=== PATIENT | male | born 1960 | race Caucasian/White ===

== ENCOUNTER → 2016-04-12 | Outpatient (CLI) | payer OTHER ==
[~2016-04-12] MED LIST: ADVI200C5 PO; ARIP240S PO; FLOM5CAP PO; GABA-283 PO; METH-107 PO; NAPR500T2 PO; PANT40TA2 PO; PERC5TAB6 PO; PRAZ1CAP PO; SERT-141 PO; TIZA4CAP3 PO; TRAZ100T4 PO; ZOFR20TA PO
[2016-04-12 15:34] LABS: ALBUMIN 4.5 GM/DL (3.2-5.2); ALKALINE PHOSPHATASE 84 U/L (45-117); ALT/SGPT 77 U/L (12-78); ANION GAP 9 MEQ/L (8-16); AST/SGOT 29 U/L (15-37); BILIRUBIN,TOTAL 1.2 MG/DL (0.2-1.0); BLOOD UREA NITROGEN 18 MG/DL (7-18); CALCIUM LEVEL 9.1 MG/DL (8.5-10.1); CARBON DIOXIDE LEVEL 27 MEQ/L (21-32); CHLORIDE LEVEL 104 MEQ/L (98-107); CHOLESTEROL LEVEL 288 MG/DL (<200); GLOMERULAR FILTRATION RATE > 60.0 (>56); GLUCOSE, FASTING 91 MG/DL (70-105); POTASSIUM SERUM 4.1 MEQ/L (3.5-5.1); SODIUM LEVEL 140 MEQ/L (136-145); TOTAL PROTEIN 7.5 GM/DL (6.4-8.2); TRIGLYCERIDES LEVEL 179 MG/DL (<150)
== END ==
LOC: M LAB 14:20
PROVIDERS: ATTEND Family Medicine Addiction Medicine
DX: E78.5 Hyperlipidemia, unspecified (principal)

== ENCOUNTER → 2016-04-27 | Outpatient (CLI) | payer OTHER ==
[2016-04-27 14:04] LABS: MEAN CORPUSCULAR HGB CONC 34.7 g/dl (32.0-36.5); MEAN CORPUSCULAR VOLUME 89.1 fl (80.0-96.0); RED CELL DISTRIBUTION WIDTH 12.8 % (11.5-14.5); WHITE BLOOD COUNT 8.2 K/mm3 (4.0-10.0)
[2016-04-27 14:18] LABS: ALBUMIN 4.3 GM/DL (3.2-5.2); ALBUMIN/GLOBULIN RATIO 1.43 (1.00-1.93); ALKALINE PHOSPHATASE 76 U/L (45-117); ALT/SGPT 71 U/L (12-78); ANION GAP 9 MEQ/L (8-16); AST/SGOT 26 U/L (15-37); BLOOD UREA NITROGEN 20 MG/DL (7-18); CALCIUM LEVEL 9.2 MG/DL (8.5-10.1); CARBON DIOXIDE LEVEL 28 MEQ/L (21-32); CHLORIDE LEVEL 103 MEQ/L (98-107); CHOLESTEROL LEVEL 244 MG/DL (<200); CREATININE FOR GFR 1.29 MG/DL (0.70-1.30); GLOMERULAR FILTRATION RATE > 60.0 (>56); GLUCOSE, FASTING 89 MG/DL (70-105); POTASSIUM SERUM 4.2 MEQ/L (3.5-5.1); SODIUM LEVEL 140 MEQ/L (136-145); TOTAL PROTEIN 7.3 GM/DL (6.4-8.2); TRIGLYCERIDES LEVEL 226 MG/DL (<150)
== END ==
LOC: M LAB 13:01
PROVIDERS: ATTEND Nurse Practitioner Family
DX: Z51.81 Encounter for therapeutic drug level monitoring (principal)

== ENCOUNTER 2016-06-13 10:29 | Emergency (ER) | payer OTHER ==
[~2016-06-13] VITALS: Ht 162.6 cm; Wt 93.0 kg
[~2016-06-13 10:29] MED LIST changes: -SERT-141 PO; +SERT50TA PO
[2016-06-13] MEDS ORDERED: GABA-283 PO (11:26)
[2016-06-13] MEDS ORDERED: FLOM5CAP PO (11:26)
[2016-06-13] MEDS ORDERED: OXYB5TA PO (11:26)
[2016-06-13] MEDS ORDERED: ARIP1TAB3 PO (11:26)
[2016-06-13] MEDS ORDERED: TYLE650T35 PO (11:26)
[2016-06-13] MEDS ORDERED: NS 500 ML IV ONE (12:45)
[2016-06-13] MEDS ORDERED: ASPIRIN 81 MG CHEW TABLET PO ONE (12:45)
[2016-06-13 13:40] LABS: BASO % 0.2 % (0.0-1.0); EOS # 0.1 K/mm3 (0.0-0.50); EOS % 2.2 % (0.0-3.0); LARGE UNSTAINED CELL # 0.1 K/mm3 (0.0-0.4); LARGE UNSTAINED CELL % 1.8 % (0.0-4.0); LYMPH # 0.8 K/mm3 (1.5-4.5); LYMPH % 15.7 % (24.0-44.0); MEAN CORPUSCULAR HGB CONC 34.8 g/dl (32.0-36.5); MEAN CORPUSCULAR VOLUME 89.2 fl (80.0-96.0); MONO # 0.4 K/mm3 (0.0-0.8); MONO % 6.9 % (0.0-5.0); NEUTROPHILS # 3.9 K/mm3 (1.8-7.7); NEUTROPHILS % 73.2 % (36.0-66.0); PLATELET COUNT, AUTOMATED 200 k/mm3 (150-450); RED CELL DISTRIBUTION WIDTH 13.1 % (11.5-14.5); WHITE BLOOD COUNT 5.3 K/mm3 (4.0-10.0)
[2016-06-13 13:57] LABS: ANION GAP 9 MEQ/L (8-16); BLOOD UREA NITROGEN 19 MG/DL (7-18); CARBON DIOXIDE LEVEL 27 MEQ/L (21-32); CHLORIDE LEVEL 104 MEQ/L (98-107); CREATININE FOR GFR 1.25 MG/DL (0.70-1.30); GLOMERULAR FILTRATION RATE > 60.0 (>56); GLUCOSE, FASTING 89 MG/DL (70-105); POTASSIUM SERUM 4.6 MEQ/L (3.5-5.1); SODIUM LEVEL 140 MEQ/L (136-145)
--- NOTE | 2016-06-13 15:29 | REP ---
Portable chest x-ray: Single view. History: Dyspnea and cough. Comparison study August 01, 2015. Findings: The lungs are symmetrically aerated and free of infiltrate. Pleural angles are sharp. Cardiomediastinal silhouette is unchanged from the comparison study. Heart size is mildly prominent as before. Pulmonary vasculature is not increased. No significant bony abnormalities seen. There is a metallic anchor in the glenoid on the left. Impression: Mildly prominent heart as before. No active disease. Signed by Luis Alfaro MD 06/13/2016 07:18 P
[2016-06-13] MEDS ORDERED: NS 1,000 ML IV ONE (15:30)
[2016-06-13 16:03] VITALS: BP 108/73
[2016-06-13] MEDS ORDERED: TUSSLIQ3 PO (17:15)
--- NOTE | 2016-06-14 08:53 | ECGEPIP ---
Stationary ECG Study [facility] - ED Test Date: 2016-06-13 Pat Name: AMADOR WILKINS Department: Room: - Gender: M Towel Sorter: sajan : 1960 Requested By: MARICHUY Samuel Order Number: [id number] Reading MD: Tangela Lee Measurements Intervals [place] Rate: 68 P: 50 TX: 206 QRS: 52 QRSD: 101 T: 30 QT: 337 QTc: 359 Interpretive Statements SINUS RHYTHM EARLY REPOLARIZATION, CLINICAL CORRELATION TO EXCLUDE ISCHEMIA DECREASED RATE 08/01/15 Electronically Signed On 06-14-2016 8:53:48 EDT by Tangela Lee
== END 2016-06-13 17:39 | disposition home or self-care (01) ==
LOC: M ED 12:17
DX: J02.8 Acute pharyngitis due to other specified organisms (principal); R05 Cough

== ENCOUNTER 2016-06-30 12:37 | Outpatient (RCR) | payer OTHER ==
[~2016-06-30 12:37] MED LIST changes: +ARIP1TAB3 PO; +OXYB5TA PO; +TUSSLIQ3 PO; +TYLE650T35 PO
== END 2016-07-01 ==
LOC: M PT 12:37
PROVIDERS: ATTEND Orthopaedic Surgery
DX: Z51.89 Encounter for other specified aftercare (principal); M54.5 Low back pain

== ENCOUNTER 2016-07-06 14:26 | Outpatient (RCR) | payer OTHER | END 2016-07-31 | LOC: M PT 14:26 | PROVIDERS: ATTEND Orthopaedic Surgery | DX: Z51.89 Encounter for other specified aftercare (principal); M51.36 Other intervertebral disc degeneration, lumbar region ==

== ENCOUNTER → 2016-09-01 | Outpatient (CLI) | payer OTHER | LOC: M SMT 10:15 | PROVIDERS: ATTEND Nurse Practitioner Women's Health | DX: Z12.5 Encounter for screening for malignant neoplasm of prostate (principal) ==

== ENCOUNTER → 2016-12-15 | Outpatient (CLI) | payer OTHER ==
[~2016-12-15] MED LIST changes: -METH-107 PO; +METH1TAB40 PO; -NAPR500T2 PO; +NAPR500T3 PO; -OXYB5TA PO; +OXYB5TAB10 PO; +PERC5TAB12 PO; -PERC5TAB6 PO; +TRAZ-136 PO; -TRAZ100T4 PO
--- NOTE | 2016-12-15 10:03 | REP ---
Clinical: Pain. Technique: AP and lateral views of the left foot. Findings: Mild age-related changes are appreciated including joint space narrowing at the interphalangeal joints as well as subtle periarticular sclerosis at the first and second metatarsophalangeal joint. No acute fracture dislocation. Impression: Mild age-related degenerative changes. Signed by Steve Bettencourt MD 12/15/2016 09:55 A
== END ==
LOC: M RAD 09:13
PROVIDERS: ATTEND Family Medicine Addiction Medicine
DX: M79.672 Pain in left foot (principal); M19.072 Primary osteoarthritis, left ankle and foot

== ENCOUNTER 2017-03-01 14:18 | Outpatient (RCR) | payer OTHER ==
[~2017-03-01 14:18] MED LIST changes: +ATOR40TA75 PO; +NEXI1CAP4 PO
== END 2017-03-02 ==
LOC: M PT 14:18
PROVIDERS: ATTEND Family Medicine Addiction Medicine
DX: Z51.89 Encounter for other specified aftercare (principal); S29.012A Strain of muscle and tendon of back wall of thorax, initial encounter; X58.XXXA Exposure to other specified factors, initial encounter; Y92.89 Other specified places as the place of occurrence of the external cause; Y93.89 Activity, other specified; Y99.8 Other external cause status

== ENCOUNTER 2017-03-03 05:49 | Day surgery (SDC) | payer OTHER ==
[~2017-03-03] VITALS: Ht 162.6 cm; Wt 89.4 kg
[2017-03-03] VITALS (9 sets, daily range): BP systolic 129–147; BP diastolic 70–92
[2017-03-03] MEDS ORDERED: CEFAZOLIN SOD 1 GM in APPROPRIATE DILUENT 1 EA IV ONE (06:00)
[2017-03-03] MEDS ORDERED: LR 1,000 ML IV ONE (06:00)
[2017-03-03] MEDS ORDERED: NS 1,000 ML IV ONE (06:00)
[2017-03-03] MEDS ORDERED: MIDAZOLAM INJ 2 MG/2 ML VIAL (J2250) As Ordered ONE (07:14)
[2017-03-03] MEDS ORDERED: dexameTHASONE 4 MG/ML 1ML VIAL (J1100) As Ordered ONE (07:14)
[2017-03-03] MEDS ORDERED: fentaNYL 100 MCG/2 ML INJECTION (J3010) As Ordered ONE ×2 (07:14→08:38)
[2017-03-03] MEDS ORDERED: ROCURONIUM BROMIDE 50 MG/5 ML VIAL As Ordered ONE (07:14)
[2017-03-03] MEDS ORDERED: PROPOFOL 200 MG/20 ML VIAL As Ordered ONE ×2 (07:14→07:57)
[2017-03-03] MEDS ORDERED: BUPIVACAINE/EPIN 0.25% 30 ML VIAL As Ordered ONE (07:18)
[2017-03-03] MEDS ORDERED: GLYCOPYRROLATE INJ 0.2 MG/ML 2 ML VIAL As Ordered ONE (08:12)
[2017-03-03] MEDS ORDERED: NEOSTIGMINE 10 MG/10 ML VIAL (J2710) As Ordered ONE (08:12)
[2017-03-03] MEDS ORDERED: ONDANSETRON 4MG/2ML VIAL (J2405) As Ordered ONE (08:12)
[2017-03-03] MEDS ORDERED: KETOROLAC 60 MG/2 ML VIAL (J1885) As Ordered ONE (08:16)
[2017-03-03] MEDS: fentaNYL 100 MCG/2 ML INJECTION (J3010) IV PRN ×4 (08:41→08:56)
[2017-03-03] MEDS ORDERED: PERCOCET 5MG/325MG TAB PO PRN (09:00)
[2017-03-03] MEDS ORDERED: ONDANSETRON 4MG/2ML VIAL (J2405) IV PRN ×2 (09:00)
[2017-03-03] MEDS ORDERED: LR 1,000 ML IV SCH ×2 (09:00)
[2017-03-03] MEDS ORDERED: NORCO, ANEXSIA 5/325MG TABLET (HYDROcodone/ACETAMINOPHEN) PO PRN ×2 (09:00→15:15)
[2017-03-03] MEDS ORDERED: MORPHINE 2 MG/ML 1ML SYRINGE IV PRN (09:00)
[2017-03-03] MEDS ORDERED: HYDROmorphone HCL 1 MG/ML SYRINGE (J1170) IV PRN (09:00)
[2017-03-03] MEDS ORDERED: NORCO, ANEXSIA 5/325MG TABLET (HYDROcodone/ACETAMINOPHEN) PO ONE (15:15)
[2017-03-03] MEDS: KETOROLAC 30 MG/ML VIAL (J1885) IV SCH ×2 (16:40→22:09)
[2017-03-04] VITALS: BP 138/83
[2017-03-04 04:00] VITALS: BP 142/92
[2017-03-04] MEDS: KETOROLAC 30 MG/ML VIAL (J1885) IV SCH (05:00)
--- NOTE | 2017-03-04 06:17 | RO ---
DATE OF PROCEDURE: 03/03/2017 PREOPERATIVE DIAGNOSIS: Umbilical hernia. POSTOPERATIVE DIAGNOSIS: Umbilical hernia. PROCEDURE: Umbilical hernia repair with ventral patch. SURGEON: Dr. Mario Allen AUTOMATIC EDGER: ANESTHESIA: General endotracheal anesthesia. ESTIMATED BLOOD LOSS (EBL): Minimal. FLUIDS: Crystalloid. BRIEF PROCEDURE SUMMARY: The patient was brought to the operating room and was given general anesthesia. After adequate anesthesia and preoperative antibiotics were given, the patient was prepped and draped in sterile fashion. Next, a curvilinear incision on the inferior aspect of the umbilicus was made with skin knife. Electrocautery was used cut through dermis, underlying subcutaneous tissue down to the fascia itself. The hernia sac was dissected all the way to the level of the fascia circumferentially and then the hernia sac was transected using electrocautery. There was some preperitoneal fat coming into the hernia itself and this was taken down with electrocautery. Then, a ventral patch was placed in the peritoneum and brought up to the abdominal wall and the site closed with three [id number] #0 Ethibond sutures. The dermis was brought together with #3-0 Vicryl. #4-0 Vicryl was used to approximate the skin. Steri-Strips and dry sterile dressing was applied. She was awakened, extubated and brought to the recovery room awake, alert and hemodynamic stable. Sponge and needle counts correct times two.
[2017-03-04 08:00] VITALS: BP 135/85
[2017-03-04] MEDS ORDERED: NORCOTAB PO (08:57)
== END 2017-03-04 11:00 | disposition home or self-care (01) ==
LOC: M SDC 05:49 → M PED 09:56 → M SDC 03-04 11:00
PROVIDERS: ATTEND Surgery
DX: K42.9 Umbilical hernia without obstruction or gangrene (principal); F41.9 Anxiety disorder, unspecified; F32.9 Major depressive disorder, single episode, unspecified; E78.00 Pure hypercholesterolemia, unspecified; K21.9 Gastro-esophageal reflux disease without esophagitis; M12.9 Arthropathy, unspecified; R32 Unspecified urinary incontinence; Z88.8 Allergy status to other drugs, medicaments and biological substances; Z79.899 Other long term (current) drug therapy; Z92.3 Personal history of irradiation
CPT/HCPCS: 49585; C1781

== ENCOUNTER 2017-04-04 12:19 | Outpatient (RCR) | payer OTHER | END 2017-05-03 | LOC: M PT 12:19 | DX: S29.012A Strain of muscle and tendon of back wall of thorax, initial encounter (principal) | CPT/HCPCS: 97110 ==

== ENCOUNTER → 2017-04-14 | Outpatient (CLI) | payer OTHER | LOC: M RAD 09:21 | DX: S29.012A Strain of muscle and tendon of back wall of thorax, initial encounter (principal); X58.XXXA Exposure to other specified factors, initial encounter; Y92.89 Other specified places as the place of occurrence of the external cause | CPT/HCPCS: 72072 ==

== ENCOUNTER 2017-05-09 13:48 | Outpatient (RCR) | payer OTHER | END 2017-05-31 | LOC: M PT 13:48 | DX: Z51.89 Encounter for other specified aftercare (principal); M25.511 Pain in right shoulder; M25.512 Pain in left shoulder; M79.621 Pain in right upper arm; M79.622 Pain in left upper arm | CPT/HCPCS: 97110 ==

== ENCOUNTER → 2017-06-28 | Outpatient (CLI) | payer OTHER ==
[2017-06-28 13:06] LABS: HEMATOCRIT 45.3 % (42.0-52.0); HEMOGLOBIN 15.3 g/dl (14.0-18.0); MEAN CORPUSCULAR HGB CONC 33.8 g/dl (32.0-36.5); MEAN CORPUSCULAR VOLUME 88.8 fl (80.0-96.0); PLATELET COUNT, AUTOMATED 214 10^3/uL (150-450); WHITE BLOOD COUNT 6.5 10^3/uL (4.0-10.0)
[2017-06-28 13:39] LABS: ALBUMIN 4.3 GM/DL (3.2-5.2); ALBUMIN/GLOBULIN RATIO 1.34 (1.00-1.93); ALKALINE PHOSPHATASE 76 U/L (45-117); ALT/SGPT 71 U/L (12-78); ANION GAP 8 MEQ/L (8-16); AST/SGOT 42 U/L (7-37); BLOOD UREA NITROGEN 18 MG/DL (7-18); CALCIUM LEVEL 8.7 MG/DL (8.5-10.1); CARBON DIOXIDE LEVEL 25 MEQ/L (21-32); CHLORIDE LEVEL 106 MEQ/L (98-107); CHOLESTEROL LEVEL 159 MG/DL (<200); CHOLESTEROL RISK RATIO 3.975 (<5); CREATININE FOR GFR 1.05 MG/DL (0.70-1.30); GLOMERULAR FILTRATION RATE > 60.0 (>56); GLUCOSE, FASTING 95 MG/DL (70-100); HDL CHOLESTEROL 40 MG/DL (>40); NON-HDL-C 119 MG/DL; POTASSIUM SERUM 4.4 MEQ/L (3.5-5.1); SODIUM LEVEL 139 MEQ/L (136-145); TOTAL PROTEIN 7.5 GM/DL (6.4-8.2); TRIGLYCERIDES LEVEL 175 MG/DL (<150)
== END ==
LOC: M LAB 12:25
DX: F32.89 Other specified depressive episodes (principal)
CPT/HCPCS: 84443

== ENCOUNTER → 2017-06-28 | Outpatient (CLI) | payer OTHER | LOC: M LAB 12:27 | DX: Z12.5 Encounter for screening for malignant neoplasm of prostate (principal) | CPT/HCPCS: 84153 ==

== ENCOUNTER → 2018-01-26 | Outpatient (CLI) | payer OTHER ==
[2018-01-26 12:11] LABS: BASO # 0.1 10^3/uL (0.0-0.2); BASO % 0.7 % (0.0-1.0); EOS # 0.1 10^3/uL (0.0-0.50); EOS % 1.4 % (0.0-3.0); HEMATOCRIT 46.4 % (42.0-52.0); HEMOGLOBIN 15.5 g/dl (13.5-17.5); IMMATURE GRANULOCYTE # 0.1 10^3/uL (0-0); IMMATURE GRANULOCYTE % 0.9 % (0-3.0); LYMPH # 1.4 10^3/uL (1.5-4.5); LYMPH % 19.9 % (24.0-44.0); MEAN CORPUSCULAR HEMOGLOBIN 30.3 pg (27.0-33.0); MEAN CORPUSCULAR HGB CONC 33.4 g/dl (32.0-36.5); MEAN CORPUSCULAR VOLUME 90.8 fl (80.0-96.0); MONO # 0.7 10^3/uL (0.0-0.8); MONO % 10.5 % (0.0-5.0); NEUTROPHILS # 4.7 10^3/uL (1.8-7.7); NEUTROPHILS % 66.6 % (36.0-66.0); PLATELET COUNT, AUTOMATED 223 10^3/uL (150-450); RED BLOOD COUNT 5.11 10^6/uL (4.30-6.10); RED CELL DISTRIBUTION WIDTH 12.7 % (11.5-14.5)
[2018-01-26 16:01] LABS: ALBUMIN 4.5 GM/DL (3.2-5.2); ALBUMIN/GLOBULIN RATIO 1.61 (1.00-1.93); ALKALINE PHOSPHATASE 70 U/L (45-117); ALT/SGPT 51 U/L (12-78); ANION GAP 9 MEQ/L (8-16); AST/SGOT 26 U/L (7-37); BILIRUBIN,TOTAL 0.7 MG/DL (0.2-1.0); BLOOD UREA NITROGEN 21 MG/DL (7-18); CALCIUM LEVEL 9.7 MG/DL (8.5-10.1); CARBON DIOXIDE LEVEL 26 MEQ/L (21-32); CHLORIDE LEVEL 106 MEQ/L (98-107); CHOLESTEROL LEVEL 149 MG/DL (<200); CHOLESTEROL RISK RATIO 4.138 (<5); CREATININE FOR GFR 1.04 MG/DL (0.70-1.30); GLOMERULAR FILTRATION RATE > 60.0 (>56); GLUCOSE, FASTING 90 MG/DL (70-100); HDL CHOLESTEROL 36 MG/DL (>40); LDL CHOLESTEROL 69 MG/DL (<100); NON-HDL-C 113 MG/DL; POTASSIUM SERUM 4.4 MEQ/L (3.5-5.1); SODIUM LEVEL 141 MEQ/L (136-145); TOTAL PROTEIN 7.3 GM/DL (6.4-8.2); TRIGLYCERIDES LEVEL 222 MG/DL (<150)
== END ==
LOC: M RAD 10:59
DX: M25.522 Pain in left elbow (principal)
CPT/HCPCS: 73080

== ENCOUNTER → 2018-02-16 | Outpatient (CLI) | payer OTHER | LOC: M RAD 10:47 | DX: M46.1 Sacroiliitis, not elsewhere classified (principal); M51.16 Intervertebral disc disorders with radiculopathy, lumbar region | CPT/HCPCS: 72148 ==

== ENCOUNTER → 2018-08-03 | Outpatient (CLI) | payer OTHER ==
[~2018-08-03] MED LIST changes: +FLOM0.4C39 PO; -FLOM5CAP PO; -GABA-283 PO; +GABA-845 PO; +GABA600T4 PO; +HYDR-3715 PO; +NAPR-885 PO; -NAPR500T3 PO; +OMEP20CA3 PO; -PANT40TA2 PO; +PANT40TA3 PO; +SERT-141 PO; -SERT50TA PO; +TIZA4CAP PO; -TIZA4CAP3 PO; -TRAZ-136 PO; +TRAZ-163 PO; -ZOFR20TA PO; +ZOFR4TAB16 PO
[2018-08-03 10:33] LABS: HEMOGLOBIN A1c 5.6 %
[2018-08-03 10:39] LABS: CHOLESTEROL LEVEL 153 MG/DL (<200); CHOLESTEROL RISK RATIO 4.371 (<5); HDL CHOLESTEROL 35 MG/DL (>40); LDL CHOLESTEROL 57 MG/DL (<100); NON-HDL-C 118 MG/DL; TRIGLYCERIDES LEVEL 306 MG/DL (<150)
[2018-08-03 10:49] LABS: HEPATITIS B SURFACE ANTIBODY POSITIVE (POSITIVE)
[2018-08-03 10:59] LABS: HEPATITIS B SURFACE ANTIGEN NEGATIVE (NEGATIVE)
[2018-08-03 11:28] LABS: HIV 1&2 SCREEN CENTAUR NEGATIVE (NEGATIVE)
[2018-08-03 11:53] LABS: CHLAMYDIA DNA AMPLIFICATION NEGATIVE (NEGATIVE); GC DNA AMPLIFICATION NEGATIVE (NEGATIVE)
[2018-08-05 00:06] LABS: HEPATITIS A IgG TOTAL Negative (Negative); HEPATITIS B CORE ANTIBODY IGG Positive (Negative); HSV IgM TYPES 1&2 <0.91 Ratio (0.00-0.90)
== END ==
LOC: M LAB 09:17
PROVIDERS: ATTEND Student in an Organized Health Care Education/Training Program
DX: Z11.3 Encounter for screening for infections with a predominantly sexual mode of transmission (principal)
CPT/HCPCS: 36415; 80061; 83036; 86694; 86704; 86706; 86708; 86780; 87340; 87389; 87491; 87591; G0472

== ENCOUNTER 2018-08-10 06:38 | Day surgery (SDC) | payer OTHER ==
[~2018-08-10] VITALS: Ht 162.6 cm; Wt 95.3 kg
[2018-08-10] MEDS ORDERED: NS 1,000 ML IV SCH (07:00)
[2018-08-10] MEDS ORDERED: PROPOFOL 200 MG/20 ML VIAL As Ordered ONE ×2 (07:22→08:19)
[2018-08-10] MEDS ORDERED: LIDOCAINE 2% INJ 100 MG/5 ML SDV (FOR ANES.) As Ordered ONE (07:22)
--- NOTE | 2018-08-10 08:36 | ROOR ---
Patient Name: Isaac Bravo Procedure Date: 08/10/2018 8:05 AM Date of : 1960 Age: 58 Room: [facility] Gender: Male Note Status: Finalized Procedure: Colonoscopy Indications: High risk colon cancer surveillance: Personal history of colonic polyps, Family history of colon cancer in a first-degree relative. (Hx of multiple polyps in ascending colon -several colonoscopies at that time.) Providers: Ziggy PITTS MD Referring MD: Damien JAIN MD Requesting Provider: Medicines: Monitored Anesthesia Care Complications: No immediate complications. Procedure: Pre-Anesthesia Assessment: - The heart rate, respiratory rate, oxygen saturations, blood pressure, adequacy of pulmonary ventilation, and response to care were monitored throughout the procedure. The Colonoscope was introduced through the anus and advanced to the cecum, identified by appendiceal orifice and ileocecal valve. The colonoscopy was performed without difficulty. The patient tolerated the procedure well. The quality of the bowel preparation was excellent. Findings: The perianal and digital rectal examinations were normal. Three sessile polyps were found in the splenic flexure and ascending colon. The polyps were diminutive in size. These polyps were removed with a cold snare. Resection and retrieval were complete. Small Internal Hemorrhoids. Retroflexion in the right colon was performed. The exam was otherwise without abnormality on direct and retroflexion views. (Exam: Complete, Prep: Good or Excellent.) Impression: - (Exam: Complete, Prep: Good or Excellent.) - Three diminutive polyps at the splenic flexure and in the ascending colon, removed with a cold snare. Resected and retrieved. - Small Internal Hemorrhoids. - The examination was otherwise normal on direct and retroflexion views. Recommendation: - Repeat colonoscopy in 3 years for surveillance of multiple adenomas. (Todays findings are relatively unremarkable, but due to multiple polyps in 2011/2012, would recommend early colonoscopy one more time in about 3 years) Ziggy Pitts MD Ziggy PITTS MD 08/10/2018 8:36:32 AM Electronically signed by Ziggy PITTS MD Number of Addenda: 0 Note Initiated On: 08/10/2018 8:05 AM Estimated Blood Loss: Estimated blood loss: none.
[2018-08-10 08:50] VITALS: BP 102/76
== END 2018-08-10 09:12 | disposition home or self-care (01) ==
LOC: M OPP 06:38
PROVIDERS: ATTEND Internal Medicine Gastroenterology
DX: D12.2 Benign neoplasm of ascending colon (principal); D12.3 Benign neoplasm of transverse colon; K64.8 Other hemorrhoids; Z86.010 Personal history of colon polyps; Z80.0 Family history of malignant neoplasm of digestive organs

== ENCOUNTER → 2018-10-09 | Outpatient (CLI) | payer OTHER ==
[~2018-10-09] MED LIST changes: -OMEP20CA3 PO; +OMEP20CA4 PO
[2018-10-09 17:37] LABS: BLOOD UREA NITROGEN 19 MG/DL (7-18); CALCIUM LEVEL 8.9 MG/DL (8.5-10.1); CARBON DIOXIDE LEVEL 28 MEQ/L (21-32); CHLORIDE LEVEL 104 MEQ/L (98-107); CREATININE FOR GFR 1.01 MG/DL (0.70-1.30); GLOMERULAR FILTRATION RATE > 60.0 (>56); GLUCOSE, FASTING 88 MG/DL (70-100); SODIUM LEVEL 137 MEQ/L (136-145)
== END ==
LOC: M LAB 15:36
PROVIDERS: ATTEND Student in an Organized Health Care Education/Training Program
DX: R55 Syncope and collapse (principal)

== ENCOUNTER → 2018-10-09 | Outpatient (CLI) | payer OTHER ==
[2018-10-09 17:47] LABS: ALBUMIN 4.3 GM/DL (3.2-5.2); ALT/SGPT 70 U/L (12-78); BILIRUBIN,TOTAL 0.8 MG/DL (0.2-1.0); BLOOD UREA NITROGEN 19 MG/DL (7-18); CALCIUM LEVEL 8.8 MG/DL (8.5-10.1); CARBON DIOXIDE LEVEL 27 MEQ/L (21-32); CHLORIDE LEVEL 104 MEQ/L (98-107); CREATININE FOR GFR 0.99 MG/DL (0.70-1.30); GLOMERULAR FILTRATION RATE > 60.0 (>56); GLUCOSE, FASTING 89 MG/DL (70-100); POTASSIUM SERUM 4.1 MEQ/L (3.5-5.1); SODIUM LEVEL 137 MEQ/L (136-145); TOTAL PROTEIN 7.5 GM/DL (6.4-8.2)
== END ==
LOC: M LAB 15:46
PROVIDERS: ATTEND Nurse Practitioner Family
DX: F32.89 Other specified depressive episodes (principal)

== ENCOUNTER → 2018-10-09 | Outpatient (CLI) | payer OTHER | LOC: M LAB 15:43 | PROVIDERS: ATTEND Nurse Practitioner Women's Health | DX: Z12.5 Encounter for screening for malignant neoplasm of prostate (principal) ==

== ENCOUNTER → 2019-01-14 | Outpatient (CLI) | payer OTHER ==
[~2019-01-14] MED LIST changes: -ARIP1TAB3 PO; +ARIP1TAB44 PO
--- NOTE | 2019-01-15 08:55 | REP ---
Clinical: Lung screening. History smoking. Comparison: 08/01/2015 Technique: Axial low-dose noncontrast images from the thoracic inlet to the upper abdomen using lung screening technique. Findings: The lung [place] are well-aerated. Chronic emphysematous changes with scattered subpleural scarring remains relatively stable along with scattered bronchiectasis. No consolidation, significant nodule or mass lesion is appreciated. 6 mm noncalcified nodule along the periphery of the right lower lobe (image 62) remains stable. No pleural effusion/reaction or pneumothorax. Tracheobronchial tree is patent. Mediastinum demonstrates mild atherosclerotic changes of the coronary arteries without cardiomegaly. Impression: Lung-RADS category II. No significant nodule or suspicious abnormality. Chronic stable changes including stable 6 mm noncalcified right lower lobe nodule unchanged compared to 2016. Electronically Signed by Steve Bettencourt MD 01/15/2019 08:46 A
== END ==
LOC: M RAD 09:13
PROVIDERS: ATTEND Student in an Organized Health Care Education/Training Program
DX: Z87.891 Personal history of nicotine dependence (principal); Z12.2 Encounter for screening for malignant neoplasm of respiratory organs

== ENCOUNTER → 2019-02-14 | Outpatient (CLI) | payer OTHER ==
--- NOTE | 2019-02-19 11:36 | SLEEPHOME ---
DATE OF PROCEDURE: 02/14/2019 ORDERING PROVIDER: MCKAY Grider, copy to Dr. Harmon. INTERPRETATION: Diagnostic home sleep testing was performed due to the concern for the obstructive sleep apnea syndrome in this patient with history excessive somnolence and nonrestorative sleep. For testing a nocturnal T3 respiratory monitoring device was used. Continuous record was made of pulse oxygen saturation airflow, chest, abdominal strain and body position. 11 hours and 59 minutes of data were reviewed. There were 9 hours and 53 minutes marked as time in bed. During the interval marked time in bed, there were 181 respiratory events identified of 10 seconds in duration or greater for a respiratory disturbance index of 18.3. The events were primarily obstructive; 18 mixed and central apneas were seen. Baseline pulse rate 60 beats per minute. Pulse rate ranged 44-137. Baseline saturation was 92%. Lowest oxygen saturation 83%. Testing was performed in both the supine and non supine positions. IMPRESSION: Abnormal home sleep testing with repetitive respiratory events and oxygen desaturations to 83% with a respiratory event index of 18.3 is consistent with the obstructive sleep apnea syndrome. RECOMMENDATIONS: The patient should be encouraged to undergo formal sleep evaluation.
== END ==
LOC: M SLEEP HO 10:32
PROVIDERS: ATTEND Nurse Practitioner Family
DX: R06.83 Snoring (principal)

== ENCOUNTER → 2019-05-08 | Outpatient (REF) | payer OTHER ==
[~2019-05-08] MED LIST changes: +OMEP1CAP73 PO; -OMEP20CA4 PO; -TRAZ-163 PO; +TRAZ-257 PO
== END ==
LOC: M SFHCPLAZ 08:27
PROVIDERS: ATTEND Family Medicine
DX: E78.2 Mixed hyperlipidemia (principal)

== ENCOUNTER 2019-05-16 09:47 | Emergency (ER) | payer OTHER ==
[~2019-05-16] VITALS: Ht 162.6 cm; Wt 94.6 kg
[~2019-05-16 09:47] MED LIST changes: -NAPR-837 PO
[2019-05-16] MEDS ORDERED: NAPR-837 PO (11:15)
[2019-05-16] MEDS ORDERED: KETOROLAC 60 MG/2 ML VIAL (J1885) IM ONE (11:15)
[2019-05-16 11:39] VITALS: BP 106/65
== END 2019-05-16 11:40 | disposition home or self-care (01) ==
LOC: M ED 09:47
DX: M51.37 Other intervertebral disc degeneration, lumbosacral region (principal); M62.830 Muscle spasm of back; E78.00 Pure hypercholesterolemia, unspecified; F33.9 Major depressive disorder, recurrent, unspecified; F41.9 Anxiety disorder, unspecified; G47.30 Sleep apnea, unspecified; K21.9 Gastro-esophageal reflux disease without esophagitis; Z99.89 Dependence on other enabling machines and devices; Z79.899 Other long term (current) drug therapy; Z88.8 Allergy status to other drugs, medicaments and biological substances
CPT/HCPCS: 96372; 99283; J1885

== ENCOUNTER → 2019-05-16 | Outpatient (CLI) | payer OTHER ==
[~2019-05-16] MED LIST changes: +NAPR-837 PO
[2019-05-16 10:51] LABS: CHOLESTEROL RISK RATIO 3.567 (<5)
== END ==
LOC: M LAB 09:12
PROVIDERS: ATTEND Student in an Organized Health Care Education/Training Program
DX: E78.5 Hyperlipidemia, unspecified (principal)

== ENCOUNTER → 2019-07-18 | Outpatient (REF) | payer OTHER ==
[~2019-07-18] MED LIST changes: +NAPR-837 PO
== END ==
LOC: M LAB REF 16:48
PROVIDERS: ATTEND Dermatology
DX: L82.0 Inflamed seborrheic keratosis (principal)

== ENCOUNTER → 2019-11-11 | Outpatient (CLI) | payer OTHER ==
[~2019-11-11] MED LIST changes: +ACET650T61 PO; +ARIP1TAB2 PO; +ATOR1TAB21 PO; +CLON-412 PO; +PANT40TA29 PO; -PANT40TA3 PO; +SERT-138 PO; -TYLE650T35 PO
== END ==
LOC: M LAB 11:38
PROVIDERS: ATTEND Nurse Practitioner Women's Health
DX: Z12.5 Encounter for screening for malignant neoplasm of prostate (principal)

== ENCOUNTER 2019-12-16 10:10 | Emergency (ER) | payer OTHER ==
[~2019-12-16] VITALS: Ht 162.6 cm; Wt 90.0 kg
[~2019-12-16 10:10] MED LIST changes: -ARIP1TAB2 PO; -ATOR1TAB21 PO; -CLON-412 PO; -SERT-138 PO
[2019-12-16] MEDS ORDERED: CLON-412 PO (10:48)
[2019-12-16 11:51] LABS: HEMATOCRIT 48.4 % (42.0-52.0); MEAN CORPUSCULAR HEMOGLOBIN 29.9 pg (27.0-33.0); MEAN CORPUSCULAR HGB CONC 33.1 g/dl (32.0-36.5); MEAN CORPUSCULAR VOLUME 90.3 fl (80.0-96.0); PLATELET COUNT, AUTOMATED 178 10^3/uL (150-450); RED BLOOD COUNT 5.36 10^6/uL (4.30-6.10); WHITE BLOOD COUNT 9.2 10^3/uL (4.0-10.0)
[2019-12-16 12:25] LABS: AMPHETAMINES LEVEL URINE NEGATIVE (NEGATIVE); BARBITURATES URINE NEGATIVE (NEGATIVE); BENZODIAZEPINES URINE NEGATIVE (NEGATIVE); CANNABINOIDS URINE NEGATIVE (NEGATIVE); COCAINE METABOLITE URINE NEGATIVE (NEGATIVE); METHADONE URINE NEGATIVE (NEGATIVE); OPIATES URINE NEGATIVE (NEGATIVE); PHENCYCLIDINE URINE NEGATIVE (NEGATIVE)
[2019-12-16 12:28] LABS: ACETAMINOPHEN LEVEL < 2.0 UG/ML (10.0-30.0); ALBUMIN 4.4 GM/DL (3.2-5.2); ALT/SGPT 127 U/L (12-78); BILIRUBIN,DIRECT 0.3 MG/DL (0.0-0.2); BILIRUBIN,TOTAL 1.1 MG/DL (0.2-1.0); BLOOD UREA NITROGEN 17 MG/DL (7-18); CALCIUM LEVEL 9.3 MG/DL (8.5-10.1); CARBON DIOXIDE LEVEL 25 MEQ/L (21-32); CHLORIDE LEVEL 106 MEQ/L (98-107); CREATININE FOR GFR 1.09 MG/DL (0.70-1.30); ETHYL ALCOHOL (ETHANOL) < 0.003 % (0.000-0.010); GLOMERULAR FILTRATION RATE > 60.0 (>56); GLUCOSE, FASTING 110 MG/DL (70-100); POTASSIUM SERUM 3.9 MEQ/L (3.5-5.1); SALICYLATE LEVEL < 1.7 MG/DL (5.0-30.0); SODIUM LEVEL 138 MEQ/L (136-145); TOTAL PROTEIN 7.9 GM/DL (6.4-8.2)
[2019-12-16] MEDS ORDERED: ATOR1TAB21 PO (13:06)
[2019-12-16] MEDS ORDERED: SERT-138 PO (13:06)
[2019-12-16] MEDS ORDERED: ARIP1TAB2 PO (13:06)
[2019-12-16] MEDS ORDERED: TIZA4CAP PO (13:32)
[2019-12-16] MEDS ORDERED: ATOR40TA75 PO (13:32)
[2019-12-16] MEDS ORDERED: ACETAMINOPHEN TAB 650MG DOSE (2X325MG) PO ONE (13:45)
[2019-12-16 14:39] VITALS: BP 120/101
== END 2019-12-16 14:42 | disposition home or self-care (01) ==
LOC: M ED 10:10
DX: F43.0 Acute stress reaction (principal); F32.9 Major depressive disorder, single episode, unspecified; F41.9 Anxiety disorder, unspecified; F43.10 Post-traumatic stress disorder, unspecified; Z91.5 Personal history of self-harm; J44.9 Chronic obstructive pulmonary disease, unspecified; Z88.8 Allergy status to other drugs, medicaments and biological substances; Z79.899 Other long term (current) drug therapy
CPT/HCPCS: 36415; 80048; 80076; 80307; 84443; 85027; 99284; G0480

== ENCOUNTER → 2020-01-10 | Outpatient (REF) | payer OTHER ==
[~2020-01-10] MED LIST changes: +ARIP1TAB2 PO; +ATOR1TAB21 PO; +CLON-412 PO; +SERT-138 PO
== END ==
LOC: M SFHCPLAZ 11:05
PROVIDERS: ATTEND Family Medicine
DX: R53.83 Other fatigue (principal); E78.2 Mixed hyperlipidemia

== ENCOUNTER → 2020-01-13 | Outpatient (CLI) | payer OTHER ==
[2020-01-13 12:56] LABS: BASO % 0.3 % (0.0-1.0); EOS # 0.1 10^3/uL (0.0-0.5); EOS % 1.9 % (0.0-3.0); HEMATOCRIT 46.9 % (42.0-52.0); HEMOGLOBIN 15.4 g/dl (13.5-17.5); MEAN CORPUSCULAR HEMOGLOBIN 29.6 pg (27.0-33.0); MEAN CORPUSCULAR HGB CONC 32.8 g/dl (32.0-36.5); MEAN CORPUSCULAR VOLUME 90.2 fl (80.0-96.0); MONO # 0.5 10^3/uL (0.0-0.8); MONO % 6.8 % (0.0-5.0); NEUTROPHILS # 5.5 10^3/uL (1.5-8.5); NEUTROPHILS % 76.2 % (36.0-66.0); PLATELET COUNT, AUTOMATED 187 10^3/uL (150-450); WHITE BLOOD COUNT 7.2 10^3/uL (4.0-10.0)
[2020-01-13 13:25] LABS: CHOLESTEROL RISK RATIO 4.083 (<5)
== END ==
LOC: M LAB 12:16
PROVIDERS: ATTEND Student in an Organized Health Care Education/Training Program
DX: R53.83 Other fatigue (principal); E78.2 Mixed hyperlipidemia

== ENCOUNTER → 2020-04-14 | Outpatient (CLI) | payer OTHER ==
[2020-04-14 13:04] LABS: BASO % 0.4 % (0.0-1.0); EOS # 0.1 10^3/uL (0.0-0.5); EOS % 1.3 % (0.0-3.0); HEMATOCRIT 45.6 % (42.0-52.0); LYMPH # 1.3 10^3/uL (1.5-5.0); LYMPH % 16.4 % (24.0-44.0); MEAN CORPUSCULAR HEMOGLOBIN 30.1 pg (27.0-33.0); MEAN CORPUSCULAR HGB CONC 32.9 g/dl (32.0-36.5); MEAN CORPUSCULAR VOLUME 91.4 fl (80.0-96.0); MONO # 0.6 10^3/uL (0.0-0.8); MONO % 7.6 % (0.0-5.0); NEUTROPHILS # 5.6 10^3/uL (1.5-8.5); NEUTROPHILS % 73.5 % (36.0-66.0); PLATELET COUNT, AUTOMATED 155 10^3/uL (150-450); RED BLOOD COUNT 4.99 10^6/uL (4.30-6.10); WHITE BLOOD COUNT 7.6 10^3/uL (4.0-10.0)
[2020-04-14 13:15] LABS: INR 1.12; PROTHROMBIN TIME 14.7 SECONDS (12.5-14.3)
[2020-04-14 13:16] LABS: PARTIAL THROMBOPLASTIN TIME 28.5 SECONDS (24.2-38.5)
[2020-04-14 16:01] LABS: HEPATITIS A ANTIBODY IGM NEGATIVE (NEGATIVE); HEPATITIS B SURFACE ANTIBODY POSITIVE (POSITIVE); HEPATITIS B SURFACE ANTIGEN NEGATIVE (NEGATIVE); HEPATITIS C VIRUS ABY INDEX < 0.0 INDEX (<0.8); HIV 1&2 SCREEN CENTAUR NEGATIVE (NEGATIVE)
[2020-04-15 14:08] LABS: ANTINUCLEAR ANTIBODIES DIRECT Negative (Negative)
== END ==
LOC: M LAB 12:32
PROVIDERS: ATTEND Student in an Organized Health Care Education/Training Program
DX: R23.3 Spontaneous ecchymoses (principal)

== ENCOUNTER 2020-04-22 10:22 | Emergency (ER) | payer OTHER ==
[~2020-04-22] VITALS: Ht 162.6 cm; Wt 98.8 kg
[~2020-04-22 10:22] MED LIST changes: +METH-1164 PO; -METH1TAB40 PO
--- OUTSIDE RECORDS SUMMARY | 2020-04-22 10:27 | CCD ---
Author Author [facility] Organization [facility] Address Unknown Phone Unavailable Care Team Providers Care Windmill Technician Name Role Phone Grace Manzanares Unavailable PROBLEMS Type Condition ICD9-CM Code [id number] Code Onset Dates Condition S tatus SNOMED Code Notes Problem Urinary incontinence, mixed N39.46 Active 4131 31235 Problem Urge incontinence N39.41 Active 21881562 Problem SARAH (obstructive sleep apnea) G47.33 Active 78 263548 Problem Depression with anxiety F41.8 Active 85947851 6 Problem Nodule of lower lobe of right lung R91.1 Activ e 829718096 Problem Restrictive lung disease J98.4 Active 6643385 5 Problem Chronic GERD K21.9 Active 993899156 Problem BMI 35.0-35.9,adult Z68.35 Active 129313293 Problem Lumbago with sciatica, right side M54.41 Active 552808921093700 Problem Other chronic pain G89.29 Active 91150956 Problem BMI 36.0-36.9,adult Z68.36 Active 197032504 Problem Rash or skin eruption accompanying infectious disease B99.9 Active 76125822 Problem Lumbago with sciatica, left side M54.42 Active 552118758 Problem Urinary tract infection, site not specified N39.0 Active 98622626 Problem Encounter for screening for lung cancer Z12.2 Active 272688496 Problem Mixed hyperlipidemia E78.2 Active 409832239 Problem Enlarged prostate with lower urinary tract symptoms N40.1 Active 59471253522612 Problem Fatigue, unspecified type R53.83 Active 135640 01 Problem Weight loss, non-intentional R63.4 Active 448 787276 Problem Intermittent palpitations R00.2 Active 492768 007 Problem Planning to commit suicide R45.851 Active 17326 0009 ALLERGIES Allergen (clinical drug ingredient) Drug/Non Drug Allergy do cumented on EMR Reaction Allergy Type Onset Date Status Flexeril itching, nausea Drug Allergy Active [place] Artie rash Non Drug Allergy Active ENCOUNTERS from 1960 to 2020-04-10 Encounter Location Date Provider Diagnosis [facility] [address] [place] [id number] 07 Apr, 2020 Grace Manzanares IMMUNIZATIONS Vaccine Route Administration Date Status Influenza (18 yrs & older) Flublok IM Intramuscular Jan 10, 2020 Administered Influenza (18 yrs & older) Flublok IM Intramuscular Jan 06, 2020 Administered Influenza (18 yrs & older) Flublok IM Intramuscular Dec 27 9 Administered Pneumococcal Adult 0.5mL (Pneumovax 23) IM Intramuscular Jan 10, 2020 Administered Influenza (6mo & up) Fluzone Unknown Apr 22, 2015 Ref used Influenza (6mo & up) Fluzone Unknown Mar 25, 2015 Ref used Influenza (6mo & up) Fluzone Unknown Mar 12, 2015 Ref used SOCIAL HISTORY Tobacco Use: Social History Observation Description Date Details (start date - stop date) Never Smoker Sex Assigned At : Social History Observation Description Sex Assigned At Unknown Education: Question Answer Notes Level of Education: Finished High School Audit Question Answer Notes Total Score: 0 Interpretation: Alcohol Education Sexual Hx: Question Answer Notes Had sex in the last 12 months (vaginal, oral, or anal)? No Have you ever had an STD? No Drug and Alcohol Question Answer Notes Total Score: 0 Interpretation: No problems reported BMI Care Goal Follow-Up Question Answer Notes Above Normal BMI Follow-Up Giving encouragement to exercise Tobacco Use: Question Answer Notes Are you a: never smoker REASON FOR REFERRAL No Information VITAL SIGNS No information MEDICATIONS Medication SIG (Take, Route, Frequency, Duration) Notes Start Da te End Date Status Sertraline HCl 100 MG 2 Orally Daily Active Prazosin HCl 1 MG 1 capsule at bedtime Orally Once a day Not-Taking Clonidine HCl 0.2 MG 1 tablet Orally Once a day Active Aripiprazole 10 MG 1 tablet Orally Once a day Active Acetaminophen ER 650 MG TAKE ONE TABLET BY MOUTH THR EE TIMES A DAY NEEDED for 30 Not-Taking tylenol 650 mg 1 tab Oral tid for 30 days Not-Taking Mupirocin 2 % 1 application Externally Three times a day for 1 0 day(s) Jan, Active TraZODone HCl 150 MG 1 tablet at bedtime Orally Once a day Not-Taking Tamsulosin HCl 0.4 mg 1 capsule Orally Once a day for 30 Active Mapap Arthritis Pain 650 MG 2 tablets as needed Orally every 8 hrs Not-Taking Tizanidine HCl 4 MG 1 tablet as needed Orally every 6 hrs Active Pantoprazole Sodium 40 MG 1 tablet Orally bid Not-Taking Prazosin HCl 1 MG 1 capsule at bedtime Orally Once a day Not-Taking Trazodone 50 100 mg 2 tab(s) p.o. daily Not-Taking Tamsulosin HCl 0.4 MG 1 capsule Orally Once a day for 30 Days Active Nexium 20 MG 1 capsule Orally Once a day Not-Taking Sertraline HCl 100 MG 1 1/2 tablet Orally Once a day Not-Taking Oxybutynin Chloride 5 MG 1 tablet bid for 30 Active Atorvastatin Calcium 80 MG 1 tablet Orally Once a day for 30 Active Depend Pant Large 1 ea N39.41 Weight as needed MDD 24 for 30 days August, Active Aspirin 81 MG 1 tablet Orally Once a day for 90 day(s) Active Gabapentin 600 MG 1 capsule Orally three times daily Active Acetaminophen 650 MG 1 tablet Orally three times daily as needed for 30 days May, Active Albuterol Sulfate HFA 108 (90 Base) MCG/ACT 1 puff as needed Inhalation every 4 hours as needed for 30 Days Jul, Acti ve Cipro 500 MG 1 tablet Orally Twice a day Mar, Not-Taking Omeprazole 20 MG 1 capsule Orally Once a day for 90 days Active Loratadine 10 MG 1 tablet Orally Once a day for 14 day(s) Jan, Active PROCEDURES No Information RESULTS No Results REASON FOR VISIT script from medline? MEDICAL (GENERAL) HISTORY Type Description Date Medical History Depression Medical History BPH Medical History Anxiety Medical History GERD Medical History Hypercholesterolemia Medical History PTSD Medical History Severe stenosis and hernated disc Medical History Umbilical hernia Medical History SARAH Medical History Insomnia and nightmares Surgical History Colon Surgery multiple 1316-2529 Surgical History Orthopedic surgeries-right leg, left loida ulder multiple Surgical History Left inguinal hernia repair 1984 Surgical History Upper endoscopy for heartburn 2015 Surgical History Colonoscopy 2015 Surgical History Umbilical hernia repair with ventral pat ch 2018 Surgical History colonoscopy aug-2018 Hospitalization History surgicaly related Goals Section No Information Health Concerns No Information MEDICAL EQUIPMENT No Information MENTAL STATUS No Information FUNCTIONAL STATUS No Information ASSESSMENTS No Information PLAN OF TREATMENT Medication Medication Name Sig Start Date Stop Date Aspirin 81 MG 1 tablet Orally Once a day for 90 day(s) Next Appt Details Provider Name:Betty Kumar, 2020-09-01 0 09:30:00 AM, [address], [place], [address], Insurance Providers Payer Name Payer Address Payer Phone Insured Name Patient Relati onship to Insured Coverage Start Date Coverage End Date [facility] [address] [facility] [phone] AMADOR WILKINS self
--- OUTSIDE RECORDS SUMMARY | 2020-04-22 10:27 | CCD ---
Author Author [facility] Organization [facility] Address Unknown Phone Unavailable Care Team Providers Care Manager Training Name Role Phone Betty Kumar Unavailable PROBLEMS Type Condition ICD9-CM Code YFG14-OX Code Onset Dates Condition S tatus SNOMED Code Notes Problem Urinary incontinence, mixed N39.46 Active 4139 35031 Problem Urge incontinence N39.41 Active 08988081 Problem SARAH (obstructive sleep apnea) G47.33 Active 78 596019 Problem Depression with anxiety F41.8 Active 44939933 6 Problem Nodule of lower lobe of right lung R91.1 Activ e 657143128 Problem Restrictive lung disease J98.4 Active 4122675 5 Problem Chronic GERD K21.9 Active 213791584 Problem BMI 35.0-35.9,adult Z68.35 Active 169074349 Problem Lumbago with sciatica, right side M54.41 Active 128463582442037 Problem Other chronic pain G89.29 Active 68308040 Problem BMI 36.0-36.9,adult Z68.36 Active 325607435 Problem Rash or skin eruption accompanying infectious disease B99.9 Active 76900445 Problem Lumbago with sciatica, left side M54.42 Active 219432326 Problem Urinary tract infection, site not specified N39.0 Active 36988308 Problem Encounter for screening for lung cancer Z12.2 Active 784948615 Problem Mixed hyperlipidemia E78.2 Active 940610694 Problem Enlarged prostate with lower urinary tract symptoms N40.1 Active 04119685705783 Problem Fatigue, unspecified type R53.83 Active 796084 01 Problem Weight loss, non-intentional R63.4 Active 448 437576 Problem Intermittent palpitations R00.2 Active 730408 007 Problem Planning to commit suicide R45.851 Active 33753 0009 ALLERGIES Allergen (clinical drug ingredient) Drug/Non Drug Allergy do cumented on EMR Reaction Allergy Type Onset Date Status Flexeril itching, nausea Drug Allergy Active [place] rash Non Drug Allergy Active ENCOUNTERS from 1960 to 2020-03-14 Encounter Location Date Provider Diagnosis [facility] [address] [place] [address] 11 Mar Betty Marcialjenny Urge incontinence N39.41 IMMUNIZATIONS Vaccine Route Administration Date Status Influenza [...] Notes Start Da te End Date Status Albuterol Sulfate HFA 108 (90 Base) MCG/ACT 1 puff as needed Inhalation every 4 hours as needed for 30 Days Jul, Acti ve Aripiprazole 10 MG 1 tablet Orally Once a day Active Tamsulosin HCl 0.4 MG 1 capsule Orally Once a day for 30 Days Active Gabapentin 600 MG 1 capsule Orally three times daily Active tylenol 650 mg 1 tab Oral tid for 30 days Not-Taking Acetaminophen ER 650 MG TAKE ONE TABLET BY MOUTH THR EE TIMES A DAY NEEDED for 30 Not-Taking Cipro 500 MG 1 tablet Orally Twice a day Mar, Not-Taking Atorvastatin Calcium 80 MG 1 tablet Orally Once a day for 30 Active TraZODone HCl 150 MG 1 tablet at bedtime Orally Once a day Not-Taking Mapap Arthritis Pain 650 MG 2 tablets as needed Orally every 8 hrs Not-Taking Depend Pant Large 1 ea N39.41 Weight as needed MDD 24 for 30 days August, Active Aspirin 81 MG 1 tablet Orally Once a day for 90 Active Sertraline HCl 100 MG 2 Orally Daily Active Acetaminophen 650 MG 1 tablet Orally three times daily as needed for 30 days May, Active Trazodone 50 100 mg 2 tab(s) p.o. daily Not-Taking Sertraline HCl 100 MG 1 1/2 tablet Orally Once a day Not-Taking Nexium 20 MG 1 capsule Orally Once a day Not-Taking Prazosin HCl 1 MG 1 capsule at bedtime Orally Once a day Not-Taking Tizanidine HCl 4 MG 1 tablet as needed Orally every 6 hrs Active Clonidine HCl 0.2 MG 1 tablet Orally Once a day Active Prazosin HCl 1 MG 1 capsule at bedtime Orally Once a day Not-Taking Pantoprazole Sodium 40 MG 1 tablet Orally bid Not-Taking Tamsulosin HCl 0.4 mg 1 capsule Orally Once a day for 30 Active Loratadine 10 MG 1 tablet Orally Once a day for 14 day(s) Jan, Active Mupirocin 2 % 1 application Externally Three times a day for 1 0 day(s) Jan, Active Oxybutynin Chloride 5 MG 1 tablet bid for 30 Active Omeprazole 20 MG 1 capsule Orally Once a day for 90 days Active PROCEDURES No Information RESULTS No Results REASON FOR VISIT script refills MEDICAL (GENERAL) HISTORY Type Description Date Medical History Depression Medical History BPH Medical History Anxiety Medical History GERD Medical History Hypercholesterolemia Medical History PTSD Medical History Severe stenosis and hernated disc Medical History Umbilical hernia Medical History SARAH Medical History Insomnia and nightmares Surgical History Colon Surgery multiple 7795-1236 Surgical History Orthopedic surgeries-right leg, left loida ulder multiple Surgical History Left inguinal hernia repair 1984 Surgical History Upper endoscopy for heartburn 2016 Surgical History Colonoscopy 2015 Surgical History Umbilical hernia repair with ventral pat ch 2017 Surgical History colonoscopy aug-2018 Hospitalization History surgicaly related Goals Section No Information Health Concerns No Information MEDICAL EQUIPMENT No Information MENTAL STATUS No Information FUNCTIONAL STATUS No Information ASSESSMENTS Encounter Date Diagnosis Assessment Notes Treatment Notes Treatm ent Clinical Notes Mar, Urge incontinence (ICD-10 - N39.41) PLAN OF TREATMENT Medication Medication Name Sig Start Date Stop Date Tamsulosin HCl 0.4 mg 1 capsule Orally Once a day for 30 Oxybutynin Chloride 5 MG 1 tablet bid for 30 Tamsulosin HCl 0.4 MG 1 capsule Orally Once a day for 30 Days Aspirin 81 MG 1 tablet Orally Once a day for 90 Next Appt Details Provider Name:Grace Manzanares, 2020-03-16 01 :30:00 PM, [address] [facility], [facility] [place], [address], Provider Name:Betty Kumar, 2020-09-01 0 09:30:00 AM, [address], [place], [address], Insurance Providers Payer Name Payer Address Payer Phone Insured Name Patient Relati onship to Insured Coverage Start Date Coverage End Date [facility] [employer] [facility] [address] [facility] [phone] AMADOR WILKINS self
--- OUTSIDE RECORDS SUMMARY | 2020-04-22 10:27 | CCD ---
Author Author [facility] Organization [facility] Address Unknown Phone Unavailable Care Team Providers Care Route Rider Supervisor Name Role Phone Grace Manzanares Unavailable PROBLEMS Type Condition ICD9-CM Code [id number] Code Onset Dates Condition S tatus SNOMED Code Notes Problem Urinary incontinence, mixed N39.46 Active 4130 97411 Problem Urge incontinence N39.41 Active 29393294 Problem SARAH (obstructive sleep apnea) G47.33 Active 78 186421 Problem Depression with anxiety F41.8 Active 66755737 6 Problem Nodule of lower lobe of right lung R91.1 Activ e 202122459 Problem Restrictive lung disease J98.4 Active 7220396 5 Problem Chronic GERD K21.9 Active 279408140 Problem BMI 35.0-35.9,adult Z68.35 Active 232093637 Problem Lumbago with sciatica, right side M54.41 Active 612606363392868 Problem Other chronic pain G89.29 Active 76367776 Problem BMI 36.0-36.9,adult Z68.36 Active 076232310 Problem Rash or skin eruption accompanying infectious disease B99.9 Active 54111189 Problem Lumbago with sciatica, left side M54.42 Active 700658392 Problem Urinary tract infection, site not specified N39.0 Active 97907312 Problem Encounter for screening for lung cancer Z12.2 Active 520584670 Problem Mixed hyperlipidemia E78.2 Active 356389099 Problem Enlarged prostate with lower urinary tract symptoms N40.1 Active 87923230550512 Problem Fatigue, unspecified type R53.83 Active 400345 01 Problem Weight loss, non-intentional R63.4 Active 448 002731 Problem Intermittent palpitations R00.2 Active 591042 007 Problem Planning to commit suicide R45.851 Active 72134 0009 ALLERGIES Allergen (clinical drug ingredient) Drug/Non Drug Allergy do cumented on EMR Reaction Allergy Type Onset Date Status Flexeril itching, nausea Drug Allergy Active [place] rash Non Drug Allergy Active ENCOUNTERS from 1962 to 2020-04-20 Encounter Location Date Provider Diagnosis [address] [place] [address] 15 Apr, 2020 Grace Manzanares Petechial rash R23.3 IMMUNIZATIONS Vaccine Route Administration Date Status Influenza [...] Notes Start Da te End Date Status Tamsulosin HCl 0.4 MG 1 capsule Orally Once a day for 30 Days Active Cipro 500 MG 1 tablet Orally Twice a day Mar, Not-Taking Albuterol Sulfate HFA 108 (90 Base) MCG/ACT 1 puff as needed Inhalation every 4 hours as needed for 30 Days Jul, Acti ve Clonidine HCl 0.2 MG 1 tablet Orally Once a day Active Tamsulosin HCl 0.4 mg 1 capsule Orally Once a day for 30 Active Atorvastatin Calcium 80 MG 1 tablet Orally Once a day for 30 Active Aspirin 81 MG 1 tablet Orally Once a day for 90 day(s) Active Oxybutynin Chloride 5 MG 1 tablet bid for 30 Active Mapap Arthritis Pain 650 MG 2 tablets as needed Orally every 8 hrs Not-Taking tylenol 650 mg 1 tab Oral tid for 30 days Not-Taking Trazodone 50 100 mg 2 tab(s) p.o. daily Not-Taking Pantoprazole Sodium 40 MG 1 tablet Orally bid Not-Taking Omeprazole 20 MG 1 capsule Orally Once a day for 90 days Active Acetaminophen ER 650 MG TAKE ONE TABLET BY MOUTH THR EE TIMES A DAY NEEDED for 30 Not-Taking Nexium 20 MG 1 capsule Orally Once a day Not-Taking Sertraline HCl 100 MG 2 Orally Daily Active Aripiprazole 10 MG 1 tablet Orally Once a day Active Acetaminophen 650 MG 1 tablet Orally three times daily as needed for 30 days May, Active Prazosin HCl 1 MG 1 capsule at bedtime Orally Once a day Not-Taking Depend Pant Large 1 ea N39.41 Weight as needed MDD 24 for 30 days August, Active Sertraline HCl 100 MG 1 1/2 tablet Orally Once a day Not-Taking Prazosin HCl 1 MG 1 capsule at bedtime Orally Once a day Not-Taking TraZODone HCl 150 MG 1 tablet at bedtime Orally Once a day Not-Taking Tizanidine HCl 4 MG 1 tablet as needed Orally every 6 hrs Active Gabapentin 600 MG 1 capsule Orally three times daily Active PROCEDURES No Information RESULTS No Results REASON FOR VISIT No Information MEDICAL (GENERAL) HISTORY Type Description Date Medical History Depression Medical History BPH Medical History Anxiety Medical History GERD Medical History Hypercholesterolemia Medical History PTSD Medical History Severe stenosis and hernated disc Medical History Umbilical hernia Medical History SARAH Medical History Insomnia and nightmares Surgical History Colon Surgery multiple 8839-0191 Surgical History Orthopedic surgeries-right leg, left loida ulder multiple Surgical History Left inguinal hernia repair 1984 Surgical History Upper endoscopy for heartburn 2015 Surgical History Colonoscopy 2016 Surgical History Umbilical hernia repair with ventral pat ch 2018 Surgical History colonoscopy aug-2018 Hospitalization History surgicaly related Goals Section No Information Health Concerns No Information MEDICAL EQUIPMENT No Information MENTAL STATUS No Information FUNCTIONAL STATUS No Information ASSESSMENTS Encounter Date Diagnosis Assessment Notes Treatment Notes Treatm ent Clinical Notes Apr, Petechial rash (ICD-10 - R23.3) Non-palpable/blanchable petechiae rash, diffuse, spreading, without fever, pain or pruritus. No new recent laudry/detergent.bodywash/medication per patient. PT/PTT roughly unremarkable. CBC revealed no thrombocytopenia. Concern for vasculitis due to presentation. Refer to derm for further evaluation and possible biopsy PLAN OF TREATMENT Treatment Notes Assessment Notes Clinical Notes Petechial rash Non-palpable/blancha ble petechiae rash, diffuse, spreading, without fever, pain or pruritus. No new recent laudry/detergent.bodywash/medication per patient. PT/PTT roughly unremarkable. CBC revealed no thrombocytopenia. Concern for vasculitis due to presentation. Refer to derm for further evaluation and possible biopsy Next Appt Details Provider Name:Grace Manzanares, 2020-04-28 01 :45:00 PM, [address] [facility], [facility] [place], [address], Provider Name:Betty Cejajenny, 2020-09-01 0 09:30:00 AM, [address], [place], [address], Insurance Providers Payer Name Payer Address Payer Phone Insured Name Patient Relati onship to Insured Coverage Start Date Coverage End Date [facility] [address] [facility] [phone] AMADOR WILKINS self
--- OUTSIDE RECORDS SUMMARY | 2020-04-22 10:27 | CCD ---
Author Author [facility] Organization [facility] Address Unknown Phone Unavailable Care Team Providers Care Hat Block Maker Name Role Phone Betty Kumar Unavailable PROBLEMS Type Condition ICD9-CM Code [id number] Code Onset Dates Condition S tatus SNOMED Code Notes Problem Urinary incontinence, mixed N39.46 Active 4136 27471 Problem Urge incontinence N39.41 Active 42716962 Problem SARAH (obstructive sleep apnea) G47.33 Active 78 836148 Problem Depression with anxiety F41.8 Active 24047306 6 Problem Nodule of lower lobe of right lung R91.1 Activ e 283146917 Problem Restrictive lung disease J98.4 Active 8305357 5 Problem Chronic GERD K21.9 Active 195799321 Problem BMI 35.0-35.9,adult Z68.35 Active 290160785 Problem Lumbago with sciatica, right side M54.41 Active 810577093575428 Problem Other chronic pain G89.29 Active 92029361 Problem BMI 36.0-36.9,adult Z68.36 Active 932412240 Problem Rash or skin eruption accompanying infectious disease B99.9 Active 81782256 Problem Lumbago with sciatica, left side M54.42 Active 180723412 Problem Urinary tract infection, site not specified N39.0 Active 61749713 Problem Encounter for screening for lung cancer Z12.2 Active 486791130 Problem Mixed hyperlipidemia E78.2 Active 026385237 Problem Enlarged prostate with lower urinary tract symptoms N40.1 Active 50111458370982 Problem Fatigue, unspecified type R53.83 Active 295155 01 Problem Weight loss, non-intentional R63.4 Active 448 358450 Problem Intermittent palpitations R00.2 Active 679937 007 Problem Planning to commit suicide R45.851 Active 41785 0009 ALLERGIES Allergen (clinical drug ingredient) Drug/Non Drug Allergy do cumented on EMR Reaction Allergy Type Onset Date Status Flexeril itching, nausea Drug Allergy Active [place] rash Non Drug Allergy Active E[facility]OUNTERS from 1962 to 2020-03-14 Encounter Location Date Provider Diagnosis [facility] [address] [place] [address] Mar Betty Recore Enlarged prostate with lower urinary tra ct symptoms N40.1 and Urgency of urination R39.15 IMMUNIZATIONS Vaccine Route Administration Date Status Influenza [...] REASON FOR REFERRAL No Information VITAL SIGNS Weight 211.6 lbs Mar, Height 5'4" in Mar, BMI 36.32 kg/m2 Mar, Heart Rate 72 /min Mar, Respiratory Rate 18 /min Mar, Temperature 98.3 degrees Fahrenheit Mar, Oximetry 94 Mar, Blood pressure systolic 116 mm Hg Mar, Blood pressure diastolic 66 mm Hg Mar, MEDICATIONS Medication SIG (Take, Route, Frequency, Duration) [...] Information RESULTS No Results REASON FOR VISIT 6 MONTH F/U MEDICAL (GENERAL) HISTORY Type Description Date Medical History Depression Medical History BPH Medical History Anxiety Medical History GERD Medical History Hypercholesterolemia Medical History PTSD Medical History Severe stenosis and hernated disc Medical History Umbilical hernia Medical History SARAH Medical History Insomnia and nightmares Surgical History Colon Surgery multiple 0476-5331 Surgical History Orthopedic surgeries-right leg, left loida ulder multiple Surgical History Left inguinal hernia repair 1983 Surgical History Upper endoscopy for heartburn 2015 Surgical History Colonoscopy 2016 Surgical History Umbilical hernia repair with ventral pat ch 2018 Surgical History colonoscopy aug-2018 Hospitalization History surgicaly related Goals Section No Information Health Concerns No Information MEDICAL EQUIPMENT No Information MENTAL STATUS No Information FUNCTIONAL STATUS No Information ASSESSMENTS Encounter Date Diagnosis Assessment Notes Treatment Notes Treatm ent Clinical Notes Mar, Enlarged prostate with lower urinary tract symptoms (ICD-10 - N40.1) Mar, Urgency of urination (ICD-10 - R39.15) PLAN OF TREATMENT Medication Medication Name Sig Start Date Stop Date Tamsulosin HCl 0.4 mg 1 capsule Orally Once a day for 30 Oxybutynin Chloride 5 MG 1 tablet bid for 30 Tamsulosin HCl 0.4 MG 1 capsule Orally Once a day for 30 Days Aspirin 81 MG 1 tablet Orally Once a day for 90 Next Appt Details 6 Months Reason:BPH Provider Name:Grace Manzanares, 2020-03-16 01 :30:00 PM, [address] [facility], [facility] [place], [address], Provider Name:Betty Kumar, 2020-09-01 0 09:30:00 AM, [address] [place], [address], [facility] Insurance Providers Payer Name Payer Address Payer Phone Insured Name Patient Relati onship to Insured Coverage Start Date Coverage End Date [facility] COMM[facility] PLAN [facility] [address] [facility] [phone] AMADOR WILKINS self
--- OUTSIDE RECORDS SUMMARY | 2020-04-22 10:28 | CCD ---
Author Author [facility] Organization [facility] Address Unknown Phone Unavailable Care Team Providers Care Certified Bench Jeweler Technician Name Role Phone Grace Manzanares Unavailable PROBLEMS Type Condition ICD9-CM Code [id number] Code Onset Dates Condition S tatus SNOMED Code Notes Problem Urinary incontinence, mixed N39.46 Active 4138 89357 Problem Urge incontinence N39.41 Active 09448674 Problem SARAH (obstructive sleep apnea) G47.33 Active 78 828743 Problem Depression with anxiety F41.8 Active 25793260 6 Problem Nodule of lower lobe of right lung R91.1 Activ e 163276283 Problem Restrictive lung disease J98.4 Active 3532284 5 Problem Chronic GERD K21.9 Active 616498398 Problem BMI 35.0-35.9,adult Z68.35 Active 276958729 Problem Lumbago with sciatica, right side M54.41 Active 307021548320106 Problem Other chronic pain G89.29 Active 64484011 Problem BMI 36.0-36.9,adult Z68.36 Active 789638183 Problem Rash or skin eruption accompanying infectious disease B99.9 Active 68812710 Problem Lumbago with sciatica, left side M54.42 Active 013752493 Problem Urinary tract infection, site not specified N39.0 Active 76206808 Problem Encounter for screening for lung cancer Z12.2 Active 385873292 Problem Mixed hyperlipidemia E78.2 Active 791081850 Problem Enlarged prostate with lower urinary tract symptoms N40.1 Active 70482331382348 Problem Fatigue, unspecified type R53.83 Active 520817 01 Problem Weight loss, non-intentional R63.4 Active 448 521138 Problem Intermittent palpitations R00.2 Active 694473 007 Problem Planning to commit suicide R45.851 Active 70276 0009 ALLERGIES Allergen (clinical drug ingredient) Drug/Non Drug Allergy do cumented on EMR Reaction Allergy Type Onset Date Status Flexeril itching, nausea Drug Allergy Active [place] rash Non Drug Allergy Active E[facility]OUNTERS from 1962 to 2020-02-23 Encounter Location Date Provider Diagnosis [facility] GME Resident [address] [facility] [place] [address] Jan, Garce Manzanares Planning to commit suicide R 45.851 ; Rash or skin eruption accompanying infectious disease B99.9 ; Insect bites and stings, initial encounter W57.XXXA and Depression with anxiety F41.8 IMMUNIZATIONS Vaccine Route Administration Date Status Influenza [...] FOR REFERRAL No Information VITAL SIGNS Weight 205.6 lbs Jan, Height 5'4" in Jan, BMI 35.29 kg/m2 Jan, Heart Rate 73 /min Jan, Respiratory Rate 18 /min Jan, Temperature 98.5 degrees Fahrenheit Jan, Oximetry 97 Jan, Blood pressure systolic 118 mm Hg Jan, Blood pressure diastolic 70 mm Hg Jan, MEDICATIONS Medication SIG (Take, Route, Frequency, Duration) Notes Start Da te End Date Status Loratadine 10 MG 1 tablet Orally Once a day for 14 day(s) Jan, Active Depend Pant Large 1 ea N39.41 Weight as needed MDD 24 for 30 days August, Active Omeprazole 20 MG 1 capsule Orally Once a day for 90 days Active Prazosin HCl 1 MG 1 capsule at bedtime Orally Once a day Not-Taking Sertraline HCl 100 MG 2 Orally Daily Active Acetaminophen 650 MG 1 tablet Orally three times daily as needed for 30 days May, Active Mupirocin 2 % 1 application Externally Three times a day for 1 0 day(s) Jan, Active Cipro 500 MG 1 tablet Orally Twice a day Mar, Not-Taking Aspirin 81 MG 1 tablet Orally Once a day for 30 day(s) Jan, Active Albuterol Sulfate HFA 108 (90 Base) MCG/ACT 1 puff as needed Inhalation every 4 hours as needed for 30 Days Jul, Acti ve Mapap Arthritis Pain 650 MG 2 tablets as needed Orally every 8 hrs Not-Taking Acetaminophen ER 650 MG TAKE ONE TABLET BY MOUTH THR EE TIMES A DAY NEEDED for 30 Not-Taking Tizanidine HCl 4 MG 1 tablet as needed Orally every 6 hrs Active Oxybutynin Chloride 5 MG 1 tablet bid for 30 Days Active Nexium 20 MG 1 capsule Orally Once a day Not-Taking Atorvastatin Calcium 80 MG 1 tablet Orally Once a day for 30 Active Tamsulosin HCl 0.4 MG TAKE ONE CAPSULE 30 MINUTES AFTER THE SAME MEAL EACH DAY Not-Taking Pantoprazole Sodium 40 MG 1 tablet Orally bid Not-Taking Gabapentin 600 MG 1 capsule Orally three times daily Active Clonidine HCl 0.2 MG 1 tablet Orally Once a day Active Tamsulosin HCl 0.4 mg 1 capsule Orally Once a day for 30 Days Active Aripiprazole 10 MG 1 tablet Orally Once a day Active Sertraline HCl 100 MG 1 1/2 tablet Orally Once a day Not-Taking Prazosin HCl 1 MG 1 capsule at bedtime Orally Once a day Not-Taking Trazodone 50 100 mg 2 tab(s) p.o. daily Not-Taking TraZODone HCl 150 MG 1 tablet at bedtime Orally Once a day Not-Taking tylenol 650 mg 1 tab Oral tid for 30 days Not-Taking PROCEDURES No Information RESULTS No Results REASON FOR VISIT [facility] ER follow up MEDICAL (GENERAL) HISTORY Type Description Date Medical History Depression Medical History BPH Medical History Anxiety Medical History GERD Medical History Hypercholesterolemia Medical History PTSD Medical History Severe stenosis and hernated disc Medical History Umbilical hernia Medical History SARAH Medical History Insomnia and nightmares Surgical History Colon Surgery multiple 4707-3630 Surgical History Orthopedic surgeries-right leg, left loida [...] Notes Treatment Notes Treatm ent Clinical Notes Jan, Planning to commit suicide (ICD-10 - R45.851) Hospital follow up visit for ER visit when pt was brought to hospital for plan to commit suicide due to stressor. Pt denies any SI or HI at this time. He denies feeling depressed or anxious at this time. He reported having good support system and knows that he should call crisis line or 911 if he has SI/HI plan/ideas. Safety measures counseled. Pt continues to follow psychiatrist and psychologist. Jan, Rash or skin eruption accomp anying infectious disease (ICD-10 - B99.9) Superficial mild skin infection on top of insect stung on left posterior neck region. Start mupirocin. Follow up in 1-2 weeks Jan, Insect bites and stings, initial encounter (ICD- 10 - W57.XXXA) Skin erythema and swelling/skin elevation from insect stung from yesterday, likely with mild secondary superficial skin infection. Start lorataine QD for 14 days. Follow up in 1-2 weeks Jan, Depression with anxiety (ICD-10 - F41.8) Hx of depression with anxiety. Pt denies any depression or anxiety now. PHQ-9=7, mild anxiety. Pt denies any SI or HI at this time. He denies feeling depressed or anxious at this time. He reported having good support system and knows that he should call crisis line or 911 if he has SI/HI plan/ideas. Safety measures counseled. Pt continues to follow psychiatrist and psychologist. Cont current med managed by psychiatrist. PLAN OF TREATMENT Medication Medication Name Sig Start Date Stop Date Aspirin 81 MG 1 tablet Orally Once a day for 30 day(s) Jan, Atorvastatin Calcium 80 MG 1 tablet Orally Once a day for 30 Treatment Notes Assessment Notes Clinical Notes Planning to commit suicide Hospital foll ow up visit for ER visit when pt was brought to hospital for plan to commit suicide due to stressor. Pt denies any SI or HI at this time. He denies feeling depressed or anxious at this time. He reported having good support system and knows that he should call crisis line or 911 if he has SI/HI plan/ideas. Safety measures counseled. Pt continues to follow psychiatrist and psychologist. Rash or skin eruption accompanying infectious disease Superficial mild skin infection on top of insect stung on left posterior neck region. Start mupirocin. Follow up in 1-2 weeks Insect bites and stings, initial encounter Skin erythema and swelling/skin elevation from insect stung from yesterday, likely with mild secondary superficial skin infection. Start lorataine QD for 14 days. Follow up in 1-2 weeks Depression with anxiety Hx of depression with anxiety. Pt denies any depression or anxiety now. PHQ-9=7, mild anxiety. Pt denies any SI or HI at this time. He denies feeling depressed or anxious at this time. He reported having good support system and knows that he should call crisis line or 911 if he has SI/HI plan/ideas. Safety measures counseled. Pt continues to follow psychiatrist and psychologist. Cont current med managed by psychiatrist. Next Appt Details 1-2 weeks Reason: Provider Name:Betty Kumar, 2019-12-0 9 10:00:00 AM, [address], [place], [address], Insurance Providers Payer Name Payer Address Payer Phone Insured Name Patient Relati onship to Insured Coverage Start Date Coverage End Date [facility] COMMUN[facility] PLAN [facility] [address] [facility] [phone] AMADOR WILKINS self
--- OUTSIDE RECORDS SUMMARY | 2020-04-22 10:28 | CCD ---
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 Active Not available aripiprazole 20 mg tablet Active Not av ailable aripiprazole 30 mg tablet Completed 2018 aspirin 81 mg chewable tablet CHEW ONE TABLET BY MOUTH EVERY DAY Active Not available atorvastatin 20 mg tablet TAKE ONE TABLET BY MOUTH EVERY DAY WITH 40MG DOSE TO EQUAL 60MG Active Not available atorvastatin 40 mg tablet TAKE ONE TABLET BY MOUTH EVERY DAY TOTAL DAILY DOSE 60MG Active Not available atorvastatin 80 mg tablet TAKE ONE TABLET BY MOUTH EVERY DAY Active Not available clonidine HCl 0.1 mg tablet Active Not available clonidine HCl 0.2 mg tablet TAKE ONE TABLET BY MOUTH AT BEDTIME Active Not available gabapentin 400 mg capsule Completed 2017 gabapentin 600 mg tablet 1 tablet three times a day Active Not availabl e loratadine 10 mg tablet Active Not avai lable methocarbamol 500 mg tablet Completed 08/2018 methylprednisolone 4 mg tablets in a dose pack Completed 11/05/2018 mupirocin 2 % topical ointment Active N ot available naproxen 500 mg tablet one twice daily Completed 06/12/2019 omeprazole 20 mg capsule,delayed release Active Not available oxybutynin chloride 5 mg tablet TAKE ONE TABLET BY MOUTH TWICE A DAY Active No t available Pain Relief (acetaminophen) 650 mg table t,extended release TAKE ONE TABLET BY MOUTH EVERY 6 HOURS NEEDED FOR PAIN Active Not available prazosin 1 mg capsule Completed 03/22/2018 sertraline 100 mg tablet TAKE TWO TABLETS BY MOUTH EVERY MORNING Active Not available sertraline 50 mg tablet TAKE ONE TABLET BY MOUTH EVERY MORNING Active Not available tamsulosin 0.4 mg capsule TAKE ONE CAPSULE BY MOUTH EVERY DAY Active Not available tizanidine 4 mg tablet TAKE ONE TABLET BY MOUTH EVERY 6 HOURS NEEDED Active Not available trazodone 150 mg tablet Active Not avai lable trazodone 50 mg tablet Active Not avail able Problems Name Status Onset Date Source Inflammation of Sacroiliac Joint Active 07/01/2015 Spondylosis without Myelopathy Active 07/01/2015 Prolapsed Lumbar Intervertebral Disc Active 07/01/2015 Intervertebral Disc Prolapse Active 07/01/2015 Degeneration of Lumbosacral Intervertebral Disc Active 07/01/2015 Degeneration of Lumbar Intervertebral Disc Active 06/30 Lumbosacral Radiculopathy Active 07/01/2015 Procedures Date Name Performed by 04/03/2016 Repair of Umbilical Hernia Information n ot available 04/03/2003 Hernia Repair Notes: x2 1994, 2003 Information not available 04/03/1988 Knee Surgery Information not avai lable 04/03/1983 Ankle Arthroscopy/surgery Information no t available Notes: Right ankle 1982 and 1987, right knee 1985 and 1987, left shoulder 2013, hernia repair 1981 and 2016, colon tumor 2015, and hemorrhoids 200903/09/2017 Results Lab Results None recorded. Past Encounters 02/17/2020 Degeneration of Lumbar Intervertebral Disc; Degeneration of Lumbosacral Intervertebral Disc; Displacement of Lumbar Intervertebral Disc without Myelopathy; Intervertebral Disc Disorder; Spondylosis without Myelopathy; Lumbosacral Spondylosis without Myelopathy; Lumbar Radiculopathy; Inflammation of Sacroiliac Joint; Myofascial Pain [facility]i [facility]: [address], [address], [place] [address], Ph. 01/06/2020 Degeneration of Lumbar Intervertebral Disc; Degeneration of Lumbosacral Intervertebral Disc; Displacement of Lumbar Intervertebral Disc without Myelopathy; Intervertebral Disc Disorder; Spondylosis without Myelopathy; Lumbosacral Spondylosis without Myelopathy; Lumbar Radiculopathy; Inflammation of Sacroiliac Joint; Myofascial Pain Randi Nhanongsong Jumalon, [facility]: [id number] [address], Ph. 11/14/2019 Degeneration of Lumbar Intervertebral Disc; Degeneration of Lumbosacral Intervertebral Disc; Displacement of Lumbar Intervertebral Disc without Myelopathy; Intervertebral Disc Disorder; Spondylosis without Myelopathy; Lumbosacral Spondylosis without Myelopathy; Lumbar Radiculopathy; Inflammation of Sacroiliac Joint; Myofascial Pain Randi Hamilton, [facility]: [address] [address], Ph. 10/29/2019 Myofascial Pain; Degeneration of Lumbar Intervertebral Disc; Degeneration of Lumbosacral Intervertebral Disc; Displacement of Lumbar Intervertebral Disc without Myelopathy; Intervertebral Disc Disorder; Spondylosis without Myelopathy; Lumbosacral Spondylosis without Myelopathy; Lumbar Radiculopathy; Inflammation of Sacroiliac Joint Gerald Gamez MD: [id number] [address], Ph. 07/24/2019 Degeneration of Lumbar Intervertebral Disc; Degeneration of Lumbosacral Intervertebral Disc; Displacement of Lumbar Intervertebral Disc without Myelopathy; Intervertebral Disc Disorder; Spondylosis without Myelopathy; Lumbosacral Spondylosis without Myelopathy; Lumbar Radiculopathy; Inflammation of Sacroiliac Joint; Myofascial Pain Randi Hamilton, [facility]: [id number] [address], Ph. 06/12/2019 Degeneration of Lumbar Intervertebral Disc; Degeneration of Lumbosacral Intervertebral Disc; Displacement of Lumbar Intervertebral Disc without Myelopathy; Intervertebral Disc Disorder; Spondylosis without Myelopathy; Lumbosacral Spondylosis without Myelopathy; Lumbar Radiculopathy; Inflammation of Sacroiliac Joint; Myofascial Pain Randi Hamilton, [facility]: [id number] [address], Ph. 05/28/2019 Myofascial Pain; Degeneration of Lumbar Intervertebral Disc; Degeneration of Lumbosacral Intervertebral Disc; Displacement of Lumbar Intervertebral Disc without Myelopathy; Intervertebral Disc Disorder; Spondylosis without Myelopathy; Lumbosacral Spondylosis without Myelopathy; Lumbar Radiculopathy; Inflammation of Sacroiliac Joint Gerald Gamez MD: [id number] [address], Ph. 05/22/2019 Degeneration of Lumbar Intervertebral Disc; Degeneration of Lumbosacral Intervertebral Disc; Displacement of Lumbar Intervertebral Disc without Myelopathy; Intervertebral Disc Disorder; Spondylosis without Myelopathy; Lumbosacral Spondylosis without Myelopathy; Lumbar Radiculopathy; Inflammation of Sacroiliac Joint; Myofascial Pain Randi [facility]: [address] [address], Ph. 04/25/2019 Inflammation of Sacroiliac Joint; Degeneration of Lumbar Intervertebral Disc; Degeneration of Lumbosacral Intervertebral Disc; Displacement of Lumbar Intervertebral Disc without Myelopathy; Intervertebral Disc Disorder; Spondylosis without Myelopathy; Lumbosacral Spondylosis without Myelopathy; Lumbar Radiculopathy Gerald Gamez MD: [id number] [address], Ph. 03/25/2019 Degeneration of Lumbar Intervertebral Disc; Degeneration of Lumbosacral Intervertebral Disc; Displacement of Lumbar Intervertebral Disc without Myelopathy; Intervertebral Disc Disorder; Spondylosis without Myelopathy; Lumbosacral Spondylosis without Myelopathy; Lumbar Radiculopathy; Inflammation of Sacroiliac Joint [facility]i [facility]: [address] [address], Ph. 03/07/2019 Lumbar Radiculopathy; Degeneration of Lumbar Intervertebral Disc; Degeneration of Lumbosacral Intervertebral Disc; Displacement of Lumbar Intervertebral Disc without Myelopathy; Intervertebral Disc Disorder; Spondylosis without Myelopathy; Lumbosacral Spondylosis without Myelopathy; Inflammation of Sacroiliac Joint Gerald Gamez MD: [id number] [address], Ph. 02/14/2019 Lumbar Radiculopathy; Degeneration of Lumbar Intervertebral Disc; Degeneration of Lumbosacral Intervertebral Disc; Displacement of Lumbar Intervertebral Disc without Myelopathy; Intervertebral Disc Disorder; Spondylosis without Myelopathy; Lumbosacral Spondylosis without Myelopathy; Inflammation of Sacroiliac Joint Gerald Gamez MD: [id number] [address], Ph. 01/31/2019 Degeneration of Lumbar Intervertebral Disc; Degeneration of Lumbosacral Intervertebral Disc; Displacement of Lumbar Intervertebral Disc without Myelopathy; Intervertebral Disc Disorder; Spondylosis without Myelopathy; Lumbosacral Spondylosis without Myelopathy; Lumbar Radiculopathy; Inflammation of Sacroiliac Joint Randinaya Hamilton, [facility]: [address] [address], Ph. 12/20/2018 Degeneration of Lumbar Intervertebral Disc; Degeneration of Lumbosacral Intervertebral Disc; Displacement of Lumbar Intervertebral Disc without Myelopathy; Intervertebral Disc Disorder; Spondylosis without Myelopathy; Lumbosacral Spondylosis without Myelopathy; Lumbar Radiculopathy; Inflammation of Sacroiliac Joint Randi Tyron Hamilton, [facility]: [address] [address], Ph. 11/29/2018 Lumbar Radiculopathy; Degeneration of Lumbar Intervertebral Disc; Degeneration of Lumbosacral Intervertebral Disc; Displacement of Lumbar Intervertebral Disc without Myelopathy; Intervertebral Disc Disorder; Spondylosis without Myelopathy; Lumbosacral Spondylosis without Myelopathy; Inflammation of Sacroiliac Joint Gerald Gamez MD: [id number] [address], Ph. 11/15/2018 Lumbar Radiculopathy; Degeneration of Lumbar Intervertebral Disc; Degeneration of Lumbosacral Intervertebral Disc; Displacement of Lumbar Intervertebral Disc without Myelopathy; Intervertebral Disc Disorder; Spondylosis without Myelopathy; Lumbosacral Spondylosis without Myelopathy; Inflammation of Sacroiliac Joint Gerald Gamez MD: [id number] [address], [place] [address], Ph. 11/05/2018 Degeneration of Lumbar Intervertebral Disc; Degeneration of Lumbosacral Intervertebral Disc; Displacement of Lumbar Intervertebral Disc without Myelopathy; Intervertebral Disc Disorder; Spondylosis without Myelopathy; Lumbosacral Spondylosis without Myelopathy; Lumbar Radiculopathy; Inflammation of Sacroiliac Joint Randi Tyron Hamilton, [facility]: [address] [address], [facility] [address], Ph. 10/03/2018 Degeneration of Lumbar Intervertebral Disc; Degeneration of Lumbosacral Intervertebral Disc; Displacement of Lumbar Intervertebral Disc without Myelopathy; Intervertebral Disc Disorder; Spondylosis without Myelopathy; Lumbosacral Spondylosis without Myelopathy; Lumbar Radiculopathy; Inflammation of Sacroiliac Joint Randi Tyron Hamilton, [facility]: [address] [address], Ph. 09/05/2018 Lumbosacral Spondylosis without Myelopathy; Spondylosis without Myelopathy; Degeneration of Lumbar Intervertebral Disc; Degeneration of Lumbosacral Intervertebral Disc; Displacement of Lumbar Intervertebral Disc without Myelopathy; Intervertebral Disc Disorder; Lumbar Radiculopathy; Inflammation of Sacroiliac Joint Gerald Gamez MD: [address] [address], Ph. 08/23/2018 Degeneration of Lumbar Intervertebral Disc; Degeneration of Lumbosacral Intervertebral Disc; Displacement of Lumbar Intervertebral Disc without Myelopathy; Intervertebral Disc Disorder; Spondylosis without Myelopathy; Lumbosacral Spondylosis without Myelopathy; Lumbar Radiculopathy; Inflammation of Sacroiliac Joint Randi Bernardosoncaro Hamilton, [facility]: [address] [address], [place] [address], Ph. 08/13/2018 Lumbosacral Spondylosis without Myelopathy; Spondylosis without Myelopathy; Degeneration of Lumbar Intervertebral Disc; Degeneration of Lumbosacral Intervertebral Disc; Displacement of Lumbar Intervertebral Disc without Myelopathy; Intervertebral Disc Disorder; Lumbar Radiculopathy; Inflammation of Sacroiliac Joint Gerald Gamez MD: [id number] [address], [place] [address], Ph. 07/25/2018 Degeneration of Lumbar Intervertebral Disc; Degeneration of Lumbosacral Intervertebral Disc; Displacement of Lumbar Intervertebral Disc without Myelopathy; Intervertebral Disc Disorder; Spondylosis without Myelopathy; Lumbosacral Spondylosis without Myelopathy; Lumbar Radiculopathy; Inflammation of Sacroiliac Joint Randi Hamilton, [facility]: [phone] [address], Ph. 07/04/2018 Degeneration of Lumbar Intervertebral Disc; Degeneration of Lumbosacral Intervertebral Disc; Displacement of Lumbar Intervertebral Disc without Myelopathy; Intervertebral Disc Disorder; Spondylosis without Myelopathy; Lumbosacral Spondylosis without Myelopathy; Lumbar Radiculopathy; Inflammation of Sacroiliac Joint Gerald Gamez MD: [id number] [address], [facility] [address], Ph. 06/22/2018 Degeneration of Lumbar Intervertebral Disc; Degeneration of Lumbosacral Intervertebral Disc; Displacement of Lumbar Intervertebral Disc without Myelopathy; Intervertebral Disc Disorder; Spondylosis without Myelopathy; Lumbosacral Spondylosis without Myelopathy; Lumbar Radiculopathy; Inflammation of Sacroiliac Joint Randi Tyron Hamilton, [facility]: [address] [address], [facility] [address], Ph. 05/30/2018 Degeneration of Lumbar Intervertebral Disc; Degeneration of Lumbosacral Intervertebral Disc; Displacement of Lumbar Intervertebral Disc without Myelopathy; Intervertebral Disc Disorder; Spondylosis without Myelopathy; Lumbosacral Spondylosis without Myelopathy; Lumbar Radiculopathy; Inflammation of Sacroiliac Joint Gerald Gamez MD: [id number] [address], [facility] [address], Ph. 05/24/2018 Degeneration of Lumbar Intervertebral Disc; Degeneration of Lumbosacral Intervertebral Disc; Displacement of Lumbar Intervertebral Disc without Myelopathy; Intervertebral Disc Disorder; Spondylosis without Myelopathy; Lumbosacral Spondylosis without Myelopathy; Lumbar Radiculopathy; Inflammation of Sacroiliac Joint Randi Justinellen Joy, [facility]: [address] [address], [place] [address], Ph. 04/16/2018 Degeneration of Lumbar Intervertebral Disc; Degeneration of Lumbosacral Intervertebral Disc; Displacement of Lumbar Intervertebral Disc without Myelopathy; Intervertebral Disc Disorder; Spondylosis without Myelopathy; Lumbosacral Spondylosis without Myelopathy; Lumbar Radiculopathy; Inflammation of Sacroiliac Joint Randi Hamilton, [facility]: [address] [address], [facility] [address], Ph. 03/22/2018 Degeneration of Lumbar Intervertebral Disc; Degeneration of Lumbosacral Intervertebral Disc; Displacement of Lumbar Intervertebral Disc without Myelopathy; Intervertebral Disc Disorder; Spondylosis without Myelopathy; Lumbosacral Spondylosis without Myelopathy; Lumbar Radiculopathy; Inflammation of Sacroiliac Joint Gerald Gamez MD: [id number] [address], [place] [address], Ph. 03/08/2018 Degeneration of Lumbar Intervertebral Disc; Degeneration of Lumbosacral Intervertebral Disc; Displacement of Lumbar Intervertebral Disc without Myelopathy; Intervertebral Disc Disorder; Spondylosis without Myelopathy; Lumbosacral Spondylosis without Myelopathy; Lumbar Radiculopathy; Inflammation of Sacroiliac Joint Randiemma Justinellen Joy, [facility]: [address] [address], [place] [address], Ph. Social History Tobacco Smoking Status Former Smoker (1 PPW) Vaccine List None recorded. Plan of Care Reminders Provider Appointments None recorded. Lab None recorded. Referral None recorded. Procedures None recorded. Surgeries None recorded. Imaging None recorded. Vitals 02/17/2020 10:15AM Telehealth Height 5 ft 4 in 11/14/2019 10:30AM FOLLOW-UP Height Weight BMI Blood Pressure 5 ft 4 in 200 lbs 34.3 kg/m2 128/85 mm[Hg] 06/12/2019 11:30AM FOLLOW-UP Height Weight BMI Blood Pressure 5 ft 4 in 200 lbs 34.3 kg/m2 96/60 mm[Hg] 05/22/2019 02:00PM FOLLOW-UP Height Blood Pressure 5 ft 4 in 113/77 mm[Hg] 03/25/2019 03:30PM FOLLOW-UP Height Weight BMI Blood Pressure 5 ft 4 in 200 lbs 34.3 kg/m2 112/73 mm[Hg] 01/31/2019 08:15AM FOLLOW-UP Height Weight BMI Blood Pressure 5 ft 4 in 200 lbs 34.3 kg/m2 114/74 mm[Hg] 12/20/2018 02:00PM FOLLOW-UP Height Weight BMI Blood Pressure 5 ft 4 in 200 lbs 34.3 kg/m2 95/67 mm[Hg] 11/05/2018 02:00PM FOLLOW-UP Height Weight BMI Blood Pressure 5 ft 4 in 200 lbs 34.3 kg/m2 110/75 mm[Hg] 10/03/2018 02:00PM FOLLOW-UP Height Blood Pressure 5 ft 4 in 99/66 mm[Hg] 08/23/2018 02:45PM FOLLOW-UP Height Weight BMI Blood Pressure 5 ft 4 in 200 lbs 34.3 kg/m2 96/61 mm[Hg] 07/25/2018 09:00AM FOLLOW-UP Height Weight BMI Blood Pressure 5 ft 4 in 200 lbs 34.3 kg/m2 112/71 mm[Hg] 06/22/2018 01:30PM FOLLOW-UP Height Weight BMI Blood Pressure 5 ft 4 in 212 lbs 36.4 kg/m2 97/67 mm[Hg] 05/24/2018 01:30PM FOLLOW-UP Height Weight BMI Blood Pressure 5 ft 4 in 212 lbs 36.4 kg/m2 109/77 mm[Hg] 04/16/2018 02:30PM FOLLOW-UP Height Weight BMI Blood Pressure 5 ft 4 in 200 lbs 34.3 kg/m2 112/75 mm[Hg] 03/22/2018 03:30PM Lumbar epidural steroid inject Height 5 ft 4 in 03/08/2018 03:15PM FOLLOW-UP Height Weight BMI Blood Pressure 5 ft 4 in 198 lbs 34 kg/m2 111/70 mm[Hg] 02/08/2018 Blood Pressure 96/63 mm[Hg] 01/11/2018 Blood Pressure 103/72 mm[Hg] 12/27/2017 Blood Pressure 112/83 mm[Hg] 11/29/2017 Blood Pressure 111/74 mm[Hg] 11/10/2017 Blood Pressure 110/70 mm[Hg] 10/27/2017 Blood Pressure 97/71 mm[Hg] 10/12/2017 Blood Pressure 98/61 mm[Hg] 09/21/2017 Blood Pressure 113/73 mm[Hg] 09/05/2017 Weight BMI Blood Pressure 202 lbs 34.80 kg/m2 138/82 mm[Hg] 07/17/2017 Weight BMI Blood Pressure 205 lbs 35.32 kg/m2 119/81 mm[Hg] 06/23/2017 Weight BMI Blood Pressure 205 lbs 35.32 kg/m2 104/69 mm[Hg] 06/02/2017 Blood Pressure 128/76 mm[Hg] 05/16/2017 Weight BMI Blood Pressure 205 lbs 35.32 kg/m2 106/74 mm[Hg] 05/01/2017 Blood Pressure 122/82 mm[Hg] 04/24/2017 Blood Pressure 96/68 mm[Hg] 03/10/2017 Blood Pressure 126/84 mm[Hg] 03/09/2017 Blood Pressure 113/90 mm[Hg] 02/03/2017 Weight BMI Blood Pressure 205 lbs 35.32 kg/m2 109/74 mm[Hg] 01/13/2017 Blood Pressure 114/76 mm[Hg] 12/30/2016 Weight BMI Blood Pressure 203 lbs 34.97 kg/m2 116/83 mm[Hg] 12/14/2016 Blood Pressure 97/75 mm[Hg] 11/28/2016 Blood Pressure 91/67 mm[Hg] 10/17/2016 Blood Pressure 92/65 mm[Hg] 09/01/2016 Blood Pressure 120/82 mm[Hg] 08/18/2016 Blood Pressure 116/77 mm[Hg] 08/04/2016 Blood Pressure 104/70 mm[Hg] 07/01/2016 Blood Pressure 107/79 mm[Hg] 06/03/2016 Blood Pressure 108/83 mm[Hg] 05/06/2016 Blood Pressure 87/55 mm[Hg] 04/08/2016 Blood Pressure 130/74 mm[Hg] 03/11/2016 Blood Pressure 134/90 mm[Hg] 02/05/2016 Blood Pressure 118/80 mm[Hg] 01/13/2016 Blood Pressure 112/78 mm[Hg] 12/25/2015 Blood Pressure 106/77 mm[Hg] 12/04/2015 Blood Pressure 100/71 mm[Hg] 11/20/2015 Blood Pressure 138/92 mm[Hg] 11/12/2015 Blood Pressure 118/85 mm[Hg] 10/19/2015 Blood Pressure 106/76 mm[Hg] 08/25/2015 Blood Pressure 124/80 mm[Hg] 08/07/2015 Blood Pressure 120/78 mm[Hg] 07/13/2015 Blood Pressure 117/77 mm[Hg] 07/01/2015 Height Weight BMI Blood Pressure 5 ft 4 in 205 lbs 35.32 kg/m2 109/73 mm[Hg]"
--- OUTSIDE RECORDS SUMMARY | 2020-04-22 10:28 | CCD ---
Author Organization Unknown Address [address] [place] [address] Phone [phone] Care Team Providers Care Fulfillment Specialist Name Role Phone MARIANA RICHTER ORDER PLANNER 3 [phone] Allergies Code Code System Name Reaction Severity Status Onset RxNorm Cyclobenzaprine Active 07/01/19 16 Notes: CITREX NASAL SPRAY (Active): Reac tion: [...] capsule Completed 2017 gabapentin 600 mg tablet Active Not benji ilable loratadine 10 mg tablet Active Not avai [...] Active Not available tizanidine 4 mg tablet Active Not avail able trazodone 150 mg tablet Active Not avai [...] ot available 04/03/2003 Hernia Repair Notes: x2 2003 Information not available 04/03/1988 Knee Surgery Information not avai lable 04/03/1983 Ankle Arthroscopy/surgery Information no t available Notes: Right ankle 1982 and 1987, right knee 1985 and 1987, left shoulder 2013, hernia repair 1981 and 2016, colon tumor 2015, and hemorrhoids 200903/09/2017 Results Lab Results None recorded. Past Encounters 02/25/2020 Myofascial Pain; Degeneration of Lumbar Intervertebral Disc; Degeneration of Lumbosacral Intervertebral Disc; Displacement of Lumbar Intervertebral Disc without Myelopathy; Intervertebral Disc Disorder; Spondylosis without Myelopathy; Lumbosacral Spondylosis without Myelopathy; Lumbar Radiculopathy; Inflammation of Sacroiliac Joint Gerald Gamez MD: [address], [place] [address], Ph. 02/17/2020 Degeneration of Lumbar Intervertebral Disc; Degeneration of Lumbosacral Intervertebral Disc; Displacement of Lumbar Intervertebral Disc without Myelopathy; Intervertebral Disc Disorder; Spondylosis without Myelopathy; Lumbosacral Spondylosis without Myelopathy; Lumbar Radiculopathy; Inflammation of Sacroiliac Joint; Myofascial Pain Randi Hamilton NP: [address], [address], [place] [address], Ph. 01/06/2020 Degeneration of Lumbar Intervertebral Disc; Degeneration of Lumbosacral Intervertebral Disc; Displacement of Lumbar Intervertebral Disc without Myelopathy; Intervertebral Disc Disorder; Spondylosis without Myelopathy; Lumbosacral Spondylosis without Myelopathy; Lumbar Radiculopathy; Inflammation of Sacroiliac Joint; Myofascial Pain Randi Hamilton ORDER PLANNER: [id number] [address], Ph. 11/14/2019 Degeneration of Lumbar Intervertebral Disc; Degeneration of Lumbosacral Intervertebral Disc; Displacement of Lumbar Intervertebral Disc without Myelopathy; Intervertebral Disc Disorder; Spondylosis without Myelopathy; Lumbosacral Spondylosis without Myelopathy; Lumbar Radiculopathy; Inflammation of Sacroiliac Joint; Myofascial Pain Randi Hamilton ORDER PLANNER: [id number] [address], Ph. 10/29/2019 Myofascial Pain; Degeneration of Lumbar Intervertebral Disc; Degeneration of Lumbosacral Intervertebral Disc; Displacement of Lumbar Intervertebral Disc without Myelopathy; Intervertebral Disc Disorder; Spondylosis without Myelopathy; Lumbosacral Spondylosis without Myelopathy; Lumbar Radiculopathy; Inflammation of Sacroiliac Joint Gerald Gamez MD: [id number] [address], Ph. 07/24/2019 Degeneration of Lumbar Intervertebral Disc; Degeneration of Lumbosacral Intervertebral Disc; Displacement of Lumbar Intervertebral Disc without Myelopathy; Intervertebral Disc Disorder; Spondylosis without Myelopathy; Lumbosacral Spondylosis without Myelopathy; Lumbar Radiculopathy; Inflammation of Sacroiliac Joint; Myofascial Pain Randi Hamilton ORDER PLANNER: [id number] [address], Ph. 06/12/2019 Degeneration of Lumbar Intervertebral Disc; Degeneration of Lumbosacral Intervertebral Disc; Displacement of Lumbar Intervertebral Disc without Myelopathy; Intervertebral Disc Disorder; Spondylosis without Myelopathy; Lumbosacral Spondylosis without Myelopathy; Lumbar Radiculopathy; Inflammation of Sacroiliac Joint; Myofascial Pain Randi Hamilton ORDER PLANNER: [id number] [address], Ph. 05/28/2019 Myofascial Pain; Degeneration of Lumbar Intervertebral Disc; Degeneration of Lumbosacral Intervertebral Disc; Displacement of Lumbar Intervertebral Disc without Myelopathy; Intervertebral Disc Disorder; Spondylosis without Myelopathy; Lumbosacral Spondylosis without Myelopathy; Lumbar Radiculopathy; Inflammation of Sacroiliac Joint Gerald Gamez MD: [id number] [address], Ph. 05/22/2019 Degeneration of Lumbar Intervertebral Disc; Degeneration of Lumbosacral Intervertebral Disc; Displacement of Lumbar Intervertebral Disc without Myelopathy; Intervertebral Disc Disorder; Spondylosis without Myelopathy; Lumbosacral Spondylosis without Myelopathy; Lumbar Radiculopathy; Inflammation of Sacroiliac Joint; Myofascial Pain Randi Hamilton ORDER PLANNER: [id number] [address], Ph. 04/25/2019 Inflammation of Sacroiliac Joint; Degeneration of Lumbar Intervertebral Disc; Degeneration of Lumbosacral Intervertebral Disc; Displacement of Lumbar Intervertebral Disc without Myelopathy; Intervertebral Disc Disorder; Spondylosis without Myelopathy; Lumbosacral Spondylosis without Myelopathy; Lumbar Radiculopathy Gerald Gamez MD: [id number] [address], Ph. 03/25/2019 Degeneration of Lumbar Intervertebral Disc; Degeneration of Lumbosacral Intervertebral Disc; Displacement of Lumbar Intervertebral Disc without Myelopathy; Intervertebral Disc Disorder; Spondylosis without Myelopathy; Lumbosacral Spondylosis without Myelopathy; Lumbar Radiculopathy; Inflammation of Sacroiliac Joint Randi Hamilton ORDER PLANNER: [id number] [address], Ph. 03/07/2019 Lumbar Radiculopathy; Degeneration of Lumbar Intervertebral Disc; Degeneration of Lumbosacral Intervertebral Disc; Displacement of Lumbar Intervertebral Disc without Myelopathy; Intervertebral Disc Disorder; Spondylosis without Myelopathy; Lumbosacral Spondylosis without Myelopathy; Inflammation of Sacroiliac Joint Gerald Gamez MD: [id number] [address], Ph. 02/14/2019 Lumbar Radiculopathy; Degeneration of Lumbar Intervertebral Disc; Degeneration of Lumbosacral Intervertebral Disc; Displacement of Lumbar Intervertebral Disc without Myelopathy; Intervertebral Disc Disorder; Spondylosis without Myelopathy; Lumbosacral Spondylosis without Myelopathy; Inflammation of Sacroiliac Joint Gerald Gamez MD: [id number] [address], Ph. 01/31/2019 Degeneration of Lumbar Intervertebral Disc; Degeneration of Lumbosacral Intervertebral Disc; Displacement of Lumbar Intervertebral Disc without Myelopathy; Intervertebral Disc Disorder; Spondylosis without Myelopathy; Lumbosacral Spondylosis without Myelopathy; Lumbar Radiculopathy; Inflammation of Sacroiliac Joint Randi Tyron Hamilton, ORDER PLANNER: [address] [address], [facility] [place] [address], Ph. 12/20/2018 Degeneration of Lumbar Intervertebral Disc; Degeneration of Lumbosacral Intervertebral Disc; Displacement of Lumbar Intervertebral Disc without Myelopathy; Intervertebral Disc Disorder; Spondylosis without Myelopathy; Lumbosacral Spondylosis without Myelopathy; Lumbar Radiculopathy; Inflammation of Sacroiliac Joint Randi Bernardosoncaro Hamilton, ORDER PLANNER: [address] [address], Ph. 11/29/2018 Lumbar Radiculopathy; Degeneration of Lumbar Intervertebral Disc; Degeneration of Lumbosacral Intervertebral Disc; Displacement of Lumbar Intervertebral Disc without Myelopathy; Intervertebral Disc Disorder; Spondylosis without Myelopathy; Lumbosacral Spondylosis without Myelopathy; Inflammation of Sacroiliac Joint Gerald Gamez MD: [id number] [address], Ph. 11/15/2018 Lumbar Radiculopathy; Degeneration of Lumbar Intervertebral Disc; Degeneration of Lumbosacral Intervertebral Disc; Displacement of Lumbar Intervertebral Disc without Myelopathy; Intervertebral Disc Disorder; Spondylosis without Myelopathy; Lumbosacral Spondylosis without Myelopathy; Inflammation of Sacroiliac Joint Gerald Gamez MD: [id number] [address], Ph. 11/05/2018 Degeneration of Lumbar Intervertebral Disc; Degeneration of Lumbosacral Intervertebral Disc; Displacement of Lumbar Intervertebral Disc without Myelopathy; Intervertebral Disc Disorder; Spondylosis without Myelopathy; Lumbosacral Spondylosis without Myelopathy; Lumbar Radiculopathy; Inflammation of Sacroiliac Joint Randi Hamilton ORDER PLANNER: [id number] [address], Ph. 10/03/2018 Degeneration of Lumbar Intervertebral Disc; Degeneration of Lumbosacral Intervertebral Disc; Displacement of Lumbar Intervertebral Disc without Myelopathy; Intervertebral Disc Disorder; Spondylosis without Myelopathy; Lumbosacral Spondylosis without Myelopathy; Lumbar Radiculopathy; Inflammation of Sacroiliac Joint Randi Hamilton ORDER PLANNER: [id number] [address], Ph. 09/05/2018 Lumbosacral Spondylosis without Myelopathy; Spondylosis without Myelopathy; Degeneration of Lumbar Intervertebral Disc; Degeneration of Lumbosacral Intervertebral Disc; Displacement of Lumbar Intervertebral Disc without Myelopathy; Intervertebral Disc Disorder; Lumbar Radiculopathy; Inflammation of Sacroiliac Joint Gerald Gamez MD: [id number] [address], Ph. 08/23/2018 Degeneration of Lumbar Intervertebral Disc; Degeneration of Lumbosacral Intervertebral Disc; Displacement of Lumbar Intervertebral Disc without Myelopathy; Intervertebral Disc Disorder; Spondylosis without Myelopathy; Lumbosacral Spondylosis without Myelopathy; Lumbar Radiculopathy; Inflammation of Sacroiliac Joint Randi Manongsong De[place], ORDER PLANNER: [id number] [address], [place] [address], Ph. 08/13/2018 Lumbosacral Spondylosis without Myelopathy; Spondylosis without Myelopathy; Degeneration of Lumbar Intervertebral Disc; Degeneration of Lumbosacral Intervertebral Disc; Displacement of Lumbar Intervertebral Disc without Myelopathy; Intervertebral Disc Disorder; Lumbar Radiculopathy; Inflammation of Sacroiliac Joint Gerald Gamez MD: [id number] [address], [place] [address], Ph. 07/25/2018 Degeneration of Lumbar Intervertebral Disc; Degeneration of Lumbosacral Intervertebral Disc; Displacement of Lumbar Intervertebral Disc without Myelopathy; Intervertebral Disc Disorder; Spondylosis without Myelopathy; Lumbosacral Spondylosis without Myelopathy; Lumbar Radiculopathy; Inflammation of Sacroiliac Joint Randi Mannestorsoncaro [place], ORDER PLANNER: [id number] [place] [address], Ph. 07/04/2018 Degeneration of Lumbar Intervertebral Disc; Degeneration of Lumbosacral Intervertebral Disc; Displacement of Lumbar Intervertebral Disc without Myelopathy; Intervertebral Disc Disorder; Spondylosis without Myelopathy; Lumbosacral Spondylosis without Myelopathy; Lumbar Radiculopathy; Inflammation of Sacroiliac Joint Gerald Gamez MD: [id number] [address], Ph. 06/22/2018 Degeneration of Lumbar Intervertebral Disc; Degeneration of Lumbosacral Intervertebral Disc; Displacement of Lumbar Intervertebral Disc without Myelopathy; Intervertebral Disc Disorder; Spondylosis without Myelopathy; Lumbosacral Spondylosis without Myelopathy; Lumbar Radiculopathy; Inflammation of Sacroiliac Joint Randi Manongsong [place], ORDER PLANNER: [address] [address], [facility] [address], Ph. 05/30/2018 Degeneration of Lumbar Intervertebral Disc; Degeneration of Lumbosacral Intervertebral Disc; Displacement of Lumbar Intervertebral Disc without Myelopathy; Intervertebral Disc Disorder; Spondylosis without Myelopathy; Lumbosacral Spondylosis without Myelopathy; Lumbar Radiculopathy; Inflammation of Sacroiliac Joint Gerald Gamez MD: [address] [address], [place] [address], Ph. 05/24/2018 Degeneration of Lumbar Intervertebral Disc; Degeneration of Lumbosacral Intervertebral Disc; Displacement of Lumbar Intervertebral Disc without Myelopathy; Intervertebral Disc Disorder; Spondylosis without Myelopathy; Lumbosacral Spondylosis without Myelopathy; Lumbar Radiculopathy; Inflammation of Sacroiliac Joint Randi Tyron Hamilton, ORDER PLANNER: [address] [address], [facility] [address], Ph. 04/16/2018 Degeneration of Lumbar Intervertebral Disc; Degeneration of Lumbosacral Intervertebral Disc; Displacement of Lumbar Intervertebral Disc without Myelopathy; Intervertebral Disc Disorder; Spondylosis without Myelopathy; Lumbosacral Spondylosis without Myelopathy; Lumbar Radiculopathy; Inflammation of Sacroiliac Joint Randi Tyron Hamilton, ORDER PLANNER: [address] [address], [place] [address], Ph. 03/22/2018 Degeneration of Lumbar Intervertebral Disc; Degeneration of Lumbosacral Intervertebral Disc; Displacement of Lumbar Intervertebral Disc without Myelopathy; Intervertebral Disc Disorder; Spondylosis without Myelopathy; Lumbosacral Spondylosis without Myelopathy; Lumbar Radiculopathy; Inflammation of Sacroiliac Joint Gerald Gamez MD: [address] [address], [facility] [address], Ph. 03/08/2018 Degeneration of Lumbar Intervertebral Disc; Degeneration of Lumbosacral Intervertebral Disc; Displacement of Lumbar Intervertebral Disc without Myelopathy; Intervertebral Disc Disorder; Spondylosis without Myelopathy; Lumbosacral Spondylosis without Myelopathy; Lumbar Radiculopathy; Inflammation of Sacroiliac Joint Randi Tyron Hamilton, ORDER PLANNER: [address] [address], [place] [address], Ph. Social History Tobacco Smoking Status Former [...]
--- OUTSIDE RECORDS SUMMARY | 2020-04-22 10:28 | CCD ---
Author Author [facility] Organization [facility] Address Unknown Phone Unavailable Care Team Providers Care Grinder Machine Setter Name Role Phone Grace Manzanares Unavailable PROBLEMS Type Condition ICD9-CM Code [id number] Code Onset Dates Condition S tatus SNOMED Code Notes Problem Urinary incontinence, mixed N39.46 Active 4139 00321 Problem Urge incontinence N39.41 Active 75001161 Problem SARAH (obstructive sleep apnea) G47.33 Active 78 138006 Problem Depression with anxiety F41.8 Active 99544060 6 Problem Nodule of lower lobe of right lung R91.1 Activ e 948034290 Problem Restrictive lung disease J98.4 Active 3667659 5 Problem Chronic GERD K21.9 Active 540505201 Problem BMI 35.0-35.9,adult Z68.35 Active 527349819 Problem Lumbago with sciatica, right side M54.41 Active 727802206096414 Problem Other chronic pain G89.29 Active 64454836 Problem BMI 36.0-36.9,adult Z68.36 Active 856592182 Problem Rash or skin eruption accompanying infectious disease B99.9 Active 78288156 Problem Lumbago with sciatica, left side M54.42 Active 554746165 Problem Urinary tract infection, site not specified N39.0 Active 35986457 Problem Encounter for screening for lung cancer Z12.2 Active 908320448 Problem Mixed hyperlipidemia E78.2 Active 693758563 Problem Enlarged prostate with lower urinary tract symptoms N40.1 Active 58645086647895 Problem Fatigue, unspecified type R53.83 Active 256948 01 Problem Weight loss, non-intentional R63.4 Active 448 058025 Problem Intermittent palpitations R00.2 Active 824294 007 Problem Planning to commit suicide R45.851 Active 86789 0009 ALLERGIES Allergen (clinical drug ingredient) Drug/Non Drug Allergy do cumented on EMR Reaction Allergy Type Onset Date Status Flexeril itching, nausea Drug Allergy Active [place] rash Non Drug Allergy Active ENCOUNTERS from 1962 to 2020-02-18 Encounter Location Date Provider Diagnosis [address] [address] 16 Feb, 2020 Grace Manzanares IMMUNIZATIONS Vaccine Route Administration [...] Information RESULTS No Results REASON FOR VISIT CT low dose MEDICAL (GENERAL) HISTORY Type Description Date Medical History Depression Medical History BPH Medical History Anxiety Medical History GERD Medical History Hypercholesterolemia Medical History PTSD Medical History Severe stenosis and hernated disc Medical History Umbilical hernia Medical History SARAH Medical History Insomnia and nightmares Surgical History Colon Surgery multiple 3226-2356 Surgical History Orthopedic surgeries-right leg, left loida [...] tablet Orally Once a day for 30 Next Appt Details Provider Name:Betty Kumar, 2019-12-0 9 10:00:00 AM, [address], [place], [address], Insurance Providers Payer Name Payer Address Payer Phone Insured Name Patient Relati onship to Insured Coverage Start Date Coverage End Date [employer] [facility] [address] [facility] [address] AMADOR WILKINS self
--- OUTSIDE RECORDS SUMMARY | 2020-04-22 10:28 | CCD ---
Author Author [facility] Organization [facility] Address Unknown Phone Unavailable Care Team Providers Care Shotgun Shell Reprinting Unit Operator Name Role Phone Grace Manzanares Unavailable PROBLEMS Type Condition ICD9-CM Code [id number] Code Onset Dates Condition S tatus SNOMED Code Notes Problem Urinary incontinence, mixed N39.46 Active 4131 22299 Problem Urge incontinence N39.41 Active 50520027 Problem SARAH (obstructive sleep apnea) G47.33 Active 78 186227 Problem Depression with anxiety F41.8 Active 72696747 6 Problem Nodule of lower lobe of right lung R91.1 Activ e 284454114 Problem Restrictive lung disease J98.4 Active 8163703 5 Problem Chronic GERD K21.9 Active 878552572 Problem BMI 35.0-35.9,adult Z68.35 Active 163645569 Problem Lumbago with sciatica, right side M54.41 Active 809255286911446 Problem Other chronic pain G89.29 Active 82682661 Problem BMI 36.0-36.9,adult Z68.36 Active 364798804 Problem Rash or skin eruption accompanying infectious disease B99.9 Active 41435566 Problem Lumbago with sciatica, left side M54.42 Active 138957096 Problem Urinary tract infection, site not specified N39.0 Active 43681941 Problem Encounter for screening for lung cancer Z12.2 Active 442438190 Problem Mixed hyperlipidemia E78.2 Active 311274886 Problem Enlarged prostate with lower urinary tract symptoms N40.1 Active 69880780344827 Problem Fatigue, unspecified type R53.83 Active 654338 01 Problem Weight loss, non-intentional R63.4 Active 448 677915 Problem Intermittent palpitations R00.2 Active 004304 007 Problem Planning to commit suicide R45.851 Active 67903 0009 ALLERGIES Allergen (clinical drug ingredient) Drug/Non Drug Allergy do cumented on EMR Reaction Allergy Type Onset Date Status Flexeril itching, nausea Drug Allergy Active [facility] [place] rash Non Drug Allergy Active ENCOUNTERS from 1962 to 2020-02-12 Encounter Location Date Provider Diagnosis [facility] [address] [place] [address] Feb, Grace Manzanares Mixed hyperlipidemia E78.2 IMMUNIZATIONS Vaccine Route Administration Date Status Influenza [...] MEDICATIONS Medication SIG (Take, Route, Frequency, Duration) Start Date En d Date Status Loratadine 10 MG 1 tablet Orally Once a day for 14 day(s) Jan, 020 Active Depend Pant Large 1 ea N39.41 Weight as needed MDD 24 for 30 days August, Active Omeprazole 20 MG 1 capsule Orally Once a day for 90 days Active Prazosin HCl 1 MG 1 capsule at bedtime Orally Once a day Not-Taking Sertraline HCl 100 MG 2 Orally Daily Acti ve Acetaminophen 650 MG 1 tablet Orally three times daily as ne eded for 30 days May, Active Mupirocin 2 % 1 application Externally Three times a d ay for 10 day(s) Jan, Active Cipro 500 MG 1 tablet Orally Twice a day Mar, Not-Taking Aspirin 81 MG 1 tablet Orally Once a day for 30 day(s) Jan, Active Albuterol Sulfate HFA 108 (90 Base) MCG/ACT 1 puff as needed Inhalation every 4 hours as needed for 30 Days Jul, Active Tamsulosin HCl 0.4 MG TAKE ONE CAPSULE 30 MINUTES AFTER THE SAME MEAL EACH DAY Not-Taking Mapap Arthritis Pain 650 MG 2 tablets as needed Orally every 8 hrs Not-Taking Tizanidine HCl 4 MG 1 tablet as needed Orally every 6 hrs Active Oxybutynin Chloride 5 MG 1 tablet bid for 30 Days Active Nexium 20 MG 1 capsule Orally Once a day Not-Taking Aripiprazole 10 MG 1 tablet Orally Once a day Active Atorvastatin Calcium 80 MG 1 tablet Orally Once a day for 30 day(s) Jan, Active Pantoprazole Sodium 40 MG 1 tablet Orally bid Not-Taking Gabapentin 600 MG 1 capsule Orally three times daily Active Clonidine HCl 0.2 MG 1 tablet Orally Once a day Active Tamsulosin HCl 0.4 mg 1 capsule Orally Once a day for 30 Days Active Acetaminophen ER 650 MG TAKE ONE TABLET BY MOUTH THR EE TIMES A DAY NEEDED for 30 Not-Taking Sertraline HCl 100 MG 1 1/2 tablet Orally Once a day Not-Taking Prazosin HCl 1 MG 1 capsule at bedtime Orally Once a day Not-Taking Trazodone 50 100 mg 2 tab(s) p.o. daily N ot-Taking TraZODone HCl 150 MG 1 tablet at bedtime Orally Once a day Not-Taking tylenol 650 mg 1 tab Oral tid for 30 days Not-Taking PROCEDURES No Information RESULTS No Results REASON FOR VISIT meds refill MEDICAL (GENERAL) HISTORY Type Description Date Medical History Depression Medical History BPH Medical History Anxiety Medical History GERD Medical History Hypercholesterolemia Medical History PTSD Medical History Severe stenosis and hernated disc Medical History Umbilical hernia Medical History SARAH Medical History Insomnia and nightmares Surgical History Colon Surgery multiple 1132-8743 Surgical History Orthopedic surgeries-right leg, left loida [...] STATUS No Information ASSESSMENTS Encounter Date Diagnosis Notes Feb, Mixed hyperlipidemia (ICD-10 - E78.2) PLAN OF TREATMENT Medication Medication Name Sig Start Date Stop Date Aspirin 81 MG 1 tablet Orally Once a day for 30 day(s) Jan, Atorvastatin Calcium 80 MG 1 tablet Orally Once a day for 30 day(s) Jan, Next Appt Details Provider Name:Betty Kumar, 2019-12-0 9 10:00:00 AM, [address], [place], [address], Insurance Providers Payer Name Payer Address Payer Phone Insured Name Patient Relati onship to Insured Coverage Start Date Coverage End Date [facility] [employer] [facility] [address] [facility] [address] AMADOR WILKINS self
--- OUTSIDE RECORDS SUMMARY | 2020-04-22 10:28 | CCD ---
Author Author [facility] Organization [facility] Address Unknown Phone Unavailable Care Team Providers Care Soft Work Wrapper Examiner Name Role Phone Grace Manzanares Unavailable PROBLEMS Type Condition ICD9-CM Code SFA30-HS Code Onset Dates Condition S tatus SNOMED Code Notes Problem Urinary incontinence, mixed N39.46 Active 4130 00022 Problem Urge incontinence N39.41 Active 18483613 Problem SARAH (obstructive sleep apnea) G47.33 Active 78 672164 Problem Depression with anxiety F41.8 Active 13061780 6 Problem Nodule of lower lobe of right lung R91.1 Activ e 677714306 Problem Restrictive lung disease J98.4 Active 0935101 5 Problem Chronic GERD K21.9 Active 165074011 Problem BMI 35.0-35.9,adult Z68.35 Active 772384746 Problem Lumbago with sciatica, right side M54.41 Active 281025274318711 Problem Other chronic pain G89.29 Active 41527243 Problem BMI 36.0-36.9,adult Z68.36 Active 605454896 Problem Rash or skin eruption accompanying infectious disease B99.9 Active 73614529 Problem Lumbago with sciatica, left side M54.42 Active 629496809 Problem Urinary tract infection, site not specified N39.0 Active 39502882 Problem Encounter for screening for lung cancer Z12.2 Active 100651468 Problem Mixed hyperlipidemia E78.2 Active 940396360 Problem Enlarged prostate with lower urinary tract symptoms N40.1 Active 44412250750882 Problem Fatigue, unspecified type R53.83 Active 903194 01 Problem Weight loss, non-intentional R63.4 Active 448 463660 Problem Intermittent palpitations R00.2 Active 987551 007 Problem Planning to commit suicide R45.851 Active 92367 0009 ALLERGIES Allergen (clinical drug ingredient) Drug/Non Drug Allergy do cumented on EMR Reaction Allergy Type Onset Date Status Flexeril itching, nausea Drug Allergy Active [place] Letcher rash Non Drug Allergy Active ENCOUNTERS from 1962 to 2020-02-22 Encounter Location Date Provider Diagnosis [facility] [address] [place] [address] Feb, Grace Manzanares IMMUNIZATIONS Vaccine Route Administration Date [...] Information RESULTS No Results REASON FOR VISIT CT/xray of lungs MEDICAL (GENERAL) HISTORY Type Description Date Medical History Depression Medical History BPH Medical History Anxiety Medical History GERD Medical History Hypercholesterolemia Medical History PTSD Medical History Severe stenosis and hernated disc Medical History Umbilical hernia Medical History SARAH Medical History Insomnia and nightmares Surgical History Colon Surgery multiple 5161-0074 Surgical History Orthopedic surgeries-right leg, left loida [...] Provider Name:Betty Kumar, 2019-12-0 9 10:00:00 AM, [address], [place], [address], Insurance Providers Payer Name Payer Address Payer Phone Insured Name Patient Relati onship to Insured Coverage Start Date Coverage End Date [facility] COMMUNITY PLAN [facility] [address] [facility] [phone] AMADOR WILKINS self
--- OUTSIDE RECORDS SUMMARY | 2020-04-22 10:28 | CCD ---
Author Organization Unknown Address [address] [place] [address] Phone [phone] Care Team Providers Care Manager Technical Training Name Role Phone MARIANA RICHTER UNION REPRESENTATIVE 3 [phone] Allergies Code Code System Name Reaction Severity [...] DAY WITH 40MG DOSE TO EQUAL 60MG Completed 03/13/2020 atorvastatin 40 mg tablet TAKE ONE TABLET BY MOUTH EVERY DAY TOTAL DAILY DOSE 60MG Completed 03/13/2020 atorvastatin 80 mg tablet TAKE ONE TABLET BY MOUTH EVERY DAY Active Not available clonidine HCl 0.1 mg tablet Completed 03/03 clonidine HCl 0.2 mg tablet Active Not available gabapentin 400 mg capsule [...] capsule Completed 03/22/2018 sertraline 100 mg tablet Active Not benji ilable sertraline 50 mg tablet TAKE ONE TABLET BY MOUTH EVERY MORNING Active Not available tamsulosin 0.4 mg capsule TAKE ONE CAPSULE BY MOUTH EVERY DAY Active Not available tizanidine 4 mg tablet TAKE ONE TABLET BY MOUTH EVERY 6 HOURS NEEDED Active Not available trazodone 150 mg tablet Active Not avai lable trazodone 50 mg tablet Completed 0 Problems Name Status Onset Date Source Inflammation [...] Results Lab Results None recorded. Past Encounters 03/13/2020 Degeneration of Lumbar Intervertebral Disc; Degeneration of Lumbosacral Intervertebral Disc; Displacement of Lumbar Intervertebral Disc without Myelopathy; Intervertebral Disc Disorder; Spondylosis without Myelopathy; Lumbosacral Spondylosis without Myelopathy; Lumbar Radiculopathy; Inflammation of Sacroiliac Joint; Myofascial Pain Randi Hamilton UNION REPRESENTATIVE: [address], [place] [address], Ph. 02/25/2020 Myofascial Pain; Degeneration of Lumbar Intervertebral Disc; Degeneration of Lumbosacral Intervertebral Disc; Displacement of Lumbar Intervertebral Disc without Myelopathy; Intervertebral Disc Disorder; Spondylosis without Myelopathy; Lumbosacral Spondylosis without Myelopathy; Lumbar Radiculopathy; Inflammation of Sacroiliac Joint Gerald Gamez MD: [address] [address], [place] [address], Ph. 02/17/2020 Degeneration of Lumbar Intervertebral Disc; Degeneration of Lumbosacral Intervertebral Disc; Displacement of Lumbar Intervertebral Disc without Myelopathy; Intervertebral Disc Disorder; Spondylosis without Myelopathy; Lumbosacral Spondylosis without Myelopathy; Lumbar Radiculopathy; Inflammation of Sacroiliac Joint; Myofascial Pain Randi Hamilton UNION REPRESENTATIVE: [address] [address], Ph. 01/06/2020 Degeneration of Lumbar Intervertebral Disc; Degeneration of Lumbosacral Intervertebral Disc; Displacement of Lumbar Intervertebral Disc without Myelopathy; Intervertebral Disc Disorder; Spondylosis without Myelopathy; Lumbosacral Spondylosis without Myelopathy; Lumbar Radiculopathy; Inflammation of Sacroiliac Joint; Myofascial Pain Randi Hamilton UNION REPRESENTATIVE: [address] [address], Ph. 11/14/2019 Degeneration of Lumbar Intervertebral Disc; Degeneration of Lumbosacral Intervertebral Disc; Displacement of Lumbar Intervertebral Disc without Myelopathy; Intervertebral Disc Disorder; Spondylosis without Myelopathy; Lumbosacral Spondylosis without Myelopathy; Lumbar Radiculopathy; Inflammation of Sacroiliac Joint; Myofascial Pain Randi Hamilton UNION REPRESENTATIVE: [address] [address], Ph. 10/29/2019 Myofascial Pain; Degeneration of Lumbar Intervertebral Disc; Degeneration of Lumbosacral Intervertebral Disc; Displacement of Lumbar Intervertebral Disc without Myelopathy; Intervertebral Disc Disorder; Spondylosis without Myelopathy; Lumbosacral Spondylosis without Myelopathy; Lumbar Radiculopathy; Inflammation of Sacroiliac Joint Gerald Gamez MD: [address] [address], [place] [address], Ph. 07/24/2019 Degeneration of Lumbar Intervertebral Disc; Degeneration of Lumbosacral Intervertebral Disc; Displacement of Lumbar Intervertebral Disc without Myelopathy; Intervertebral Disc Disorder; Spondylosis without Myelopathy; Lumbosacral Spondylosis without Myelopathy; Lumbar Radiculopathy; Inflammation of Sacroiliac Joint; Myofascial Pain Randi Hamilton UNION REPRESENTATIVE: [address] [address], Ph. 06/12/2019 Degeneration of Lumbar Intervertebral Disc; Degeneration of Lumbosacral Intervertebral Disc; Displacement of Lumbar Intervertebral Disc without Myelopathy; Intervertebral Disc Disorder; Spondylosis without Myelopathy; Lumbosacral Spondylosis without Myelopathy; Lumbar Radiculopathy; Inflammation of Sacroiliac Joint; Myofascial Pain Randi Hamilton UNION REPRESENTATIVE: [address] [address], Ph. 05/28/2019 Myofascial Pain; Degeneration of Lumbar Intervertebral Disc; Degeneration of Lumbosacral Intervertebral Disc; Displacement of Lumbar Intervertebral Disc without Myelopathy; Intervertebral Disc Disorder; Spondylosis without Myelopathy; Lumbosacral Spondylosis without Myelopathy; Lumbar Radiculopathy; Inflammation of Sacroiliac Joint Gerald Gamez MD: [address] [address], Ph. 05/22/2019 Degeneration of Lumbar Intervertebral Disc; Degeneration of Lumbosacral Intervertebral Disc; Displacement of Lumbar Intervertebral Disc without Myelopathy; Intervertebral Disc Disorder; Spondylosis without Myelopathy; Lumbosacral Spondylosis without Myelopathy; Lumbar Radiculopathy; Inflammation of Sacroiliac Joint; Myofascial Pain Randi Hamilton, UNION REPRESENTATIVE: [address] [address], Ph. 04/25/2019 Inflammation of Sacroiliac Joint; Degeneration of Lumbar Intervertebral Disc; Degeneration of Lumbosacral Intervertebral Disc; Displacement of Lumbar Intervertebral Disc without Myelopathy; Intervertebral Disc Disorder; Spondylosis without Myelopathy; Lumbosacral Spondylosis without Myelopathy; Lumbar Radiculopathy Gerald Gaemz MD: [address] [address], Ph. 03/25/2019 Degeneration of Lumbar Intervertebral Disc; Degeneration of Lumbosacral Intervertebral Disc; Displacement of Lumbar Intervertebral Disc without Myelopathy; Intervertebral Disc Disorder; Spondylosis without Myelopathy; Lumbosacral Spondylosis without Myelopathy; Lumbar Radiculopathy; Inflammation of Sacroiliac Joint Randi Hamilton UNION REPRESENTATIVE: [address] [address], Ph. 03/07/2019 Lumbar Radiculopathy; Degeneration of Lumbar Intervertebral Disc; Degeneration of Lumbosacral Intervertebral Disc; Displacement of Lumbar Intervertebral Disc without Myelopathy; Intervertebral Disc Disorder; Spondylosis without Myelopathy; Lumbosacral Spondylosis without Myelopathy; Inflammation of Sacroiliac Joint Gerald Gamez MD: [address] [address], Ph. 02/14/2019 Lumbar Radiculopathy; Degeneration of Lumbar Intervertebral Disc; Degeneration of Lumbosacral Intervertebral Disc; Displacement of Lumbar Intervertebral Disc without Myelopathy; Intervertebral Disc Disorder; Spondylosis without Myelopathy; Lumbosacral Spondylosis without Myelopathy; Inflammation of Sacroiliac Joint Gerald Gamez MD: [address] [address], Ph. 01/31/2019 Degeneration of Lumbar Intervertebral Disc; Degeneration of Lumbosacral Intervertebral Disc; Displacement of Lumbar Intervertebral Disc without Myelopathy; Intervertebral Disc Disorder; Spondylosis without Myelopathy; Lumbosacral Spondylosis without Myelopathy; Lumbar Radiculopathy; Inflammation of Sacroiliac Joint Randi Hamilton UNION REPRESENTATIVE: [address] [address], Ph. 12/20/2018 Degeneration of Lumbar Intervertebral Disc; Degeneration of Lumbosacral Intervertebral Disc; Displacement of Lumbar Intervertebral Disc without Myelopathy; Intervertebral Disc Disorder; Spondylosis without Myelopathy; Lumbosacral Spondylosis without Myelopathy; Lumbar Radiculopathy; Inflammation of Sacroiliac Joint Randi Manongsong [place], UNION REPRESENTATIVE: [address] [address], Ph. 11/29/2018 Lumbar Radiculopathy; Degeneration of Lumbar Intervertebral Disc; Degeneration of Lumbosacral Intervertebral Disc; Displacement of Lumbar Intervertebral Disc without Myelopathy; Intervertebral Disc Disorder; Spondylosis without Myelopathy; Lumbosacral Spondylosis without Myelopathy; Inflammation of Sacroiliac Joint Gerald Gamez MD: [address] [address], Ph. 11/15/2018 Lumbar Radiculopathy; Degeneration of Lumbar Intervertebral Disc; Degeneration of Lumbosacral Intervertebral Disc; Displacement of Lumbar Intervertebral Disc without Myelopathy; Intervertebral Disc Disorder; Spondylosis without Myelopathy; Lumbosacral Spondylosis without Myelopathy; Inflammation of Sacroiliac Joint Gerald Gamez MD: [address] [address], Ph. 11/05/2018 Degeneration of Lumbar Intervertebral Disc; Degeneration of Lumbosacral Intervertebral Disc; Displacement of Lumbar Intervertebral Disc without Myelopathy; Intervertebral Disc Disorder; Spondylosis without Myelopathy; Lumbosacral Spondylosis without Myelopathy; Lumbar Radiculopathy; Inflammation of Sacroiliac Joint Randi Manongsong [place], UNION REPRESENTATIVE: [address] [address], Ph. 10/03/2018 Degeneration of Lumbar Intervertebral Disc; Degeneration of Lumbosacral Intervertebral Disc; Displacement of Lumbar Intervertebral Disc without Myelopathy; Intervertebral Disc Disorder; Spondylosis without Myelopathy; Lumbosacral Spondylosis without Myelopathy; Lumbar Radiculopathy; Inflammation of Sacroiliac Joint Randi Manongsong [place], UNION REPRESENTATIVE: [address] [address], [place] [address], Ph. 09/05/2018 Lumbosacral Spondylosis without Myelopathy; Spondylosis without Myelopathy; Degeneration of Lumbar Intervertebral Disc; Degeneration of Lumbosacral Intervertebral Disc; Displacement of Lumbar Intervertebral Disc without Myelopathy; Intervertebral Disc Disorder; Lumbar Radiculopathy; Inflammation of Sacroiliac Joint Gerald Gamez MD: [address] [address], Ph. 08/23/2018 Degeneration of Lumbar Intervertebral Disc; Degeneration of Lumbosacral Intervertebral Disc; Displacement of Lumbar Intervertebral Disc without Myelopathy; Intervertebral Disc Disorder; Spondylosis without Myelopathy; Lumbosacral Spondylosis without Myelopathy; Lumbar Radiculopathy; Inflammation of Sacroiliac Joint Randi Hamilton, UNION REPRESENTATIVE: [address] [address], Ph. 08/13/2018 Lumbosacral Spondylosis without Myelopathy; Spondylosis without Myelopathy; Degeneration of Lumbar Intervertebral Disc; Degeneration of Lumbosacral Intervertebral Disc; Displacement of Lumbar Intervertebral Disc without Myelopathy; Intervertebral Disc Disorder; Lumbar Radiculopathy; Inflammation of Sacroiliac Joint Gerald Gamez MD: [address] [address], Ph. 07/25/2018 Degeneration of Lumbar Intervertebral Disc; Degeneration of Lumbosacral Intervertebral Disc; Displacement of Lumbar Intervertebral Disc without Myelopathy; Intervertebral Disc Disorder; Spondylosis without Myelopathy; Lumbosacral Spondylosis without Myelopathy; Lumbar Radiculopathy; Inflammation of Sacroiliac Joint Randi Tyron Hamilton, UNION REPRESENTATIVE: [address] [address], Ph. 07/04/2018 Degeneration of Lumbar Intervertebral Disc; Degeneration of Lumbosacral Intervertebral Disc; Displacement of Lumbar Intervertebral Disc without Myelopathy; Intervertebral Disc Disorder; Spondylosis without Myelopathy; Lumbosacral Spondylosis without Myelopathy; Lumbar Radiculopathy; Inflammation of Sacroiliac Joint Gerald Gamez MD: [address] [address], Ph. 06/22/2018 Degeneration of Lumbar Intervertebral Disc; Degeneration of Lumbosacral Intervertebral Disc; Displacement of Lumbar Intervertebral Disc without Myelopathy; Intervertebral Disc Disorder; Spondylosis without Myelopathy; Lumbosacral Spondylosis without Myelopathy; Lumbar Radiculopathy; Inflammation of Sacroiliac Joint Randi Mannestorsoncaro Hamilton, UNION REPRESENTATIVE: [address] [address], [place] [address], Ph. 05/30/2018 Degeneration of Lumbar Intervertebral Disc; Degeneration of Lumbosacral Intervertebral Disc; Displacement of Lumbar Intervertebral Disc without Myelopathy; Intervertebral Disc Disorder; Spondylosis without Myelopathy; Lumbosacral Spondylosis without Myelopathy; Lumbar Radiculopathy; Inflammation of Sacroiliac Joint Gerald Gamez MD: [address] [address], Ph. 05/24/2018 Degeneration of Lumbar Intervertebral Disc; Degeneration of Lumbosacral Intervertebral Disc; Displacement of Lumbar Intervertebral Disc without Myelopathy; Intervertebral Disc Disorder; Spondylosis without Myelopathy; Lumbosacral Spondylosis without Myelopathy; Lumbar Radiculopathy; Inflammation of Sacroiliac Joint Randi Bernardosoncaro Hamilton, UNION REPRESENTATIVE: [address] [address], [facility] [place] [address], Ph. 04/16/2018 Degeneration of Lumbar Intervertebral Disc; Degeneration of Lumbosacral Intervertebral Disc; Displacement of Lumbar Intervertebral Disc without Myelopathy; Intervertebral Disc Disorder; Spondylosis without Myelopathy; Lumbosacral Spondylosis without Myelopathy; Lumbar Radiculopathy; Inflammation of Sacroiliac Joint Randi Mannestorsoncaro Ferrarimalon, UNION REPRESENTATIVE: [address] [address], Ph. 03/22/2018 Degeneration of Lumbar Intervertebral Disc; Degeneration of Lumbosacral Intervertebral Disc; Displacement of Lumbar Intervertebral Disc without Myelopathy; Intervertebral Disc Disorder; Spondylosis without Myelopathy; Lumbosacral Spondylosis without Myelopathy; Lumbar Radiculopathy; Inflammation of Sacroiliac Joint Gerald Gamez MD: [address], [place] [address], Ph. 03/08/2018 Degeneration of Lumbar Intervertebral Disc; Degeneration of Lumbosacral Intervertebral Disc; Displacement of Lumbar Intervertebral Disc without Myelopathy; Intervertebral Disc Disorder; Spondylosis without Myelopathy; Lumbosacral Spondylosis without Myelopathy; Lumbar Radiculopathy; Inflammation of Sacroiliac Joint Randi Hamilton NP: [address], [place] [address], Ph. Social History Tobacco Smoking Status Former [...]
--- OUTSIDE RECORDS SUMMARY | 2020-04-22 10:28 | CCD ---
Author Author [facility] Organization [facility] Address Unknown Phone Unavailable Care Team Providers Care Automotive Title Clerk Name Role Phone Grace Manzanares Unavailable PROBLEMS Type Condition ICD9-CM Code [id number] Code Onset Dates Condition S tatus SNOMED Code Notes Problem Urinary incontinence, mixed N39.46 Active 4139 52221 Problem Urge incontinence N39.41 Active 17483244 Problem SARAH (obstructive sleep apnea) G47.33 Active 78 230834 Problem Depression with anxiety F41.8 Active 68738776 6 Problem Nodule of lower lobe of right lung R91.1 Activ e 977383342 Problem Restrictive lung disease J98.4 Active 7045698 5 Problem Chronic GERD K21.9 Active 402900449 Problem BMI 35.0-35.9,adult Z68.35 Active 024698047 Problem Lumbago with sciatica, right side M54.41 Active 061688516951118 Problem Other chronic pain G89.29 Active 61848968 Problem BMI 36.0-36.9,adult Z68.36 Active 137733767 Problem Rash or skin eruption accompanying infectious disease B99.9 Active 64680121 Problem Lumbago with sciatica, left side M54.42 Active 139443577 Problem Urinary tract infection, site not specified N39.0 Active 55389499 Problem Encounter for screening for lung cancer Z12.2 Active 656401423 Problem Mixed hyperlipidemia E78.2 Active 276180142 Problem Enlarged prostate with lower urinary tract symptoms N40.1 Active 23885070831534 Problem Fatigue, unspecified type R53.83 Active 282546 01 Problem Weight loss, non-intentional R63.4 Active 448 490418 Problem Intermittent palpitations R00.2 Active 982647 007 Problem Planning to commit suicide R45.851 Active 22785 0009 ALLERGIES Allergen (clinical drug ingredient) Drug/Non Drug Allergy do cumented on EMR Reaction Allergy Type Onset Date Status Flexeril itching, nausea Drug Allergy Active [place] Blanchard rash Non Drug Allergy Active ENCOUNTERS from 1960 to 2020-02-10 Encounter Location Date Provider Diagnosis [facility] [address] [place] [address] Feb, Grace Glenna Encounter for screening for lung cancer Z12.2 IMMUNIZATIONS Vaccine Route Administration Date Status Influenza [...] Duration) Start Date En d Date Status Mupirocin 2 % 1 application Externally Three times a d ay for 10 day(s) Jan, Active Acetaminophen 650 MG 1 tablet Orally three times daily as ne eded for 30 days May, Active Loratadine 10 MG 1 tablet Orally Once a day for 14 day(s) Jan, 020 Active Cipro 500 MG 1 tablet Orally Twice a day Mar, Not-Taking Pantoprazole Sodium 40 MG 1 tablet Orally bid Not-Taking Atorvastatin Calcium 80 MG 1 tablet Orally Once a day for 30 day(s) Jan, Active Sertraline HCl 100 MG 2 Orally Daily Acti ve Albuterol Sulfate HFA 108 (90 Base) MCG/ACT 1 puff as needed Inhalation every 4 hours as needed for 30 Days Jul, Active Nexium 20 MG 1 capsule Orally Once a day Not-Taking Aspirin 81 MG 1 tablet Orally Once a day for 30 day(s) Jan, Active Tamsulosin HCl 0.4 MG TAKE ONE CAPSULE 30 MINUTES AFTER THE SAME MEAL EACH DAY Not-Taking Mapap Arthritis Pain 650 MG 2 tablets as needed Orally every 8 hrs Not-Taking Tizanidine HCl 4 MG 1 tablet as needed Orally every 6 hrs Active Tamsulosin HCl 0.4 mg 1 capsule Orally Once a day for 30 Days Active Prazosin HCl 1 MG 1 capsule at bedtime Orally Once a day Not-Taking Aripiprazole 10 MG 1 tablet Orally Once a day Active Oxybutynin Chloride 5 MG 1 tablet bid for 30 Days Active Gabapentin 600 MG 1 capsule Orally three times daily Active Depend Pant Large 1 ea N39.41 Weight as needed MDD 24 for 30 days August, Active Clonidine HCl 0.2 MG 1 tablet Orally Once a day Active Omeprazole 20 MG 1 capsule Orally [...] Information RESULTS No Results REASON FOR VISIT Low Dose Screening MEDICAL (GENERAL) HISTORY Type Description Date Medical History Depression Medical History BPH Medical History Anxiety Medical History GERD Medical History Hypercholesterolemia Medical History PTSD Medical History Severe stenosis and hernated disc Medical History Umbilical hernia Medical History SARAH Medical History Insomnia and nightmares Surgical History Colon Surgery multiple [id number] Surgical History Orthopedic surgeries-right leg, left loida [...] Information ASSESSMENTS Encounter Date Diagnosis Notes Feb, Encounter for screening for lung cancer (ICD-10 - Z12.2) PLAN OF TREATMENT Medication Medication Name Sig Start Date Stop Date Aspirin 81 MG 1 tablet Orally Once a day for 30 day(s) Jan, Atorvastatin Calcium 80 MG 1 tablet Orally Once a day for 30 day(s) Jan, Treatment Notes Assessment Notes Clinical Notes Encounter for screening for lung cancer He quit smoking in 2007, smoke 1pk/dayX30 years. Denies coughing, wheezing, dyspnea, or progressive weight loss. Low dose lung CT ordere for annual low dose CT. 01/[address] Lung-RADS category II. Treatment Notes Test Name Order Date Low Dose Lung Screening CT Chest 2020-02-10 Next Appt Details Provider Name:Betty Kumar, 9 10:00:00 AM, [address], [place], [address], Insurance Providers Payer Name Payer Address Payer Phone Insured Name Patient Relati onship to Insured Coverage Start Date Coverage End Date [facility] COMM[facility] PLAN [facility] [place] [address] [facility] [phone] AMADOR WILKINS self
--- OUTSIDE RECORDS SUMMARY | 2020-04-22 10:29 | CCD ---
Author Author [facility] Organization [facility] Address Unknown Phone Unavailable Care Team Providers Care All Source Intelligence Name Role Phone Grace Manzanares Unavailable PROBLEMS Type Condition ICD9-CM Code [id number] Code Onset Dates Condition S tatus SNOMED Code Notes Problem Urge incontinence N39.41 Active 38318130 Problem Enlarged prostate with lower urinary tract symptoms N40.1 Active 32783752284361 Problem Depression with anxiety F41.8 Active 29262076 6 Problem Urinary incontinence, mixed N39.46 Active 4133 66943 Problem SARAH (obstructive sleep apnea) G47.33 Active 78 272001 Problem Restrictive lung disease J98.4 Active 7677750 5 Problem Nodule of lower lobe of right lung R91.1 Activ e 587186629 Problem BMI 35.0-35.9,adult Z68.35 Active 327604300 Problem Lumbago with sciatica, left side M54.42 Active 674099757 Problem Lumbago with sciatica, right side M54.41 Active 387375580402810 Problem Other chronic pain G89.29 Active 50504768 Problem Planning to commit suicide R45.851 Active 06334 0009 Problem Mixed hyperlipidemia E78.2 Active 132831227 Problem Rash or skin eruption accompanying infectious disease B99.9 Active 42465435 Problem Chronic GERD K21.9 Active 340719364 Problem Urinary tract infection, site not specified N39.0 Active 71933442 Problem BMI 36.0-36.9,adult Z68.36 Active 501082701 Problem Fatigue, unspecified type R53.83 Active 273521 01 Problem Weight loss, non-intentional R63.4 Active 448 144854 Problem Intermittent palpitations R00.2 Active 277127 007 ALLERGIES Allergen (clinical drug ingredient) Drug/Non Drug Allergy do cumented on EMR Reaction Allergy Type Onset Date Status Flexeril itching, nausea Drug Allergy Active [place] rash Non Drug Allergy Active [facility] from 1962 to 2020-01-25 Encounter Location Date Provider Diagnosis [facility] [address] [place] [address] Jan, Grace Glenna IMMUNIZATIONS Vaccine Route Administration Date Status Influenza [...] Duration) Start Date En d Date Status Acetaminophen 650 MG 1 tablet Orally three times daily as ne eded for 30 days May, Active Mapap Arthritis Pain 650 MG 2 tablets as needed Orally every 8 hrs Not-Taking Cipro 500 MG 1 tablet Orally Twice a day Mar, Not-Taking Tamsulosin HCl 0.4 MG TAKE ONE CAPSULE 30 MINUTES AFTER THE SAME MEAL EACH DAY Not-Taking Depend Pant Large 1 ea N39.41 Weight as needed MDD 24 for 30 days August, Active Tamsulosin HCl 0.4 mg 1 capsule Orally Once a day for 30 Days Active Sertraline HCl 100 MG 2 Orally Daily Acti ve Albuterol Sulfate HFA 108 (90 Base) MCG/ACT 1 puff as needed Inhalation every 4 hours as needed for 30 Days Jul, Active Clonidine HCl 0.2 MG 1 tablet Orally Once a day Active Mupirocin 2 % 1 application Externally Three times a d ay for 10 day(s) Jan, Active Sertraline HCl 100 MG 1 1/2 tablet Orally Once a day Not-Taking Pantoprazole Sodium 40 MG 1 tablet Orally bid Not-Taking Atorvastatin Calcium 40 MG 1 tablet Orally 60 mg total daily for 30 Active Loratadine 10 MG 1 tablet Orally Once a day for 14 day(s) Jan, Active Gabapentin 600 MG 1 capsule Orally three times daily Active Atorvastatin Calcium 20 MG TAKE ONE TABLET BY MOUTH EV JOSE ELIAS DAY with 40mg dose to equal 60mg for 30 days Active Acetaminophen ER 650 MG TAKE ONE TABLET BY MOUTH THR EE TIMES A DAY NEEDED for 30 Not-Taking Aripiprazole 10 MG 1 tablet Orally Once a day Active Oxybutynin Chloride 5 MG 1 tablet bid for 30 Days Active Prazosin HCl 1 MG 1 capsule at bedtime Orally Once a day Not-Taking Tizanidine HCl 4 MG 1 tablet as needed Orally every 6 hrs Active Nexium 20 MG 1 capsule Orally Once a day Not-Taking tylenol 650 mg 1 tab Oral tid for 30 days Not-Taking Prazosin HCl 1 MG 1 capsule at bedtime Orally Once a day Not-Taking TraZODone HCl 150 MG 1 tablet at bedtime Orally Once a day Not-Taking Trazodone 50 100 mg 2 tab(s) p.o. daily N ot-Taking Omeprazole 20 MG 1 capsule Orally Once a day for 90 days Active PROCEDURES No Information RESULTS No Results REASON FOR VISIT script MEDICAL (GENERAL) HISTORY Type Description Date Medical History Depression Medical History BPH Medical History Anxiety Medical History GERD Medical History Hypercholesterolemia Medical History PTSD Medical History Severe stenosis and hernated disc Medical History Umbilical hernia Medical History SARAH Medical History Insomnia and nightmares Surgical History Colon Surgery multiple 7771-5231 Surgical History Orthopedic surgeries-right leg, left loida [...] Medication Name Sig Start Date Stop Date Sertraline HCl 100 MG 2 Orally Daily Loratadine 10 MG 1 tablet Orally Once a day for 14 day(s) Jan Aripiprazole 10 MG 1 tablet Orally Once a day Clonidine HCl 0.2 MG 1 tablet Orally Once a day Mupirocin 2 % 1 application Externally Three times a d ay for 10 day(s) Jan, Next Appt Details Provider Name:Grace Manzanares, 2020-01-28 08 :45:00 AM, [address] [facility], [facility] [place], [address], Provider Name:Betty Kumar, 2020-03-11 10:00:00 AM, [address], [place], [address], Insurance Providers Payer Name Payer Address Payer Phone Insured Name Patient Relati onship to Insured Coverage Start Date Coverage End Date [facility] COMM[employer]AN [facility] [address] [facility] [phone] AMADOR WILKINS self
--- OUTSIDE RECORDS SUMMARY | 2020-04-22 10:29 | CCD ---
Author Author [facility] Organization [facility] Address Unknown Phone Unavailable Care Team Providers Care Aligner Typewriter Name Role Phone Grace Manzanares Unavailable PROBLEMS Type Condition ICD9-CM Code UPU80-LE Code Onset Dates Condition S tatus SNOMED Code Notes Problem Urge incontinence N39.41 Active 63068552 Problem Enlarged prostate with lower urinary tract symptoms N40.1 Active 35870845157730 Problem Depression with anxiety F41.8 Active 27792958 6 Problem Urinary incontinence, mixed N39.46 Active 4133 34232 Problem SARAH (obstructive sleep apnea) G47.33 Active 78 371640 Problem Restrictive lung disease J98.4 Active 3466478 5 Problem Nodule of lower lobe of right lung R91.1 Activ e 996014160 Problem BMI 35.0-35.9,adult Z68.35 Active 504115824 Problem Lumbago with sciatica, left side M54.42 Active 571092071 Problem Lumbago with sciatica, right side M54.41 Active 291081847008162 Problem Other chronic pain G89.29 Active 28516900 Problem Planning to commit suicide R45.851 Active 52067 0009 Problem Mixed hyperlipidemia E78.2 Active 578127901 Problem Rash or skin eruption accompanying infectious disease B99.9 Active 78267544 Problem Chronic GERD K21.9 Active 435459338 Problem Urinary tract infection, site not specified N39.0 Active 57225559 Problem BMI 36.0-36.9,adult Z68.36 Active 215373354 Problem Fatigue, unspecified type R53.83 Active 063434 01 Problem Weight loss, non-intentional R63.4 Active 448 443315 Problem Intermittent palpitations R00.2 Active 548959 007 ALLERGIES Allergen (clinical drug ingredient) Drug/Non Drug Allergy do cumented on EMR Reaction Allergy Type Onset Date Status Flexeril itching, nausea Drug Allergy Active [place] rash Non Drug Allergy Active [facility] from 1962 to 2020-01-31 Encounter Location Date Provider Diagnosis [facility] [address] [facility] [place] [address] Jan, Grace Manzanares Intermittent palpitations R0 0.2 ; Mixed hyperlipidemia E78.2 ; Fatigue, unspecified type R53.83 ; Weight loss, non-intentional R63.4 ; Need for vaccination for Strep pneumoniae Z23 and Need for influenza vaccination Z23 IMMUNIZATIONS Vaccine Route Administration Date Status Influenza [...] FOR REFERRAL No Information VITAL SIGNS Weight 207 lbs Jan, Height 5'4" in Jan, BMI 35.53 kg/m2 Jan, Heart Rate 100 /min Jan, Respiratory Rate 19 /min Jan, Temperature 97.1 degrees Fahrenheit Jan, Oximetry 98 Jan, Blood pressure systolic 98 mm Hg Jan, Blood pressure diastolic 70 [...] Oral tid for 30 days Not-Taking PROCEDURES Procedure Date Ordered Result Body Site Immunization: Flublok Quadrivalent (18 years & older) 0.5mL IM (Influenza) 2020-01-10 N/A Immunization: Pneumovax 23 0.5mL IM (Pneumococcal) 2020-01-10 N/A RESULTS Component Value Reference Range CBC with Differential Reviewed date:01/13/2020 15:12:40 Interpretation: Performing Lab:[facility] LABORATORY [id number] , ,[place] [address] WHITE BLOOD COUNT 7.2 4.0-10.0 RED BLOOD COUNT 5.20 4.30-6.10 HEMOGLOBIN 15.4 13.5-17.5 HEMATOCRIT 46.9 42.0-52.0 MEAN CORPUSCULAR VOLUME 90.2 80.0-96.0 MEAN CORPUSCULAR HEMOGLOBIN 29.6 27.0-33.0 MEAN CORPUSCULAR HGB CONC 32.8 32.0-36.5 RED CELL DISTRIBUTION WIDTH 13.6 11.5-14.5 PLATELET COUNT, AUTOMATED 187 150-450 NEUTROPHILS % 76.2 36.0-66.0 LYMPH % 14.0 24.0-44.0 MONO % 6.8 0.0-5.0 EOS % 1.9 0.0-3.0 BASO % 0.3 0.0-1.0 NEUTROPHILS # 5.5 1.5-8.5 LYMPH # 1.0 1.5-5.0 MONO # 0.5 0.0-0.8 EOS # 0.1 0.0-0.5 BASO # 0.0 0.0-0.2 LIPID PANEL (CARDIAC RISK) Reviewed date:01/13/2020 15:12:02 Interpretation:LY=480, HDL=36 Performing Lab:[facility] LABORATORY [id number] , ,[place] [address] TRIGLYCERIDES LEVEL 211 <150 CHOLESTEROL LEVEL 147 <200 HDL CHOLESTEROL 36 >40 LDL CHOLESTEROL 69 <100 NON-HDL-C 111 CHOLESTEROL RISK RATIO 4.083 <5 REASON FOR VISIT follow up MEDICAL (GENERAL) HISTORY Type Description Date Medical History Depression Medical History BPH Medical History Anxiety Medical History GERD Medical History Hypercholesterolemia Medical History PTSD Medical History Severe stenosis and hernated disc Medical History Umbilical hernia Medical History SARAH Medical History Insomnia and nightmares Surgical History Colon Surgery multiple 5825-2214 Surgical History Orthopedic surgeries-right leg, left loida [...] No Information ASSESSMENTS Encounter Date Diagnosis Notes Jan, Need for vaccination for Strep pneumonia e (ICD-10 - Z23) Jan, Weight loss, non-intentional (ICD-10 - R 63.4) Jan, Need for influenza vaccination (ICD-10 - Z23) Jan, Intermittent palpitations (ICD-10 - R00. 2) Jan, Fatigue, unspecified type (ICD-10 - R53. 83) Jan, Mixed hyperlipidemia (ICD-10 - E78.2) PLAN OF TREATMENT Medication Medication Name Sig Start Date Stop Date Aspirin 81 MG 1 tablet Orally Once a day for 30 day(s) Jan, Atorvastatin Calcium 80 MG 1 tablet Orally Once a day for 30 day(s) Jan, Treatment Notes Assessment Notes Clinical Notes Intermittent palpitations Patient had re cent follow up appt with cardiology 10/2019, reported by pt just routine follow check-up. No recent cardiology notes on board with last note from 2018, discussed with staff today and we will attempt to obtain cardiology record. Per patient he has exertional palpitation only without chest pain or recent syncope, and he was told that it was due to enlargement heart and he should be using a CPAP. Reported improvement of symptom on CPAP. No echo on [employer] Will follow up when receiving medical records from cardiology Mixed hyperlipidemia Cont atorvastatin 6 0mg(20+40), refill 20mg atorvastatin. Last TG level elevated still. Recheck lipid panel. Life style modification discussed. Fatigue, unspecified type Previously ord ered CBC for fatigue but was not able to be done. Pt reported fatigue still present. Re-ordered CBC Weight loss, non-intentional Patient rep orted unintentional weight loss. 6lb weight loss compared to August 2019 despite stopping diet restriction. Will follow up next visit in 1 month. Need for vaccination for Strep pneumoniae Patient Educ ated with: FLU Vaccine, Inactivated [id number] (FLU Vaccine, Inactivated [id number]) Patient Educated with: PPSV23 [id number] (PPSV23 [id number].pdf) administered vaccines as ordered. Patient tolerated well Candelario BATRES Need for influenza vaccination Patient Educated with: FLU Vaccine, Inactivated [id number] (FLU Vaccine, Inactivated [id number]) Need for influenza vaccination for this year Next Appt Details 1 month Reason:weight loss Provider Name:Betty Kumar, 2020-12-0 9 10:00:00 AM, [address], [place], [address], Follow Up:1 monthweight loss Insurance Providers Payer Name Payer Address Payer Phone Insured Name Patient Relati onship to Insured Coverage Start Date Coverage End Date [facility] COMM[employer] PLAN [facility] [address] [facility] [phone] AMADOR WILKINS self
--- OUTSIDE RECORDS SUMMARY | 2020-04-22 10:29 | CCD ---
Author Author [facility] Organization [facility] Address Unknown Phone Unavailable Care Team Providers Care Notched Blade Loader Name Role Phone Grace Manzanares Unavailable PROBLEMS Type Condition ICD9-CM Code IPH01-GE Code Onset Dates Condition S tatus SNOMED Code Notes Problem Urge incontinence N39.41 Active 29767030 Problem Enlarged prostate with lower urinary tract symptoms N40.1 Active 99950887479583 Problem Depression with anxiety F41.8 Active 98064838 6 Problem Urinary incontinence, mixed N39.46 Active 4133 04773 Problem SARAH (obstructive sleep apnea) G47.33 Active 78 897984 Problem Restrictive lung disease J98.4 Active 5341756 5 Problem Nodule of lower lobe of right lung R91.1 Activ e 787130361 Problem BMI 35.0-35.9,adult Z68.35 Active 034617030 Problem Lumbago with sciatica, left side M54.42 Active 108626661 Problem Lumbago with sciatica, right side M54.41 Active 904704301613561 Problem Other chronic pain G89.29 Active 98454721 Problem Planning to commit suicide R45.851 Active 88041 0009 Problem Mixed hyperlipidemia E78.2 Active 445523859 Problem Rash or skin eruption accompanying infectious disease B99.9 Active 33349571 Problem Chronic GERD K21.9 Active 000203025 Problem Urinary tract infection, site not specified N39.0 Active 04501234 Problem BMI 36.0-36.9,adult Z68.36 Active 407317505 Problem Fatigue, unspecified type R53.83 Active 359713 01 Problem Weight loss, non-intentional R63.4 Active 448 197579 Problem Intermittent palpitations R00.2 Active 939362 007 ALLERGIES Allergen (clinical drug ingredient) Drug/Non Drug Allergy do cumented on EMR Reaction Allergy Type Onset Date Status Flexeril itching, nausea Drug Allergy Active [place] rash Non Drug Allergy Active [facility] from 1962 to 2020-01-24 Encounter Location Date Provider Diagnosis [address] [address] Jan, 2020 Grace Chen IMMUNIZATIONS Vaccine Route Administration Date Status Influenza [...] Information RESULTS No Results REASON FOR VISIT Meds MEDICAL (GENERAL) HISTORY Type Description Date Medical History Depression Medical History BPH Medical History Anxiety Medical History GERD Medical History Hypercholesterolemia Medical History PTSD Medical History Severe stenosis and hernated disc Medical History Umbilical hernia Medical History SARAH Medical History Insomnia and nightmares Surgical History Colon Surgery multiple 3425-2014 Surgical History Orthopedic surgeries-right leg, left loida [...] Name:Grace Manzanares, 2020-01-28 08 :45:00 AM, [address] [facility], [facility] [place] [place], [address], Provider Name:Betty Kumar, 2020-03-11 10:00:00 AM, [address], [place], [address], Insurance Providers Payer Name Payer Address Payer Phone Insured Name Patient Relati onship to Insured Coverage Start Date Coverage End Date [facility] [address] [facility] [phone] AMADOR WILKINS self
--- OUTSIDE RECORDS SUMMARY | 2020-04-22 10:30 | CCD ---
Author Author [facility] Organization [facility] Address Unknown Phone Unavailable Care Team Providers Care Senior Treasury Consultant Name Role Phone DeangeloonAsuncion Randi SURVEYING TEACHER Unavailable Unavailable Jumalon, M Randi SURVEYING TEACHER Unavailable Unavailable Jumalon, M Randi SURVEYING TEACHER Unavailable Unavailable Jumalon, M Randi SURVEYING TEACHER Unavailable Unavailable Jumalon, M Randi SURVEYING TEACHER Unavailable Unavailable Jumalon, M Randi SURVEYING TEACHER Unavailable Unavailable Jumalon, M Randi SURVEYING TEACHER Unavailable Unavailable Jumalon, M Randi SURVEYING TEACHER Unavailable Unavailable Jumalon, M Randi SURVEYING TEACHER Unavailable Unavailable Jumalon, M Randi SURVEYING TEACHER Unavailable Unavailable Jumalon, M Randi SURVEYING TEACHER Unavailable Unavailable Jumalon, M Randi SURVEYING TEACHER Unavailable Unavailable Jumalon, M Randi SURVEYING TEACHER Unavailable Unavailable Jumalon, M Randi SURVEYING TEACHER Unavailable Unavailable Jumalon, M Randi SURVEYING TEACHER Unavailable Unavailable Jumalon, M Randi SURVEYING TEACHER Unavailable Unavailable Jumalon, M Randi SURVEYING TEACHER Unavailable Unavailable Jumalon, M Randi SURVEYING TEACHER Unavailable Unavailable Jumalon, M Randi SURVEYING TEACHER Unavailable Unavailable Jumalon, M Randi SURVEYING TEACHER Unavailable Unavailable Jumalon, M Randi SURVEYING TEACHER Unavailable Unavailable Jumalon, M Randi SURVEYING TEACHER Unavailable Unavailable Jumalon, M Randi SURVEYING TEACHER Unavailable Unavailable Jumalon, M Randi SURVEYING TEACHER Unavailable Unavailable Jumalon, M Randi SURVEYING TEACHER Unavailable Unavailable Jumalon, M Randi SURVEYING TEACHER Unavailable Unavailable Jumalon, M Randi SURVEYING TEACHER Unavailable Unavailable Jumalon, M Randi SURVEYING TEACHER Unavailable Unavailable Enmanuel Zafar MD Unavailable Unavailable Enmanuel Zafar MD Unavailable Unavailable Enmanuel Zafar MD Unavailable Unavailable Enmanuel Zafar MD Unavailable Unavailable Enmanuel Zafar MD Unavailable Unavailable Enmanuel Zafar MD Unavailable Unavailable Enmanuel Zafar MD Unavailable Unavailable Enmanuel Zafar MD Unavailable Unavailable Enmanuel Zafar MD Unavailable Unavailable Enmanuel Zafar MD Unavailable Unavailable Enmanuel Zafar MD Unavailable Unavailable Enmanuel Zafar MD Unavailable Unavailable Enmanuel Zafar MD Unavailable Unavailable Enmanuel Zafar MD Unavailable Unavailable Enmanuel Zafar MD Unavailable Unavailable Enmanuel Zafar MD Unavailable Unavailable Enmanuel Zafar MD Unavailable Unavailable Enmanuel Zafar MD Unavailable Unavailable Enmanuel Zafar MD Unavailable Unavailable Enmanuel Zafar MD Unavailable Unavailable Enmanuel Zafar MD Unavailable Unavailable Enmanuel Zafar MD Unavailable Unavailable Enmanuel Zafar MD Unavailable Unavailable Enmanuel Zafar MD Unavailable Unavailable Enmanuel Zafar MD Unavailable Unavailable Enmanuel Zafar MD Unavailable Unavailable Enmanuel Zafar MD Unavailable Unavailable Enmanuel Zafar MD Unavailable Unavailable Enmanuel Zafar MD Unavailable Unavailable Enmanuel Zafar MD Unavailable Unavailable Enmanuel Zafar MD Unavailable Unavailable Enmanuel Zafar MD Unavailable Unavailable Enmanuel Zafar MD Unavailable Unavailable Enmanuel Zafar MD Unavailable Unavailable Enmanuel Zafar MD Unavailable Unavailable Enmanuel Zafar MD Unavailable Unavailable Enmanuel Zafar MD Unavailable Unavailable Enmanuel Zafar MD Unavailable Unavailable Enmanuel Zafar MD Unavailable Unavailable Enmanuel Zafar MD Unavailable Unavailable Enmanuel Zafar MD Unavailable Unavailable Enmanuel Zafar MD Unavailable Unavailable Enmanuel Zafar MD Unavailable Unavailable Enmanuel Zafar MD Unavailable Unavailable Enmanuel Zafar MD Unavailable Unavailable Enmanuel Zafar MD Unavailable Unavailable Enmanuel Zafar MD Unavailable Unavailable Enmanuel Zafar MD Unavailable Unavailable Enmanuel Zafar MD Unavailable Unavailable Enmanuel Zafar MD Unavailable Unavailable Enmanuel Zafar MD Unavailable Unavailable Enmanuel Zafar MD Unavailable Unavailable Enmanuel Zafar MD Unavailable Unavailable Enmanuel Zafar MD Unavailable Unavailable Enmanuel Zafar MD Unavailable Unavailable Enmanuel Zafar MD Unavailable Unavailable Enmanuel Zafar MD Unavailable Unavailable Enmanuel Zaafr MD Unavailable Unavailable Enmanuel Zafar MD Unavailable Unavailable Enmanuel Zafar MD Unavailable Unavailable Enmanuel Zafar MD Unavailable Unavailable Enmanuel Zafar MD Unavailable Unavailable Enmanuel Zafar MD Unavailable Unavailable Enmanuel Zafar MD Unavailable Unavailable Enmanuel Zafar MD Unavailable Unavailable Enmanuel Zafar MD Unavailable Unavailable Enmanuel Zafar MD Unavailable Unavailable Enmanuel Zafar MD Unavailable Unavailable Enmanuel Zafar MD Unavailable Unavailable Enmanuel Zafar MD Unavailable Unavailable Enmanuel Zafar MD Unavailable Unavailable Enmanuel Zafar MD Unavailable Unavailable Enmanuel Zafar MD Unavailable Unavailable Enmanuel Zafar MD Unavailable Unavailable Enmanuel Zafar MD Unavailable Unavailable Enmanuel Zafar MD Unavailable Unavailable Enmanuel Zafar MD Unavailable Unavailable Enmanuel Zafar MD Unavailable Unavailable Enmanuel Zafar MD Unavailable Unavailable Enmanuel Zafar MD Unavailable Unavailable Enmanuel Zafar MD Unavailable Unavailable Enmanuel Zafar MD Unavailable Unavailable Enmanuel Zafar MD Unavailable Unavailable Enmanuel Zafar MD Unavailable Unavailable Enmanuel Zafar MD Unavailable Unavailable Enmanuel Zafar MD Unavailable Unavailable Enmanuel Zafar MD Unavailable Unavailable Enmanuel Zafar MD Unavailable Unavailable Enmanuel Zafar MD Unavailable Unavailable DOUGLAS, ATYLOR JO SURVEYING TEACHER-C Unavailable Unavailable DOUGLAS, TAYLOR JO SURVEYING TEACHER-C Unavailable Unavailable DOUGLAS, TAYLOR JO SURVEYING TEACHER-C Unavailable Unavailable DOUGLAS, TAYLOR JO SURVEYING TEACHER-C Unavailable Unavailable DOUGLAS, TAYLOR JO SURVEYING TEACHER-C Unavailable Unavailable DOUGLAS, TAYLOR JO SURVEYING TEACHER-C Unavailable Unavailable DOUGLAS, TAYLOR JO SURVEYING TEACHER-C Unavailable Unavailable DOUGLAS, TAYLOR JO SURVEYING TEACHER-C Unavailable Unavailable DOUGLAS, TAYLOR JO SURVEYING TEACHER-C Unavailable Unavailable DOUGLAS, TAYLOR JO SURVEYING TEACHER-C Unavailable Unavailable DOUGLAS, TAYLOR JO SURVEYING TEACHER-C Unavailable Unavailable DOUGLAS, TAYLOR JO SURVEYING TEACHER-C Unavailable Unavailable DOUGLAS, TAYLOR JO SURVEYING TEACHER-C Unavailable Unavailable DOUGLAS, TAYLOR JO SURVEYING TEACHER-C Unavailable Unavailable DOUGLAS, TAYLOR JO SURVEYING TEACHER-C Unavailable Unavailable Selena Price Unavailable West Gamez MD Unavailable Unavailable BolWest mari MD Unavailable Unavailable BolWest mari MD Unavailable Unavailable BolWest mari MD Unavailable Unavailable BolWest mari MD Unavailable Unavailable BolWest mari MD Unavailable Unavailable BolWest mari MD Unavailable Unavailable BoleWst mari MD Unavailable Unavailable BolWest mari MD Unavailable Unavailable BolWest mari MD Unavailable Unavailable BolWest mari MD Unavailable Unavailable BolWest mari MD Unavailable Unavailable BolWest mari MD Unavailable Unavailable BolWest mari MD Unavailable Unavailable BolWest mari MD Unavailable Unavailable BolWest mari MD Unavailable Unavailable BolWest mari MD Unavailable Unavailable BolWest mari MD Unavailable Unavailable BolWest mari MD Unavailable Unavailable BolWest mari MD Unavailable Unavailable BolWest mari MD Unavailable Unavailable BolWest mari MD Unavailable Unavailable BolWest mari MD Unavailable Unavailable BolWest mari MD Unavailable Unavailable BolWest mari MD Unavailable Unavailable West Gamez MD Unavailable Unavailable BolWest mari MD Unavailable Unavailable BolWest mari MD Unavailable Unavailable BolWest mari MD Unavailable Unavailable West Gamez MD Unavailable Unavailable BolWest mari MD Unavailable Unavailable West Gamez MD Unavailable Unavailable BolWest mari MD Unavailable Unavailable West Gamez MD Unavailable Unavailable BolWest mari MD Unavailable Unavailable BolWest mari MD Unavailable Unavailable BolWest mari MD Unavailable Unavailable BolWest mari MD Unavailable Unavailable BolWest mari MD Unavailable Unavailable BolWest mari MD Unavailable Unavailable West Gamez MD Unavailable Unavailable BolWest mari MD Unavailable Unavailable BolWest mari MD Unavailable Unavailable BolWest mari MD Unavailable Unavailable BolWest mari MD Unavailable Unavailable BolWest mari MD Unavailable Unavailable BolWest mari MD Unavailable Unavailable BolWest mari MD Unavailable Unavailable Re-disclosure Warning The records that you are about to access may contain information from federally-assisted alcohol or drug abuse programs. If such information is present, then the following federally mandated warning applies: This information has been disclosed to you from records protected by federal confidentiality rules (42 CFR part 2). The federal rules prohibit you from making any further disclosure of this information unless further disclosure is expressly permitted by the written consent of the person to whom it pertains or as otherwise permitted by 42 CFR part 2. A general authorization for the release of medical or other information is NOT sufficient for this purpose. The Federal rules restrict any use of the information to criminally investigate or prosecute any alcohol or drug abuse patient.The records that you are about to access may contain highly sensitive health information, the redisclosure of which is protected by Article 27-F of the [facility] Public Health law. If you continue you may have access to information: Regarding HIV / AIDS; Provided by facilities licensed or operated by the [facility] Office of Mental Health; or Provided by the [facility] Office for People With Developmental Disabilities. If such information is present, then the following [facility] mandated warning applies: This information has been disclosed to you from confidential records which are protected by state law. State law prohibits you from making any further disclosure of this information without the specific written consent of the person to whom it pertains, or as otherwise permitted by law. Any unauthorized further disclosure in violation of state law may result in a fine or fci sentence or both. A general authorization for the release of medical or other information is NOT sufficient authorization for further disc losure. Allergies and Adverse Reactions Type Description Substance Reaction Status Data Source(s ) Tucker Kanab Tucker Kanab Tucker Kanab rash Active eCW1 ([facility]) Flexeril Flexeril Flexeril itching, nausea Active eCW1 ([facility]) Tucker Kanab Tucker Kanab Tucker [place]ab rash Active eCW1 ([facility]) Flexeril Flexeril Flexeril itching, nausea Active eCW1 ([facility]) Tucker Kanab Tucker Kanab Tucker Kanab rash Active eCW1 ([facility]) Flexeril Flexeril Flexeril itching, nausea Active eCW1 ([facility]) Tucker Kanab Tucker Kanab Tucker [place]ab rash Active eCW1 ([facility]) Flexeril Flexeril Flexeril itching, nausea Active eCW1 ([facility]) Tucker Kanab Tucker Kanab Tucker Kanab rash Active eCW1 ([facility]) Flexeril Flexeril Flexeril itching, nausea Active eCW1 ([facility]) Tucker Kanab Tucker Kanab Tucker Kanab rash Active eCW1 ([facility]) Flexeril Flexeril Flexeril itching, nausea Active eCW1 ([facility]) Tucker Kanab Tucker Kanab Tucker Kanab rash Active eCW1 ([facility]) Flexeril Flexeril Flexeril itching, nausea Active eCW1 ([facility]) Family History Family Member Name Family Member Gender Family Member Status Date o f Status Description Data Source(s) Unknown Male Problem MEDENT ([facility]) Unknown Unknown Problem MEDENT ([facility]) Unknown Female Problem MEDENT ([facility] ) Encounters Encounter Providers Location Date Indications Data Source(s ) Unknown [address] [facility] [address] 04/17/2020 12:00:00 AM EST eCW1 ([facility]) Unknown [address] [facility] [place] [address] 04/09/2020 12:00:00 AM EST eCW1 ([facility]) Unknown [address] [facility] Y [address] 03/13/2020 12:00:00 AM EST eCW1 ([facility]) Randi Hamilton, MILLER HEAD: [address], [address], [place] [address], Ph. Attender: Randi Hamilton [facility] - [facility] - Main Office 03/13/2020 12:00:00 AM EST ATHE NA ([facility]) Outpatient [address] [facility] [address] 03/11/2020 12:00:00 AM EST eCW1 ([facility]) Gerald Gamez MD: [address], [address] [place], [place] [address], Ph. Attender: Gerald Gamez MD [place] - [facility] 02/25/2020 12:00:00 AM EST ABEL ([facility]) Gerald Gamez MD: [address], [place] [address], Ph. Attender: Gerald Gamez MD [place] - [facility] 02/25/2020 12:00:00 AM EST ABEL ([facility]) Unknown [address] [facility] [address] 02/20/2020 12:00:00 AM EST eCW1 ([facility]) Randi Hamilton, MILLER HEAD: [address], [place] [address], Ph. Attender: Randi Hamilton [facility] - [facility] 02/17/2020 12:00:00 AM EST ATHE NA ([facility]) Randi Hamilton, MILLER HEAD: [address], [place] [address], Ph. Attender: Randi Hamilton [facility] - [facility] 02/17/2020 12:00:00 AM EST ATHE NA ([facility]) Unknown [address] [facility] [address] 02/17/2020 12:00:00 AM EST eCW1 ([facility]) Randi Hamilton, MILLER HEAD: [address], [place] [address], Ph. Attender: Randi Hamilton [facility] - [facility] 02/17/2020 12:00:00 AM EST ATHE NA ([facility]) Unknown [address] [facility] Y [address] 2020 12:00:00 AM EST eCW1 ([facility]) Unknown [address] [facility] [address] 02/07/2020 12:00:00 AM EST eCW1 ([facility]) Outpatient [address] [facility] [place] [address] 01/24/2020 12:00:00 AM EDT eCW1 ([facility]) Unknown [address] [facility] Y [address] 01/24/2020 12:00:00 AM EDT eCW1 ([facility]) Unknown [address] [facility] [place] [address] 01/20/2020 12:00:00 AM EDT eCW1 ([facility]) Unknown [address] [facility] [place] [address] 01/13/2020 12:00:00 AM EDT eCW1 ([facility]) Unknown [address] [facility] [address] 01/12/2020 12:00:00 AM EDT eCW1 ([facility]) Outpatient [address] [facility] Y [address] 01/10/2020 12:00:00 AM EDT eCW1 ([facility]) Unknown [address] [facility] Y [address] 01/08/2020 12:00:00 AM EDT eCW1 ([facility]) Randi Hamilton, MILLER HEAD: [address], [address], [place] [address], Ph. [facility]: [facility] - Main Office 01/06/2020 12:00:00 AM EDT ATHE NA ([facility]) Randi Hamilton, MILLER HEAD: [address], [place] [address], Ph. Attender: Randi Joy [facility] 01/06/2020 12:00:00 AM EDT ATHNaya NATHAN ([facility]) Randi Hamilton, MILLER HEAD: [address], [place] [address], Ph. Attender: Randi Hamilton [facility] 01/06/2020 12:00:00 AM EDT ATHNaya NATHAN ([facility]) Randi Hamilton, MILLER HEAD: [address], [place] [address], Ph. Attender: Randi Hamilton [facility] 01/06/2020 12:00:00 AM EDT ATHE NA ([facility]) Unknown [address] [facility] [address] 01/03/2020 12:00:00 AM EDT eCW1 ([facility]) Unknown [address] [facility] [address] 01/01/2020 12:00:00 AM EDT eCW1 ([facility]) Crisis Intervention - Brief Attender: Selena Hanson 12/23/2019 09:30:00 AM EDT - 12/23/2019 09:30:00 AM EDT [facility] ([facility]) Attender: Selena Price 12/23/2019 12:00:00 AM E DT [facility] ([facility]) Randi Hamilton, MILLER HEAD: [address], [place] [address], Ph. Attender: Randi Hamilton [facility] 11/14/2019 12:00:00 AM EDT ATHE NA ([facility]) Randi Hamilton, MILLER HEAD: [address], [place] [address], Ph. Attender: Randi Hamilton [facility] - [facility] 11/14/2019 12:00:00 AM EDT ATHE NA ([facility]) Randi Hamilton, MILLER HEAD: [address], [address], [place] [address], Ph. Attender: Randi Hamilton [facility] - [facility] 11/14/2019 12:00:00 AM EDT ATHE NA ([facility]) Randi Hamilton, MILLER HEAD: [address], [place] [address], Ph. Attender: Randi Hamilton [facility] - [facility] 11/14/2019 12:00:00 AM EDT ATHE NA ([facility]) Randi Hamilton, MILLER HEAD: [address], [place] [address], Ph. Attender: Randi Hamilton [facility] - [facility] 11/14/2019 12:00:00 AM EDT ATHE NA ([facility]) Gerald Gamez MD: [address], [address], [place] [address], Ph. Attender: Gerald Gamez MD [place] - [facility] 10/29/2019 12:00:00 AM EDT ABEL ([facility]) Gerald Gamez MD: [address], [address], [place] [address], Ph. Attender: Gerald Gamez MD [place] [facility] 10/29/2019 12:00:00 AM EDT ABEL ([facility]) Gerald Gamez MD: [address], [address] [place], [place] [address], Ph. Attender: Gerald Gamez MD [place] - [facility] 10/29/2019 12:00:00 AM EDT ABEL ([facility]) Gerald Gamez MD: [address], [address], [place] [address], Ph. Attender: Gerald Gamez MD [place] - [facility] 10/29/2019 12:00:00 AM EDT ABEL ([facility]) Gerald Gamez MD: [address], [place] [address], Ph. Attender: Gerald Gamez MD [place] - [facility] 10/29/2019 12:00:00 AM EDT ABEL ([facility]) Gerald Gamez MD: [address], [place] [address], Ph. Attender: Gerald Gamez MD [place] - [facility] 10/29/2019 12:00:00 AM EDT ABEL ([facility]) Outpatient Attender: Sacha Zafar MD 09/10/2019 07:46:[address] [facility] Outpatient [address] [facility] [address] 09/06/2019 12:00:00 AM EDT eCW1 ([facility]) Unknown [address] [facility], [facility] [address] 09/06/2019 12:00:00 AM EDT eCW1 ([facility]) [address] [address] 08/25/2019 12:00:00 AM EDT eCW1 ([facility]) [facility] [address] [place] [address] 08/22/2019 12:00:00 AM EDT eCW1 ([facility]) [facility] Resident [address] [place] [address] 08/15/2019 12:00:00 AM EDT eCW1 ([facility]) Outpatient Attender: JO COLE SURVEYING TEACHER-C Terrie/Thanh/Clemente/Sean doyle 08/05/2019 02:15:00 PM EDT MEDENT ([facility]) Randi Hamilton, MILLER HEAD: [address] [address], Ph. Attender: Randi Hamilton [facility] Office 07/24/2019 12:00:00 AM EDT ABEL ([facility]) Randi Hamilton, MILLER HEAD: [address] [address], Ph. Attender: Randi Hamilton [facility] Office 07/24/2019 12:00:00 AM EDT ABEL ([facility]) Randi Hamilton, MILLER HEAD: [address] [address], Ph. Attender: aRndi Hamilton SURVEYING TEACHER [place] - [facility] Office 07/24/2019 12:00:00 AM EDT ABEL ([facility]) Randi Hamilton, MILLER HEAD: [address] [address], Ph. Attender: Randi Hamilton SURVEYING TEACHER [place] [facility] 07/24/2019 12:00:00 AM EDT ABEL ([facility]) Randiemma Hamilton, MILLER HEAD: [address], [place] [address], Ph. Attender: Randi Hamilton [facility] 07/24/2019 12:00:00 AM EDT ABEL ([facility]) Randi Hamilton, MILLER HEAD: [address], [place] [address], Ph. Attender: Randi Hamilton [facility] 07/24/2019 12:00:00 AM EDT ABEL ([facility]) Randi Hamilton, MILLER HEAD: [address], [place] [address], Ph. Attender: Randi Hamilton [facility] 07/24/2019 12:00:00 AM EDT ABEL ([facility]) [facility] Dermatology [address] [place] [address] 07/18/2019 12:00:00 AM EDT eCW1 ([facility]) [address] [address] 07/11/2019 12:00:00 AM EDT eCW1 ([facility]) [facility] GME Resident [address] [place] [address] 07/10/2019 12:00:00 AM EDT eCW1 ([facility]) [facility] [place] [address] [facility] [address] 06/24/2019 12:00:00 AM EDT eCW1 ([facility]) Randi Hamilton, MILLER HEAD: [address], [place] [address], Ph. Attender: Randi Hamilton [facility] - [facility] 06/12/2019 12:00:00 AM EDT ATHE NA ([facility]) Randi Hamilton, MILLER HEAD: [address], [place] [address], Ph. Attender: Randi Hamilton [facility] - [facility] 06/12/2019 12:00:00 AM EDT ATHE NA ([facility]) Randi Hamilton, MILLER HEAD: [address], [place] [address], Ph. Attender: Randi [facility] - [facility] 06/12/2019 12:00:00 AM EDT ATHE NA ([facility]) Randi Hamilton, MILLER HEAD: [address], [place] [address], Ph. Attender: Randi Hamilton [facility] - [facility] 06/12/2019 12:00:00 AM EDT ATHE NA ([facility]) Randi Hamilton, MILLER HEAD: [address], [place] [address], Ph. Attender: Randi Hamilton [facility] - [facility] 06/12/2019 12:00:00 AM EDT ATHE NA ([facility]) Randi Hamilton, MILLER HEAD: [address], [place] [address], Ph. Attender: Randi Hamilton [facility] - [facility] 06/12/2019 12:00:00 AM EDT ATHE NA ([facility]) Randi Hamilton, MILLER HEAD: [address], [place] [address], Ph. Attender: Randi Hamilton [facility] - [facility] 06/12/2019 12:00:00 AM EDT ATHE NA ([facility]) Randi Hamilton, MILLER HEAD: [address], [place] [address], Ph. Attender: Randi Hamilton [facility] - [facility] 06/12/2019 12:00:00 AM EDT ATHE NA ([facility]) [facility] Resident [address] [place] [phone] 06/11/2019 12:00:00 AM EDT [facility]CW1 [facility] Resident [address] [place] [phone] 05/29/2019 12:00:00 AM EST eCW1 ([facility]) Gerald Gamez MD: [address], [place] [address], Ph. Attender: Gerald QUIÑONEZ - [facility] 05/28/2019 12:00:00 AM EST ABEL ([facility]) Gerald Gamez MD: [address]343 [address], [place] [address], Ph. Attender: Gerald Gamez MD [place] - [facility] 05/28/2019 12:00:00 AM EST ABEL ([facility]) Gerald Gamez MD: [address]9 [address], [place] [address], Ph. Attender: Gerald QUIÑONEZ - [facility] 05/28/2019 12:00:00 AM EST ABEL ([facility]) Gerald Gamez MD: [address]329 [address], [place] [address], Ph. Attender: Gerald QUIÑONEZ - [facility] 05/28/2019 12:00:00 AM EST ABEL ([facility]) Gerald Gamez MD: [address]853 [address], [address], [place] [address], Ph. Attender: Gerald QUIÑONEZ - [facility] 05/28/2019 12:00:00 AM EST ABEL ([facility]) Gerald Gamez MD: [address]6660 [address], [place] [address], Ph. Attender: Gerald QUIÑONEZ - [facility] 05/28/2019 12:00:00 AM EST ABEL ([facility]) Gerald Gamez MD: [address]127 [address], [place] [address], Ph. Attender: Gerald QUIÑONEZ - [facility] 05/28/2019 12:00:00 AM EST ABEL ([facility]) Gerald Gamez MD: [address]403 [address], [address], [place] [address], Ph. Attender: Gerald QUIÑONEZ - [facility] 05/28/2019 12:00:00 AM EST ABEL ([facility]) Gerald Gamez MD: [address]4632 [address], [place] [address], Ph. Attender: Gerald QUIÑONEZ - [facility] 05/28/2019 12:00:00 AM EST ABEL ([facility]) Randi Hamilton, MILLER HEAD: [address], [place] [address], Ph. Attender: Randi Hamilton [facility] 05/22/2019 12:00:00 AM EST ATHE NA ([facility]) Randi Hamilton, MILLER HEAD: [address], [address], [place] [address], Ph. Attender: Randi Hamilton [facility] - [facility] 05/22/2019 12:00:00 AM EST ATHE NA ([facility]) Randi Hamilton, MILLER HEAD: [address], [place] [address], Ph. Attender: Randi Haimlton [facility] - [facility] 05/22/2019 12:00:00 AM EST ATHE NA ([facility]) Randi Hamilton, MILLER HEAD: [address], [place] [address], Ph. Attender: Randi Hamilton [facility] - [facility] 05/22/2019 12:00:00 AM EST ATHE NA ([facility]) Randi Hamilton, MILLER HEAD: [address], [place] [address], Ph. Attender: Randi Hamilton [facility] - [facility] 05/22/2019 12:00:00 AM EST ATHE NA ([facility]) Randi Hamilton, MILLER HEAD: [address], [place] [address], Ph. Attender: Randi Hamilton [facility] - [facility] 05/22/2019 12:00:00 AM EST ATHE NA ([facility]) Randi Hamilton, MILLER HEAD: [address], [place] [address], Ph. Attender: Randi Hamilton [facility] - [facility] 05/22/2019 12:00:00 AM EST ATHE NA ([facility]) Randi Hamilton, MILLER HEAD: [address], [place] [address], Ph. Attender: Randi Hamilton [facility] - [facility] 05/22/2019 12:00:00 AM EST ATHE NA ([facility]) Randi Hamilton, MILLER HEAD: [address], [place] [address], Ph. Attender: Randi Hamilton [facility] - [facility] 05/22/2019 12:00:00 AM EST ATHE NA ([facility]) Randi Hamilton, MILLER HEAD: [address], [place] [address], Ph. Attender: Randi Hamilton [facility] - [facility] 05/22/2019 12:00:00 AM EST ATHE NA ([facility]) [facility] [place] [address] [facility] [address] 05/17/2019 12:00:00 AM EST eCW1 ([facility]) [facility] [place] [address] [facility] [address] 05/10/2019 12:00:00 AM EST eCW1 ([facility]) [facility] [place] [address] [place] [phone] 05/08/2019 12:00:00 AM EST eCW1 ([facility]) Outpatient Attender: JO Falcon/Thanh/Clemente/Sean doyle 05/06/2019 01:45:00 PM EST MEDENT ([facility]) Gerald Gamez MD: [address]49 [address], [place] [address], Ph. Attender: Gerald Gamez MD [place] - [facility] 04/25/2019 12:00:00 AM EST ABEL ([facility]) Gerald Gamez MD: [address]07 [address], [place] [address], Ph. Attender: Gerald Gamez MD [place] - [facility] 04/25/2019 12:00:00 AM EST ABEL ([facility]) Gerald Gamez MD: 23292 [address], [place] [address], Ph. Attender: Gerald Gamez MD [place] - [facility] 04/25/2019 12:00:00 AM EST ABEL ([facility]) Gerald Gamez MD: [address]31 [address], [place] [address], Ph. Attender: Gerald Gamez MD [place] - [facility] 04/25/2019 12:00:00 AM EST ABEL ([facility]) Gerald Gamez MD: 99116 [address], [place] [address], Ph. Attender: Gerald Gamez MD [place] - [facility] 04/25/2019 12:00:00 AM EST ABEL ([facility]) Gerald Gamez MD: 28258 [address], [address], [place] [address], Ph. Attender: Gerald Gamez MD [place] - [facility] 04/25/2019 12:00:00 AM EST ABEL ([facility]) Gerald Gamez MD: [address]20 [address], [address], [place] [address], Ph. Attender: Gerald Gamez MD [place] - [facility] 04/25/2019 12:00:00 AM EST ABEL ([facility]) Gerald Gamez MD: 69944 [address], [address], [place] [address], Ph. Attender: Gerald Gamez MD [place] - [facility] 04/25/2019 12:00:00 AM EST ABEL ([facility]) Gerald Gamez MD: 44513 [address], [address], [place] [address], Ph. Attender: Gerald Gamez MD [place] - [facility] 04/25/2019 12:00:00 AM EST ABEL ([facility]) Gerald Gamez MD: 84882 [address], [place] [address], Ph. Attender: Gerald aGmez MD [place] - [facility] 04/25/2019 12:00:00 AM EST ABEL ([facility]) Gerald Gamez MD: 38045 [address], [place] [address], Ph. Attender: Gerald Gamez MD [place] - [facility] 04/25/2019 12:00:00 AM EST ABEL ([facility]) Gerald Gamez MD: 28628 [address], [address], [place] [address], Ph. Attender: Gerald Gamez MD [place] - [facility] 04/25/2019 12:00:00 AM EST ABEL ([facility]) [facility] [place] [address] [facility] [address] 04/11/2019 12:00:00 AM EST eCW1 ([facility]) Randi Ackerman Deangelolisa, MILLER HEAD: [address], [place] [address], Ph. Attender: Randi Hamilton [facility] 03/25/2019 12:00:00 AM EST ATHE NA ([facility]) Randi Ackerman Joy, MILLER HEAD: [address]35 [address], [place] [address], Ph. Attender: Randi Hamilton [facility] 03/25/2019 12:00:00 AM EST ATHE NA ([facility]) Randi Nhanellen Deangelolisa, MILLER HEAD: [address]695 [address], [place] [address], Ph. Attender: Randi Hamilton [facility] 03/25/2019 12:00:00 AM EST ATHE NA ([facility]) Randi Mannestorchriscaro Joy, MILLER HEAD: [address], [place] [address], Ph. Attender: Randi Hamilton [facility] 03/25/2019 12:00:00 AM EST ATHE NA ([facility]) Randi Hamilton, MILLER HEAD: [address]85 [address], [place] [address], Ph. Attender: Randi Hamilton [facility] - [facility] 03/25/2019 12:00:00 AM EST ATHE NA ([facility]) Randi Hamilton, MILLER HEAD: [address]157 [address], [place] [address], Ph. Attender: Randi Hamilton [facility] - [facility] 03/25/2019 12:00:00 AM EST ATHE NA ([facility]) Randi Hamilton, MILLER HEAD: [address]14 [address], [place] [address], Ph. Attender: Randi Hamilton [facility] - [facility] 03/25/2019 12:00:00 AM EST ATHE NA ([facility]) Randi Hamilton, MILLER HEAD: [address]3 [address], [place] [address], Ph. Attender: Randi Hamilton [facility] - [facility] 03/25/2019 12:00:00 AM EST ATHE NA ([facility]) Randi Hamilton, MILLER HEAD: [address]243 [address], [place] [address], Ph. Attender: Randi Hamilton [facility] 03/25/2019 12:00:00 AM EST ATHE NA ([facility]) Randi Hamilton, MILLER HEAD: [address]64 [address], [place] [address], Ph. Attender: Randi Hamilton [facility] 03/25/2019 12:00:00 AM EST ATHE NA ([facility]) Randi Hamilton, MILLER HEAD: [address]17 [address], [place] [address], Ph. Attender: Randi Hamilton [facility] 03/25/2019 12:00:00 AM EST ATHE NA ([facility]) Randi Hamilton, MILLER HEAD: [address]40 [address], [place] [address], Ph. Attender: Randi Hamilton [facility] 03/25/2019 12:00:00 AM EST ATHE NA ([facility]) Randi Hamilton, MILLER HEAD: [address]70 [address], [place] [address], Ph. Attender: Randi Hamilton [facility] 03/25/2019 12:00:00 AM EST ATHE NA ([facility]) Outpatient Attender: Sacha Zafar MD 03/21/2019 09:01:[address] [facility] Outpatient Attender: JO [facility] Falcon/Thanh/Clemente/Sean doyle 03/11/2019 01:45:00 PM EST MEDENT ([facility] Gerald Gamez MD: [address]87 [address], [place] [address], Ph. Attender: Gerald Gamez MD [place] - [facility] 03/07/2019 12:00:00 AM EST ABEL ([facility]) Gerald Gamez MD: 11001 [address], [place] [address], Ph. Attender: Gerald Gamez MD [place] - [facility] 03/07/2019 12:00:00 AM EST ABEL ([facility]) Gerald Gamez MD: 89661 [address], [address], [place] [address], Ph. Attender: Gerald Gamez MD [place] - [facility] 03/07/2019 12:00:00 AM EST ABEL ([facility]) Gerald Gamez MD: 70147 [address], [address], [place] [address], Ph. Attender: Gerald Gamez MD [place] - [facility] 03/07/2019 12:00:00 AM EST ABEL ([facility]) Gerald Gamez MD: [address]15 [address], [place] [address], Ph. Attender: Gerald Gamez MD [place] - [facility] 03/07/2019 12:00:00 AM EST ABEL ([facility]) [facility]rology [address] [facility] [address] 03/07/2019 12:00:00 AM EST eCW1 ([facility]) Gerald Gamez MD: 54642 [address], [place] [address], Ph. Attender: Gerald QUIÑONEZ - [facility] 03/07/2019 12:00:00 AM EST ABEL ([facility]) Gerald Gamez MD: 51514 [address], [address], [place] [address], Ph. Attender: Gerald Gamez MD [place] - [facility] 03/07/2019 12:00:00 AM EST ABEL ([facility]) Gerald Gamez MD: 02616 [address], [place] [address], Ph. Attender: Gerald QUIÑONEZ - [facility] 03/07/2019 12:00:00 AM EST ABEL ([facility]) Gerald Gamez MD: 61014 [address], [place] [address], Ph. Attender: Gerald QUIÑONEZ - [facility] 03/07/2019 12:00:00 AM EST ABEL ([facility]) Gerald Gamez MD: 09880 [address], [address], [place] [address], Ph. Attender: Gerald QUIÑONZE - [facility] 03/07/2019 12:00:00 AM EST ABEL ([facility]) Gerald Gamez MD: 01563 [address], [place] [address], Ph. Attender: Gerald QUIÑONEZ - [facility] 03/07/2019 12:00:00 AM EST ABEL ([facility]) Gerald Gamez MD: 57944 [address], [place] [address], Ph. Attender: Gerald QUIÑONEZ - [facility] 03/07/2019 12:00:00 AM EST ABEL ([facility]) Gerald Gamez MD: 72194 [address], [place] [address], Ph. Attender: Gerald QUIÑONEZ - [facility] 03/07/2019 12:00:00 AM EST ABEL ([facility]) Gerald Gamez MD: 00235 [address], [place] [address], Ph. Attender: Gerald QUIÑONEZ - [facility] 03/07/2019 12:00:00 AM RADHA ROAMN ([facility]) Immunizations Vaccine Date Status Description Data Source(s) pneumococcal polysaccharide PPV23 01/10/2020 11:25:00 AM EDT comple keshia eCW1 ([facility]) pneumococcal polysaccharide PPV23 01/10/2020 11:25:00 AM EDT comple keshia eCW1 ([facility]) pneumococcal polysaccharide PPV23 01/10/2020 11:25:00 AM EDT comple keshia eCW1 ([facility]) pneumococcal polysaccharide PPV23 01/10/2020 11:25:00 AM EDT comple keshia eCW1 ([facility]) pneumococcal polysaccharide PPV23 01/10/2020 11:25:00 AM EDT comple keshia eCW1 ([facility]) pneumococcal polysaccharide PPV23 01/10/2020 11:25:00 AM EDT comple keshia eCW1 ([facility]) pneumococcal polysaccharide PPV23 01/10/2020 11:25:00 AM EDT comple keshia eCW1 ([facility]) pneumococcal polysaccharide PPV23 01/10/2020 11:25:00 AM EDT comple keshia eCW1 ([facility]) pneumococcal polysaccharide PPV23 01/10/2020 11:25:00 AM EDT comple keshia eCW1 ([facility]) pneumococcal polysaccharide PPV23 01/10/2020 11:25:00 AM EDT comple keshia eCW1 ([facility]) pneumococcal polysaccharide PPV23 01/10/2020 11:25:00 AM EDT comple keshia eCW1 ([facility]) pneumococcal polysaccharide PPV23 01/10/2020 11:25:00 AM EDT comple keshia eCW1 ([facility]) pneumococcal polysaccharide PPV23 01/10/2020 11:25:00 AM EDT comple keshia eCW1 ([facility]) pneumococcal polysaccharide PPV23 01/10/2020 11:25:00 AM EDT comple keshia eCW1 ([facility]) influenza, recombinant, quadrIvalent,injectable, prese rvative free 01/10/2020 11:24:00 AM EDT completed eCW1 ([facility]) influenza, recombinant, quadrIvalent,injectable, prese rvative free 01/10/2020 11:24:00 AM EDT completed eCW1 ([facility]) influenza, recombinant, quadrIvalent,injectable, prese rvative free 01/10/2020 11:24:00 AM EDT completed eCW1 ([facility]) influenza, recombinant, quadrIvalent,injectable, prese rvative free 01/10/2020 11:24:00 AM EDT completed eCW1 ([facility]) influenza, recombinant, quadrIvalent,injectable, prese rvative free 01/10/2020 11:24:00 AM EDT completed eCW1 ([facility]) influenza, recombinant, quadrIvalent,injectable, prese rvative free 01/10/2020 11:24:00 AM EDT completed eCW1 ([facility]) influenza, recombinant, quadrIvalent,injectable, prese rvative free 01/10/2020 11:24:00 AM EDT completed eCW1 ([facility]) influenza, recombinant, quadrIvalent,injectable, prese rvative free 01/10/2020 11:24:00 AM EDT completed eCW1 ([facility]) influenza, recombinant, quadrIvalent,injectable, prese rvative free 01/10/2020 11:24:00 AM EDT completed eCW1 ([facility]) influenza, recombinant, quadrIvalent,injectable, prese rvative free 01/10/2020 11:24:00 AM EDT completed eCW1 ([facility]) influenza, recombinant, quadrIvalent,injectable, prese rvative free 01/10/2020 11:24:00 AM EDT completed eCW1 ([facility]) influenza, recombinant, quadrIvalent,injectable, prese rvative free 01/10/2020 11:24:00 AM EDT completed eCW1 ([facility]) influenza, recombinant, quadrIvalent,injectable, prese rvative free 01/10/2020 11:24:00 AM EDT completed eCW1 ([facility]) influenza, recombinant, quadrIvalent,injectable, prese rvative free 01/10/2020 11:24:00 AM EDT completed eCW1 ([facility]) influenza, recombinant, quadrIvalent,injectable, prese rvative free 01/06/2020 10:26:00 AM EDT completed eCW1 ([facility]) influenza, recombinant, quadrIvalent,injectable, prese rvative free 01/06/2020 10:26:00 AM EDT completed eCW1 ([facility]) influenza, recombinant, quadrIvalent,injectable, prese rvative free 01/06/2020 10:26:00 AM EDT completed eCW1 ([facility]) influenza, recombinant, quadrIvalent,injectable, prese rvative free 01/06/2020 10:26:00 AM EDT completed eCW1 ([facility]) influenza, recombinant, quadrIvalent,injectable, prese rvative free 01/06/2020 10:26:00 AM EDT completed eCW1 ([facility]) influenza, recombinant, quadrIvalent,injectable, prese rvative free 01/06/2020 10:26:00 AM EDT completed eCW1 ([facility]) influenza, recombinant, quadrIvalent,injectable, prese rvative free 01/06/2020 10:26:00 AM EDT completed eCW1 ([facility]) influenza, recombinant, quadrIvalent,injectable, prese rvative free 01/06/2020 10:26:00 AM EDT completed eCW1 ([facility]) influenza, recombinant, quadrIvalent,injectable, prese rvative free 01/06/2020 10:26:00 AM EDT completed eCW1 ([facility]) influenza, recombinant, quadrIvalent,injectable, prese rvative free 01/06/2020 10:26:00 AM EDT completed eCW1 ([facility]) influenza, recombinant, quadrIvalent,injectable, prese rvative free 01/06/2020 10:26:00 AM EDT completed eCW1 ([facility]) influenza, recombinant, quadrIvalent,injectable, prese rvative free 01/06/2020 10:26:00 AM EDT completed eCW1 ([facility]) influenza, recombinant, quadrIvalent,injectable, prese rvative free 01/06/2020 10:26:00 AM EDT completed eCW1 ([facility]) influenza, recombinant, quadrIvalent,injectable, prese rvative free 01/06/2020 10:26:00 AM EDT completed eCW1 ([facility]) Medications Medication Brand Name Start Date Product Form Dose Route Admi nistrative Instructions Pharmacy Instructions Status Indications Reaction Description Data Source(s) atorvastatin 80 MG Oral Tablet Atorvastatin Calcium 80 MG Atorvastatin Calcium 80 MG 01/28/2020 12:00:00 AM EDT 1.0 {tablet} activ e Atorvastatin Calcium 80 MG eCW1 ([facility]) atorvastatin 80 MG Oral Tablet Atorvastatin Calcium 80 MG Atorvastatin Calcium 80 MG 01/28/2020 12:00:00 AM EDT 1.0 {tablet} activ e Atorvastatin Calcium 80 MG eCW1 ([facility]) Aspirin 81 MG Chewable Tablet Aspirin 81 MG 01/28/2020 12:00:00 AM EDT 1.0 {tablet} active Aspirin 81 MG eCW1 ([facility]) Aspirin 81 MG Chewable Tablet Aspirin 81 MG 01/28/2020 12:00:00 AM EDT 1.0 {tablet} active Aspirin 81 MG eCW1 ([facility]) atorvastatin 80 MG Oral Tablet Atorvastatin Calcium 80 MG Atorvastatin Calcium 80 MG 01/28/2020 12:00:00 AM EDT 1.0 {tablet} activ e Atorvastatin Calcium 80 MG eCW1 ([facility]) Aspirin 81 MG Chewable Tablet Aspirin 81 MG 01/28/2020 12:00:00 AM EDT 1.0 {tablet} active Aspirin 81 MG eCW1 ([facility]) Aspirin 81 MG Chewable Tablet Aspirin 81 MG 01/28/2020 12:00:00 AM EDT 1.0 {tablet} active Aspirin 81 MG eCW1 ([facility]) Aspirin 81 MG Chewable Tablet Aspirin 81 MG 01/28/2020 12:00:00 AM EDT 1.0 {tablet} active Aspirin 81 MG eCW1 ([facility]) Aspirin 81 MG Chewable Tablet Aspirin 81 MG 01/28/2020 12:00:00 AM EDT 1.0 {tablet} active Aspirin 81 MG eCW1 ([facility]) Loratadine 10 MG Oral Tablet Loratadine 10 MG 01/24/2020 12:00:00 A M EDT 1.0 {tablet} active Loratadine 10 MG eCW1 ( [facility]) Mupirocin 0.02 MG/MG Topical Ointment Mupirocin 2 % Mupiroci n 2 % 01/24/2020 12:00:00 AM EDT 1.0 {application} active Mupirocin 2 % eCW1 ([facility]) Loratadine 10 MG Oral Tablet Loratadine 10 MG 01/24/2020 12:00:00 A M EDT 1.0 {tablet} active Loratadine 10 MG eCW1 ( [facility]) Mupirocin 0.02 MG/MG Topical Ointment Mupirocin 2 % Mupiroci n 2 % 01/24/2020 12:00:00 AM EDT 1.0 {application} active Mupirocin 2 % eCW1 ([facility]) Mupirocin 0.02 MG/MG Topical Ointment Mupirocin 2 % Mupiroci n 2 % 01/24/2020 12:00:00 AM EDT 1.0 {application} active Mupirocin 2 % eCW1 ([facility]) Mupirocin 0.02 MG/MG Topical Ointment Mupirocin 2 % Mupiroci n 2 % 01/24/2020 12:00:00 AM EDT 1.0 {application} active Mupirocin 2 % eCW1 ([facility]) Loratadine 10 MG Oral Tablet Loratadine 10 MG 01/24/2020 12:00:00 A M EDT 1.0 {tablet} active Loratadine 10 MG eCW1 ( [facility]) Loratadine 10 MG Oral Tablet Loratadine 10 MG 01/24/2020 12:00:00 A M EDT 1.0 {tablet} active Loratadine 10 MG eCW1 ( [facility]) Mupirocin 0.02 MG/MG Topical Ointment Mupirocin 2 % Mupiroci n 2 % 01/24/2020 12:00:00 AM EDT 1.0 {application} active Mupirocin 2 % eCW1 ([facility]) Mupirocin 0.02 MG/MG Topical Ointment Mupirocin 2 % Mupiroci n 2 % 01/24/2020 12:00:00 AM EDT 1.0 {application} active Mupirocin 2 % eCW1 ([facility]) Loratadine 10 MG Oral Tablet Loratadine 10 MG 01/24/2020 12:00:00 A M EDT 1.0 {tablet} active Loratadine 10 MG eCW1 ( [facility]) Mupirocin 0.02 MG/MG Topical Ointment Mupirocin 2 % Mupiroci n 2 % 01/24/2020 12:00:00 AM EDT 1.0 {application} active Mupirocin 2 % eCW1 ([facility]) Mupirocin 0.02 MG/MG Topical Ointment Mupirocin 2 % Mupiroci n 2 % 01/24/2020 12:00:00 AM EDT 1.0 {application} active Mupirocin 2 % eCW1 ([facility]) Loratadine 10 MG Oral Tablet Loratadine 10 MG 01/24/2020 12:00:00 A M EDT 1.0 {tablet} active Loratadine 10 MG eCW1 ( [facility]) Mupirocin 0.02 MG/MG Topical Ointment Mupirocin 2 % Mupiroci n 2 % 01/24/2020 12:00:00 AM EDT 1.0 {application} active Mupirocin 2 % eCW1 ([facility]) Mupirocin 0.02 MG/MG Topical Ointment Mupirocin 2 % Mupiroci n 2 % 01/24/2020 12:00:00 AM EDT 1.0 {application} active Mupirocin 2 % eCW1 ([facility]) Loratadine 10 MG Oral Tablet Loratadine 10 MG 01/24/2020 12:00:00 A M EDT 1.0 {tablet} active Loratadine 10 MG eCW1 ( [facility]) Loratadine 10 MG Oral Tablet Loratadine 10 MG 01/24/2020 12:00:00 A M EDT 1.0 {tablet} active Loratadine 10 MG eCW1 ( [facility]) Loratadine 10 MG Oral Tablet Loratadine 10 MG 01/24/2020 12:00:00 A M EDT 1.0 {tablet} active Loratadine 10 MG eCW1 ( [facility]) Loratadine 10 MG Oral Tablet Loratadine 10 MG 01/24/2020 12:00:00 A M EDT 1.0 {tablet} active Loratadine 10 MG eCW1 ( [facility]) Loratadine 10 MG Oral Tablet Loratadine 10 MG 01/24/2020 12:00:00 A M EDT 1.0 {tablet} active Loratadine 10 MG eCW1 ( [facility]) Mupirocin 0.02 MG/MG Topical Ointment Mupirocin 2 % Mupiroci n 2 % 01/24/2020 12:00:00 AM EDT 1.0 {application} active Mupirocin 2 % eCW1 ([facility]) Acetaminophen 325 MG Oral Tablet Acetaminophen 12/17/2019 12:00:00 AM EDT ORAL active MEDENT ([facility]) atorvastatin 20 MG Oral Tablet Atorvastatin Calcium 12/17/2019 1 2:00:00 AM EDT ORAL active MEDENT ( [facility]) atorvastatin 40 MG Oral Tablet Atorvastatin Calcium 12/17/2019 1 2:00:00 AM EDT ORAL active MEDENT ( [facility]) Sertraline 100 MG Oral Tablet Sertraline HCL 12/17/2019 12:00:00 AM E DT ORAL active MEDENT ([facility]) aripiprazole 10 MG Oral Tablet Aripiprazole 12/17/2019 12:00:00 AM EDT ORAL active MEDENT ([facility]) Omeprazole 20 MG Delayed Release Oral Capsule Omeprazole 12/17/2019 12:00:00 AM EDT ORAL active MEDENT ([facility]) Clonidine Hydrochloride 0.1 MG Oral Tablet Clonidine HCL 12/17/2019 12:00:00 AM EDT ORAL active MEDENT ([facility]) Tamsulosin hydrochloride 0.4 MG Oral Capsule Tamsulosin HCL 12/17/2019 12:00:00 AM EDT ORAL active MEDENT ([facility]) gabapentin 600 MG Oral Tablet Gabapentin 12/17/2019 12:00:00 AM EDT active MEDENT ([facility]) tizanidine 4 MG Oral Capsule Tizanidine HCL 12/17/2019 12:00:00 AM EDT ORAL active MEDENT ([facility]) Denture Adhesive 12/17/2019 12:00:00 AM EDT a ctive MEDENT ([facility]) bismuth subsalicylate 262 MG Chewable Tablet Bismuth 12:00:00 AM EDT active MEDENT ( [facility]) Oxybutynin chloride 5 MG Oral Tablet Oxybutynin Chloride 12:00:00 AM EDT ORAL active MEDENT ([facility]) Clonidine Hydrochloride 0.1 MG Oral Tablet Clonidine HCL 10/09/2019 12:00:00 AM EDT ORAL active MEDENT ([facility]) Albuterol Sulfate HFA 108 (90 Base) MCG/ACT Albuterol Sulfate HFA 108 (90 Base) MCG/ACT 07/10/2019 12:00:00 AM EDT 1.0 {puff_as_needed} active Albuterol Sulfate HFA 108 (90 Base) MCG/ACT eCW1 ([facility]) Albuterol Sulfate HFA 108 (90 Base) MCG/ACT Albuterol Sulfate HFA 108 (90 Base) MCG/ACT 07/10/2019 12:00:00 AM EDT active 1 puff as needed eCW1 ([facility]) Albuterol Sulfate HFA 108 (90 Base) MCG/ACT Albuterol Sulfate HFA 108 (90 Base) MCG/ACT 07/10/2019 12:00:00 AM EDT 1.0 {puff_as_needed} active Albuterol Sulfate HFA 108 (90 Base) MCG/ACT eCW1 ([facility]) Albuterol Sulfate HFA 108 (90 Base) MCG/ACT Albuterol Sulfate HFA 108 (90 Base) MCG/ACT 07/10/2019 12:00:00 AM EDT 1.0 {puff_as_needed} active Albuterol Sulfate HFA 108 (90 Base) MCG/ACT eCW1 ([facility]) Albuterol Sulfate HFA 108 (90 Base) MCG/ACT Albuterol Sulfate HFA 108 (90 Base) MCG/ACT 07/10/2019 12:00:00 AM EDT 1.0 {puff_as_needed} active Albuterol Sulfate HFA 108 (90 Base) MCG/ACT eCW1 ([facility]) Albuterol Sulfate HFA 108 (90 Base) MCG/ACT Albuterol Sulfate HFA 108 (90 Base) MCG/ACT 07/10/2019 12:00:00 AM EDT 1.0 {puff_as_needed} active Albuterol Sulfate HFA 108 (90 Base) MCG/ACT eCW1 ([facility]) Albuterol Sulfate HFA 108 (90 Base) MCG/ACT Albuterol Sulfate HFA 108 (90 Base) MCG/ACT 07/10/2019 12:00:00 AM EDT 1.0 {puff_as_needed} active Albuterol Sulfate HFA 108 (90 Base) MCG/ACT eCW1 ([facility]) Albuterol Sulfate HFA 108 (90 Base) MCG/ACT Albuterol Sulfate HFA 108 (90 Base) MCG/ACT 07/10/2019 12:00:00 AM EDT 1.0 {puff_as_needed} active Albuterol Sulfate HFA 108 (90 Base) MCG/ACT eCW1 ([facility]) Albuterol Sulfate HFA 108 (90 Base) MCG/ACT Albuterol Sulfate HFA 108 (90 Base) MCG/ACT 07/10/2019 12:00:00 AM EDT active 1 puff as needed eCW1 ([facility]) Albuterol Sulfate HFA 108 (90 Base) MCG/ACT Albuterol Sulfate HFA 108 (90 Base) MCG/ACT 07/10/2019 12:00:00 AM EDT 1.0 {puff_as_needed} active Albuterol Sulfate HFA 108 (90 Base) MCG/ACT eCW1 ([facility]) Albuterol Sulfate HFA 108 (90 Base) MCG/ACT Albuterol Sulfate HFA 108 (90 Base) MCG/ACT 07/10/2019 12:00:00 AM EDT 1.0 {puff_as_needed} active Albuterol Sulfate HFA 108 (90 Base) MCG/ACT eCW1 ([facility]) Albuterol Sulfate HFA 108 (90 Base) MCG/ACT Albuterol Sulfate HFA 108 (90 Base) MCG/ACT 07/10/2019 12:00:00 AM EDT 1.0 {puff_as_needed} active Albuterol Sulfate HFA 108 (90 Base) MCG/ACT eCW1 ([facility]) Albuterol Sulfate HFA 108 (90 Base) MCG/ACT Albuterol Sulfate HFA 108 (90 Base) MCG/ACT 07/10/2019 12:00:00 AM EDT 1.0 {puff_as_needed} active Albuterol Sulfate HFA 108 (90 Base) MCG/ACT eCW1 ([facility]) Albuterol Sulfate HFA 108 (90 Base) MCG/ACT Albuterol Sulfate HFA 108 (90 Base) MCG/ACT 07/10/2019 12:00:00 AM EDT 1.0 {puff_as_needed} active Albuterol Sulfate HFA 108 (90 Base) MCG/ACT eCW1 ([facility]) Albuterol Sulfate HFA 108 (90 Base) MCG/ACT Albuterol Sulfate HFA 108 (90 Base) MCG/ACT 07/10/2019 12:00:00 AM EDT active 1 puff as needed eCW1 ([facility]) Albuterol Sulfate HFA 108 (90 Base) MCG/ACT Albuterol Sulfate HFA 108 (90 Base) MCG/ACT 07/10/2019 12:00:00 AM EDT 1.0 {puff_as_needed} active Albuterol Sulfate HFA 108 (90 Base) MCG/ACT eCW1 ([facility]) Albuterol Sulfate HFA 108 (90 Base) MCG/ACT Albuterol Sulfate HFA 108 (90 Base) MCG/ACT 07/10/2019 12:00:00 AM EDT 1.0 {puff_as_needed} active Albuterol Sulfate HFA 108 (90 Base) MCG/ACT eCW1 ([facility]) Albuterol Sulfate HFA 108 (90 Base) MCG/ACT Albuterol Sulfate HFA 108 (90 Base) MCG/ACT 07/10/2019 12:00:00 AM EDT 1.0 {puff_as_needed} active Albuterol Sulfate HFA 108 (90 Base) MCG/ACT eCW1 ([facility]) Albuterol Sulfate HFA 108 (90 Base) MCG/ACT Albuterol Sulfate HFA 108 (90 Base) MCG/ACT 07/10/2019 12:00:00 AM EDT 1.0 {puff_as_needed} active Albuterol Sulfate HFA 108 (90 Base) MCG/ACT eCW1 ([facility]) Albuterol Sulfate HFA 108 (90 Base) MCG/ACT Albuterol Sulfate HFA 108 (90 Base) MCG/ACT 07/10/2019 12:00:00 AM EDT 1.0 {puff_as_needed} active Albuterol Sulfate HFA 108 (90 Base) MCG/ACT eCW1 ([facility]) Albuterol Sulfate HFA 108 (90 Base) MCG/ACT Albuterol Sulfate HFA 108 (90 Base) MCG/ACT 07/10/2019 12:00:00 AM EDT 1.0 {puff_as_needed} active Albuterol Sulfate HFA 108 (90 Base) MCG/ACT eCW1 ([facility]) Albuterol Sulfate HFA 108 (90 Base) MCG/ACT Albuterol Sulfate HFA 108 (90 Base) MCG/ACT 07/10/2019 12:00:00 AM EDT 1.0 {puff_as_needed} active Albuterol Sulfate HFA 108 (90 Base) MCG/ACT eCW1 ([facility]) Acetaminophen 650 MG UNK 05/16/2019 12:00:00 AM EST active 1 tablet eCW1 ([facility]) Acetaminophen 650 MG UNK 05/16/2019 12:00:00 AM EST 1.0 {tablet } active Acetaminophen 650 MG eCW1 ([facility]) Acetaminophen 650 MG UNK 05/16/2019 12:00:00 AM EST active 1 tablet eCW1 ([facility]) Acetaminophen 650 MG UNK 05/16/2019 12:00:00 AM EST active 1 tablet eCW1 ([facility]) Acetaminophen 650 MG UNK 05/16/2019 12:00:00 AM EST active 1 tablet eCW1 ([facility]) Acetaminophen 650 MG UNK 05/16/2019 12:00:00 AM EST 1.0 {tablet } active Acetaminophen 650 MG eCW1 ([facility]) Acetaminophen 650 MG UNK 05/16/2019 12:00:00 AM EST 1.0 {tablet } active Acetaminophen 650 MG eCW1 ([facility]) Acetaminophen 650 MG UNK 05/16/2019 12:00:00 AM EST active 1 tablet eCW1 ([facility]) Acetaminophen 650 MG UNK 05/16/2019 12:00:00 AM EST 1.0 {tablet } active Acetaminophen 650 MG eCW1 ([facility]) Acetaminophen 650 MG UNK 05/16/2019 12:00:00 AM EST 1.0 {tablet } active Acetaminophen 650 MG eCW1 ([facility]) Acetaminophen 650 MG UNK 05/16/2019 12:00:00 AM EST 1.0 {tablet } active Acetaminophen 650 MG eCW1 ([facility]) Acetaminophen 650 MG UNK 05/16/2019 12:00:00 AM EST 1.0 {tablet } active Acetaminophen 650 MG eCW1 ([facility]) Acetaminophen 650 MG UNK 05/16/2019 12:00:00 AM EST 1.0 {tablet } active Acetaminophen 650 MG eCW1 ([facility]) Acetaminophen 650 MG UNK 05/16/2019 12:00:00 AM EST 1.0 {tablet } active Acetaminophen 650 MG eCW1 ([facility]) Acetaminophen 650 MG UNK 05/16/2019 12:00:00 AM EST 1.0 {tablet } active Acetaminophen 650 MG eCW1 ([facility]) Acetaminophen 650 MG UNK 05/16/2019 12:00:00 AM EST 1.0 {tablet } active Acetaminophen 650 MG eCW1 ([facility]) Acetaminophen 650 MG UNK 05/16/2019 12:00:00 AM EST 1.0 {tablet } active Acetaminophen 650 MG eCW1 ([facility]) Acetaminophen 650 MG UNK 05/16/2019 12:00:00 AM EST 1.0 {tablet } active Acetaminophen 650 MG eCW1 ([facility]) Acetaminophen 650 MG UNK 05/16/2019 12:00:00 AM EST 1.0 {tablet } active Acetaminophen 650 MG eCW1 ([facility]) Acetaminophen 650 MG UNK 05/16/2019 12:00:00 AM EST 1.0 {tablet } active Acetaminophen 650 MG eCW1 ([facility]) Acetaminophen 650 MG UNK 05/16/2019 12:00:00 AM EST 1.0 {tablet } active Acetaminophen 650 MG eCW1 ([facility]) Acetaminophen 650 MG UNK 05/16/2019 12:00:00 AM EST active 1 tablet eCW1 ([facility]) Acetaminophen 650 MG UNK 05/16/2019 12:00:00 AM EST 1.0 {tablet } active Acetaminophen 650 MG eCW1 ([facility]) Acetaminophen 650 MG UNK 05/16/2019 12:00:00 AM EST 1.0 {tablet } active Acetaminophen 650 MG eCW1 ([facility]) Acetaminophen 650 MG UNK 05/16/2019 12:00:00 AM EST 1.0 {tablet } active Acetaminophen 650 MG eCW1 ([facility]) Naproxen 500 MG Oral Tablet naproxen 500 mg tablet one twice daily naproxen 500 mg tablet one twice daily completed naproxen 500 MG Oral Tablet ABEL ([facility]) Naproxen 500 MG Oral Tablet naproxen 500 mg tablet one twice daily naproxen 500 mg tablet one twice daily completed naproxen 500 MG Oral Tablet ABEL ([facility]) Naproxen 500 MG Oral Tablet naproxen 500 mg tablet one twice daily naproxen 500 mg tablet one twice daily completed naproxen 500 MG Oral Tablet ABEL ([facility]) Clonidine Hydrochloride 0.1 MG Oral Tablet clonidine H Cl 0.1 mg tablet clonidine HCl 0.1 mg tablet completed clonidine hydrochloride 0.1 MG Oral Tablet ABEL ([facility]) Naproxen 500 MG Oral Tablet naproxen 500 mg tablet one twice daily naproxen 500 mg tablet one twice daily completed naproxen 500 MG Oral Tablet ABEL ([facility]) atorvastatin 20 MG Oral Tablet atorvasta tin 20 mg tablet TAKE ONE TABLET BY MOUTH EVERY DAY WITH 40MG DOSE TO EQUAL 60MG atorvastatin 20 mg tablet TAKE ONE TABLET BY MOUTH EVERY DAY WITH 40MG DOSE TO EQUAL 60MG completed atorvastatin 20 MG Oral Tablet ABEL ([facility]) Trazodone Hydrochloride 50 MG Oral Tablet trazodone 50 mg tablet trazodone 50 mg tablet completed trazodone hydro chloride 50 MG Oral Tablet ABEL ([facility]) atorvastatin 40 MG Oral Tablet atorvasta tin 40 mg tablet TAKE ONE TABLET BY MOUTH EVERY DAY TOTAL DAILY DOSE 60MG atorvastatin 40 mg tablet TAKE ONE TABLET BY MOUTH EVERY DAY TOTAL DAILY DOSE 60MG completed atorvastatin 40 MG Oral Tablet ABEL ([facility]) Naproxen 500 MG Oral Tablet naproxen 500 mg tablet one twice daily naproxen 500 mg tablet one twice daily completed Naproxen 500 MG Oral Tablet ABEL ([facility]) Naproxen 500 MG Oral Tablet naproxen 500 mg tablet one twice daily naproxen 500 mg tablet one twice daily completed naproxen 500 MG Oral Tablet ABEL ([facility]) Naproxen 500 MG Oral Tablet naproxen 500 mg tablet one twice daily naproxen 500 mg tablet one twice daily completed naproxen 500 MG Oral Tablet ABEL ([facility]) Naproxen 500 MG Oral Tablet naproxen 500 mg tablet one twice daily naproxen 500 mg tablet one twice daily completed Naproxen 500 MG Oral Tablet ABEL ([facility]) Insurance Providers Payer name Policy type / Coverage type Policy ID Covered libertarian ID Covered libertarian's relationship to moore Policy Moore Plan Information [facility] COMMUNITY PLAN [facility] [id number] SP [id number] [facility] COMMUNITY [facility] [id number] SP [id number] [facility] COMMUNITY PLAN [facility] [id number] SP [id number] Managed Care [facility] Community Plan P [id number] S [id number] Medicaid S [id number] S [id number] [facility] O [id number] S [id number] [facility] COMMUNITY PLAN MCDO [id number] SP [id number] [facility] Commercial [id number] Self [id number] ANSI-Commercial [id number] ANSI-Medicaid [id number] ANSI-Commercial [id number] ANSI-Medicaid [id number] ANSI-Commercial [id number] ANSI-Medicaid [id number] ANSI-Commercial [id number] ANSI-Commercial [id number] ANSI-Commercial [id number] ANSI-Medicaid [id number] [facility] - [facility] [id number] S [id number] ANSI-Medicaid [id number] ANSI-Commercial [id number] ANSI-Commercial [id number] ANSI-Commercial [id number] ANSI-Commercial [id number] ANSI-Medicaid [id number] ANSI-Medicaid [id number] ANSI-Commercial [id number] ANSI-Medicaid [id number] ANSI-Commercial [id number] ANSI-Commercial [id number] ANSI-Medicaid [id number] ANSI-Commercial [id number] ANSI-Commercial [id number] [facility] COMMUNITY PLAN [facility] [id number] SP [id number] [facility] Health Maintenance Organization (HMO) [id number] Self [id number] [facility] I [id number] Self [id number] UHC UNITED MEDICARE COMPLETE G [id number] Self [id number] Managed Care - Community Plan [facility] P [id number] S [id number] [facility] COMMUNITY PLAN [facility] [id number] SP [id number] [facility] [id number] ANSI-Commercial [id number] ANSI-Medicaid [id number] ANSI-Commercial [id number] [place] O [id number] O [id number] Medicaid P [id number] S [id number] SY [id number] SP [id number] Managed Care [place] P [id number] S [id number] ANSI-Commercial [id number] ANSI-Commercial [id number] SY CARE [id number] S [id number] [facility] OFFICE OF MENTAL HEALTH [id number] S [id number] SY [id number] SP [id number] SY [id number] SP [id number] Medicaid S [id number] S [id number] [place] O [id number] S [id number] SY [id number] SP [id number] [place] Essential Plan F [id number] SELF [id number] [place]/CHP/FHP Commercial Self SY [id number] SP [id number] [place] O [id number] S [id number] Problems, Conditions, and Diagnoses Code Display Name Description Problem Type Effective Dates Data Source(s) Z12.2 [id number] Encounter for screening for lung cancer Natali mcclendon 02/07/2020 12:00:00 AM EST eCW1 ([facility]) R45.851 705741540 Planning to commit suicide Problem 0 12:00:00 AM EDT eCW1 ([facility]) B99.9 24884906 Rash or skin eruption accompanying infect ious disease Problem 01/24/2020 12:00:00 AM EDT eCW1 ([facility]) R00.2 [id number] Intermittent palpitations Problem 01/12/2020 12:00:00 AM EDT eCW1 ([facility]) R63.4 083931523 Weight loss, non-intentional Problem 020 12:00:00 AM EDT eCW1 ([facility]) F32.9 Major depressive disorder, single episod e, unspecified Unspecified depressive Disorder Condition 12/23/2019 12:00:00 AM EDT [facility] ([facility]) 351947681 Dietary management surveillance Dietary manageme nt surveillance Problem 10/10/2019 12:00:00 AM EDT [facility] ([facility]) 316804587 Obesity Obesity Problem 10/10/2019 12:00:00 AM ED T MEDENT ([facility]) R53.83 12445150 Fatigue, unspecified type Problem 08/15/2019 12:00:00 AM EDT eCW1 ([facility]) Z68.36 698058242 BMI 36.0-36.9,adult Problem 08/15/2019 12:00 :00 AM EDT eCW1 ([facility]) Z68.36 208409906 BMI 36.0-36.9,adult Problem 08/15/2019 12:00 :00 AM EDT eCW1 ([facility]) R53.83 76029310 Fatigue, unspecified type Problem 08/15/2019 12:00:00 AM EDT eCW1 ([facility]) M54.42 082677673 Lumbago with sciatica, left side Problem 05/29/2019 12:00:00 AM EST eCW1 ([facility]) G89.29 [id number] Other chronic pain Problem 05/29/2019 12:00: 00 AM EST eCW1 ([facility]) M54.41 [id number] Lumbago with sciatica, right side Prob bucky 05/29/2019 12:00:00 AM EST eCW1 ([facility]) G89.29 [id number] Other chronic pain Problem 05/29/2019 12:00: 00 AM EST eCW1 ([facility]) M54.41 [id number] Lumbago with sciatica, right side Prob bucky 05/29/2019 12:00:00 AM EST eCW1 ([facility]) M54.42 [id number] Lumbago with sciatica, left side Problem 05/29/2019 12:00:00 AM EST eCW1 ([facility]) K21.9 [id number] Chronic GERD Problem 05/20/2019 12:00:00 AM EST eCW1 ([facility]) K21.9 [id number] Chronic GERD Problem 05/20/2019 12:00:00 AM EST eCW1 ([facility]) E78.2 [id number] Mixed hyperlipidemia Problem 05/08/2019 12:0 0:00 AM EST eCW1 ([facility]) E78.2 [id number] Mixed hyperlipidemia Problem 05/08/2019 12:0 0:00 AM EST eCW1 ([facility]) Surgeries/Procedures Procedure Description Date Indications Data Source(s) PNEUMOCOCCAL POLYSAC VACCINE 23-V 2 />YR SUBQ/IM 01/09 12:00:00 AM EDT eCW1 ([facility]) Immunization: Flublok Quadrivalent (18 years & older) 0.5mL IM (Influenza) 01/10/2020 12:00:00 AM EDT eCW1 ([facility]) Crisis intervention service, per 15 minutes 12/23/2019 12:00:00 AM EDT - 12/23/2019 12:00:00 AM EDT [facility] ([facility]) Crisis intervention service, per 15 minutes 12/23/2019 12:00:00 AM EDT [facility] ([facility]) Measure Blood Oxygen Level Continuous Overnight Monitor 04/08/2019 12:00:00 AM EST [facility] ([facility]) Results ID Date Data Source CBC with Differential 01/13/2020 04:12:40 AM EDT eCW1 ([facility]) Name Value Range Interpretation Code Description Data Roma rce(s) Supporting Document(s) 7.2 WHITE BLOOD COUNT eCW1 ([facility]) 5.20 RED BLOOD COUNT eCW1 ([facility]) 15.4 HEMOGLOBIN eCW1 ([facility]) 90.2 MEAN CORPUSCULAR VOLUME eCW1 ( [facility]) 46.9 HEMATOCRIT eCW1 ([facility]) 29.6 MEAN CORPUSCULAR HEMOGLOBIN eC W1 ([facility]) 13.6 RED CELL DISTRIBUTION WIDTH eC W1 ([facility]) 76.2 NEUTROPHILS % eCW1 ([facility]) 32.8 MEAN CORPUSCULAR HGB CONC eCW1 ([facility]) 187 PLATELET COUNT, AUTOMATED [facility]CW[facility] [facility] 14.0 LYMPH % eCW1 ([facility]) 6.8 MONO % eCW1 ([facility]) 1.9 EOS % eCW1 ([facility]) 1.0 LYMPH # eCW1 ([facility]) 0.3 BASO % eCW1 ([facility]) 5.5 NEUTROPHILS # eCW1 ([facility]) 0.5 MONO # eCW1 ([facility]) 0.0 BASO # eCW1 ([facility]) 0.1 EOS # eCW1 ([facility]) ID Date Data Source LIPID PANEL (CARDIAC RISK) 01/13/2020 04:12:02 AM EDT eCW1 ( [facility]) Name Value Range Interpretation Code Description Data Roma rce(s) Supporting Document(s) Cholesterol in HDL [Moles/volume] in Serum or Plasma 36 HDL CHOLESTEROL eCW1 ([facility]) Cholesterol [Moles/volume] in Serum or Plasma 147 CHOLESTEROL LEVEL eCW1 ([facility]) Cholesterol in LDL [Mass/volume] in Serum or Plasma by calculation 69 LDL CHOLESTEROL eCW1 ([facility]) Triglyceride [Mass/volume] in Serum or Plasma by calculation 211 TRIGLYCERIDES LEVEL eCW1 ([facility]) 4.083 CHOLESTEROL RISK RATIO eCW1 ([facility]) 111 NON-HDL-C eCW1 ([facility]) ID Date Data Source [id number] 05/16/2019 08:19:00 AM EST [facility] ([facility]) Name Value Range Interpretation Code Description Data Roma rce(s) Supporting Document(s) HDL 37 [facility] ([facility] Triglycerides 216 [facility] ([facility]) Cholesterol 132 [facility] ([facility]) Cholesterol in LDL [Mass/volume] in Serum or Plasma by calculation 52 [facility] ([facility]) Chol/HDL Ratio 3.567 [facility] ([facility]) Procedure Social History Code Duration Value Status Description Data Source(s ) Smoking 04/13/2020 12:00:00 AM EST Never Smoker completed Never S moker eCW1 ([facility]) Smoking 03/16/2020 12:00:00 AM EST Never Smoker completed Never S moker eCW1 ([facility]) Smoking 03/11/2020 12:00:00 AM EST Never Smoker completed Never S moker eCW1 ([facility]) Smoking 03/11/2020 12:00:00 AM EST Never Smoker completed Never S moker eCW1 ([facility]) Smoking 01/28/2020 12:00:00 AM EDT Never Smoker completed Never S moker eCW1 ([facility]) Smoking 01/28/2020 12:00:00 AM EDT Never Smoker completed Never S moker eCW1 ([facility]) Smoking 01/28/2020 12:00:00 AM EDT Never Smoker completed Never S moker eCW1 ([facility]) Smoking 01/28/2020 12:00:00 AM EDT Never Smoker completed Never S moker eCW1 ([facility]) Smoking 01/28/2020 12:00:00 AM EDT Never Smoker completed Never S moker eCW1 ([facility]) Smoking 01/28/2020 12:00:00 AM EDT Never Smoker completed Never S moker eCW1 ([facility]) Smoking 01/24/2020 12:00:00 AM EDT Never Smoker completed Never S moker eCW1 ([facility]) Smoking 01/24/2020 12:00:00 AM EDT Never Smoker completed Never S moker eCW1 ([facility]) Smoking 01/10/2020 12:00:00 AM EDT Never Smoker completed Never S moker eCW1 ([facility]) Smoking 01/10/2020 12:00:00 AM EDT Never Smoker completed Never S moker eCW1 ([facility]) Smoking 12/23/2019 12:00:00 AM EDT Unknown if ever smoked comp leted Unknown if ever smoked [facility]) Smoking 10/10/2019 12:00:00 AM EDT Patient is a former smoker completed Patient is a former smoker MEDENT ([facility]) Smoking 09/06/2019 12:00:00 AM EDT Never Smoker completed Never S moker eCW1 ([facility]) Smoking 09/06/2019 12:00:00 AM EDT Never Smoker completed Never S moker eCW1 ([facility]) Smoking 09/06/2019 12:00:00 AM EDT Never Smoker completed Never S moker eCW1 ([facility]) Smoking 09/06/2019 12:00:00 AM EDT Never Smoker completed Never S moker eCW1 ([facility]) Smoking 09/06/2019 12:00:00 AM EDT Never Smoker completed Never S moker eCW1 ([facility]) Smoking 08/05/2019 12:00:00 AM EDT - 04/03/2005 12:00:00 AM EST Patient is a former smoker completed Patient is a former smoker MEDENT ([facility], ) Vital Signs ID Date Data Source UNK Name Value Range Interpretation Code Description Data Source(s) Diastolic blood pressure 66 mm[Hg] 66 mm[Hg] eCW1 ([facility]) Systolic blood pressure 116 mm[Hg] 116 mm[Hg] e CW1 ([facility]) Body temperature 98.3 [degF] 98.3 [degF] eCW1 ( [facility]) Respiratory rate 18 /min 18 /min eCW1 ([facility]) Heart rate 72 /min 72 /min eCW1 ([facility]) Body mass index (BMI) [Ratio] 36.32 kg/m2 36.32 kg/m2 eCW1 ([facility]) Body height [in_i] eCW1 ([facility]) Body weight 211.6 [lb_av] 211.6 [lb_av] eCW1 ([facility]) Body height 64 [in_i] 64 [in_i] ABEL ([facility]) Body height 64 [in_i] 64 [in_i] ABEL ([facility]) Body height 64 [in_i] 64 [in_i] ABEL ([facility]) Diastolic blood pressure 70 mm[Hg] 70 mm[Hg] eCW1 ([facility]) Systolic blood pressure 118 mm[Hg] 118 mm[Hg] e CW1 ([facility]) Body temperature 98.5 [degF] 98.5 [degF] eCW1 ( [facility]) Respiratory rate 18 /min 18 /min eCW1 ([facility]) Heart rate 73 /min 73 /min eCW1 ([facility]) Body mass index (BMI) [Ratio] 35.29 kg/m2 35.29 kg/m2 eCW1 ([facility]) Body height [in_i] eCW1 ([facility]) Body weight 205.6 [lb_av] 205.6 [lb_av] eCW1 ([facility]) Diastolic blood pressure 70 mm[Hg] 70 mm[Hg] eCW1 ([facility]) Systolic blood pressure 98 mm[Hg] 98 mm[Hg] e CW1 ([facility]) Body temperature 97.1 [degF] 97.1 [degF] eCW1 ( [facility]) Respiratory rate 19 /min 19 /min eCW1 ([facility]) Heart rate 100 /min 100 /min eCW1 ([facility]) Body mass index (BMI) [Ratio] 35.53 kg/m2 35.53 kg/m2 eCW1 ([facility]) Body height [in_i] eCW1 ([facility]) Body weight 207 [lb_av] 207 [lb_av] [facility] Body weight 194.00 [lb_av] 194.00 [lb_av] MEDEN T ([facility]) Body temperature 97.4 [degF] 97.4 [degF] MEDENT ([facility]) Respiratory rate 18 /min 18 /min MEDENT ( [facility]) Heart rate 101 /min 101 /min MEDENT ([facility]) Diastolic blood pressure 93 mm[Hg] 93 mm[Hg] MEDENT ([facility]) Systolic blood pressure 162 mm[Hg] 162 mm[Hg] M EDENT ([facility]) Body weight 200 [lb_av] 200 [lb_av] ABEL ([facility]) Systolic blood pressure 128 mm[Hg] 128 mm[Hg] A THENA ([facility]) Body mass index (BMI) [Ratio] 34.3 kg/m2 34.3 k g/m2 ABEL ([facility]) Body height 64 [in_i] 64 [in_i] ABEL ([facility]) Diastolic blood pressure 85 mm[Hg] 85 mm[Hg] ABEL ([facility]) Body weight 200 [lb_av] 200 [lb_av] ABEL ([facility]) Systolic blood pressure 128 mm[Hg] 128 mm[Hg] A THENA ([facility]) Body mass index (BMI) [Ratio] 34.3 kg/m2 34.3 k g/m2 ABEL ([facility]) Body height 64 [in_i] 64 [in_i] ABEL ([facility]) Diastolic blood pressure 85 mm[Hg] 85 mm[Hg] ABEL ([facility]) Body weight 200 [lb_av] 200 [lb_av] ABEL ([facility]) Systolic blood pressure 128 mm[Hg] 128 mm[Hg] A THENA ([facility]) Body mass index (BMI) [Ratio] 34.3 kg/m2 34.3 k g/m2 ABEL ([facility]) Body height 64 [in_i] 64 [in_i] ABEL ([facility]) Diastolic blood pressure 85 mm[Hg] 85 mm[Hg] ABEL ([facility]) Body weight 200 [lb_av] 200 [lb_av] ABEL ([facility]) Systolic blood pressure 128 mm[Hg] 128 mm[Hg] A THENA ([facility]) Body mass index (BMI) [Ratio] 34.3 kg/m2 34.3 k g/m2 ABEL ([facility]) Body height 64 [in_i] 64 [in_i] ABEL ([facility]) Diastolic blood pressure 85 mm[Hg] 85 mm[Hg] ABEL ([facility]) Body weight 200 [lb_av] 200 [lb_av] ABEL ([facility]) Systolic blood pressure 128 mm[Hg] 128 mm[Hg] A THENA ([facility]) Body mass index (BMI) [Ratio] 34.3 kg/m2 34.3 k g/m2 ABEL ([facility]) Body height 64 [in_i] 64 [in_i] ABEL ([facility]) Diastolic blood pressure 85 mm[Hg] 85 mm[Hg] ABEL ([facility]) Diastolic blood pressure--sitting 60 mm[Hg] 60 mm[Hg] MEDENT ([facility]) large cuff, Ra Systolic blood pressure--sitting 104 mm[Hg] 104 mm[Hg] MEDENT ([facility]) large cuff, Ra Heart rate 68 /min 68 /min [facility] ([facility]) Body mass index (BMI) [Ratio] 35.2 kg/m2 35.2 k g/m2 MEDENT ([facility]) Body height 64 [in_i] 64 [in_i] MEDENT ([facility]) 5'4" Body weight 205.00 [lb_av] 205.00 [lb_av] MEDEN T ([facility]) Diastolic blood pressure 70 mm[Hg] 70 mm[Hg] eCW1 ([facility]) Systolic blood pressure 104 mm[Hg] 104 mm[Hg] e CW1 ([facility]) Body temperature 98.1 [degF] 98.1 [degF] eCW1 ( [facility]) Respiratory rate 20 /min 20 /min eCW1 ([facility]) Heart rate 86 /min 86 /min eCW1 ([facility]) Body mass index (BMI) [Ratio] 35.70 kg/m2 35.70 kg/m2 eCW1 ([facility]) Body height [in_i] eCW1 ([facility]) Body weight 208 [lb_av] 208 [lb_av] eCW1 ([facility]) Body temperature 97 [degF] 97 [degF] eCW1 ([facility]) Respiratory rate 20 /min 20 /min eCW1 ([facility]) Heart rate 74 /min 74 /min eCW1 ([facility]) Body mass index (BMI) [Ratio] 36.56 kg/m2 36.56 kg/m2 eCW1 ([facility]) Body height [in_us] eCW1 ([facility]) Body weight Measured 213 [lb_av] 213 [lb_av] eC W1 ([facility]) Diastolic blood pressure 60 mm[Hg] 60 mm[Hg] eCW1 ([facility]) Systolic blood pressure 100 mm[Hg] 100 mm[Hg] e CW1 ([facility]) Body weight 96.787 kg [facility]87 [facility] Body mass index (BMI) [Ratio] 36.6 kg/m2 36.6 k g/m2 MEDENT ([facility], ) Body weight 213.38 [lb_av] 213.38 [lb_av] MEDEN T ([facility], ) Body height 64 [in_i] 64 [in_i] [facility] ([facility], ) 5'4" Body temperature 97.3 [degF] 97.3 [degF] [facility] ([facility], ) Oxygen saturation in Arterial blood by Pulse oximetry 95 % 95 % [facility] ([facility], ) Heart rate 66 /min 66 /min MEDENT ([facility], ) Diastolic blood pressure 68 mm[Hg] 68 mm[Hg] MEDENT ([facility], ) Systolic blood pressure 106 mm[Hg] 106 mm[Hg] M EDENT ([facility], ) Diastolic blood pressure 84 mm[Hg] 84 mm[Hg] eCW1 ([facility]) Systolic blood pressure 136 mm[Hg] 136 mm[Hg] e CW1 ([facility]) Body mass index (BMI) [Ratio] 36.04 kg/m2 36.04 kg/m2 eCW1 ([facility]) Body height [in_us] eCW1 ([facility]) Body weight Measured 210 [lb_av] 210 [lb_av] eC W1 ([facility]) Diastolic blood pressure 68 mm[Hg] 68 mm[Hg] eCW1 ([facility]) Systolic blood pressure 112 mm[Hg] 112 mm[Hg] e CW1 ([facility]) Body temperature 96.8 [degF] 96.8 [degF] eCW1 ( [facility]) Respiratory rate 18 /min 18 /min eCW1 ([facility]) Heart rate 115 /min 115 /min eCW1 ([facility]) Body mass index (BMI) [Ratio] 35.91 kg/m2 35.91 kg/m2 eCW1 ([facility]) Body height [in_us] eCW1 ([facility]) Body weight Measured 209.2 [lb_av] 209.2 [lb_av ] eCW1 ([facility]) Body weight 200 [lb_av] 200 [lb_av] ABEL ([facility]) Systolic blood pressure 96 mm[Hg] 96 mm[Hg] A THENA ([facility]) Body mass index (BMI) [Ratio] 34.3 kg/m2 34.3 k g/m2 ABEL ([facility]) Body height 64 [in_i] 64 [in_i] ABEL ([facility]) Diastolic blood pressure 60 mm[Hg] 60 mm[Hg] ABEL ([facility]) Body weight 200 [lb_av] 200 [lb_av] ABEL ([facility]) Systolic blood pressure 96 mm[Hg] 96 mm[Hg] A THENA ([facility]) Body mass index (BMI) [Ratio] 34.3 kg/m2 34.3 k g/m2 ABEL ([facility]) Body height 64 [in_i] 64 [in_i] ABEL ([facility]) Diastolic blood pressure 60 mm[Hg] 60 mm[Hg] ABEL ([facility]) Body weight 200 [lb_av] 200 [lb_av] ABEL ([facility]) Systolic blood pressure 96 mm[Hg] 96 mm[Hg] A THENA ([facility]) Body mass index (BMI) [Ratio] 34.3 kg/m2 34.3 k g/m2 ABEL ([facility]) Body height 64 [in_i] 64 [in_i] ABEL ([facility]) Diastolic blood pressure 60 mm[Hg] 60 mm[Hg] ABEL ([facility]) Body weight 200 [lb_av] 200 [lb_av] ABEL ([facility]) Systolic blood pressure 96 mm[Hg] 96 mm[Hg] A THENA ([facility]) Body mass index (BMI) [Ratio] 34.3 kg/m2 34.3 k g/m2 ABEL ([facility]) Body height 64 [in_i] 64 [in_i] ABEL ([facility]) Diastolic blood pressure 60 mm[Hg] 60 mm[Hg] ABEL ([facility]) Body weight 200 [lb_av] 200 [lb_av] ABEL ([facility]) Systolic blood pressure 96 mm[Hg] 96 mm[Hg] A THENA ([facility]) Body mass index (BMI) [Ratio] 34.3 kg/m2 34.3 k g/m2 ABEL ([facility]) Body height 64 [in_i] 64 [in_i] ABEL ([facility]) Diastolic blood pressure 60 mm[Hg] 60 mm[Hg] ABEL ([facility]) Body weight 200 [lb_av] 200 [lb_av] ABEL ([facility]) Systolic blood pressure 96 mm[Hg] 96 mm[Hg] A THENA ([facility]) Body mass index (BMI) [Ratio] 34.3 kg/m2 34.3 k g/m2 ABEL ([facility]) Body height 64 [in_i] 64 [in_i] ABEL ([facility]) Diastolic blood pressure 60 mm[Hg] 60 mm[Hg] ABEL ([facility]) Body weight 200 [lb_av] 200 [lb_av] ABEL ([facility]) Systolic blood pressure 96 mm[Hg] 96 mm[Hg] A THENA ([facility]) Body mass index (BMI) [Ratio] 34.3 kg/m2 34.3 k g/m2 ABEL ([facility]) Body height 64 [in_i] 64 [in_i] ABEL ([facility]) Diastolic blood pressure 60 mm[Hg] 60 mm[Hg] ABEL ([facility]) Body weight 200 [lb_av] 200 [lb_av] ABEL ([facility]) Systolic blood pressure 96 mm[Hg] 96 mm[Hg] A THENA ([facility]) Body mass index (BMI) [Ratio] 34.3 kg/m2 34.3 k g/m2 ABEL ([facility]) Body height 64 [in_i] 64 [in_i] ABEL ([facility]) Diastolic blood pressure 60 mm[Hg] 60 mm[Hg] ABEL ([facility]) Diastolic blood pressure 60 mm[Hg] 60 mm[Hg] eCW1 ([facility]) Systolic blood pressure 102 mm[Hg] 102 mm[Hg] e CW1 ([facility]) Body temperature 98 [degF] 98 [degF] eCW1 ([facility]) Respiratory rate 16 /min 16 /min eCW1 ([facility]) Heart rate 94 /min 94 /min eCW1 ([facility]) Body mass index (BMI) [Ratio] 36.39 kg/m2 36.39 kg/m2 eCW1 ([facility]) Body height [in_us] eCW1 ([facility]) Body weight Measured 212 [lb_av] 212 [lb_av] eC W1 ([facility]) Diastolic blood pressure 70 mm[Hg] 70 mm[Hg] eCW1 ([facility]) Systolic blood pressure 112 mm[Hg] 112 mm[Hg] e CW1 ([facility]) Body temperature 97.2 [degF] 97.2 [degF] eCW1 ( [facility]) Respiratory rate 18 /min 18 /min eCW1 ([facility]) Heart rate 100 /min 100 /min eCW1 ([facility]) Body mass index (BMI) [Ratio] 36.25 kg/m2 36.25 kg/m2 eCW1 ([facility]) Body height [in_us] eCW1 ([facility]) Body weight Measured 211.2 [lb_av] 211.2 [lb_av ] eCW1 ([facility]) Systolic blood pressure 113 mm[Hg] 113 mm[Hg] A THENA ([facility]) Body height 64 [in_i] 64 [in_i] ABEL ([facility]) Diastolic blood pressure 77 mm[Hg] 77 mm[Hg] ABEL ([facility]) Systolic blood pressure 113 mm[Hg] 113 mm[Hg] A THENA ([facility]) Body height 64 [in_i] 64 [in_i] ABEL ([facility]) Diastolic blood pressure 77 mm[Hg] 77 mm[Hg] ABEL ([facility]) Systolic blood pressure 113 mm[Hg] 113 mm[Hg] A THENA ([facility]) Body height 64 [in_i] 64 [in_i] ABEL ([facility]) Diastolic blood pressure 77 mm[Hg] 77 mm[Hg] ABEL ([facility]) Systolic blood pressure 113 mm[Hg] 113 mm[Hg] A THENA ([facility]) Body height 64 [in_i] 64 [in_i] ABEL ([facility]) Diastolic blood pressure 77 mm[Hg] 77 mm[Hg] ABEL ([facility]) Systolic blood pressure 113 mm[Hg] 113 mm[Hg] A THENA ([facility]) Body height 64 [in_i] 64 [in_i] ABEL ([facility]) Diastolic blood pressure 77 mm[Hg] 77 mm[Hg] ABEL ([facility]) Systolic blood pressure 113 mm[Hg] 113 mm[Hg] A THENA ([facility]) Body height 64 [in_i] 64 [in_i] ABEL ([facility]) Diastolic blood pressure 77 mm[Hg] 77 mm[Hg] ABEL ([facility]) Systolic blood pressure 113 mm[Hg] 113 mm[Hg] A THENA ([facility]) Body height 64 [in_i] 64 [in_i] ABEL ([facility]) Diastolic blood pressure 77 mm[Hg] 77 mm[Hg] ABEL ([facility]) Systolic blood pressure 113 mm[Hg] 113 mm[Hg] A THENA ([facility]) Body height 64 [in_i] 64 [in_i] ABEL ([facility]) Diastolic blood pressure 77 mm[Hg] 77 mm[Hg] ABEL ([facility]) Systolic blood pressure 113 mm[Hg] 113 mm[Hg] A THENA ([facility]) Body height 64 [in_i] 64 [in_i] ABEL ([facility]) Diastolic blood pressure 77 mm[Hg] 77 mm[Hg] ABEL ([facility]) Systolic blood pressure 113 mm[Hg] 113 mm[Hg] A THENA ([facility]) Body height 64 [in_i] 64 [in_i] ABEL ([facility]) Diastolic blood pressure 77 mm[Hg] 77 mm[Hg] ABEL ([facility]) Diastolic blood pressure 62 mm[Hg] 62 mm[Hg] eCW1 ([facility]) Systolic blood pressure 114 mm[Hg] 114 mm[Hg] e CW1 ([facility]) Body temperature 97.8 [degF] 97.8 [degF] eCW1 ( [facility]) Respiratory rate 18 /min 18 /min eCW1 ([facility]) Heart rate 103 /min 103 /min eCW1 ([facility]) Body mass index (BMI) [Ratio] 35.94 kg/m2 35.94 kg/m2 eCW1 ([facility]) Body height [in_us] eCW1 ([facility]) Body weight Measured 209.4 [lb_av] 209.4 [lb_av ] eCW1 ([facility]) Body weight 96.617 kg 96.617 kg MEDENT ([facility], ) Body mass index (BMI) [Ratio] 36.6 kg/m2 36.6 k g/m2 [facility] ([facility], ) Body weight 213.00 [lb_av] 213.00 [lb_av] MEDEN T ([facility], ) Body height 64 [in_i] 64 [in_i] MEDENT ([facility], ) 5'4" Oxygen saturation in Arterial blood by Pulse oximetry 93 % 93 % [facility] ([facility]) Heart rate 73 /min 73 /min [facility] ([facility], ) Diastolic blood pressure 82 mm[Hg] 82 mm[Hg[facility] Systolic blood pressure 114 mm[Hg] 114 mm[Hg] M EDALIA ([facility], ) Body weight 200 [lb_av] 200 [lb_av] ABEL ([facility]) Systolic blood pressure 112 mm[Hg] 112 mm[Hg] A THENA ([facility]) Body mass index (BMI) [Ratio] 34.3 kg/m2 34.3 k g/m2 ABEL ([facility]) Body height 64 [in_i] 64 [in_i] ABEL ([facility]) Diastolic blood pressure 73 mm[Hg] 73 mm[Hg] ABEL ([facility]) Body weight 200 [lb_av] 200 [lb_av] ABEL ([facility]) Systolic blood pressure 112 mm[Hg] 112 mm[Hg] A THENA ([facility]) Body mass index (BMI) [Ratio] 34.3 kg/m2 34.3 k g/m2 ABEL ([facility]) Body height 64 [in_i] 64 [in_i] ABEL ([facility]) Diastolic blood pressure 73 mm[Hg] 73 mm[Hg] ABEL ([facility]) Body weight 200 [lb_av] 200 [lb_av] ABEL ([facility]) Systolic blood pressure 112 mm[Hg] 112 mm[Hg] A THENA ([facility]) Body mass index (BMI) [Ratio] 34.3 kg/m2 34.3 k g/m2 ABEL ([facility]) Body height 64 [in_i] 64 [in_i] ABEL ([facility]) Diastolic blood pressure 73 mm[Hg] 73 mm[Hg] ABEL ([facility]) Body weight 200 [lb_av] 200 [lb_av] ABEL ([facility]) Systolic blood pressure 112 mm[Hg] 112 mm[Hg] A THENA ([facility]) Body mass index (BMI) [Ratio] 34.3 kg/m2 34.3 k g/m2 ABEL ([facility]) Body height 64 [in_i] 64 [in_i] ABEL ([facility]) Diastolic blood pressure 73 mm[Hg] 73 mm[Hg] ABEL ([facility]) Body weight 200 [lb_av] 200 [lb_av] ABEL ([facility]) Systolic blood pressure 112 mm[Hg] 112 mm[Hg] A THENA ([facility]) Body mass index (BMI) [Ratio] 34.3 kg/m2 34.3 k g/m2 ABEL ([facility]) Body height 64 [in_i] 64 [in_i] ABEL ([facility]) Diastolic blood pressure 73 mm[Hg] 73 mm[Hg] ABEL ([facility]) Body weight 200 [lb_av] 200 [lb_av] ABEL ([facility]) Systolic blood pressure 112 mm[Hg] 112 mm[Hg] A THENA ([facility]) Body mass index (BMI) [Ratio] 34.3 kg/m2 34.3 k g/m2 ABEL ([facility]) Body height 64 [in_i] 64 [in_i] ABEL ([facility]) Diastolic blood pressure 73 mm[Hg] 73 mm[Hg] ABEL ([facility]) Body weight 200 [lb_av] 200 [lb_av] ABEL ([facility]) Systolic blood pressure 112 mm[Hg] 112 mm[Hg] A THENA ([facility]) Body mass index (BMI) [Ratio] 34.3 kg/m2 34.3 k g/m2 ABEL ([facility]) Body height 64 [in_i] 64 [in_i] ABEL ([facility]) Diastolic blood pressure 73 mm[Hg] 73 mm[Hg] ABEL ([facility]) Body weight 200 [lb_av] 200 [lb_av] ABEL ([facility]) Systolic blood pressure 112 mm[Hg] 112 mm[Hg] A THENA ([facility]) Body mass index (BMI) [Ratio] 34.3 kg/m2 34.3 k g/m2 ABEL ([facility]) Body height 64 [in_i] 64 [in_i] ABEL ([facility]) Diastolic blood pressure 73 mm[Hg] 73 mm[Hg] ABEL ([facility]) Body weight 200 [lb_av] 200 [lb_av] ABEL ([facility]) Systolic blood pressure 112 mm[Hg] 112 mm[Hg] A THENA ([facility]) Body mass index (BMI) [Ratio] 34.3 kg/m2 34.3 k g/m2 ABEL ([facility]) Body height 64 [in_i] 64 [in_i] ABEL ([facility]) Diastolic blood pressure 73 mm[Hg] 73 mm[Hg] ABEL ([facility]) Body weight 200 [lb_av] 200 [lb_av] ABEL ([facility]) Systolic blood pressure 112 mm[Hg] 112 mm[Hg] A THENA ([facility]) Body mass index (BMI) [Ratio] 34.3 kg/m2 34.3 k g/m2 ABEL ([facility]) Body height 64 [in_i] 64 [in_i] ABEL ([facility]) Diastolic blood pressure 73 mm[Hg] 73 mm[Hg] ABEL ([facility]) Body weight 200 [lb_av] 200 [lb_av] ABEL ([facility]) Systolic blood pressure 112 mm[Hg] 112 mm[Hg] A THENA ([facility]) Body mass index (BMI) [Ratio] 34.3 kg/m2 34.3 k g/m2 ABEL ([facility]) Body height 64 [in_i] 64 [in_i] ABEL ([facility]) Diastolic blood pressure 73 mm[Hg] 73 mm[Hg] ABEL ([facility]) Body weight 200 [lb_av] 200 [lb_av] ABEL ([facility]) Systolic blood pressure 112 mm[Hg] 112 mm[Hg] A THENA ([facility]) Body mass index (BMI) [Ratio] 34.3 kg/m2 34.3 k g/m2 ABEL ([facility]) Body height 64 [in_i] 64 [in_i] ABEL ([facility]) Diastolic blood pressure 73 mm[Hg] 73 mm[Hg] ABEL ([facility]) Body weight 200 [lb_av] 200 [lb_av] ABEL ([facility]) Systolic blood pressure 112 mm[Hg] 112 mm[Hg] A THENA ([facility]) Body mass index (BMI) [Ratio] 34.3 kg/m2 34.3 k g/m2 ABEL ([facility]) Body height 64 [in_i] 64 [in_i] ABEL ([facility]) Diastolic blood pressure 73 mm[Hg] 73 mm[Hg] ABEL ([facility]) Body weight 92.988 kg 92.988 kg MEDENT ([facility], ) Body mass index (BMI) [Ratio] 35.2 kg/m2 35.2 k g/m2 MEDENT ([facility], ) Body weight 205.00 [lb_av] 205.00 [lb_av] MEDEN T ([facility], ) Body height 64 [in_i] 64 [in_i] MEDENT ([facility], ) 5'4" Oxygen saturation in Arterial blood by Pulse oximetry 94 % 94 % MEDENT ([facility]) Heart rate 82 /min 82 /min MEDENT ([facility]) Diastolic blood pressure 80 mm[Hg] 80 mm[Hg] MEDENT ([facility]) Systolic blood pressure 110 mm[Hg] 110 mm[Hg] M EDENT ([facility]) Diastolic blood pressure 76 mm[Hg] 76 mm[Hg] eCW1 ([facility]) Systolic blood pressure 136 mm[Hg] 136 mm[Hg] e CW1 ([facility]) Body temperature 97.4 [degF] 97.4 [degF] eCW1 ( [facility]) Respiratory rate 18 /min 18 /min eCW1 ([facility]) Heart rate 70 /min 70 /min eCW1 ([facility]) Body mass index (BMI) [Ratio] 34.50 kg/m2 34.50 kg/m2 eCW1 ([facility]) Body height [in_us] eCW1 ([facility]) Body weight Measured 201 [lb_av] 201 [lb_av] eC W1 ([facility]) Patient Treatment Plan of Care Planned Activity Planned Date Details Description Data Source (s) Aspirin 81 MG Chewable Tablet 01/28/2020 12:00:00 AM EDT eCW1 ([facility]) Aspirin 81 MG Chewable Tablet 01/28/2020 12:00:00 AM EDT eCW1 ([facility]) Aspirin 81 MG Chewable Tablet 01/28/2020 12:00:00 AM EDT eCW1 ([facility]) atorvastatin 80 MG Oral Tablet 01/28/2020 12:00:00 AM EDT eCW1 ([facility]) Aspirin 81 MG Chewable Tablet 01/28/2020 12:00:00 AM EDT eCW1 ([facility]) Aspirin 81 MG Chewable Tablet 01/28/2020 12:00:00 AM EDT eCW1 ([facility]) atorvastatin 80 MG Oral Tablet 01/28/2020 12:00:00 AM EDT eCW1 ([facility]) Aspirin 81 MG Chewable Tablet 01/28/2020 12:00:00 AM EDT eCW1 ([facility]) atorvastatin 80 MG Oral Tablet 01/28/2020 12:00:00 AM EDT eCW1 ([facility]) Loratadine 10 MG Oral Tablet 01/24/2020 12:00:00 AM EDT eCW1 ([facility]) Mupirocin 0.02 MG/MG Topical Ointment 01/24/2020 12:00:00 AM EDT eCW1 ([facility]) Loratadine 10 MG Oral Tablet 01/24/2020 12:00:00 AM EDT eCW1 ([facility]) Mupirocin 0.02 MG/MG Topical Ointment 01/24/2020 12:00:00 AM EDT eCW1 ([facility]) Albuterol Sulfate HFA 108 (90 Base) MCG/ACT 07/10/2019 12:00:00 AM EDT eCW1 ([facility]) Acetaminophen 650 MG 05/16/2019 12:00:00 AM EST eCW1 ([facility]) Trazodone Hydrochloride 50 MG Oral Tablet ABEL ([facility]) Naproxen 500 MG Oral Tablet ABEL ([facility]) Clonidine Hydrochloride 0.1 MG Oral Tablet ABEL ([facility]) atorvastatin 40 MG Oral Tablet ABEL ([facility]) atorvastatin 20 MG Oral Tablet ABEL ([facility]) Naproxen 500 MG Oral Tablet ABEL ([facility]) Naproxen 500 MG Oral Tablet ABEL ([facility]) Naproxen 500 MG Oral Tablet ABEL ([facility]) Naproxen 500 MG Oral Tablet ABEL ([facility]) Naproxen 500 MG Oral Tablet ABEL ([facility]) Naproxen 500 MG Oral Tablet ABEL ([facility]) Naproxen 500 MG Oral Tablet ABEL ([facility])
--- OUTSIDE RECORDS SUMMARY | 2020-04-22 11:12 | CCD ---
Author Author [facility] Organization [facility] Address Unknown Phone Unavailable Care Team Providers Care Radio Repairman Name Role Phone DeangeloonAsuncion Randi NETWORK INTERN Unavailable Unavailable Jumalon, M Randi NETWORK INTERN Unavailable Unavailable Jumalon, M Randi NETWORK INTERN Unavailable Unavailable Jumalon, M Randi NETWORK INTERN Unavailable Unavailable Jumalon, M Randi NETWORK INTERN Unavailable Unavailable Jumalon, M Randi NETWORK INTERN Unavailable Unavailable Jumalon, M Randi NETWORK INTERN Unavailable Unavailable Jumalon, M Randi NETWORK INTERN Unavailable Unavailable Jumalon, M Randi NETWORK INTERN Unavailable Unavailable Jumalon, M Randi NETWORK INTERN Unavailable Unavailable Jumalon, M Randi NETWORK INTERN Unavailable Unavailable Jumalon, M Randi NETWORK INTERN Unavailable Unavailable Jumalon, M Randi NETWORK INTERN Unavailable Unavailable Jumalon, M Randi NETWORK INTERN Unavailable Unavailable Jumalon, M Randi NETWORK INTERN Unavailable Unavailable Jumalon, M Randi NETWORK INTERN Unavailable Unavailable Jumalon, M Randi NETWORK INTERN Unavailable Unavailable Jumalon, M Randi NETWORK INTERN Unavailable Unavailable Jumalon, M Randi NETWORK INTERN Unavailable Unavailable Jumalon, M Randi NETWORK INTERN Unavailable Unavailable Jumalon, M Randi NETWORK INTERN Unavailable Unavailable Jumalon, M Randi NETWORK INTERN Unavailable Unavailable Jumalon, M Randi NETWORK INTERN Unavailable Unavailable Jumalon, M Randi NETWORK INTERN Unavailable Unavailable Jumalon, M Randi NETWORK INTERN Unavailable Unavailable Jumalon, M Randi NETWORK INTERN Unavailable Unavailable Jumalon, M Randi NETWORK INTERN Unavailable Unavailable Jumalon, M Randi NETWORK INTERN Unavailable Unavailable Enmanuel Zafar MD Unavailable Unavailable [...] Unavailable Enmanuel Zafar MD Unavailable Unavailable DOUGLAS, TAYLOR JO NETWORK INTERN-C Unavailable Unavailable DOUGLAS, TAYLOR JO NETWORK INTERN-C Unavailable Unavailable DOUGLAS, TAYLOR JO NETWORK INTERN-C Unavailable Unavailable DOUGLAS, TAYLOR JO NETWORK INTERN-C Unavailable Unavailable DOUGLAS, TAYLOR JO NETWORK INTERN-C Unavailable Unavailable DOUGLAS, TAYLOR JO NETWORK INTERN-C Unavailable Unavailable DOUGLAS, TAYLOR JO NETWORK INTERN-C Unavailable Unavailable DOUGLAS, TAYLOR JO NETWORK INTERN-C Unavailable Unavailable DOUGLAS, TAYLOR JO NETWORK INTERN-C Unavailable Unavailable DOUGLAS, TAYLOR JO NETWORK INTERN-C Unavailable Unavailable DOUGLAS, TAYLOR JO NETWORK INTERN-C Unavailable Unavailable DOUGLAS, TAYLOR JO NETWORK INTERN-C Unavailable Unavailable DOUGLAS, TAYLOR JO NETWORK INTERN-C Unavailable Unavailable DOUGLAS, TAYLOR JO NETWORK INTERN-C Unavailable Unavailable DOUGLAS, TAYLOR JO NETWORK INTERN-C Unavailable Unavailable Selena Price Unavailable West Gamez [...] Unavailable Unavailable West Gamez MD Unavailable Unavailable BolWets mari MD Unavailable Unavailable West Gamez MD [...] is protected by Article 27-F of the [facility] Public Health law. If you continue you may have access to information: Regarding HIV / AIDS; Provided by facilities licensed or operated by the [facility] Office of Mental Health; or Provided by the [facility] Office for People With Developmental Disabilities. If such information is present, then the following [facility] mandated warning applies: This information has been [...] law may result in a fine or fpc sentence or both. A general authorization for the release of medical or other information is NOT sufficient authorization for further disc losure. Allergies and Adverse Reactions Type Description Substance Reaction Status Data Source(s ) [place] rash Active eCW1 ([facility]) Flexeril Flexeril Flexeril itching, nausea Active eCW1 ([facility]) [place] rash Active eCW1 ([facility]) Flexeril Flexeril Flexeril itching, nausea Active eCW1 ([facility]) [place] rash Active eCW1 ([facility]) Flexeril Flexeril Flexeril itching, nausea Active eCW1 ([facility]) [place] rash Active eCW1 ([facility]) Flexeril Flexeril Flexeril itching, nausea Active eCW1 ([facility]) [place] rash Active eCW1 ([facility]) Flexeril Flexeril Flexeril itching, nausea Active eCW1 ([facility]) [place] rash Active eCW1 ([facility]) Flexeril Flexeril Flexeril itching, nausea Active eCW1 ([facility]) [place] rash Active eCW1 ([facility]) Flexeril Flexeril Flexeril itching, nausea Active eCW1 ([facility]) Family History Family Member Name Family Member Gender Family Member Status Date o f Status Description Data Source(s) Unknown Male Problem MEDENT ([facility]) Unknown Unknown Problem MEDENT ([facility]) Unknown Female Problem MEDENT ([facility] ) Encounters Encounter Providers Location Date Indications Data Source(s ) Unknown [address] [facility] [place] [address] 04/17/2020 12:00:00 AM EST eCW1 ([facility]) Unknown [address] [facility] [place] [address] 04/09/2020 12:00:00 AM EST eCW1 ([facility]) Unknown [address] [facility] [place] [address] 03/13/2020 12:00:00 AM EST eCW1 ([facility]) Randi Hamilton, RN NEW GRADUATE: [address], [address], [place] [address], Ph. Attender: Randi Hamilton [facility] - [facility] - Main Office 03/13/2020 12:00:00 AM EST ATHE NA ([facility]) Outpatient [address] [facility] [place] [address] 03/11/2020 12:00:00 AM EST eCW1 ([facility]) Gerald Gamez MD: [address], [address] [place], [place] [address], Ph. Attender: Gerald Gmaez MD [place] - [facility] 02/25/2020 12:00:00 AM EST ABEL ([facility]) Gerald Gamez MD: [address], [place] [address], Ph. Attender: [place] Gamez MD [place] - [facility] 02/25/2020 12:00:00 AM EST ABEL ([facility]) Unknown [address] [facility] [place] [address] 02/20/2020 12:00:00 AM EST eCW1 ([facility]) Randi Hamilton, RN NEW GRADUATE: [address], [place] [address], Ph. Attender: Randi Hamilton [facility] - [facility] 02/17/2020 12:00:00 AM EST ATHE NA ([facility]) Randi Hamilton, RN NEW GRADUATE: [address], [place] [address], Ph. Attender: Randi Hamilton [facility] - [facility] 02/17/2020 12:00:00 AM EST ATHE NA ([facility]) Unknown [address] [facility] [place] [address] 02/17/2020 12:00:00 AM EST eCW1 ([facility]) Randi Hamilton, RN NEW GRADUATE: [address], [place] [address], Ph. Attender: Randi Hamilton [facility] - [facility] 02/17/2020 12:00:00 AM EST ATHE NA ([facility]) Unknown [address] [facility] [place] [address] 2020 12:00:00 AM EST eCW1 ([facility]) Unknown [address] [facility] [place] [address] 02/07/2020 12:00:00 AM EST eCW1 ([facility]) Outpatient [address] [facility] [place] [address] 01/24/2020 12:00:00 AM EDT eCW1 ([facility]) Unknown [address] [facility] [place] [address] 01/24/2020 12:00:00 AM EDT eCW1 ([facility]) Unknown [address] [facility] [place] [address] 01/20/2020 12:00:00 AM EDT eCW1 ([facility]) Unknown [address] [facility] [place] [address] 01/13/2020 12:00:00 AM EDT eCW1 ([facility]) Unknown [address] [facility] [place] [address] 01/12/2020 12:00:00 AM EDT eCW1 ([facility]) Outpatient [address] [facility] Y [address] 01/10/2020 12:00:00 AM EDT eCW1 ([facility]) Unknown [address] [facility] Y [address] 01/08/2020 12:00:00 AM EDT eCW1 ([facility]) Randi Hamilton, RN NEW GRADUATE: [address], [address], [place] [address], Ph. [facility]: [facility] - Main Office 01/06/2020 12:00:00 AM EDT ATHE NA ([facility]) Randi Hamilton, RN NEW GRADUATE: [address], [place] [address], Ph. Attender: Randi Joy [facility] 01/06/2020 12:00:00 AM EDT ATHNaya ANTHAN ([facility]) Randi Hamilton, RN NEW GRADUATE: [address], [place] [address], Ph. Attender: Randi Hamilton [facility] 01/06/2020 12:00:00 AM EDT ATHNaya NATHAN ([facility]) Randi Hamilton, RN NEW GRADUATE: [address], [place] [address], Ph. Attender: Randi Hamilton [facility] 01/06/2020 12:00:00 AM EDT ATHE NA ([facility]) Unknown [address] [facility] [place] [address] 01/03/2020 12:00:00 AM EDT eCW1 ([facility]) Unknown [address] [facility] [place] [address] 01/01/2020 12:00:00 AM EDT eCW1 ([facility]) Crisis Intervention - Brief Attender: Selena Hanson 12/23/2019 09:30:00 AM EDT - 12/23/2019 09:30:00 AM EDT Accumedic ([facility]) Attender: Selena Price 12/23/2019 12:00:00 AM E DT [facility] ([facility]) Randi Hamilton, RN NEW GRADUATE: [address], [place] [address], Ph. Attender: Randi Hamilton [facility] 11/14/2019 12:00:00 AM EDT ATHE NA ([facility]) Randi Hamilton, RN NEW GRADUATE: [address], [place] [address], Ph. Attender: Randi Hamilton [facility] - [facility] 11/14/2019 12:00:00 AM EDT ATHE NA ([facility]) Randi Hamilton, RN NEW GRADUATE: [address], [address], [place] [address], Ph. Attender: Randi Hamilton [facility] - [facility] 11/14/2019 12:00:00 AM EDT ATHE NA ([facility]) Rnadi Hamilton, RN NEW GRADUATE: [address], [place] [address], Ph. Attender: Randi Hamilton [facility] - [facility] 11/14/2019 12:00:00 AM EDT ATHE NA ([facility]) Randi Hamilton, RN NEW GRADUATE: [address], [place] [address], Ph. Attender: Randi Hamilton [facility] - [facility] 11/14/2019 12:00:00 AM EDT ATHE NA ([facility]) Gerald Gamez MD: [address], [address], [place] [address], Ph. Attender: [place] Gamez MD [place] - [facility] 10/29/2019 12:00:00 AM EDT ABEL ([facility]) Gerald Gamez MD: [address], [address], [place] [address], Ph. Attender: [place] Gamez MD [place] [facility] 10/29/2019 12:00:00 AM EDT ABEL ([facility]) Gerald Gamez MD: [address], [place], [place] [address], Ph. Attender: [place] Gamez MD [place] - [facility] 10/29/2019 12:00:00 AM EDT ABEL ([facility]) Gerald Gamez MD: [address], [address], [place] [address], Ph. Attender: [place] Gamez [place] - [facility] 10/29/2019 12:00:00 AM EDT ABEL ([facility]) Gerald Gamez MD: [address], [place] [address], Ph. Attender: [place] Gamez [place] [facility] 10/29/2019 12:00:00 AM EDT ABEL ([facility]) Gerald Gamez MD: [address], [place] [address], Ph. Attender: Gerald Gamez MD [place] - [facility] 10/29/2019 12:00:00 AM EDT ABEL ([facility]) Outpatient Attender: Sacha Zafar MD 09/10/2019 07:46:[address] [facility] Outpatient [address] [facility] [id number] 09/06/2019 12:00:00 AM EDT eCW1 ([facility]) Unknown [address] [facility] [place] [facility] [address] 09/06/2019 12:00:00 AM EDT eCW1 ([facility]) [address] [address] 08/25/2019 12:00:00 AM EDT eCW1 ([facility]) [facility] [address] [place] [address] 08/22/2019 12:00:00 AM EDT eCW1 ([facility]) [facility] Resident [address] [place] [address] 08/15/2019 12:00:00 AM EDT eCW1 ([facility]) Outpatient Attender: JO COLE NETWORK INTERN-C Terrie/Thanh/Clemente/Sean doyle 08/05/2019 02:15:00 PM EDT MEDENT ([facility]) Randi Hamilton, RN NEW GRADUATE: [address] [place] [address] [address], Ph. Attender: Randi Hamilton [facility] 07/24/2019 12:00:00 AM EDT ABEL ([facility]) Randi Hamilton, RN NEW GRADUATE: [address] [place] [address] [address], Ph. Attender: Randi Hamilton [facility] 07/24/2019 12:00:00 AM EDT ABEL ([facility]) Randi Hamilton, RN NEW GRADUATE: [address] [address], Ph. Attender: Randi Hamilton NETWORK INTERN [place] - [facility] 07/24/2019 12:00:00 AM EDT ABEL ([facility]) Randi Hamilton, RN NEW GRADUATE: [address] [place] [address] [address], Ph. Attender: Randi Hamilton NETWORK INTERN [place] - [facility] 07/24/2019 12:00:00 AM EDT ABEL ([facility]) Randiemma Hamilton, RN NEW GRADUATE: [address], [place] [address], Ph. Attender: Randi Hamilton [facility] 07/24/2019 12:00:00 AM EDT ABEL ([facility]) Randi Hamilton, RN NEW GRADUATE: [address], [place] [address], Ph. Attender: Randi Hamilton [facility] 07/24/2019 12:00:00 AM EDT ABEL ([facility]) Randi Hamilton, RN NEW GRADUATE: [address], [place] [address], Ph. Attender: Randi Hamilton [facility] 07/24/2019 12:00:00 AM EDT ABEL ([facility]) [facility] Dermatology [address] [place] [address] 07/18/2019 12:00:00 AM EDT eCW1 ([facility] [address] [address] 07/11/2019 12:00:00 AM EDT eCW1 ([facility]) [facility] GME Resident [address] [place] [address] 07/10/2019 12:00:00 AM EDT eCW1 ([facility]) [facility] [place] [address] [facility] [address] 06/24/2019 12:00:00 AM EDT eCW1 ([facility]) Randi Hamilton, RN NEW GRADUATE: [address], [place] [address], Ph. Attender: Randi Hamilton [facility] - [facility] 06/12/2019 12:00:00 AM EDT ATHE NA ([facility]) Randi Hamilton, RN NEW GRADUATE: [address], [place] [address], Ph. Attender: Randi Hamilton [facility] - [facility] 06/12/2019 12:00:00 AM EDT ATHE NA ([facility]) Randi Hamilton, RN NEW GRADUATE: [address], [place] [address], Ph. Attender: Randi Hamilton [facility] - [facility] 06/12/2019 12:00:00 AM EDT ATHE NA ([facility]) Randi Hamilton, RN NEW GRADUATE: [address], [place] [address], Ph. Attender: Randi Hamilton [facility] - [facility] 06/12/2019 12:00:00 AM EDT ATHE NA ([facility]) Randi Hamilton, RN NEW GRADUATE: [address], [place] [address], Ph. Attender: Randi Hamilton [facility] - [facility] 06/12/2019 12:00:00 AM EDT ATHE NA ([facility]) Randi Hamilton, RN NEW GRADUATE: [address], [place] [address], Ph. Attender: Randi Hamilton [facility] - [facility] 06/12/2019 12:00:00 AM EDT ATHE NA ([facility]) Randi Hamilton, RN NEW GRADUATE: [address], [place] [address], Ph. Attender: Randi Hamilton [facility] - [facility] 06/12/2019 12:00:00 AM EDT ATHE NA ([facility]) Randi Hamilton, RN NEW GRADUATE: [address], [place] [address], Ph. Attender: Randi Hamilton [facility] - [facility] 06/12/2019 12:00:00 AM EDT ATHE NA ([facility]) [facility] GME Resident [address] [place] [address] 06/11/2019 12:00:00 AM EDT eCW1 ([facility]) [facility] GME Resident [address] [place] [address] 05/29/2019 12:00:00 AM EST eCW1 ([facility]) Gerald Gamez MD: [address], [facility] [place] [address], Ph. Attender: Gerald QUIÑONEZ - [facility] 05/28/2019 12:00:00 AM EST ABEL ([facility]) Gerald Gamez MD: [address], [place] [address], Ph. Attender: [place] Gamez MD [place] - [facility] 05/28/2019 12:00:00 AM EST ABEL ([facility]) Gerald Gamez MD: [address], [place] [address], Ph. Attender: Gerald QUIÑONEZ - [facility] 05/28/2019 12:00:00 AM EST ABEL ([facility]) Gerald Gamez MD: [address]61 [address], [place] [address], Ph. Attender: Gerald QUIÑONEZ - [facility] 05/28/2019 12:00:00 AM EST ABEL ([facility]) Gerald Gamez MD: [address]294 [address], [address], [place] [address], Ph. Attender: Gerald QUIÑONEZ - [facility] 05/28/2019 12:00:00 AM EST ABEL ([facility]) Gerald Gamez MD: [address]39 [address], [place] [address], Ph. Attender: Gerald QUIÑONEZ - [facility] 05/28/2019 12:00:00 AM EST ABEL ([facility]) Gerald Gamez MD: [address]29 [address], [place] [address], Ph. Attender: Gerald QUIÑONEZ - [facility] 05/28/2019 12:00:00 AM EST ABEL ([facility]) Gerald Gamez MD: 84653 [address], [address], [place] [address], Ph. Attender: Gerald QUIÑONEZ - [facility] 05/28/2019 12:00:00 AM EST ABEL ([facility]) Gerald Gamez MD: [address]00 [address], [place] [address], Ph. Attender: Gerald QUIÑONEZ - [facility] 05/28/2019 12:00:00 AM EST ABEL ([facility]) Randi Hamilton, RN NEW GRADUATE: [address], [place] [address], Ph. Attender: Randi Hamilton [facility] 05/22/2019 12:00:00 AM EST ATHE NA ([facility]) Randi Hamilton, RN NEW GRADUATE: [address], [address], [place] [address], Ph. Attender: Randi Hamilton [facility] - [facility] 05/22/2019 12:00:00 AM EST ATHE NA ([facility]) Randi Hamilton, RN NEW GRADUATE: [address], [place] [address], Ph. Attender: Randi Hamilton [facility] - [facility] 05/22/2019 12:00:00 AM EST ATHE NA ([facility]) Randi Hamilton, RN NEW GRADUATE: [address], [place] [address], Ph. Attender: Randi Hamilton [facility] - [facility] 05/22/2019 12:00:00 AM EST ATHE NA ([facility]) Randi Hamilton, RN NEW GRADUATE: [address], [place] [address], Ph. Attender: Randi Hamilton [facility] - [facility] 05/22/2019 12:00:00 AM EST ATHE NA ([facility]) Randi Hamilton, RN NEW GRADUATE: [address], [place] [address], Ph. Attender: Randi Hamilton [facility] - [facility] 05/22/2019 12:00:00 AM EST ATHE NA ([facility]) Randi Hamilton, RN NEW GRADUATE: [address], [place] [address], Ph. Attender: Randi Hamilton [facility] - [facility] 05/22/2019 12:00:00 AM EST ATHE NA ([facility]) Randi Hamilton, RN NEW GRADUATE: [address], [place] [address], Ph. Attender: Randi Hamilton [facility] - [facility] 05/22/2019 12:00:00 AM EST ATHE NA ([facility]) Randi Hamilton, RN NEW GRADUATE: [address], [place] [address], Ph. Attender: Randi Hamilton [facility] - [facility] 05/22/2019 12:00:00 AM EST ATHE NA ([facility]) Randi Hamilton, RN NEW GRADUATE: [address], [place] [address], Ph. Attender: Randi Hamilton [facility] - [facility] 05/22/2019 12:00:00 AM EST ATHE NA ([facility]) [facility] [address] [facility] [id number] 05/17/2019 12:00:00 AM EST eCW1 ([facility]) [facility] [address] [facility] [address] 05/10/2019 12:00:00 AM EST eCW1 ([facility]) [facility] [place] [address] [place] [id number] 05/08/2019 12:00:00 AM EST eCW1 ([facility]) Outpatient Attender: JO Falcon/Thanh/Clemente/Sean doyle 05/06/2019 01:45:00 PM EST MEDENT ([facility]) Gerald Gamez MD: [address], [place] [address], Ph. Attender: [place] Gamez [place] - [facility] 04/25/2019 12:00:00 AM EST ABEL ([facility]) Gerald Gamez MD: [address], [place] [address], Ph. Attender: [place] Gamez [place] - [facility] 04/25/2019 12:00:00 AM EST ABEL ([facility]) Gerald Gamez MD: [address], [place] [address], Ph. Attender: Gerald Gamez MD [place] - [facility] 04/25/2019 12:00:00 AM EST ABEL ([facility]) Gerald Gamez MD: [address], [place] [address], Ph. Attender: Gerald Gamez MD [place] - [facility] 04/25/2019 12:00:00 AM EST ABEL ([facility]) Gerald Gamez MD: [address], [place] [address], Ph. Attender: Gerald Gamez MD [place] - [facility] 04/25/2019 12:00:00 AM EST ABEL ([facility]) Gerald Gamez MD: [address], [address], [place] [address], Ph. Attender: Gerald Gamez MD [place] - [facility] 04/25/2019 12:00:00 AM EST ABEL ([facility]) Gerald Gamez MD: [address], [address], [place] [address], Ph. Attender: Gerald Gamez MD [place] - [facility] 04/25/2019 12:00:00 AM EST ABEL ([facility]) Gerald Gamez MD: [address], [address], [place] [address], Ph. Attender: [place] Gamez MD [place] - [facility] 04/25/2019 12:00:00 AM EST ABEL ([facility]) Gerald Gamez MD: [address], [address], [place] [address], Ph. Attender: Gerald Gamez MD [place] - [facility] 04/25/2019 12:00:00 AM EST ABEL ([facility]) Gerald Gamez MD: [address], [place] [address], Ph. Attender: Gerald Gamez MD [place] - [facility] 04/25/2019 12:00:00 AM EST ABEL ([facility]) Gerald Gamez MD: [address], [place] [address], Ph. Attender: Gerald Gamez MD [place] - [facility] 04/25/2019 12:00:00 AM EST ABEL ([facility]) Gerald Gamez MD: [address], [address], [place] [address], Ph. Attender: Gerald Gamez MD [place] - [facility] 04/25/2019 12:00:00 AM EST ABEL ([facility]) [facility] [address] [facility] [place] [address] 04/11/2019 12:00:00 AM EST eCW1 ([facility]) Randi Ackerman Deangelolisa, RN NEW GRADUATE: [address], [place] [address], Ph. Attender: Randi Hamilton [facility] 03/25/2019 12:00:00 AM EST ATHE NA ([facility]) Randi Ackerman Joy, RN NEW GRADUATE: [address], [place] [address], Ph. Attender: Randi Hamilton [facility] 03/25/2019 12:00:00 AM EST ATHE NA ([facility]) Randi Nhanellen Deangelolisa, RN NEW GRADUATE: [address], [place] [address], Ph. Attender: Randi Hamilton [facility] 03/25/2019 12:00:00 AM EST ATHE NA ([facility]) Randi Mannestorchriscaro Joy, RN NEW GRADUATE: [address], [place] [address], Ph. Attender: Randi Hamilton [facility] 03/25/2019 12:00:00 AM EST ATHE NA ([facility]) Randi Hamilton, RN NEW GRADUATE: [address], [place] [address], Ph. Attender: Randi Hamilton [facility] - [facility] 03/25/2019 12:00:00 AM EST ATHE NA ([facility]) Randi Hamilton, RN NEW GRADUATE: [address], [place] [address], Ph. Attender: Randi Hamilton [facility] - [facility] 03/25/2019 12:00:00 AM EST ATHE NA ([facility]) Randi Hamilton, RN NEW GRADUATE: [address], [place] [address], Ph. Attender: Randi Hamilton [facility] - [facility] 03/25/2019 12:00:00 AM EST ATHE NA ([facility]) Randi Hamilton, RN NEW GRADUATE: [address], [place] [address], Ph. Attender: Randi Hamilton [facility] - [facility] 03/25/2019 12:00:00 AM EST ATHE NA ([facility]) Randi Hamilton, RN NEW GRADUATE: [address], [place] [address], Ph. Attender: Randi Hamilton [facility] - [facility] 03/25/2019 12:00:00 AM EST ATHE NA ([facility]) Randi Hamilton, RN NEW GRADUATE: [address], [place] [address], Ph. Attender: Randi Hamilton [facility] - [facility] 03/25/2019 12:00:00 AM EST ATHE NA ([facility]) Randi Hamilton, RN NEW GRADUATE: [address], [place] [address], Ph. Attender: Randi Hamilton [facility] 03/25/2019 12:00:00 AM EST ATHE NA ([facility]) Randi Hamilton, RN NEW GRADUATE: [address], [place] [address], Ph. Attender: Randi Hamilton [facility] 03/25/2019 12:00:00 AM EST ATHE NA ([facility]) Randi Hamilton, RN NEW GRADUATE: [address], [place] [address], Ph. Attender: Randi Hamilton [facility] 03/25/2019 12:00:00 AM EST ATHE NA ([facility]) Outpatient Attender: Sacha Zafar MD 03/21/2019 09:01:[address] [facility] Outpatient Attender: JO [facility]rystal Falcon/Thanh/Clemente/Sean doyle 03/11/2019 01:45:00 PM EST MEDENT ([facility]) Gerald Gamez MD: [address], [place] [address], Ph. Attender: Gerald Gamez MD [place] - [facility] 03/07/2019 12:00:00 AM EST ABEL ([facility]) Gerald Gamez MD: [address], [place] [address], Ph. Attender: [place] Gamez MD [place] - [facility] 03/07/2019 12:00:00 AM EST ABEL ([facility]) Gerald aGmez MD: [address], [address], [place] [address], Ph. Attender: Gerald Gamez MD [place] - [facility] 03/07/2019 12:00:00 AM EST ABEL ([facility]) Gerald Gamez MD: [address], [address], [place] [address], Ph. Attender: Gerald Gamez MD [place] - [facility] 03/07/2019 12:00:00 AM EST ABEL ([facility]) Gerald Gamez MD: [address], [place] [address], Ph. Attender: Gerald Gamez MD [place] - [facility] 03/07/2019 12:00:00 AM EST ABEL ([facility]) [facility] [address] [facility] [address] 03/07/2019 12:00:00 AM EST eCW1 ([facility]) Gerald Gamez MD: [address], [place] [address], Ph. Attender: Gerald QUIÑONEZ - [facility] 03/07/2019 12:00:00 AM EST ABEL ([facility]) Gerald Gamez MD: [address], [address], [place] [address], Ph. Attender: Gerald Gamez MD [place] - [facility] 03/07/2019 12:00:00 AM EST ABEL ([facility]) Gerald Gamez MD: [address], [place] [address], Ph. Attender: Gerald QUIÑONEZ - [facility] 03/07/2019 12:00:00 AM EST ABEL ([facility]) Gerald Gamez MD: [address], [place] [address], Ph. Attender: Gerald QUIÑONEZ - [facility] 03/07/2019 12:00:00 AM EST ABEL ([facility]) Gerald Gamez MD: [address], [address], [place] [address], Ph. Attender: Gerald QUIÑONEZ - [facility] 03/07/2019 12:00:00 AM EST ABEL ([facility]) Gerald Gamez MD: [address], [place] [address], Ph. Attender: Gerald QUIÑONEZ - [facility] 03/07/2019 12:00:00 AM EST ABEL ([facility]) Gerald Gamez MD: [address], [place] [address], Ph. Attender: Gerald QUIÑONEZ - [facility] 03/07/2019 12:00:00 AM EST ABEL ([facility]) Gerald Gamez MD: [address], [place] [address], Ph. Attender: Gerald QUIÑONEZ - [facility] 03/07/2019 12:00:00 AM EST ABEL ([facility]) Gerald Gamez MD: [address], [place] [address], Ph. Attender: Gerald QUIÑONEZ - [facility] 03/07/2019 12:00:00 AM RADHA ROMAN ([facility]) Immunizations Vaccine Date Status Description Data Source(s) pneumococcal polysaccharide PPV23 01/10/2020 11:25:00 AM EDT comple keshia eCW1 ([facility]) pneumococcal polysaccharide PPV23 01/10/2020 11:25:00 AM EDT comple keshia eCW1 ([facility]) pneumococcal polysaccharide PPV23 01/10/2020 11:25:00 AM EDT comple keshia eCW1 ([facility]) pneumococcal polysaccharide PPV23 01/10/2020 11:25:00 AM EDT comple keshia eCW1 ([facility]) pneumococcal polysaccharide PPV23 01/10/2020 11:25:00 AM EDT comple keshia eCW1 ([facility]) pneumococcal polysaccharide PPV23 01/10/2020 11:25:00 AM EDT comple keshia eCW1 ([facility]) pneumococcal polysaccharide PPV23 01/10/2020 11:25:00 AM EDT comple keshia eCW1 ([facility]) pneumococcal polysaccharide PPV23 01/10/2020 11:25:00 AM EDT comple keshia eCW1 ([facility]) pneumococcal polysaccharide PPV23 01/10/2020 11:25:00 AM EDT comple keshia eCW1 ([facility]) pneumococcal polysaccharide PPV23 01/10/2020 11:25:00 AM EDT comple keshia eCW1 ([facility]) pneumococcal polysaccharide PPV23 01/10/2020 11:25:00 AM EDT comple keshia eCW1 ([facility]) pneumococcal polysaccharide PPV23 01/10/2020 11:25:00 AM EDT comple keshia eCW1 ([facility]) pneumococcal polysaccharide PPV23 01/10/2020 11:25:00 AM EDT comple keshia eCW1 ([facility]) pneumococcal polysaccharide PPV23 01/10/2020 11:25:00 AM EDT comple keshia eCW1 ([facility]) influenza, recombinant, quadrIvalent,injectable, prese rvative free 01/10/2020 11:24:00 AM EDT completed eCW1 ([facility]) influenza, recombinant, quadrIvalent,injectable, prese rvative free 01/10/2020 11:24:00 AM EDT completed eCW1 ([facility]) influenza, recombinant, quadrIvalent,injectable, prese rvative free 01/10/2020 11:24:00 AM EDT completed eCW1 ([facility]) influenza, recombinant, quadrIvalent,injectable, prese rvative free 01/10/2020 11:24:00 AM EDT completed eCW1 ([facility]) influenza, recombinant, quadrIvalent,injectable, prese rvative free 01/10/2020 11:24:00 AM EDT completed eCW1 ([facility]) influenza, recombinant, quadrIvalent,injectable, prese rvative free 01/10/2020 11:24:00 AM EDT completed eCW1 ([facility]) influenza, recombinant, quadrIvalent,injectable, prese rvative free 01/10/2020 11:24:00 AM EDT completed eCW1 ([facility]) influenza, recombinant, quadrIvalent,injectable, prese rvative free 01/10/2020 11:24:00 AM EDT completed eCW1 ([facility]) influenza, recombinant, quadrIvalent,injectable, prese rvative free 01/10/2020 11:24:00 AM EDT completed eCW1 ([facility]) influenza, recombinant, quadrIvalent,injectable, prese rvative free 01/10/2020 11:24:00 AM EDT completed eCW1 ([facility]) influenza, recombinant, quadrIvalent,injectable, prese rvative free 01/10/2020 11:24:00 AM EDT completed eCW1 ([facility]) influenza, recombinant, quadrIvalent,injectable, prese rvative free 01/10/2020 11:24:00 AM EDT completed eCW1 ([facility]) influenza, recombinant, quadrIvalent,injectable, prese rvative free 01/10/2020 11:24:00 AM EDT completed eCW1 ([facility]) influenza, recombinant, quadrIvalent,injectable, prese rvative free 01/10/2020 11:24:00 AM EDT completed eCW1 ([facility]) influenza, recombinant, quadrIvalent,injectable, prese rvative free 01/06/2020 10:26:00 AM EDT completed eCW1 ([facility]) influenza, recombinant, quadrIvalent,injectable, prese rvative free 01/06/2020 10:26:00 AM EDT completed eCW1 ([facility]) influenza, recombinant, quadrIvalent,injectable, prese rvative free 01/06/2020 10:26:00 AM EDT completed eCW1 ([facility]) influenza, recombinant, quadrIvalent,injectable, prese rvative free 01/06/2020 10:26:00 AM EDT completed eCW1 ([facility]) influenza, recombinant, quadrIvalent,injectable, prese rvative free 01/06/2020 10:26:00 AM EDT completed eCW1 ([facility]) influenza, recombinant, quadrIvalent,injectable, prese rvative free 01/06/2020 10:26:00 AM EDT completed eCW1 ([facility]) influenza, recombinant, quadrIvalent,injectable, prese rvative free 01/06/2020 10:26:00 AM EDT completed eCW1 ([facility]) influenza, recombinant, quadrIvalent,injectable, prese rvative free 01/06/2020 10:26:00 AM EDT completed eCW1 ([facility]) influenza, recombinant, quadrIvalent,injectable, prese rvative free 01/06/2020 10:26:00 AM EDT completed eCW1 ([facility]) influenza, recombinant, quadrIvalent,injectable, prese rvative free 01/06/2020 10:26:00 AM EDT completed eCW1 ([facility]) influenza, recombinant, quadrIvalent,injectable, prese rvative free 01/06/2020 10:26:00 AM EDT completed eCW1 ([facility]) influenza, recombinant, quadrIvalent,injectable, prese rvative free 01/06/2020 10:26:00 AM EDT completed eCW1 ([facility]) influenza, recombinant, quadrIvalent,injectable, prese rvative free 01/06/2020 10:26:00 AM EDT completed eCW1 ([facility]) influenza, recombinant, quadrIvalent,injectable, prese rvative free 01/06/2020 10:26:00 AM EDT completed eCW1 ([facility]) Medications Medication Brand Name Start Date Product Form Dose Route Admi nistrative Instructions Pharmacy Instructions Status Indications Reaction Description Data Source(s) atorvastatin 80 MG Oral Tablet Atorvastatin Calcium 80 MG Atorvastatin Calcium 80 MG 01/28/2020 12:00:00 AM EDT 1.0 {tablet} activ e Atorvastatin Calcium 80 MG eCW1 ([facility]) atorvastatin 80 MG Oral Tablet Atorvastatin Calcium 80 MG Atorvastatin Calcium 80 MG 01/28/2020 12:00:00 AM EDT 1.0 {tablet} activ e Atorvastatin Calcium 80 MG eCW1 ([facility]) Aspirin 81 MG Chewable Tablet Aspirin 81 MG 01/28/2020 12:00:00 AM EDT 1.0 {tablet} active Aspirin 81 MG eCW1 ([facility]) Aspirin 81 MG Chewable Tablet Aspirin 81 MG 01/28/2020 12:00:00 AM EDT 1.0 {tablet} active Aspirin 81 MG eCW1 ([facility]) atorvastatin 80 MG Oral Tablet Atorvastatin Calcium 80 MG Atorvastatin Calcium 80 MG 01/28/2020 12:00:00 AM EDT 1.0 {tablet} activ e Atorvastatin Calcium 80 MG eCW1 ([facility]) Aspirin 81 MG Chewable Tablet Aspirin 81 MG 01/28/2020 12:00:00 AM EDT 1.0 {tablet} active Aspirin 81 MG eCW1 ([facility]) Aspirin 81 MG Chewable Tablet Aspirin 81 MG 01/28/2020 12:00:00 AM EDT 1.0 {tablet} active Aspirin 81 MG eCW1 ([facility]) Aspirin 81 MG Chewable Tablet Aspirin 81 MG 01/28/2020 12:00:00 AM EDT 1.0 {tablet} active Aspirin 81 MG eCW1 ([facility]) Aspirin 81 MG Chewable Tablet Aspirin 81 MG 01/28/2020 12:00:00 AM EDT 1.0 {tablet} active Aspirin 81 MG eCW1 ([facility]) Loratadine 10 MG Oral Tablet Loratadine 10 MG 01/24/2020 12:00:00 A M EDT 1.0 {tablet} active Loratadine 10 MG eCW1 ( [facility]) Mupirocin 0.02 MG/MG Topical Ointment Mupirocin 2 % Mupiroci n 2 % 01/24/2020 12:00:00 AM EDT 1.0 {application} active Mupirocin 2 % eCW1 ([facility]) Loratadine 10 MG Oral Tablet Loratadine 10 MG 01/24/2020 12:00:00 A M EDT 1.0 {tablet} active Loratadine 10 MG eCW1 ( [facility]) Mupirocin 0.02 MG/MG Topical Ointment Mupirocin 2 % Mupiroci n 2 % 01/24/2020 12:00:00 AM EDT 1.0 {application} active Mupirocin 2 % eCW1 ([facility]) Mupirocin 0.02 MG/MG Topical Ointment Mupirocin 2 % Mupiroci n 2 % 01/24/2020 12:00:00 AM EDT 1.0 {application} active Mupirocin 2 % eCW1 ([facility]) Mupirocin 0.02 MG/MG Topical Ointment Mupirocin 2 % Mupiroci n 2 % 01/24/2020 12:00:00 AM EDT 1.0 {application} active Mupirocin 2 % eCW1 ([facility]) Loratadine 10 MG Oral Tablet Loratadine 10 MG 01/24/2020 12:00:00 A M EDT 1.0 {tablet} active Loratadine 10 MG eCW1 ( [facility]) Loratadine 10 MG Oral Tablet Loratadine 10 MG 01/24/2020 12:00:00 A M EDT 1.0 {tablet} active Loratadine 10 MG eCW1 ( [facility]) Mupirocin 0.02 MG/MG Topical Ointment Mupirocin 2 % Mupiroci n 2 % 01/24/2020 12:00:00 AM EDT 1.0 {application} active Mupirocin 2 % eCW1 ([facility]) Mupirocin 0.02 MG/MG Topical Ointment Mupirocin 2 % Mupiroci n 2 % 01/24/2020 12:00:00 AM EDT 1.0 {application} active Mupirocin 2 % eCW1 ([facility]) Loratadine 10 MG Oral Tablet Loratadine 10 MG 01/24/2020 12:00:00 A M EDT 1.0 {tablet} active Loratadine 10 MG eCW1 ( [facility]) Mupirocin 0.02 MG/MG Topical Ointment Mupirocin 2 % Mupiroci n 2 % 01/24/2020 12:00:00 AM EDT 1.0 {application} active Mupirocin 2 % eCW1 ([facility]) Mupirocin 0.02 MG/MG Topical Ointment Mupirocin 2 % Mupiroci n 2 % 01/24/2020 12:00:00 AM EDT 1.0 {application} active Mupirocin 2 % eCW1 ([facility]) Loratadine 10 MG Oral Tablet Loratadine 10 MG 01/24/2020 12:00:00 A M EDT 1.0 {tablet} active Loratadine 10 MG eCW1 ( [facility]) Mupirocin 0.02 MG/MG Topical Ointment Mupirocin 2 % Mupiroci n 2 % 01/24/2020 12:00:00 AM EDT 1.0 {application} active Mupirocin 2 % eCW1 ([facility]) Mupirocin 0.02 MG/MG Topical Ointment Mupirocin 2 % Mupiroci n 2 % 01/24/2020 12:00:00 AM EDT 1.0 {application} active Mupirocin 2 % eCW1 ([facility]) Loratadine 10 MG Oral Tablet Loratadine 10 MG 01/24/2020 12:00:00 A M EDT 1.0 {tablet} active Loratadine 10 MG eCW1 ( [facility]) Loratadine 10 MG Oral Tablet Loratadine 10 MG 01/24/2020 12:00:00 A M EDT 1.0 {tablet} active Loratadine 10 MG eCW1 ( [facility]) Loratadine 10 MG Oral Tablet Loratadine 10 MG 01/24/2020 12:00:00 A M EDT 1.0 {tablet} active Loratadine 10 MG eCW1 ( [facility]) Loratadine 10 MG Oral Tablet Loratadine 10 MG 01/24/2020 12:00:00 A M EDT 1.0 {tablet} active Loratadine 10 MG eCW1 ( [facility]) Loratadine 10 MG Oral Tablet Loratadine 10 MG 01/24/2020 12:00:00 A M EDT 1.0 {tablet} active Loratadine 10 MG eCW1 ( [facility]) Mupirocin 0.02 MG/MG Topical Ointment Mupirocin 2 % Mupiroci n 2 % 01/24/2020 12:00:00 AM EDT 1.0 {application} active Mupirocin 2 % eCW1 ([facility]) Acetaminophen 325 MG Oral Tablet Acetaminophen 12/17/2019 12:00:00 AM EDT ORAL active MEDENT ([facility]) atorvastatin 20 MG Oral Tablet Atorvastatin Calcium 12/17/2019 1 2:00:00 AM EDT ORAL active [facility] ( [facility]) atorvastatin 40 MG Oral Tablet Atorvastatin Calcium 12/17/2019 1 2:00:00 AM EDT ORAL active MEDENT ( [facility]) Sertraline 100 MG Oral Tablet Sertraline HCL 12/17/2019 12:00:00 AM E DT ORAL active MEDENT ([facility]) aripiprazole 10 MG Oral Tablet Aripiprazole 12/17/2019 12:00:00 AM EDT ORAL active MEDENT ([facility]) Omeprazole 20 MG Delayed Release Oral Capsule Omeprazole 12/17/2019 12:00:00 AM EDT ORAL active MED[facility] ([facility]) Clonidine Hydrochloride 0.1 MG Oral Tablet Clonidine HCL 12/17/2019 12:00:00 AM EDT ORAL active MED[facility] ([facility]) Tamsulosin hydrochloride 0.4 MG Oral Capsule Tamsulosin HCL 12/17/2019 12:00:00 AM EDT ORAL active MED[facility] ([facility]) gabapentin 600 MG Oral Tablet Gabapentin 12/17/2019 12:00:00 AM EDT active MEDENT ([facility]) tizanidine 4 MG Oral Capsule Tizanidine HCL 12/17/2019 12:00:00 AM EDT ORAL active MEDENT ([facility]) Denture Adhesive 12/17/2019 12:00:00 AM EDT a ctive MEDENT ([facility]) bismuth subsalicylate 262 MG Chewable Tablet Bismuth 12:00:00 AM EDT active MEDENT ( [facility]) Oxybutynin chloride 5 MG Oral Tablet Oxybutynin Chloride 12:00:00 AM EDT ORAL active MEDENT ([facility]) Clonidine Hydrochloride 0.1 MG Oral Tablet Clonidine HCL 10/09/2019 12:00:00 AM EDT ORAL active MEDENT ([facility] Albuterol Sulfate HFA 108 (90 Base) MCG/ACT Albuterol Sulfate HFA 108 (90 Base) MCG/ACT 07/10/2019 12:00:00 AM EDT 1.0 {puff_as_needed} active Albuterol Sulfate HFA 108 (90 Base) MCG/ACT eCW1 ([facility]) Albuterol Sulfate HFA 108 (90 Base) MCG/ACT Albuterol Sulfate HFA 108 (90 Base) MCG/ACT 07/10/2019 12:00:00 AM EDT active 1 puff as needed eCW1 ([facility]) Albuterol Sulfate HFA 108 (90 Base) MCG/ACT Albuterol Sulfate HFA 108 (90 Base) MCG/ACT 07/10/2019 12:00:00 AM EDT 1.0 {puff_as_needed} active Albuterol Sulfate HFA 108 (90 Base) MCG/ACT eCW1 ([facility]) Albuterol Sulfate HFA 108 (90 Base) MCG/ACT Albuterol Sulfate HFA 108 (90 Base) MCG/ACT 07/10/2019 12:00:00 AM EDT 1.0 {puff_as_needed} active Albuterol Sulfate HFA 108 (90 Base) MCG/ACT eCW1 ([facility]) Albuterol Sulfate HFA 108 (90 Base) MCG/ACT Albuterol Sulfate HFA 108 (90 Base) MCG/ACT 07/10/2019 12:00:00 AM EDT 1.0 {puff_as_needed} active Albuterol Sulfate HFA 108 (90 Base) MCG/ACT eCW1 ([facility]) Albuterol Sulfate HFA 108 (90 Base) MCG/ACT Albuterol Sulfate HFA 108 (90 Base) MCG/ACT 07/10/2019 12:00:00 AM EDT 1.0 {puff_as_needed} active Albuterol Sulfate HFA 108 (90 Base) MCG/ACT eCW1 ([facility]) Albuterol Sulfate HFA 108 (90 Base) MCG/ACT Albuterol Sulfate HFA 108 (90 Base) MCG/ACT 07/10/2019 12:00:00 AM EDT 1.0 {puff_as_needed} active Albuterol Sulfate HFA 108 (90 Base) MCG/ACT eCW1 ([facility]) Albuterol Sulfate HFA 108 (90 Base) MCG/ACT Albuterol Sulfate HFA 108 (90 Base) MCG/ACT 07/10/2019 12:00:00 AM EDT 1.0 {puff_as_needed} active Albuterol Sulfate HFA 108 (90 Base) MCG/ACT eCW1 ([facility]) Albuterol Sulfate HFA 108 (90 Base) MCG/ACT Albuterol Sulfate HFA 108 (90 Base) MCG/ACT 07/10/2019 12:00:00 AM EDT active 1 puff as needed eCW1 ([facility]) Albuterol Sulfate HFA 108 (90 Base) MCG/ACT Albuterol Sulfate HFA 108 (90 Base) MCG/ACT 07/10/2019 12:00:00 AM EDT 1.0 {puff_as_needed} active Albuterol Sulfate HFA 108 (90 Base) MCG/ACT eCW1 ([facility]) Albuterol Sulfate HFA 108 (90 Base) MCG/ACT Albuterol Sulfate HFA 108 (90 Base) MCG/ACT 07/10/2019 12:00:00 AM EDT 1.0 {puff_as_needed} active Albuterol Sulfate HFA 108 (90 Base) MCG/ACT eCW1 ([facility]) Albuterol Sulfate HFA 108 (90 Base) MCG/ACT Albuterol Sulfate HFA 108 (90 Base) MCG/ACT 07/10/2019 12:00:00 AM EDT 1.0 {puff_as_needed} active Albuterol Sulfate HFA 108 (90 Base) MCG/ACT eCW1 ([facility]) Albuterol Sulfate HFA 108 (90 Base) MCG/ACT Albuterol Sulfate HFA 108 (90 Base) MCG/ACT 07/10/2019 12:00:00 AM EDT 1.0 {puff_as_needed} active Albuterol Sulfate HFA 108 (90 Base) MCG/ACT eCW1 ([facility]) Albuterol Sulfate HFA 108 (90 Base) MCG/ACT Albuterol Sulfate HFA 108 (90 Base) MCG/ACT 07/10/2019 12:00:00 AM EDT 1.0 {puff_as_needed} active Albuterol Sulfate HFA 108 (90 Base) MCG/ACT eCW1 ([facility]) Albuterol Sulfate HFA 108 (90 Base) MCG/ACT Albuterol Sulfate HFA 108 (90 Base) MCG/ACT 07/10/2019 12:00:00 AM EDT active 1 puff as needed eCW1 ([facility]) Albuterol Sulfate HFA 108 (90 Base) MCG/ACT Albuterol Sulfate HFA 108 (90 Base) MCG/ACT 07/10/2019 12:00:00 AM EDT 1.0 {puff_as_needed} active Albuterol Sulfate HFA 108 (90 Base) MCG/ACT eCW1 ([facility]) Albuterol Sulfate HFA 108 (90 Base) MCG/ACT Albuterol Sulfate HFA 108 (90 Base) MCG/ACT 07/10/2019 12:00:00 AM EDT 1.0 {puff_as_needed} active Albuterol Sulfate HFA 108 (90 Base) MCG/ACT eCW1 ([facility]) Albuterol Sulfate HFA 108 (90 Base) MCG/ACT Albuterol Sulfate HFA 108 (90 Base) MCG/ACT 07/10/2019 12:00:00 AM EDT 1.0 {puff_as_needed} active Albuterol Sulfate HFA 108 (90 Base) MCG/ACT eCW1 ([facility]) Albuterol Sulfate HFA 108 (90 Base) MCG/ACT Albuterol Sulfate HFA 108 (90 Base) MCG/ACT 07/10/2019 12:00:00 AM EDT 1.0 {puff_as_needed} active Albuterol Sulfate HFA 108 (90 Base) MCG/ACT eCW1 ([facility]) Albuterol Sulfate HFA 108 (90 Base) MCG/ACT Albuterol Sulfate HFA 108 (90 Base) MCG/ACT 07/10/2019 12:00:00 AM EDT 1.0 {puff_as_needed} active Albuterol Sulfate HFA 108 (90 Base) MCG/ACT eCW1 ([facility]) Albuterol Sulfate HFA 108 (90 Base) MCG/ACT Albuterol Sulfate HFA 108 (90 Base) MCG/ACT 07/10/2019 12:00:00 AM EDT 1.0 {puff_as_needed} active Albuterol Sulfate HFA 108 (90 Base) MCG/ACT eCW1 ([facility]) Albuterol Sulfate HFA 108 (90 Base) MCG/ACT Albuterol Sulfate HFA 108 (90 Base) MCG/ACT 07/10/2019 12:00:00 AM EDT 1.0 {puff_as_needed} active Albuterol Sulfate HFA 108 (90 Base) MCG/ACT eCW1 ([facility]) Acetaminophen 650 MG UNK 05/16/2019 12:00:00 AM EST active 1 tablet eCW1 ([facility]) Acetaminophen 650 MG UNK 05/16/2019 12:00:00 AM EST 1.0 {tablet } active Acetaminophen 650 MG eCW1 ([facility]) Acetaminophen 650 MG UNK 05/16/2019 12:00:00 AM EST active 1 tablet eCW1 ([facility]) Acetaminophen 650 MG UNK 05/16/2019 12:00:00 AM EST active 1 tablet eCW1 ([facility]) Acetaminophen 650 MG UNK 05/16/2019 12:00:00 AM EST active 1 tablet eCW1 ([facility]) Acetaminophen 650 MG UNK 05/16/2019 12:00:00 AM EST 1.0 {tablet } active Acetaminophen 650 MG eCW1 ([facility]) Acetaminophen 650 MG UNK 05/16/2019 12:00:00 AM EST 1.0 {tablet } active Acetaminophen 650 MG eCW1 ([facility]) Acetaminophen 650 MG UNK 05/16/2019 12:00:00 AM EST active 1 tablet eCW1 ([facility]) Acetaminophen 650 MG UNK 05/16/2019 12:00:00 AM EST 1.0 {tablet } active Acetaminophen 650 MG eCW1 ([facility]) Acetaminophen 650 MG UNK 05/16/2019 12:00:00 AM EST 1.0 {tablet } active Acetaminophen 650 MG eCW1 ([facility]) Acetaminophen 650 MG UNK 05/16/2019 12:00:00 AM EST 1.0 {tablet } active Acetaminophen 650 MG eCW1 ([facility]) Acetaminophen 650 MG UNK 05/16/2019 12:00:00 AM EST 1.0 {tablet } active Acetaminophen 650 MG eCW1 ([facility]) Acetaminophen 650 MG UNK 05/16/2019 12:00:00 AM EST 1.0 {tablet } active Acetaminophen 650 MG eCW1 ([facility]) Acetaminophen 650 MG UNK 05/16/2019 12:00:00 AM EST 1.0 {tablet } active Acetaminophen 650 MG eCW1 ([facility]) Acetaminophen 650 MG UNK 05/16/2019 12:00:00 AM EST 1.0 {tablet } active Acetaminophen 650 MG eCW1 ([facility]) Acetaminophen 650 MG UNK 05/16/2019 12:00:00 AM EST 1.0 {tablet } active Acetaminophen 650 MG eCW1 ([facility]) Acetaminophen 650 MG UNK 05/16/2019 12:00:00 AM EST 1.0 {tablet } active Acetaminophen 650 MG eCW1 ([facility]) Acetaminophen 650 MG UNK 05/16/2019 12:00:00 AM EST 1.0 {tablet } active Acetaminophen 650 MG eCW1 ([facility]) Acetaminophen 650 MG UNK 05/16/2019 12:00:00 AM EST 1.0 {tablet } active Acetaminophen 650 MG eCW1 ([facility]) Acetaminophen 650 MG UNK 05/16/2019 12:00:00 AM EST 1.0 {tablet } active Acetaminophen 650 MG eCW1 ([facility]) Acetaminophen 650 MG UNK 05/16/2019 12:00:00 AM EST 1.0 {tablet } active Acetaminophen 650 MG eCW1 ([facility]) Acetaminophen 650 MG UNK 05/16/2019 12:00:00 AM EST active 1 tablet eCW1 ([facility]) Acetaminophen 650 MG UNK 05/16/2019 12:00:00 AM EST 1.0 {tablet } active Acetaminophen 650 MG eCW1 ([facility]) Acetaminophen 650 MG UNK 05/16/2019 12:00:00 AM EST 1.0 {tablet } active Acetaminophen 650 MG eCW1 ([facility]) Acetaminophen 650 MG UNK 05/16/2019 12:00:00 AM EST 1.0 {tablet } active Acetaminophen 650 MG eCW1 ([facility]) Naproxen 500 MG Oral Tablet naproxen 500 mg tablet one twice daily naproxen 500 mg tablet one twice daily completed naproxen 500 MG Oral Tablet ABEL ([facility]) Naproxen 500 MG Oral Tablet naproxen 500 mg tablet one twice daily naproxen 500 mg tablet one twice daily completed naproxen 500 MG Oral Tablet ABEL ([facility]) Naproxen 500 MG Oral Tablet naproxen 500 mg tablet one twice daily naproxen 500 mg tablet one twice daily completed naproxen 500 MG Oral Tablet ABEL ([facility]) Clonidine Hydrochloride 0.1 MG Oral Tablet clonidine H Cl 0.1 mg tablet clonidine HCl 0.1 mg tablet completed clonidine hydrochloride 0.1 MG Oral Tablet ABEL ([facility]) Naproxen 500 MG Oral Tablet naproxen 500 mg tablet one twice daily naproxen 500 mg tablet one twice daily completed naproxen 500 MG Oral Tablet ABEL ([facility]) atorvastatin 20 MG Oral Tablet atorvasta tin 20 mg tablet TAKE ONE TABLET BY MOUTH EVERY DAY WITH 40MG DOSE TO EQUAL 60MG atorvastatin 20 mg tablet TAKE ONE TABLET BY MOUTH EVERY DAY WITH 40MG DOSE TO EQUAL 60MG completed atorvastatin 20 MG Oral Tablet ABEL ([facility]) Trazodone Hydrochloride 50 MG Oral Tablet trazodone 50 mg tablet trazodone 50 mg tablet completed trazodone hydro chloride 50 MG Oral Tablet ABEL ([facility]) atorvastatin 40 MG Oral Tablet atorvasta tin 40 mg tablet TAKE ONE TABLET BY MOUTH EVERY DAY TOTAL DAILY DOSE 60MG atorvastatin 40 mg tablet TAKE ONE TABLET BY MOUTH EVERY DAY TOTAL DAILY DOSE 60MG completed atorvastatin 40 MG Oral Tablet ABEL ([facility]) Naproxen 500 MG Oral Tablet naproxen 500 mg tablet one twice daily naproxen 500 mg tablet one twice daily completed Naproxen 500 MG Oral Tablet ABEL ([facility]) Naproxen 500 MG Oral Tablet naproxen 500 mg tablet one twice daily naproxen 500 mg tablet one twice daily completed naproxen 500 MG Oral Tablet ABEL ([facility]) Naproxen 500 MG Oral Tablet naproxen 500 mg tablet one twice daily naproxen 500 mg tablet one twice daily completed naproxen 500 MG Oral Tablet ABEL ([facility]) Naproxen 500 MG Oral Tablet naproxen 500 mg tablet one twice daily naproxen 500 mg tablet one twice daily completed Naproxen 500 MG Oral Tablet ABEL ([facility]) Insurance Providers Payer name Policy type / Coverage type Policy ID Covered green party ID Covered green party's relationship to moore Policy Moore Plan Information [facility] COMMUNITY [facility]AN [facility] [id number] SP [id number] [facility] COMM[facility] [id number] SP [id number] [facility] [id number] SP [id number] Managed Care [facility] Community Plan P [id number] S [id number] Medicaid S [id number] S [id number] [facility] O [id number] S [id number] [facility] COMMUNITY PLAN MCDO [id number] SP [id number] [facility] Commercial [id number] Self [id number] ANSI-Commercial [id number] ANSI-Medicaid [id number] ANSI-Commercial [id number] ANSI-Medicaid [id number] ANSI-Commercial [id number] ANSI-Medicaid [id number] ANSI-Commercial [id number] ANSI-Commercial [id number] ANSI-Commercial [id number] ANSI-Medicaid [id number] [facility] Care - [facility] [id number] S [id number] ANSI-Medicaid [id number] ANSI-Commercial [id number] ANSI-Commercial [id number] ANSI-Commercial [id number] ANSI-Commercial [id number] ANSI-Medicaid [id number] ANSI-Medicaid [id number] ANSI-Commercial [id number] ANSI-Medicaid [id number] ANSI-Commercial [id number] ANSI-Commercial [id number] ANSI-Medicaid [id number] ANSI-Commercial [id number] ANSI-Commercial [id number] [facility] COMMUNITY [facility]AN [facility] [id number] SP [id number] [facility] (HMO) [id number] Self [id number] [facility] I [id number] Self [id number] UHC UNITED MEDICARE COMPLETE G [id number] Self [id number] Managed Care - Community Plan [facility] P [id number] S [id number] [facility] COMMUNITY PLAN [facility] [id number] SP [id number] [facility] [id number] ANSI-Commercial [id number] ANSI-Medicaid [id number] ANSI-Commercial [id number] [place] O [id number] O [id number] Medicaid P [id number] S [id number] SY [id number] SP [id number] Managed Care [place] P [id number] S [id number] ANSI-Commercial [id number] ANSI-Commercial [id number] SY CARE [id number] S [id number] [facility] OFFICE OF MENTAL HEALTH [id number] S [id number] SY [id number] SP [id number] SY [id number] SP [id number] Medicaid S [id number] S [id number] [place] O [id number] S [id number] SY [id number] SP [id number] [place] Essential Plan F [id number] SELF [id number] [place]/CHP/FHP Commercial Self SY [id number] SP [id number] [place] O [id number] S [id number] Problems, Conditions, and Diagnoses Code Display Name Description Problem Type Effective Dates Data Source(s) Z12.2 [id number] Encounter for screening for lung cancer Natali mcclendon 02/07/2020 12:00:00 AM EST eCW1 ([facility]) R45.851 [id number] Planning to commit suicide Problem 0 12:00:00 AM EDT eCW1 ([facility]) B99.9 63036859 Rash or skin eruption accompanying infect ious disease Problem 01/24/2020 12:00:00 AM EDT eCW1 ([facility]) R00.2 [id number] Intermittent palpitations Problem 01/12/2020 12:00:00 AM EDT eCW1 ([facility]) R63.4 866044869 Weight loss, non-intentional Problem 020 12:00:00 AM EDT eCW1 ([facility]) F32.9 Major depressive disorder, single episod e, unspecified Unspecified depressive Disorder Condition 12/23/2019 12:00:00 AM EDT [facility] ([facility]) [id number] Dietary management surveillance Dietary manageme nt surveillance Problem 10/10/2019 12:00:00 AM EDT [facility] ([facility]) [id number] Obesity Obesity Problem 10/10/2019 12:00:00 AM ED T MEDENT ([facility]) R53.83 83827447 Fatigue, unspecified type Problem 08/15/2019 12:00:00 AM EDT eCW1 ([facility]) Z68.36 654000280 BMI 36.0-36.9,adult Problem 08/15/2019 12:00 :00 AM EDT eCW1 ([facility]) Z68.36 296616814 BMI 36.0-36.9,adult Problem 08/15/2019 12:00 :00 AM EDT eCW1 ([facility]) R53.83 96093711 Fatigue, unspecified type Problem 08/15/2019 12:00:00 AM EDT eCW1 ([facility]) M54.42 366755146 Lumbago with sciatica, left side Problem 05/29/2019 12:00:00 AM EST eCW1 ([facility]) G89.29 34029453 Other chronic pain Problem 05/29/2019 12:00: 00 AM EST eCW1 ([facility]) M54.41 [id number] Lumbago with sciatica, right side Prob bucky 05/29/2019 12:00:00 AM EST eCW1 ([facility]) G89.29 08573154 Other chronic pain Problem 05/29/2019 12:00: 00 AM EST eCW1 ([facility]) M54.41 [id number] Lumbago with sciatica, right side Prob bucky 05/29/2019 12:00:00 AM EST eCW1 ([facility]) M54.42 101493513 Lumbago with sciatica, left side Problem 05/29/2019 12:00:00 AM EST eCW1 ([facility]) K21.9 681573618 Chronic GERD Problem 05/20/2019 12:00:00 AM EST eCW1 ([facility]) K21.9 394397375 Chronic GERD Problem 05/20/2019 12:00:00 AM EST eCW1 ([facility]) E78.2 678470099 Mixed hyperlipidemia Problem 05/08/2019 12:0 0:00 AM EST eCW1 ([facility]) E78.2 556931112 Mixed hyperlipidemia Problem 05/08/2019 12:0 0:00 AM EST eCW1 ([facility]) Surgeries/Procedures Procedure Description Date Indications Data Source(s) PNEUMOCOCCAL POLYSAC VACCINE 23-V 2 />YR SUBQ/IM 01/09 12:00:00 AM EDT eCW1 ([facility]) Immunization: Flublok Quadrivalent (18 years & older) 0.5mL IM (Influenza) 01/10/2020 12:00:00 AM EDT eCW1 ([facility]) Crisis intervention service, per 15 minutes 12/23/2019 12:00:00 AM EDT - 12/23/2019 12:00:00 AM EDT [facility] ([facility]) Crisis intervention service, per 15 minutes 12/23/2019 12:00:00 AM EDT [facility] ([facility]) Measure Blood Oxygen Level Continuous Overnight Monitor 04/08/2019 12:00:00 AM EST MEDENT ([facility]) Results ID Date Data Source CBC with Differential 01/13/2020 04:12:40 AM EDT eCW1 ([facility] Name Value Range Interpretation Code Description Data Roma rce(s) Supporting Document(s) 7.2 WHITE BLOOD COUNT eCW1 ([facility]) 5.20 RED BLOOD COUNT eCW1 ([facility]) 15.4 HEMOGLOBIN eCW1 ([facility]) 90.2 MEAN CORPUSCULAR VOLUME eCW1 ( [facility]) 46.9 HEMATOCRIT eCW1 ([facility]) 29.6 MEAN CORPUSCULAR HEMOGLOBIN eC W1 ([facility]) 13.6 RED CELL DISTRIBUTION WIDTH eC W1 ([facility]) 76.2 NEUTROPHILS % eCW1 ([facility]) 32.8 MEAN CORPUSCULAR HGB CONC eCW1 ([facility]) 187 PLATELET COUNT, AUTOMATED eCW1 ([facility]) 14.0 LYMPH % eCW1 ([facility]) 6.8 MONO % eCW1 ([facility]) 1.9 EOS % eCW1 ([facility]) 1.0 LYMPH # eCW1 ([facility]) 0.3 BASO % eCW1 ([facility]) 5.5 NEUTROPHILS # eCW1 ([facility]) 0.5 MONO # eCW1 ([facility]) 0.0 BASO # eCW1 ([facility]) 0.1 EOS # eCW1 ([facility]) ID Date Data Source LIPID PANEL (CARDIAC RISK) 01/13/2020 04:12:02 AM EDT eCW1 ( [facility]) Name Value Range Interpretation Code Description Data Roma rce(s) Supporting Document(s) Cholesterol in HDL [Moles/volume] in Serum or Plasma 36 HDL CHOLESTEROL eCW1 ([facility]) Cholesterol [Moles/volume] in Serum or Plasma 147 CHOLESTEROL LEVEL eCW1 ([facility]) Cholesterol in LDL [Mass/volume] in Serum or Plasma by calculation 69 LDL CHOLESTEROL eCW1 ([facility]) Triglyceride [Mass/volume] in Serum or Plasma by calculation 211 TRIGLYCERIDES LEVEL eCW1 ([facility]) 4.083 CHOLESTEROL RISK RATIO eCW1 ([facility]) 111 NON-HDL-C eCW1 ([facility]) ID Date Data Source [id number] 05/16/2019 08:19:00 AM EST [facility] ([facility]) Name Value Range Interpretation Code Description Data Roma rce(s) Supporting Document(s) HDL 37 [facility] ([facility] Triglycerides 216 [facility] ([facility]) Cholesterol 132 [facility] ([facility]) Cholesterol in LDL [Mass/volume] in Serum or Plasma by calculation 52 [facility] ([facility]) Chol/HDL Ratio 3.567 [facility] ([facility]) Procedure Social History Code Duration Value Status Description Data Source(s ) Smoking 04/13/2020 12:00:00 AM EST Never Smoker completed Never S moker eCW1 ([facility]) Smoking 03/16/2020 12:00:00 AM EST Never Smoker completed Never S moker eCW1 ([facility]) Smoking 03/11/2020 12:00:00 AM EST Never Smoker completed Never S moker eCW1 ([facility]) Smoking 03/11/2020 12:00:00 AM EST Never Smoker completed Never S moker eCW1 ([facility]) Smoking 01/28/2020 12:00:00 AM EDT Never Smoker completed Never S moker eCW1 ([facility]) Smoking 01/28/2020 12:00:00 AM EDT Never Smoker completed Never S moker eCW1 ([facility]) Smoking 01/28/2020 12:00:00 AM EDT Never Smoker completed Never S moker eCW1 ([facility]) Smoking 01/28/2020 12:00:00 AM EDT Never Smoker completed Never S moker eCW1 ([facility]) Smoking 01/28/2020 12:00:00 AM EDT Never Smoker completed Never S moker eCW1 ([facility]) Smoking 01/28/2020 12:00:00 AM EDT Never Smoker completed Never S moker eCW1 ([facility]) Smoking 01/24/2020 12:00:00 AM EDT Never Smoker completed Never S moker eCW1 ([facility]) Smoking 01/24/2020 12:00:00 AM EDT Never Smoker completed Never S moker eCW1 ([facility]) Smoking 01/10/2020 12:00:00 AM EDT Never Smoker completed Never S moker eCW1 ([facility]) Smoking 01/10/2020 12:00:00 AM EDT Never Smoker completed Never S moker eCW1 ([facility]) Smoking 12/23/2019 12:00:00 AM EDT Unknown if ever smoked comp leted Unknown if ever smoked [facility] ([facility]) Smoking 10/10/2019 12:00:00 AM EDT Patient is a former smoker completed Patient is a former smoker [facility] ([facility]) Smoking 09/06/2019 12:00:00 AM EDT Never Smoker completed Never S moker eCW1 ([facility]) Smoking 09/06/2019 12:00:00 AM EDT Never Smoker completed Never S moker eCW1 ([facility]) Smoking 09/06/2019 12:00:00 AM EDT Never Smoker completed Never S moker eCW1 ([facility]) Smoking 09/06/2019 12:00:00 AM EDT Never Smoker completed Never S moker eCW1 ([facility]) Smoking 09/06/2019 12:00:00 AM EDT Never Smoker completed Never S moker eCW1 ([facility]) Smoking 08/05/2019 12:00:00 AM EDT - 04/03/2005 12:00:00 AM EST Patient is a former smoker completed Patient is a former smoker [facility] ([facility] ) Vital Signs ID Date Data Source UNK Name Value Range Interpretation Code Description Data Source(s) Diastolic blood pressure 66 mm[Hg] 66 mm[Hg] eCW1 ([facility]) Systolic blood pressure 116 mm[Hg] 116 mm[Hg] e CW1 ([facility]) Body temperature 98.3 [degF] 98.3 [degF] eCW1 ( [facility]) Respiratory rate 18 /min 18 /min eCW1 ([facility]) Heart rate 72 /min 72 /min eCW1 ([facility]) Body mass index (BMI) [Ratio] 36.32 kg/m2 36.32 kg/m2 eCW1 ([facility]) Body height [in_i] eCW1 ([facility]) Body weight 211.6 [lb_av] 211.6 [lb_av] eCW1 ([facility]) Body height 64 [in_i] 64 [in_i] ABEL ([facility]) Body height 64 [in_i] 64 [in_i] ABEL ([facility]) Body height 64 [in_i] 64 [in_i] ABEL ([facility]) Diastolic blood pressure 70 mm[Hg] 70 mm[Hg] eCW1 ([facility]) Systolic blood pressure 118 mm[Hg] 118 mm[Hg] e CW1 ([facility]) Body temperature 98.5 [degF] 98.5 [degF] eCW1 ( [facility]) Respiratory rate 18 /min 18 /min eCW1 ([facility]) Heart rate 73 /min 73 /min eCW1 ([facility]) Body mass index (BMI) [Ratio] 35.29 kg/m2 35.29 kg/m2 eCW1 ([facility]) Body height [in_i] eCW1 ([facility]) Body weight 205.6 [lb_av] 205.6 [lb_av] eCW1 ([facility]) Diastolic blood pressure 70 mm[Hg] 70 mm[Hg] eCW1 ([facility]) Systolic blood pressure 98 mm[Hg] 98 mm[Hg] e CW1 ([facility]) Body temperature 97.1 [degF] 97.1 [degF] eCW1 ( [facility]) Respiratory rate 19 /min 19 /min eCW1 ([facility]) Heart rate 100 /min 100 /min eCW1 ([facility]) Body mass index (BMI) [Ratio] 35.53 kg/m2 35.53 kg/m2 eCW1 ([facility]) Body height [in_i] eCW1 ([facility]) Body weight 207 [lb_av] 207 [lb_av] [facility] Body weight 194.00 [lb_av] 194.00 [lb_av] MEDEN T ([facility]) Body temperature 97.4 [degF] 97.4 [degF] MEDENT ([facility]) Respiratory rate 18 /min 18 /min MEDENT ( [facility]) Heart rate 101 /min 101 /min MEDENT ([facility]) Diastolic blood pressure 93 mm[Hg] 93 mm[Hg] MEDENT ([facility]) Systolic blood pressure 162 mm[Hg] 162 mm[Hg] M EDENT ([facility]) Body weight 200 [lb_av] 200 [lb_av] ABEL ([facility]) Systolic blood pressure 128 mm[Hg] 128 mm[Hg] A THENA ([facility]) Body mass index (BMI) [Ratio] 34.3 kg/m2 34.3 k g/m2 ABEL ([facility]) Body height 64 [in_i] 64 [in_i] ABEL ([facility]) Diastolic blood pressure 85 mm[Hg] 85 mm[Hg] ABEL ([facility]) Body weight 200 [lb_av] 200 [lb_av] ABEL ([facility]) Systolic blood pressure 128 mm[Hg] 128 mm[Hg] A THENA ([facility]) Body mass index (BMI) [Ratio] 34.3 kg/m2 34.3 k g/m2 ABEL ([facility]) Body height 64 [in_i] 64 [in_i] ABEL ([facility]) Diastolic blood pressure 85 mm[Hg] 85 mm[Hg] ABEL ([facility]) Body weight 200 [lb_av] 200 [lb_av] ABEL ([facility]) Systolic blood pressure 128 mm[Hg] 128 mm[Hg] A THENA ([facility]) Body mass index (BMI) [Ratio] 34.3 kg/m2 34.3 k g/m2 ABEL ([facility]) Body height 64 [in_i] 64 [in_i] ABEL ([facility]) Diastolic blood pressure 85 mm[Hg] 85 mm[Hg] ABEL ([facility]) Body weight 200 [lb_av] 200 [lb_av] ABEL ([facility]) Systolic blood pressure 128 mm[Hg] 128 mm[Hg] A THENA ([facility]) Body mass index (BMI) [Ratio] 34.3 kg/m2 34.3 k g/m2 ABEL ([facility]) Body height 64 [in_i] 64 [in_i] ABEL ([facility]) Diastolic blood pressure 85 mm[Hg] 85 mm[Hg] ABEL ([facility]) Body weight 200 [lb_av] 200 [lb_av] ABEL ([facility]) Systolic blood pressure 128 mm[Hg] 128 mm[Hg] A THENA ([facility]) Body mass index (BMI) [Ratio] 34.3 kg/m2 34.3 k g/m2 ABEL ([facility]) Body height 64 [in_i] 64 [in_i] ABEL ([facility]) Diastolic blood pressure 85 mm[Hg] 85 mm[Hg] ABEL ([facility]) Diastolic blood pressure--sitting 60 mm[Hg] 60 mm[Hg] MEDENT ([facility]) large cuff, Ra Systolic blood pressure--sitting 104 mm[Hg] 104 mm[Hg] MEDENT ([facility]) large cuff, Ra Heart rate 68 /min 68 /min MEDENT ([facility]) Body mass index (BMI) [Ratio] 35.2 kg/m2 35.2 k g/m2 MEDENT ([facility]) Body height 64 [in_i] 64 [in_i] MEDENT ([facility] 5'4" Body weight 205.00 [lb_av] 205.00 [lb_av] MEDEN T ([facility]) Diastolic blood pressure 70 mm[Hg] 70 mm[Hg] eCW1 ([facility]) Systolic blood pressure 104 mm[Hg] 104 mm[Hg] e CW1 ([facility]) Body temperature 98.1 [degF] 98.1 [degF] eCW1 ( [facility]) Respiratory rate 20 /min 20 /min eCW1 ([facility]) Heart rate 86 /min 86 /min eCW1 ([facility]) Body mass index (BMI) [Ratio] 35.70 kg/m2 35.70 kg/m2 eCW1 ([facility]) Body height [in_i] eCW1 ([facility]) Body weight 208 [lb_av] 208 [lb_av] eCW[facility] Body temperature 97 [degF] 97 [degF] eCW1 ([facility]) Respiratory rate 20 /min 20 /min eCW1 ([facility]) Heart rate 74 /min 74 /min eCW1 ([facility]) Body mass index (BMI) [Ratio] 36.56 kg/m2 36.56 kg/m2 eCW1 ([facility]) Body height [in_us] eCW1 ([facility]) Body weight Measured 213 [lb_av] 213 [lb_av] eC W1 ([facility]) Diastolic blood pressure 60 mm[Hg] 60 mm[Hg] eCW1 ([facility]) Systolic blood pressure 100 mm[Hg] 100 mm[Hg] e CW1 ([facility]) Body weight 96.787 kg 96.787 kg [facility], ) Body mass index (BMI) [Ratio] 36.6 kg/m2 36.6 k g/m2 MEDENT ([facility], ) Body weight 213.38 [lb_av] 213.38 [lb_av] MEDEN T ([facility], ) Body height 64 [in_i] 64 [in_i] [facility] ([facility], ) 5'4" Body temperature 97.3 [degF] 97.3 [degF] [facility] ([facility], ) Oxygen saturation in Arterial blood by Pulse oximetry 95 % 95 % [facility] ([facility], ) Heart rate 66 /min 66 /min MEDENT ([facility], ) Diastolic blood pressure 68 mm[Hg] 68 mm[Hg] MEDENT ([facility], ) Systolic blood pressure 106 mm[Hg] 106 mm[Hg] M EDENT ([facility], ) Diastolic blood pressure 84 mm[Hg] 84 mm[Hg] eCW1 ([facility]) Systolic blood pressure 136 mm[Hg] 136 mm[Hg] e CW1 ([facility]) Body mass index (BMI) [Ratio] 36.04 kg/m2 36.04 kg/m2 eCW1 ([facility]) Body height [in_us] eCW1 ([facility]) Body weight Measured 210 [lb_av] 210 [lb_av] eC W1 ([facility]) Diastolic blood pressure 68 mm[Hg] 68 mm[Hg] eCW1 ([facility]) Systolic blood pressure 112 mm[Hg] 112 mm[Hg] e CW1 ([facility]) Body temperature 96.8 [degF] 96.8 [degF] eCW1 ( [facility]) Respiratory rate 18 /min 18 /min eCW1 ([facility]) Heart rate 115 /min 115 /min eCW1 ([facility]) Body mass index (BMI) [Ratio] 35.91 kg/m2 35.91 kg/m2 eCW1 ([facility]) Body height [in_us] eCW1 ([facility]) Body weight Measured 209.2 [lb_av] 209.2 [lb_av ] eCW1 ([facility]) Body weight 200 [lb_av] 200 [lb_av] ABEL ([facility]) Systolic blood pressure 96 mm[Hg] 96 mm[Hg] A THENA ([facility]) Body mass index (BMI) [Ratio] 34.3 kg/m2 34.3 k g/m2 ABEL ([facility]) Body height 64 [in_i] 64 [in_i] ABEL ([facility]) Diastolic blood pressure 60 mm[Hg] 60 mm[Hg] ABEL ([facility]) Body weight 200 [lb_av] 200 [lb_av] ABEL ([facility]) Systolic blood pressure 96 mm[Hg] 96 mm[Hg] A THENA ([facility]) Body mass index (BMI) [Ratio] 34.3 kg/m2 34.3 k g/m2 ABEL ([facility]) Body height 64 [in_i] 64 [in_i] ABEL ([facility]) Diastolic blood pressure 60 mm[Hg] 60 mm[Hg] ABEL ([facility]) Body weight 200 [lb_av] 200 [lb_av] ABEL ([facility]) Systolic blood pressure 96 mm[Hg] 96 mm[Hg] A THENA ([facility]) Body mass index (BMI) [Ratio] 34.3 kg/m2 34.3 k g/m2 ABEL ([facility]) Body height 64 [in_i] 64 [in_i] ABEL ([facility]) Diastolic blood pressure 60 mm[Hg] 60 mm[Hg] ABEL ([facility]) Body weight 200 [lb_av] 200 [lb_av] ABEL ([facility]) Systolic blood pressure 96 mm[Hg] 96 mm[Hg] A THENA ([facility]) Body mass index (BMI) [Ratio] 34.3 kg/m2 34.3 k g/m2 ABEL ([facility]) Body height 64 [in_i] 64 [in_i] ABEL ([facility]) Diastolic blood pressure 60 mm[Hg] 60 mm[Hg] ABEL ([facility]) Body weight 200 [lb_av] 200 [lb_av] ABEL ([facility]) Systolic blood pressure 96 mm[Hg] 96 mm[Hg] A THENA ([facility]) Body mass index (BMI) [Ratio] 34.3 kg/m2 34.3 k g/m2 ABEL ([facility]) Body height 64 [in_i] 64 [in_i] ABEL ([facility]) Diastolic blood pressure 60 mm[Hg] 60 mm[Hg] ABEL ([facility]) Body weight 200 [lb_av] 200 [lb_av] ABEL ([facility]) Systolic blood pressure 96 mm[Hg] 96 mm[Hg] A THENA ([facility]) Body mass index (BMI) [Ratio] 34.3 kg/m2 34.3 k g/m2 ABEL ([facility]) Body height 64 [in_i] 64 [in_i] ABEL ([facility]) Diastolic blood pressure 60 mm[Hg] 60 mm[Hg] ABEL ([facility]) Body weight 200 [lb_av] 200 [lb_av] ABEL ([facility]) Systolic blood pressure 96 mm[Hg] 96 mm[Hg] A THENA ([facility]) Body mass index (BMI) [Ratio] 34.3 kg/m2 34.3 k g/m2 ABEL ([facility]) Body height 64 [in_i] 64 [in_i] ABEL ([facility]) Diastolic blood pressure 60 mm[Hg] 60 mm[Hg] ABEL ([facility]) Body weight 200 [lb_av] 200 [lb_av] ABEL ([facility]) Systolic blood pressure 96 mm[Hg] 96 mm[Hg] A THENA ([facility]) Body mass index (BMI) [Ratio] 34.3 kg/m2 34.3 k g/m2 ABEL ([facility]) Body height 64 [in_i] 64 [in_i] ABEL ([facility]) Diastolic blood pressure 60 mm[Hg] 60 mm[Hg] ABEL ([facility]) Diastolic blood pressure 60 mm[Hg] 60 mm[Hg] eCW1 ([facility]) Systolic blood pressure 102 mm[Hg] 102 mm[Hg] e CW1 ([facility]) Body temperature 98 [degF] 98 [degF] eCW1 ([facility]) Respiratory rate 16 /min 16 /min eCW1 ([facility]) Heart rate 94 /min 94 /min eCW1 ([facility]) Body mass index (BMI) [Ratio] 36.39 kg/m2 36.39 kg/m2 eCW1 ([facility]) Body height [in_us] eCW1 ([facility]) Body weight Measured 212 [lb_av] 212 [lb_av] eC W1 ([facility]) Diastolic blood pressure 70 mm[Hg] 70 mm[Hg] eCW1 ([facility]) Systolic blood pressure 112 mm[Hg] 112 mm[Hg] e CW1 ([facility]) Body temperature 97.2 [degF] 97.2 [degF] eCW1 ( [facility]) Respiratory rate 18 /min 18 /min eCW1 ([facility]) Heart rate 100 /min 100 /min eCW1 ([facility]) Body mass index (BMI) [Ratio] 36.25 kg/m2 36.25 kg/m2 eCW1 ([facility]) Body height [in_us] eCW1 ([facility]) Body weight Measured 211.2 [lb_av] 211.2 [lb_av ] eCW1 ([facility]) Systolic blood pressure 113 mm[Hg] 113 mm[Hg] A THENA ([facility]) Body height 64 [in_i] 64 [in_i] ABEL ([facility]) Diastolic blood pressure 77 mm[Hg] 77 mm[Hg] ABEL ([facility]) Systolic blood pressure 113 mm[Hg] 113 mm[Hg] A THENA ([facility]) Body height 64 [in_i] 64 [in_i] ABEL ([facility]) Diastolic blood pressure 77 mm[Hg] 77 mm[Hg] ABEL ([facility]) Systolic blood pressure 113 mm[Hg] 113 mm[Hg] A THENA ([facility]) Body height 64 [in_i] 64 [in_i] ABEL ([facility]) Diastolic blood pressure 77 mm[Hg] 77 mm[Hg] ABEL ([facility]) Systolic blood pressure 113 mm[Hg] 113 mm[Hg] A THENA ([facility]) Body height 64 [in_i] 64 [in_i] ABEL ([facility]) Diastolic blood pressure 77 mm[Hg] 77 mm[Hg] ABEL ([facility]) Systolic blood pressure 113 mm[Hg] 113 mm[Hg] A THENA ([facility]) Body height 64 [in_i] 64 [in_i] ABEL ([facility]) Diastolic blood pressure 77 mm[Hg] 77 mm[Hg] ABEL ([facility]) Systolic blood pressure 113 mm[Hg] 113 mm[Hg] A THENA ([facility]) Body height 64 [in_i] 64 [in_i] ABEL ([facility]) Diastolic blood pressure 77 mm[Hg] 77 mm[Hg] ABEL ([facility]) Systolic blood pressure 113 mm[Hg] 113 mm[Hg] A THENA ([facility]) Body height 64 [in_i] 64 [in_i] ABEL ([facility]) Diastolic blood pressure 77 mm[Hg] 77 mm[Hg] ABEL ([facility]) Systolic blood pressure 113 mm[Hg] 113 mm[Hg] A THENA ([facility]) Body height 64 [in_i] 64 [in_i] ABEL ([facility]) Diastolic blood pressure 77 mm[Hg] 77 mm[Hg] ABEL ([facility]) Systolic blood pressure 113 mm[Hg] 113 mm[Hg] A THENA ([facility]) Body height 64 [in_i] 64 [in_i] ABEL ([facility]) Diastolic blood pressure 77 mm[Hg] 77 mm[Hg] ABEL ([facility]) Systolic blood pressure 113 mm[Hg] 113 mm[Hg] A THENA ([facility]) Body height 64 [in_i] 64 [in_i] ABEL ([facility]) Diastolic blood pressure 77 mm[Hg] 77 mm[Hg] ABEL ([facility]) Diastolic blood pressure 62 mm[Hg] 62 mm[Hg] eCW1 ([facility]) Systolic blood pressure 114 mm[Hg] 114 mm[Hg] e CW1 ([facility]) Body temperature 97.8 [degF] 97.8 [degF] eCW1 ( [facility]) Respiratory rate 18 /min 18 /min eCW1 ([facility]) Heart rate 103 /min 103 /min eCW1 ([facility]) Body mass index (BMI) [Ratio] 35.94 kg/m2 35.94 kg/m2 eCW1 ([facility]) Body height [in_us] eCW1 ([facility]) Body weight Measured 209.4 [lb_av] 209.4 [lb_av ] eCW1 ([facility]) Body weight 96.617 kg 96.617 kg MEDENT ([facility], ) Body mass index (BMI) [Ratio] 36.6 kg/m2 36.6 k g/m2 [facility] ([facility], ) Body weight 213.00 [lb_av] 213.00 [lb_av] MEDEN T ([facility], ) Body height 64 [in_i] 64 [in_i] MEDENT ([facility], ) 5'4" Oxygen saturation in Arterial blood by Pulse oximetry 93 % 93 % [facility] ([facility]) Heart rate 73 /min 73 /min [facility] ([facility], ) Diastolic blood pressure 82 mm[Hg] 82 mm[Hg] [facility] Systolic blood pressure 114 mm[Hg] 114 mm[Hg] M EDALIA ([facility], ) Body weight 200 [lb_av] 200 [lb_av] ABEL ([facility]) Systolic blood pressure 112 mm[Hg] 112 mm[Hg] A THENA ([facility]) Body mass index (BMI) [Ratio] 34.3 kg/m2 34.3 k g/m2 ABEL ([facility]) Body height 64 [in_i] 64 [in_i] ABEL ([facility]) Diastolic blood pressure 73 mm[Hg] 73 mm[Hg] ABEL ([facility]) Body weight 200 [lb_av] 200 [lb_av] ABEL ([facility]) Systolic blood pressure 112 mm[Hg] 112 mm[Hg] A THENA ([facility]) Body mass index (BMI) [Ratio] 34.3 kg/m2 34.3 k g/m2 ABEL ([facility]) Body height 64 [in_i] 64 [in_i] ABEL ([facility]) Diastolic blood pressure 73 mm[Hg] 73 mm[Hg] ABEL ([facility]) Body weight 200 [lb_av] 200 [lb_av] ABEL ([facility]) Systolic blood pressure 112 mm[Hg] 112 mm[Hg] A THENA ([facility]) Body mass index (BMI) [Ratio] 34.3 kg/m2 34.3 k g/m2 ABEL ([facility]) Body height 64 [in_i] 64 [in_i] ABEL ([facility]) Diastolic blood pressure 73 mm[Hg] 73 mm[Hg] ABEL ([facility]) Body weight 200 [lb_av] 200 [lb_av] ABEL ([facility]) Systolic blood pressure 112 mm[Hg] 112 mm[Hg] A THENA ([facility]) Body mass index (BMI) [Ratio] 34.3 kg/m2 34.3 k g/m2 ABEL ([facility]) Body height 64 [in_i] 64 [in_i] ABEL ([facility]) Diastolic blood pressure 73 mm[Hg] 73 mm[Hg] ABEL ([facility]) Body weight 200 [lb_av] 200 [lb_av] ABEL ([facility]) Systolic blood pressure 112 mm[Hg] 112 mm[Hg] A THENA ([facility]) Body mass index (BMI) [Ratio] 34.3 kg/m2 34.3 k g/m2 ABEL ([facility]) Body height 64 [in_i] 64 [in_i] ABEL ([facility]) Diastolic blood pressure 73 mm[Hg] 73 mm[Hg] ABEL ([facility]) Body weight 200 [lb_av] 200 [lb_av] ABEL ([facility]) Systolic blood pressure 112 mm[Hg] 112 mm[Hg] A THENA ([facility]) Body mass index (BMI) [Ratio] 34.3 kg/m2 34.3 k g/m2 ABEL ([facility]) Body height 64 [in_i] 64 [in_i] ABEL ([facility]) Diastolic blood pressure 73 mm[Hg] 73 mm[Hg] ABEL ([facility]) Body weight 200 [lb_av] 200 [lb_av] ABEL ([facility]) Systolic blood pressure 112 mm[Hg] 112 mm[Hg] A THENA ([facility]) Body mass index (BMI) [Ratio] 34.3 kg/m2 34.3 k g/m2 ABEL ([facility]) Body height 64 [in_i] 64 [in_i] ABEL ([facility]) Diastolic blood pressure 73 mm[Hg] 73 mm[Hg] ABEL ([facility]) Body weight 200 [lb_av] 200 [lb_av] ABEL ([facility]) Systolic blood pressure 112 mm[Hg] 112 mm[Hg] A THENA ([facility]) Body mass index (BMI) [Ratio] 34.3 kg/m2 34.3 k g/m2 ABEL ([facility]) Body height 64 [in_i] 64 [in_i] ABEL ([facility]) Diastolic blood pressure 73 mm[Hg] 73 mm[Hg] ABEL ([facility]) Body weight 200 [lb_av] 200 [lb_av] ABEL ([facility]) Systolic blood pressure 112 mm[Hg] 112 mm[Hg] A THENA ([facility]) Body mass index (BMI) [Ratio] 34.3 kg/m2 34.3 k g/m2 ABEL ([facility]) Body height 64 [in_i] 64 [in_i] ABEL ([facility]) Diastolic blood pressure 73 mm[Hg] 73 mm[Hg] ABEL ([facility]) Body weight 200 [lb_av] 200 [lb_av] ABEL ([facility]) Systolic blood pressure 112 mm[Hg] 112 mm[Hg] A THENA ([facility]) Body mass index (BMI) [Ratio] 34.3 kg/m2 34.3 k g/m2 ABEL ([facility]) Body height 64 [in_i] 64 [in_i] ABEL ([facility]) Diastolic blood pressure 73 mm[Hg] 73 mm[Hg] ABEL ([facility]) Body weight 200 [lb_av] 200 [lb_av] ABEL ([facility]) Systolic blood pressure 112 mm[Hg] 112 mm[Hg] A THENA ([facility]) Body mass index (BMI) [Ratio] 34.3 kg/m2 34.3 k g/m2 ABEL ([facility]) Body height 64 [in_i] 64 [in_i] ABEL ([facility]) Diastolic blood pressure 73 mm[Hg] 73 mm[Hg] ABEL ([facility]) Body weight 200 [lb_av] 200 [lb_av] ABEL ([facility]) Systolic blood pressure 112 mm[Hg] 112 mm[Hg] A THENA ([facility]) Body mass index (BMI) [Ratio] 34.3 kg/m2 34.3 k g/m2 ABEL ([facility]) Body height 64 [in_i] 64 [in_i] ABEL ([facility]) Diastolic blood pressure 73 mm[Hg] 73 mm[Hg] ABEL ([facility]) Body weight 200 [lb_av] 200 [lb_av] ABEL ([facility]) Systolic blood pressure 112 mm[Hg] 112 mm[Hg] A THENA ([facility]) Body mass index (BMI) [Ratio] 34.3 kg/m2 34.3 k g/m2 ABEL ([facility]) Body height 64 [in_i] 64 [in_i] ABEL ([facility]) Diastolic blood pressure 73 mm[Hg] 73 mm[Hg] ABEL ([facility]) Body weight 92.988 kg 92.988 kg MEDENT ([facility], ) Body mass index (BMI) [Ratio] 35.2 kg/m2 35.2 k g/m2 MEDENT ([facility], ) Body weight 205.00 [lb_av] 205.00 [lb_av] MEDEN T ([facility], ) Body height 64 [in_i] 64 [in_i] MEDENT ([facility], ) 5'4" Oxygen saturation in Arterial blood by Pulse oximetry 94 % 94 % MEDENT ([facility]) Heart rate 82 /min 82 /min MEDENT ([facility]) Diastolic blood pressure 80 mm[Hg] 80 mm[Hg] MEDENT ([facility]) Systolic blood pressure 110 mm[Hg] 110 mm[Hg] M EDENT ([facility]) Diastolic blood pressure 76 mm[Hg] 76 mm[Hg] eCW1 ([facility]) Systolic blood pressure 136 mm[Hg] 136 mm[Hg] e CW1 ([facility]) Body temperature 97.4 [degF] 97.4 [degF] eCW1 ( [facility]) Respiratory rate 18 /min 18 /min eCW1 ([facility]) Heart rate 70 /min 70 /min eCW1 ([facility]) Body mass index (BMI) [Ratio] 34.50 kg/m2 34.50 kg/m2 eCW1 ([facility]) Body height [in_us] eCW1 ([facility]) Body weight Measured 201 [lb_av] 201 [lb_av] eC W1 ([facility]) Patient Treatment Plan of Care Planned Activity Planned Date Details Description Data Source (s) Aspirin 81 MG Chewable Tablet 01/28/2020 12:00:00 AM EDT eCW1 ([facility]) Aspirin 81 MG Chewable Tablet 01/28/2020 12:00:00 AM EDT eCW1 ([facility]) Aspirin 81 MG Chewable Tablet 01/28/2020 12:00:00 AM EDT eCW1 ([facility]) atorvastatin 80 MG Oral Tablet 01/28/2020 12:00:00 AM EDT eCW1 ([facility]) Aspirin 81 MG Chewable Tablet 01/28/2020 12:00:00 AM EDT eCW1 ([facility]) Aspirin 81 MG Chewable Tablet 01/28/2020 12:00:00 AM EDT eCW1 ([facility]) atorvastatin 80 MG Oral Tablet 01/28/2020 12:00:00 AM EDT eCW1 ([facility]) Aspirin 81 MG Chewable Tablet 01/28/2020 12:00:00 AM EDT eCW1 ([facility]) atorvastatin 80 MG Oral Tablet 01/28/2020 12:00:00 AM EDT eCW1 ([facility]) Loratadine 10 MG Oral Tablet 01/24/2020 12:00:00 AM EDT eCW1 ([facility]) Mupirocin 0.02 MG/MG Topical Ointment 01/24/2020 12:00:00 AM EDT eCW1 ([facility]) Loratadine 10 MG Oral Tablet 01/24/2020 12:00:00 AM EDT eCW1 ([facility]) Mupirocin 0.02 MG/MG Topical Ointment 01/24/2020 12:00:00 AM EDT eCW1 ([facility]) Albuterol Sulfate HFA 108 (90 Base) MCG/ACT 07/10/2019 12:00:00 AM EDT eCW1 ([facility]) Acetaminophen 650 MG 05/16/2019 12:00:00 AM EST eCW1 ([facility]) Trazodone Hydrochloride 50 MG Oral Tablet ABEL ([facility]) Naproxen 500 MG Oral Tablet ABEL ([facility]) Clonidine Hydrochloride 0.1 MG Oral Tablet ABEL ([facility]) atorvastatin 40 MG Oral Tablet ABEL ([facility]) atorvastatin 20 MG Oral Tablet ABEL ([facility]) Naproxen 500 MG Oral Tablet ABEL ([facility]) Naproxen 500 MG Oral Tablet ABEL ([facility]) Naproxen 500 MG Oral Tablet ABEL ([facility]) Naproxen 500 MG Oral Tablet ABEL ([facility]) Naproxen 500 MG Oral Tablet ABEL ([facility]) Naproxen 500 MG Oral Tablet ABEL ([facility]) Naproxen 500 MG Oral Tablet ABEL ([facility])
[2020-04-22 11:18] LABS: BASO % 0.4 % (0.0-1.0); EOS # 0.1 10^3/uL (0.0-0.5); EOS % 1.7 % (0.0-3.0); HEMATOCRIT 43.6 % (42.0-52.0); HEMOGLOBIN 14.4 g/dl (13.5-17.5); LYMPH # 1.1 10^3/uL (1.5-5.0); LYMPH % 16.4 % (24.0-44.0); MEAN CORPUSCULAR HEMOGLOBIN 29.5 pg (27.0-33.0); MEAN CORPUSCULAR VOLUME 89.3 fl (80.0-96.0); MONO # 0.5 10^3/uL (0.0-0.8); MONO % 7.8 % (0.0-5.0); NEUTROPHILS % 72.7 % (36.0-66.0); PLATELET COUNT, AUTOMATED 166 10^3/uL (150-450); RED BLOOD COUNT 4.88 10^6/uL (4.30-6.10); WHITE BLOOD COUNT 6.9 10^3/uL (4.0-10.0)
[2020-04-22 11:40] LABS: ALBUMIN 4.3 GM/DL (3.2-5.2); ALT/SGPT 107 U/L (12-78); BILIRUBIN,DIRECT 0.3 MG/DL (0.0-0.2); BILIRUBIN,TOTAL 1.1 MG/DL (0.2-1.0); BLOOD UREA NITROGEN 16 MG/DL (7-18); C REACTIVE PROTEIN QUANTITATIV 0.51 MG/DL (0.00-0.30); CALCIUM LEVEL 9.3 MG/DL (8.5-10.1); CARBON DIOXIDE LEVEL 27 MEQ/L (21-32); CHLORIDE LEVEL 105 MEQ/L (98-107); CREATININE FOR GFR 1.11 MG/DL (0.70-1.30); GLOMERULAR FILTRATION RATE > 60.0 (>56); GLUCOSE, FASTING 130 MG/DL (70-100); POTASSIUM SERUM 3.8 MEQ/L (3.5-5.1); SODIUM LEVEL 139 MEQ/L (136-145); TOTAL PROTEIN 7.6 GM/DL (6.4-8.2)
[2020-04-22 12:12] LABS: ERYTHROCYTE SEDIMENTATION RATE 6 mm/hr (0-20)
[2020-04-22] MEDS ORDERED: PRED20TA PO (13:34)
--- NOTE | 2020-04-22 13:37 | REP ---
INDICATION: petechia r/o sarcoidosis. COMPARISON: Comparison chest x-ray June 13, 2016. TECHNIQUE: Two views.. FINDINGS: There is minimal linear fibrosis in the left base. Lungs are well inflated and otherwise clear. Pleural angles are sharp. Heart size is normal. An pulmonary vasculature is not increased. There are mild degenerative changes in the thoracic spine. There is an orthopedic fixation device in the left glenoid. IMPRESSION: No active disease.. <Electronically signed by Leno Alfaro > 04/22/20 [id number]
[2020-04-22 13:39] VITALS: BP 108/69
== END 2020-04-22 13:43 | disposition home or self-care (01) ==
LOC: M ED 10:22
DX: L95.8 Other vasculitis limited to the skin (principal); Z79.1 Long term (current) use of non-steroidal anti-inflammatories (NSAID); Z79.899 Other long term (current) drug therapy; Z79.52 Long term (current) use of systemic steroids; Z88.1 Allergy status to other antibiotic agents; Z88.8 Allergy status to other drugs, medicaments and biological substances

== ENCOUNTER → 2020-04-23 | Outpatient (REF) | payer OTHER ==
[~2020-04-23] MED LIST changes: +PRED20TA PO
== END ==
LOC: M LAB REF 18:33
PROVIDERS: ATTEND Dermatology
DX: L30.9 Dermatitis, unspecified (principal)

== ENCOUNTER → 2020-04-23 | Outpatient (CLI) | payer OTHER ==
[2020-04-23 16:48] LABS: ALBUMIN 4.8 GM/DL (3.2-5.2); BILIRUBIN,TOTAL 1.2 MG/DL (0.2-1.0); C REACTIVE PROTEIN QUANTITATIV 0.33 MG/DL (0.00-0.30); CALCIUM LEVEL 10.4 MG/DL (8.5-10.1); CREATININE FOR GFR 1.47 MG/DL (0.70-1.30); GLOMERULAR FILTRATION RATE 52.4 (>56); POTASSIUM SERUM 3.9 MEQ/L (3.5-5.1); TOTAL PROTEIN 8.6 GM/DL (6.4-8.2)
[2020-04-23 17:02] LABS: APPEARANCE, URINE HAZY (CLEAR); BACTERIA, URINE AUTO NEGATIVE (NEGATIVE); BILIRUBIN, URINE AUTO NEGATIVE (NEGATIVE); BLOOD, URINE BLOOD NEGATIVE (NEGATIVE); COLOR, URINE AMBER (YELLOW); GLUCOSE, URINE (UA) AUTO NEGATIVE (NEGATIVE); KETONE, URINE AUTO NEGATIVE (NEGATIVE); LEUKOCYTE ESTERASE, URINE AUTO NEGATIVE (NEGATIVE); MUCUS, URINE SMALL (NEGATIVE); NITRITE, URINE AUTO NEGATIVE (NEGATIVE); PROTEIN, URINE AUTO NEGATIVE (NEGATIVE); RBC, URINE AUTO 0 /HPF (0-3); SPECIFIC GRAVITY URINE AUTO 1.021 (1.002-1.035); SQUAMOUS EPITHELIAL CELL UR AU 0 /HPF (0-6); UROBILINOGEN, URINE AUTO 0.2 mg/dL (0.0-2.0); WBC, URINE AUTO 1 /HPF (0-3)
== END ==
LOC: M LAB 15:35
PROVIDERS: ATTEND Dermatology
DX: R23.3 Spontaneous ecchymoses (principal)

== ENCOUNTER → 2020-05-01 | Outpatient (CLI) | payer OTHER ==
[2020-05-01 12:06] LABS: ALBUMIN 4.1 GM/DL (3.2-5.2); ALT/SGPT 134 U/L (12-78); BILIRUBIN,TOTAL 1.1 MG/DL (0.2-1.0); BLOOD UREA NITROGEN 22 MG/DL (7-18); CALCIUM LEVEL 9.4 MG/DL (8.5-10.1); CARBON DIOXIDE LEVEL 29 MEQ/L (21-32); CHLORIDE LEVEL 101 MEQ/L (98-107); GLOMERULAR FILTRATION RATE > 60.0 (>56); GLUCOSE, FASTING 165 MG/DL (70-100); POTASSIUM SERUM 3.8 MEQ/L (3.5-5.1); SODIUM LEVEL 138 MEQ/L (136-145); TOTAL PROTEIN 7.4 GM/DL (6.4-8.2)
== END ==
LOC: M LAB 10:46
PROVIDERS: ATTEND Dermatology
DX: I77.6 Arteritis, unspecified (principal)

== ENCOUNTER → 2020-05-27 | Outpatient (CLI) | payer OTHER ==
[2020-05-27 10:30] LABS: ALBUMIN 4.2 GM/DL (3.2-5.2); ALT/SGPT 80 U/L (12-78); BILIRUBIN,TOTAL 1.2 MG/DL (0.2-1.0); BLOOD UREA NITROGEN 12 MG/DL (7-18); C REACTIVE PROTEIN QUANTITATIV 0.71 MG/DL (0.00-0.30); CARBON DIOXIDE LEVEL 28 MEQ/L (21-32); CHLORIDE LEVEL 104 MEQ/L (98-107); CREATININE FOR GFR 1.06 MG/DL (0.70-1.30); GLOMERULAR FILTRATION RATE > 60.0 (>56); GLUCOSE, FASTING 113 MG/DL (70-100); POTASSIUM SERUM 3.8 MEQ/L (3.5-5.1); SODIUM LEVEL 139 MEQ/L (136-145)
== END ==
LOC: M LAB 09:20
PROVIDERS: ATTEND Student in an Organized Health Care Education/Training Program
DX: I77.6 Arteritis, unspecified (principal)

== ENCOUNTER → 2020-06-19 | Outpatient (CLI) | payer OTHER ==
[2020-06-19 12:59] LABS: CHOLESTEROL LEVEL 126 MG/DL (<200); CHOLESTEROL RISK RATIO 3.315 (<5); HDL CHOLESTEROL 38 MG/DL (>40); LDL CHOLESTEROL 52 MG/DL (<100); NON-HDL-C 88 MG/DL; TOTAL PROTEIN 7.7 GM/DL (6.4-8.2); TRIGLYCERIDES LEVEL 181 MG/DL (<150)
[2020-06-22 11:25] LABS: ALBUMIN 4.56 GM/DL (3.29-5.55); ALBUMIN % 59.2 % (55.8-66.1); ALPHA-1-GLOBULIN % 4.4 % (2.9-4.9); ALPHA-1-GLOBULINS 0.34 GM/DL (0.17-0.41); ALPHA-2-GLOBULINS 0.95 GM/DL (0.42-0.99); ALPHA-2-GLOBULINS % 12.4 % (7.1-11.8); BETA-1-GLOBULINS 0.45 GM/DL (0.28-0.60); BETA-1-GLOBULINS % 5.9 % (4.7-7.2); BETA-2-GLOBULINS 0.38 GM/DL (0.19-0.55); BETA-2-GLOBULINS % 4.9 % (3.2-6.5); GAMMA GLOBULIN % 13.2 % (11.1-18.8); GAMMA GLOBULINS 1.02 GM/DL (0.65-1.58)
== END ==
LOC: M LAB 11:29
PROVIDERS: ATTEND Student in an Organized Health Care Education/Training Program
DX: I77.6 Arteritis, unspecified (principal); E78.2 Mixed hyperlipidemia

== ENCOUNTER → 2020-06-20 | Outpatient (REF) | payer OTHER | LOC: M LAB REF 13:27 | PROVIDERS: ATTEND Student in an Organized Health Care Education/Training Program | DX: I77.6 Arteritis, unspecified (principal); R74.01 Elevation of levels of liver transaminase levels; H53.8 Other visual disturbances; R21 Rash and other nonspecific skin eruption ==

== ENCOUNTER → 2020-08-13 | Outpatient (CLI) | payer OTHER ==
[~2020-08-13] MED LIST changes: +GABA-283 PO; -GABA-845 PO
--- NOTE | 2020-08-13 13:40 | REP ---
INDICATION: PAIN IN LEFT HIP Nontraumatic hip pain. COMPARISON: None. TECHNIQUE: Frontal view of the pelvis with neutral and frog lateral views of the left hip. FINDINGS: No acute fracture or dislocation. Hip joints demonstrate increased sclerosis along the acetabular roof with mild joint space narrowing which appears relatively symmetric. No further osteoarthritic or inflammatory arthritic changes are appreciated. No periarticular calcifications are identified. No subcutaneous emphysema or foreign body. IMPRESSION: Mild arthritic changes. <Electronically signed by Steve Bettencourt > 08/13/20 1503
--- NOTE | 2020-08-13 13:42 | REP ---
INDICATION: PAIN IN LEFT HIP COMPARISON: None. TECHNIQUE: AP and lateral views of the left knee. FINDINGS: Minimal degenerative changes include cortical irregularity at the femoral condyles with very minimal medial joint space narrowing. No acute fracture or dislocation. No definite effusion. IMPRESSION: Minimal age-related degenerative changes suggested. <Electronically signed by Steve Bettencourt > 08/13/20 [id number]
== END ==
LOC: M RAD 10:47
PROVIDERS: ATTEND Student in an Organized Health Care Education/Training Program
DX: M25.552 Pain in left hip (principal)

== ENCOUNTER 2020-12-01 13:21 | Emergency (ER) | payer OTHER ==
[~2020-12-01] VITALS: Ht 162.6 cm; Wt 96.2 kg
[~2020-12-01 13:21] MED LIST changes: -ARIP1TAB2 PO; +ARIP1TAB43 PO
[2020-12-01 13:57] VITALS: BP 117/73
[2020-12-01] MEDS ORDERED: KETOROLAC TROMETHAMINE 10 MG TAB PO ONE (19:25)
--- NOTE | 2020-12-01 20:06 | REP ---
INDICATION: bicep pain/bruising "felt a pop". COMPARISON: None. TECHNIQUE: Soft tissue sonography left upper outer arm. Right side for comparison. FINDINGS: Soft tissue sonography is targeted to the area of bruising in the upper outer aspect of the left arm. No abnormal fluid collection is seen. No muscle disruption or significant asymmetry is seen. Contralateral scanning for comparison purposes. IMPRESSION: No abnormal fluid collection or sonographic evidence of muscle tear seen. If clinical suspicion remains high of a muscle or tendon disruption, MRI scanning may be considered. <Electronically signed by Leno Alfaro > 12/01/202001
== END 2020-12-01 22:12 | disposition home or self-care (01) ==
LOC: M ED 13:21
DX: S46.212A Strain of muscle, fascia and tendon of other parts of biceps, left arm, initial encounter (principal); S40.022A Contusion of left upper arm, initial encounter; X58.XXXA Exposure to other specified factors, initial encounter; Y92.9 Unspecified place or not applicable; Y93.9 Activity, unspecified; Y99.9 Unspecified external cause status; E78.5 Hyperlipidemia, unspecified; K21.9 Gastro-esophageal reflux disease without esophagitis; M54.9 Dorsalgia, unspecified; Z79.899 Other long term (current) drug therapy; Z88.8 Allergy status to other drugs, medicaments and biological substances

== ENCOUNTER → 2020-12-02 | Outpatient (CLI) | payer OTHER ==
--- NOTE | 2020-12-03 07:11 | REP ---
INDICATION: CONTUSION OF LT ARM. COMPARISON: None. TECHNIQUE: AP and lateral left humerus FINDINGS: Orthopedic screw overlies the left shoulder. Mild degenerative changes include cortical irregularity at the acromioclavicular joint as well as very subtle blunting to the glenoid rim. No evidence for acute fracture or dislocation. No subcutaneous emphysema or foreign body. IMPRESSION: Mild degenerative changes. Prior orthopedic fixation. <Electronically signed by Steve Bettencourt > 12/03/20 [id number]
== END ==
LOC: M SOG 15:12
PROVIDERS: ATTEND Orthopaedic Surgery
DX: S40.022A Contusion of left upper arm, initial encounter (principal); W18.30XA Fall on same level, unspecified, initial encounter; Y92.009 Unspecified place in unspecified non-institutional (private) residence as the place of occurrence of the external cause

== ENCOUNTER → 2020-12-25 | Outpatient (REF) | payer OTHER | LOC: M SFHCPLAZ 10:28 | PROVIDERS: ATTEND Family Medicine | DX: M77.9 Enthesopathy, unspecified (principal) ==

== ENCOUNTER → 2020-12-30 | Outpatient (CLI) | payer OTHER ==
[2020-12-30 11:29] LABS: ALBUMIN 4.2 GM/DL (3.2-5.2); ALT/SGPT 82 U/L (12-78); BILIRUBIN,TOTAL 1.5 MG/DL (0.2-1.0); BLOOD UREA NITROGEN 11 MG/DL (7-18); CALCIUM LEVEL 9.3 MG/DL (8.5-10.1); CARBON DIOXIDE LEVEL 30 MEQ/L (21-32); CHLORIDE LEVEL 103 MEQ/L (98-107); CREATININE FOR GFR 1.01 MG/DL (0.70-1.30); GLOMERULAR FILTRATION RATE > 60.0 (>56); GLUCOSE, FASTING 116 MG/DL (70-100); SODIUM LEVEL 138 MEQ/L (136-145); TOTAL PROTEIN 7.8 GM/DL (6.4-8.2)
== END ==
LOC: M LAB 10:23
PROVIDERS: ATTEND Student in an Organized Health Care Education/Training Program
DX: M17.9 Osteoarthritis of knee, unspecified (principal)

== ENCOUNTER → 2021-01-20 | Outpatient (CLI) | payer OTHER ==
--- NOTE | 2021-01-20 10:11 | REP ---
INDICATION: SCREENING FOR LUNG CA COMPARISON: 01/14/2019, 08/01/2015 TECHNIQUE: Axial noncontrast images from the thoracic inlet to the upper abdomen using low-dose lung screening technique (LDCT). FINDINGS: Moderate emphysematous changes with mild bronchiectasis and subpleural fibrosis and scarring again noted and essentially unchanged. 6 mm noncalcified nodule in the periphery of the right lower lobe (image 62) remains stable. 2 mm noncalcified nodule in the medial left lower lobe (image 68) in retrospect remains stable. No acute consolidation, new suspicious nodule, or mass lesion. No effusion. No pneumothorax. Mediastinum is stable. No significant adenopathy. IMPRESSION: Lung-RADS category 2 stable benign nodules unchanged. Management recommendations include annual low-dose CT surveillance for high risk patients. <Electronically signed by Steve Bettencourt > 01/20/21 [id number]
== END ==
LOC: M RAD 09:15
PROVIDERS: ATTEND Student in an Organized Health Care Education/Training Program
DX: Z12.2 Encounter for screening for malignant neoplasm of respiratory organs (principal); R91.8 Other nonspecific abnormal finding of lung field

== ENCOUNTER → 2021-03-15 | Outpatient (CLI) | payer OTHER ==
[2021-03-15 11:17] LABS: HEMOGLOBIN 13.3 g/dl (13.5-17.5); MEAN CORPUSCULAR HEMOGLOBIN 29.8 pg (27.0-33.0); MEAN CORPUSCULAR HGB CONC 33.3 g/dl (32.0-36.5); MEAN CORPUSCULAR VOLUME 89.7 fl (80.0-96.0); PLATELET COUNT, AUTOMATED 152 10^3/uL (150-450); RED BLOOD COUNT 4.46 10^6/uL (4.30-6.10); WHITE BLOOD COUNT 6.2 10^3/uL (4.0-10.0)
[2021-03-15 11:59] LABS: ALT/SGPT 111 U/L (12-78); BILIRUBIN,TOTAL 1.3 MG/DL (0.2-1.0); BLOOD UREA NITROGEN 14 MG/DL (7-18); CALCIUM LEVEL 9.7 MG/DL (8.5-10.1); CARBON DIOXIDE LEVEL 28 MEQ/L (21-32); CHLORIDE LEVEL 105 MEQ/L (98-107); CREATININE FOR GFR 1.16 MG/DL (0.70-1.30); GLOMERULAR FILTRATION RATE > 60.0 (>56); GLUCOSE, FASTING 191 MG/DL (70-100); MAGNESIUM LEVEL 2.3 MG/DL (1.8-2.4); NT-PRO BNP 122 PG/ML (<125); POTASSIUM SERUM 4.5 MEQ/L (3.5-5.1); SODIUM LEVEL 138 MEQ/L (136-145); TOTAL PROTEIN 7.5 GM/DL (6.4-8.2)
== END ==
LOC: M LAB 10:24
PROVIDERS: ATTEND Physician Assistant
DX: R00.2 Palpitations (principal)

== ENCOUNTER 2021-03-31 13:00 | Outpatient (RCR) | payer OTHER | END 2021-04-02 | LOC: M PT 13:00 | PROVIDERS: ATTEND Nurse Practitioner Family | DX: M47.817 Spondylosis without myelopathy or radiculopathy, lumbosacral region (principal) ==

== ENCOUNTER → 2021-03-31 | Outpatient (REF) | payer OTHER | LOC: M SFHCPLAZ 10:34 | PROVIDERS: ATTEND Family Medicine | DX: K75.81 Nonalcoholic steatohepatitis (NASH) (principal); Z53.8 Procedure and treatment not carried out for other reasons ==

== ENCOUNTER → 2021-04-01 | Outpatient (CLI) | payer OTHER ==
[2021-04-01 11:29] LABS: FERRITIN 149 NG/ML (26-388); IRON (FE) 69 UG/DL (65-175)
[2021-04-02 16:09] LABS: CERULOPLASMIN 25.5 mg/dL (16.0-31.0)
== END ==
LOC: M LAB 10:33
PROVIDERS: ATTEND Student in an Organized Health Care Education/Training Program
DX: K75.81 Nonalcoholic steatohepatitis (NASH) (principal)

== ENCOUNTER → 2021-04-07 | Outpatient (CLI) | payer OTHER ==
--- NOTE | 2021-04-07 09:36 | REP ---
INDICATION: NONALCOHOLIC STEATOHEPATITIS, SPLENOMEGALY COMPARISON: None TECHNIQUE: Real time B-mode hirsch scale ultrasound examination using curved array transducer. FINDINGS: Liver measures 18.5 cm in craniocaudal length and demonstrates coarsened increased hepatic echotexture consistent with fatty infiltration. No focal hepatic lesion identified. Spleen measures 18.4 x 8.7 x 8.3 cm (splenic index 1328) without focal splenic lesion identified. Pancreas is incompletely evaluated but visualized portions appear normal. Gallbladder is normal without gallstones, wall thickening, or pericholecystic fluid. Incidental 3 and 5 mm polyps noted. No biliary ductal dilatation is appreciated and the common bile duct measures 2.1 mm in diameter. The bilateral kidneys are normal in reniform shape without hydronephrosis or obvious abnormality. Right kidney measures 9.4 x 4.9 x 4.4 cm cm. Left kidney measures 11.0 x 4.8 x 5.3 cm cm. Abdominal aorta appears normal and measures 2.2 cm maximal diameter. No ascites. IMPRESSION: 1. Hepatosplenomegaly and hepatosteatosis. 2. Small benign appearing gallbladder polyps. <Electronically signed by Steve Bettencourt > 04/07/21 0933
== END ==
LOC: M WHC 07:07
PROVIDERS: ATTEND Student in an Organized Health Care Education/Training Program
DX: K75.81 Nonalcoholic steatohepatitis (NASH) (principal); R16.2 Hepatomegaly with splenomegaly, not elsewhere classified; K80.20 Calculus of gallbladder without cholecystitis without obstruction

== ENCOUNTER 2021-04-27 19:38 | Emergency (ER) | payer OTHER ==
[~2021-04-27] VITALS: Ht 162.6 cm; Wt 93.6 kg
[~2021-04-27 19:38] MED LIST changes: +EZET10TA21; +FISH1000 PO; +IBUP200C25 PO; +LIDO5DIS41 TD; +METH-1165 PO
[2021-04-27] MEDS ORDERED: CIPRODEX OTIC SUSP 7.5ML AS STA (22:47)
[2021-04-27 22:54] VITALS: BP 135/89
== END 2021-04-28 00:04 | disposition home or self-care (01) ==
LOC: M ED 19:38 → EDBD 19:38 → M ED 04-28 00:04
DX: H92.22 Otorrhagia, left ear (principal); G47.33 Obstructive sleep apnea (adult) (pediatric); E78.5 Hyperlipidemia, unspecified; Z79.899 Other long term (current) drug therapy

== ENCOUNTER → 2021-05-07 | Outpatient (REF) | payer OTHER | LOC: M SFHCPLAZ 11:02 | PROVIDERS: ATTEND Family Medicine | DX: K76.0 Fatty (change of) liver, not elsewhere classified (principal); Z53.9 Procedure and treatment not carried out, unspecified reason ==

== ENCOUNTER → 2021-05-11 | Outpatient (CLI) | payer OTHER | LOC: M LAB 09:21 | PROVIDERS: ATTEND Student in an Organized Health Care Education/Training Program | DX: K76.0 Fatty (change of) liver, not elsewhere classified (principal) ==

== ENCOUNTER → 2021-05-13 | Outpatient (REF) | payer OTHER | LOC: M SFHCPLAZ 09:49 | PROVIDERS: ATTEND Family Medicine | DX: L82.1 Other seborrheic keratosis (principal) ==

== ENCOUNTER → 2021-05-19 | Outpatient (CLI) | payer OTHER ==
[2021-05-19 09:56] LABS: BASO % 0.4 % (0.0-1.0); EOS # 0.1 10^3/uL (0.0-0.5); EOS % 1.4 % (0.0-3.0); HEMATOCRIT 45.2 % (42.0-52.0); HEMOGLOBIN 14.8 g/dl (13.5-17.5); LYMPH # 1.2 10^3/uL (1.5-5.0); LYMPH % 16.6 % (24.0-44.0); MEAN CORPUSCULAR HEMOGLOBIN 28.5 pg (27.0-33.0); MEAN CORPUSCULAR HGB CONC 32.7 g/dl (32.0-36.5); MEAN CORPUSCULAR VOLUME 87.1 fl (80.0-96.0); MONO # 0.5 10^3/uL (0.0-0.8); MONO % 7.4 % (2.0-8.0); NEUTROPHILS # 5.1 10^3/uL (1.5-8.5); NEUTROPHILS % 73.5 % (36.0-66.0); PLATELET COUNT, AUTOMATED 153 10^3/uL (150-450); RED BLOOD COUNT 5.19 10^6/uL (4.30-6.10)
[2021-05-19 10:07] LABS: INR 1.04
== END ==
LOC: M LAB 09:23
PROVIDERS: ATTEND Student in an Organized Health Care Education/Training Program
DX: K76.0 Fatty (change of) liver, not elsewhere classified (principal)

== ENCOUNTER → 2021-05-28 | Outpatient (CLI) | payer OTHER ==
[~2021-05-28] MED LIST changes: +LIDOCAINE 1% MDV 20ML VIAL As Ordered ONE
[2021-05-28 10:40] VITALS: BP 111/65
== END ==
LOC: M IRPRO 07:23
PROVIDERS: ATTEND Student in an Organized Health Care Education/Training Program
DX: R16.2 Hepatomegaly with splenomegaly, not elsewhere classified (principal); K76.0 Fatty (change of) liver, not elsewhere classified

== ENCOUNTER → 2021-06-08 | Outpatient (CLI) | payer OTHER ==
[~2021-06-08] MED LIST changes: -LIDOCAINE 1% MDV 20ML VIAL As Ordered ONE
[2021-06-08 09:43] LABS: HEMATOCRIT 41.4 % (42.0-52.0); HEMOGLOBIN 13.9 g/dl (13.5-17.5); MEAN CORPUSCULAR HEMOGLOBIN 29.2 pg (27.0-33.0); MEAN CORPUSCULAR HGB CONC 33.6 g/dl (32.0-36.5); PLATELET COUNT, AUTOMATED 148 10^3/uL (150-450); RED BLOOD COUNT 4.76 10^6/uL (4.30-6.10); WHITE BLOOD COUNT 5.8 10^3/uL (4.0-10.0)
== END ==
LOC: M LAB 08:17
PROVIDERS: ATTEND Student in an Organized Health Care Education/Training Program
DX: K92.1 Melena (principal)

== ENCOUNTER 2021-06-28 12:45 | Emergency (ER) | payer OTHER ==
[~2021-06-28] VITALS: Ht 162.6 cm; Wt 97.0 kg
[~2021-06-28 12:45] MED LIST changes: -HYDR-3363; -LEXA5TAB13
[2021-06-28] MEDS ORDERED: HYDR-3363 (13:11)
[2021-06-28] MEDS ORDERED: LEXA5TAB13 (13:11)
[2021-06-28] MEDS ORDERED: ACETAMINOPHEN 325 MG TAB PO ONE (16:20)
[2021-06-28] MEDS ORDERED: KETOROLAC 60MG 2ML VIAL IM ONE (16:20)
[2021-06-28] MEDS ORDERED: PRED20TA PO (17:20)
[2021-06-28 17:29] VITALS: BP 129/66
== END 2021-06-28 17:32 | disposition home or self-care (01) ==
LOC: M ED 12:45
DX: G89.29 Other chronic pain (principal); M54.50 Low back pain, unspecified; I25.10 Atherosclerotic heart disease of native coronary artery without angina pectoris; K21.9 Gastro-esophageal reflux disease without esophagitis; G47.33 Obstructive sleep apnea (adult) (pediatric); E78.5 Hyperlipidemia, unspecified; Z87.442 Personal history of urinary calculi; Z79.899 Other long term (current) drug therapy
CPT/HCPCS: 72072; 72110; 96372; 99283; J1885

== ENCOUNTER → 2021-06-28 | Outpatient (CLI) | payer OTHER ==
[~2021-06-28] MED LIST changes: +HYDR-3363; +LEXA5TAB13
== END ==
LOC: M RAD 11:50
PROVIDERS: ATTEND Student in an Organized Health Care Education/Training Program
DX: M54.42 Lumbago with sciatica, left side (principal)

== ENCOUNTER → 2021-07-13 | Outpatient (CLI) | payer OTHER ==
[~2021-07-13] MED LIST changes: +HYDR-3363; +LEXA5TAB13; +METHACHOLINE KIT (J7674) INH ONE
== END ==
LOC: M CARPUL 14:32
PROVIDERS: ATTEND Internal Medicine Pulmonary Disease
DX: R06.02 Shortness of breath (principal)

== ENCOUNTER → 2021-08-05 | Outpatient (CLI) | payer OTHER, SELFPAY ==
[~2021-08-05] MED LIST changes: +ASPI81TA26 PO; +LEXA1TAB
== END ==
LOC: M CARPUL 15:14
PROVIDERS: ATTEND Internal Medicine Pulmonary Disease
DX: R06.02 Shortness of breath (principal)
CPT/HCPCS: 94070; 95070; J7674

== ENCOUNTER → 2021-08-16 | Outpatient (CLI) | payer OTHER ==
[~2021-08-16] MED LIST changes: -METHACHOLINE KIT (J7674) INH ONE
== END ==
LOC: M RAD 09:16
PROVIDERS: ATTEND Student in an Organized Health Care Education/Training Program
DX: M51.36 Other intervertebral disc degeneration, lumbar region (principal)

== ENCOUNTER → 2021-08-26 | Outpatient (CLI) | payer OTHER | LOC: M LAB 15:08 | PROVIDERS: ATTEND Nurse Practitioner Women's Health | DX: Z12.5 Encounter for screening for malignant neoplasm of prostate (principal) ==

== ENCOUNTER → 2021-09-08 | Outpatient (CLI) | payer OTHER | LOC: M LABSMTC 09:06 | PROVIDERS: ATTEND Anesthesiology | DX: Z20.822 Contact with and (suspected) exposure to COVID-19 (principal) ==

== ENCOUNTER 2021-09-13 10:04 | Day surgery (SDC) | payer OTHER ==
[~2021-09-13] VITALS: Ht 162.6 cm; Wt 92.9 kg
[~2021-09-13 10:04] MED LIST changes: +ALBU8.5H INH; -EZET10TA21; +EZET10TA21 PO; -HYDR-3363; +HYDR-3363 PO; +LEXA1TAB PO; +LIDOCAINE 2% 100MG/5ML SDV (FOR ANES.) As Ordered ONE; +METF750T36 PO; +MULT-90 PO; +NS 1,000 ML IV ONE; +OXYB10TA23 PO; +PRAV40TA2 PO; +TIZA10TA PO; +VITA100020 PO; +propofoL 200 MG/20 ML VIAL As Ordered ONE
[2021-09-13] MEDS ORDERED: fentaNYL 100 MCG/2 ML INJECTION As Ordered ONE (10:20)
[2021-09-13] MEDS ORDERED: propofoL 200 MG/20 ML VIAL As Ordered ONE (12:43)
[2021-09-13 13:20] VITALS: BP 120/66
== END 2021-09-13 13:52 | disposition home or self-care (01) ==
LOC: M OPP 10:04
PROVIDERS: ATTEND Internal Medicine Gastroenterology
DX: Z86.010 Personal history of colon polyps (principal); Z80.0 Family history of malignant neoplasm of digestive organs; K63.5 Polyp of colon; D12.5 Benign neoplasm of sigmoid colon; K57.30 Diverticulosis of large intestine without perforation or abscess without bleeding; K64.8 Other hemorrhoids; K44.9 Diaphragmatic hernia without obstruction or gangrene; R12 Heartburn; K76.0 Fatty (change of) liver, not elsewhere classified; Z79.52 Long term (current) use of systemic steroids; Z79.82 Long term (current) use of aspirin; Z79.84 Long term (current) use of oral hypoglycemic drugs; Z79.891 Long term (current) use of opiate analgesic; Z79.899 Other long term (current) drug therapy; Z92.3 Personal history of irradiation
CPT/HCPCS: 43235; 45385; 88305; J3010

== ENCOUNTER → 2021-09-30 | Outpatient (CLI) | payer OTHER ==
[~2021-09-30] MED LIST changes: -LIDOCAINE 2% 100MG/5ML SDV (FOR ANES.) As Ordered ONE; -NS 1,000 ML IV ONE; -propofoL 200 MG/20 ML VIAL As Ordered ONE
== END ==
LOC: M RAD 07:55
PROVIDERS: ATTEND Student in an Organized Health Care Education/Training Program
DX: R19.8 Other specified symptoms and signs involving the digestive system and abdomen (principal)

== ENCOUNTER → 2021-10-07 | Outpatient (CLI) | payer OTHER ==
[2021-10-07 11:51] LABS: HEMATOCRIT 41.8 % (42.0-52.0); HEMOGLOBIN 13.9 g/dl (13.5-17.5); MEAN CORPUSCULAR HEMOGLOBIN 29.8 pg (27.0-33.0); MEAN CORPUSCULAR HGB CONC 33.3 g/dl (32.0-36.5); MEAN CORPUSCULAR VOLUME 89.5 fl (80.0-96.0); PLATELET COUNT, AUTOMATED 147 10^3/uL (150-450); RED BLOOD COUNT 4.67 10^6/uL (4.30-6.10); WHITE BLOOD COUNT 8.1 10^3/uL (4.0-10.0)
[2021-10-07 12:24] LABS: ALBUMIN 3.9 GM/DL (3.2-5.2); ALT/SGPT 65 U/L (12-78); BILIRUBIN,DIRECT 0.4 MG/DL (0.0-0.2); BILIRUBIN,TOTAL 1.4 MG/DL (0.2-1.0); IRON (FE) 62 UG/DL (65-175); PERCENT SATURATION 16.7 % (19.7-50.0); TOTAL IRON BINDING CAPACITY 371 UG/DL (250-450)
[2021-10-07 12:54] LABS: HEPATITIS B SURFACE ANTIGEN NEGATIVE (NEGATIVE)
[2021-10-07 13:22] LABS: HEPATITIS B CORE ANTIBODY IGM NEGATIVE (NEGATIVE); HEPATITIS C VIRUS ABY INDEX 0.1 INDEX (<0.8)
[2021-10-11 16:09] LABS: ANCA-ATYPICAL <1:20 titer (Neg:<1:20); ANTI-MITOCHONDRIAL ANTIBODY <20.0 Units (0.0-20.0); ANTINUCLEAR ANTIBODIES DIRECT Negative (Negative); CERULOPLASMIN 18.9 mg/dL (16.0-31.0); CYTOPLASMIC NEUTROP AB ANCA-C <1:20 titer (Neg:<1:20); LIVER-KIDNEY MICROSOMAL ABY <20.1 Units (0.0-20.0); PERINUCLEAR AB ANCA-P <1:20 titer (Neg:<1:20)
== END ==
LOC: M LAB 10:36
PROVIDERS: ATTEND Physician Assistant Medical
DX: K74.60 Unspecified cirrhosis of liver (principal)

== ENCOUNTER 2021-10-27 13:30 | Emergency (ER) | payer OTHER ==
[2021-10-27 14:19] LABS: BASO % 0.4 % (0.0-1.0); EOS # 0.2 10^3/uL (0.0-0.5); EOS % 2.2 % (0.0-3.0); HEMATOCRIT 39.6 % (42.0-52.0); HEMOGLOBIN 13.4 g/dl (13.5-17.5); LYMPH % 26.8 % (24.0-44.0); MEAN CORPUSCULAR HEMOGLOBIN 29.7 pg (27.0-33.0); MEAN CORPUSCULAR HGB CONC 33.8 g/dl (32.0-36.5); MEAN CORPUSCULAR VOLUME 87.8 fl (80.0-96.0); MONO # 0.7 10^3/uL (0.0-0.8); NEUTROPHILS # 4.5 10^3/uL (1.5-8.5); NEUTROPHILS % 61.1 % (36.0-66.0); PLATELET COUNT, AUTOMATED 147 10^3/uL (150-450); RED BLOOD COUNT 4.51 10^6/uL (4.30-6.10); WHITE BLOOD COUNT 7.3 10^3/uL (4.0-10.0)
[2021-10-27] MEDS ORDERED: NS 500 ML IV ONE (14:20)
[2021-10-27 14:34] LABS: BLOOD UREA NITROGEN 12 MG/DL (7-18); CALCIUM LEVEL 9.7 MG/DL (8.5-10.1); CARBON DIOXIDE LEVEL 25 MEQ/L (21-32); CHLORIDE LEVEL 107 MEQ/L (98-107); CREATININE FOR GFR 0.92 MG/DL (0.70-1.30); GLOMERULAR FILTRATION RATE > 60.0 (>56); GLUCOSE, FASTING 69 MG/DL (70-100); POTASSIUM SERUM 4.3 MEQ/L (3.5-5.1); SODIUM LEVEL 139 MEQ/L (136-145)
[2021-10-27 14:59] LABS: ALT/SGPT 60 U/L (12-78); BILIRUBIN,DIRECT 0.3 MG/DL (0.0-0.2); BILIRUBIN,TOTAL 1.2 MG/DL (0.2-1.0)
[2021-10-27 15:00] LABS: TOTAL PROTEIN 7.2 GM/DL (6.4-8.2)
[2021-10-27 16:57] VITALS: BP 117/78
== END 2021-10-27 16:59 | disposition home or self-care (01) ==
LOC: EDBD 13:30 → M ED 13:30
DX: R03.1 Nonspecific low blood-pressure reading (principal); E78.5 Hyperlipidemia, unspecified; I25.10 Atherosclerotic heart disease of native coronary artery without angina pectoris; Z88.8 Allergy status to other drugs, medicaments and biological substances; Z91.048 Other nonmedicinal substance allergy status; Z79.899 Other long term (current) drug therapy; Z79.82 Long term (current) use of aspirin; Z79.84 Long term (current) use of oral hypoglycemic drugs

== ENCOUNTER → 2021-11-25 | Outpatient (REF) | payer OTHER ==
[2021-11-25 14:21] LABS: APPEARANCE, URINE MANUAL CLEAR (CLEAR); COLOR, URINE MANUAL YELLOW (YELLOW)
[2021-11-25 14:22] LABS: PH,URINE MAN 6.5 UNITS (5.0 - 7.0); SPECIFIC GRAVITY,URINE MANUAL 1.012 (1.002-1.035)
[2021-11-25 14:24] LABS: BILIRUBIN, URINE MANUAL NEGATIVE (NEGATIVE); BLOOD URINE MANUAL NEGATIVE (NEGATIVE); GLUCOSE, URINE (UA) MANUAL NEGATIVE (NEGATIVE); KETONE, URINE MANUAL NEGATIVE (NEGATIVE); LEUKOCYTE ESTERASE, URINE MAN POSITIVE (NEGATIVE); NITRITE, URINE MANUAL NEGATIVE (NEGATIVE); PROTEIN, URINE MANUAL TRACE mg/dL (NEGATIVE); UROBILINOGEN, URINE MANUAL NORMAL (NORMAL)
[2021-11-25 14:30] LABS: RBC, URINE 0-1 /hpf (0-3); SQUAMOUS EPITHELIAL CELL URINE SMALL AMOUNT /hpf (SMALL AMT)
[2021-11-25 14:31] LABS: BACTERIA, URINE SMALL AMOUNT; HYALINE CAST, URINE NONE SEEN /lpf (0-1)
== END ==
LOC: M SMT 13:14
PROVIDERS: ATTEND Nurse Practitioner Women's Health
DX: R39.15 Urgency of urination (principal)

== ENCOUNTER → 2022-01-06 | Outpatient (CLI) | payer OTHER | LOC: M RAD 12:41 | PROVIDERS: ATTEND Nurse Practitioner Family | DX: M25.551 Pain in right hip (principal) ==

== ENCOUNTER → 2022-01-06 | Outpatient (CLI) | payer OTHER ==
[2022-01-06 13:49] LABS: HEMATOCRIT 44.7 % (42.0-52.0); HEMOGLOBIN 15.2 g/dl (13.5-17.5); MEAN CORPUSCULAR HEMOGLOBIN 30.2 pg (27.0-33.0); MEAN CORPUSCULAR VOLUME 88.9 fl (80.0-96.0); PLATELET COUNT, AUTOMATED 151 10^3/uL (150-450); RED BLOOD COUNT 5.03 10^6/uL (4.30-6.10); WHITE BLOOD COUNT 7.7 10^3/uL (4.0-10.0)
[2022-01-06 14:31] LABS: ALBUMIN 4.4 GM/DL (3.2-5.2); ALT/SGPT 77 U/L (12-78); BILIRUBIN,TOTAL 1.2 MG/DL (0.2-1.0); BLOOD UREA NITROGEN 17 MG/DL (7-18); CALCIUM LEVEL 9.8 MG/DL (8.5-10.1); CARBON DIOXIDE LEVEL 26 MEQ/L (21-32); CHLORIDE LEVEL 104 MEQ/L (98-107); CHOLESTEROL LEVEL 179 MG/DL (<200); CHOLESTEROL RISK RATIO 4.365 (<5); CREATININE FOR GFR 0.92 MG/DL (0.70-1.30); GLOMERULAR FILTRATION RATE > 60.0 (>56); GLUCOSE, FASTING 86 MG/DL (70-100); HDL CHOLESTEROL 41 MG/DL (>40); LDL CHOLESTEROL 84 MG/DL (<100); NON-HDL-C 138 MG/DL; SODIUM LEVEL 137 MEQ/L (136-145); TOTAL PROTEIN 7.9 GM/DL (6.4-8.2); TRIGLYCERIDES LEVEL 268 MG/DL (<150)
[2022-01-06 14:35] LABS: MALB URINE SIEMENS 5.9 MG/L
[2022-01-06 15:06] LABS: HEMOGLOBIN A1c 5.4 %
== END ==
LOC: M LAB 12:37
PROVIDERS: ATTEND Student in an Organized Health Care Education/Training Program
DX: R73.09 Other abnormal glucose (principal); E78.5 Hyperlipidemia, unspecified; G47.33 Obstructive sleep apnea (adult) (pediatric)

== ENCOUNTER → 2022-03-14 | Outpatient (CLI) | payer OTHER ==
[2022-03-14 11:20] LABS: HEMATOCRIT 44.1 % (42.0-52.0); HEMOGLOBIN 14.4 g/dl (13.5-17.5); MEAN CORPUSCULAR HEMOGLOBIN 29.6 pg (27.0-33.0); MEAN CORPUSCULAR HGB CONC 32.7 g/dl (32.0-36.5); MEAN CORPUSCULAR VOLUME 90.6 fl (80.0-96.0); PLATELET COUNT, AUTOMATED 142 10^3/uL (150-450); RED BLOOD COUNT 4.87 10^6/uL (4.30-6.10); WHITE BLOOD COUNT 5.4 10^3/uL (4.0-10.0)
[2022-03-14 11:47] LABS: HEMOGLOBIN A1c 5.2 % (4.0-6.0)
[2022-03-14 11:57] LABS: ALBUMIN 4.3 G/DL (3.2-5.2); ALKALINE PHOSPHATASE 66 U/L (46-116); ALT/SGPT 61 U/L (7.0-40); AST/SGOT 40 U/L (<34); BILIRUBIN,TOTAL 1.2 MG/DL (0.3-1.2); BLOOD UREA NITROGEN 14 MG/DL (9-23); CALCIUM LEVEL 8.9 MG/DL (8.3-10.6); CARBON DIOXIDE LEVEL 26 MMOL/L (20-31); CHLORIDE LEVEL 105 MMOL/L (98-107); CHOLESTEROL LEVEL 146 MG/DL (<200); CHOLESTEROL RISK RATIO 4.23 (<5); CREATININE FOR GFR 0.88 MG/DL (0.70-1.30); GLOMERULAR FILTRATION RATE > 60.0 (>49); GLUCOSE, FASTING 112 MG/DL (74-106); HDL CHOLESTEROL 34.5 MG/DL (>40); LDL CHOLESTEROL 70.5 MG/DL (<100); NON-HDL-C 112 MG/DL; POTASSIUM SERUM 3.8 MMOL/L (3.5-5.1); SODIUM LEVEL 140 MMOL/L (136-145); TOTAL PROTEIN 7.2 G/DL (5.7-8.2); TRIGLYCERIDES LEVEL 205 MG/DL (<150)
== END ==
LOC: M LAB 10:18
PROVIDERS: ATTEND Student in an Organized Health Care Education/Training Program
DX: G47.33 Obstructive sleep apnea (adult) (pediatric) (principal); E78.2 Mixed hyperlipidemia; R73.09 Other abnormal glucose

== ENCOUNTER → 2022-04-07 | Outpatient (CLI) | payer OTHER | LOC: M SOG 08:16 | PROVIDERS: ATTEND Physician Assistant | DX: M79.642 Pain in left hand (principal) ==

== ENCOUNTER → 2022-04-20 | Outpatient (REF) | payer OTHER | LOC: M LAB REF 09:46 | PROVIDERS: ATTEND Physician Assistant Medical | DX: R19.7 Diarrhea, unspecified (principal) ==

== ENCOUNTER → 2022-04-21 | Outpatient (CLI) | payer OTHER ==
[2022-04-21 07:47] LABS: HEMATOCRIT 44.4 % (42.0-52.0); HEMOGLOBIN 14.6 g/dl (13.5-17.5); MEAN CORPUSCULAR HEMOGLOBIN 29.9 pg (27.0-33.0); MEAN CORPUSCULAR HGB CONC 32.9 g/dl (32.0-36.5); MEAN CORPUSCULAR VOLUME 90.8 fl (80.0-96.0); PLATELET COUNT, AUTOMATED 148 10^3/uL (150-450); RED BLOOD COUNT 4.89 10^6/uL (4.30-6.10); WHITE BLOOD COUNT 6.5 10^3/uL (4.0-10.0)
[2022-04-21 08:06] LABS: BILIRUBIN,DIRECT 0.3 MG/DL (<0.4)
[2022-04-21 08:07] LABS: ALBUMIN 4.4 G/DL (3.2-5.2); BILIRUBIN,TOTAL 1.1 MG/DL (0.3-1.2); TOTAL PROTEIN 7.2 G/DL (5.7-8.2)
== END ==
LOC: M LAB 07:00
PROVIDERS: ATTEND Physician Assistant Medical
DX: K74.60 Unspecified cirrhosis of liver (principal); R19.7 Diarrhea, unspecified

== ENCOUNTER → 2022-04-21 | Outpatient (CLI) | payer OTHER | LOC: M RAD 06:50 | PROVIDERS: ATTEND Student in an Organized Health Care Education/Training Program | DX: K76.0 Fatty (change of) liver, not elsewhere classified (principal) ==

== ENCOUNTER → 2022-04-26 | Outpatient (CLI) | payer OTHER | LOC: M LABSMTC 10:44 | PROVIDERS: ATTEND Pain Medicine Interventional Pain Medicine | DX: Z20.822 Contact with and (suspected) exposure to COVID-19 (principal) ==

== ENCOUNTER 2022-05-25 08:50 | Emergency (ER) | payer OTHER ==
[~2022-05-25] VITALS: Ht 162.6 cm; Wt 93.7 kg
[2022-05-25] MEDS ORDERED: GI COCKTAIL 50ML BTL(HYOSCYAMINE/MAALOX/LIDOCAINE VISCOUS)(1:3:1) PO ONE (09:30)
[2022-05-25] MEDS ORDERED: PANTOPRAZOLE 40MG VIAL IV ONE (09:30)
[2022-05-25 09:49] LABS: BASO % 0.6 % (0.0-1.0); EOS # 0.1 10^3/uL (0.0-0.5); EOS % 1.9 % (0.0-3.0); HEMATOCRIT 45.3 % (42.0-52.0); HEMOGLOBIN 15.2 g/dl (13.5-17.5); LYMPH # 1.9 10^3/uL (1.5-5.0); LYMPH % 26.9 % (24.0-44.0); MEAN CORPUSCULAR HEMOGLOBIN 30.2 pg (27.0-33.0); MEAN CORPUSCULAR HGB CONC 33.6 g/dl (32.0-36.5); MEAN CORPUSCULAR VOLUME 89.9 fl (80.0-96.0); MONO # 0.7 10^3/uL (0.0-0.8); MONO % 9.4 % (2.0-8.0); NEUTROPHILS # 4.2 10^3/uL (1.5-8.5); NEUTROPHILS % 60.5 % (36.0-66.0); PLATELET COUNT, AUTOMATED 161 10^3/uL (150-450); RED BLOOD COUNT 5.04 10^6/uL (4.30-6.10); WHITE BLOOD COUNT 6.9 10^3/uL (4.0-10.0)
[2022-05-25 10:00] LABS: INR 1.01; PROTHROMBIN TIME 13.5 SECONDS (12.5-14.5)
[2022-05-25 12:04] LABS: LIPASE 38 U/L (12-53)
[2022-05-25 12:12] LABS: ALBUMIN 4.3 G/DL (3.2-5.2); ALKALINE PHOSPHATASE 60 U/L (46-116); ALT/SGPT 79 U/L (7.0-40); AST/SGOT 45 U/L (<34); BILIRUBIN,DIRECT 0.2 MG/DL (<0.4); BILIRUBIN,TOTAL 0.9 MG/DL (0.3-1.2); BLOOD UREA NITROGEN 17 MG/DL (9-23); CALCIUM LEVEL 9.8 MG/DL (8.3-10.6); CARBON DIOXIDE LEVEL 23 MMOL/L (20-31); CHLORIDE LEVEL 103 MMOL/L (98-107); CREATININE FOR GFR 0.83 MG/DL (0.70-1.30); GLOMERULAR FILTRATION RATE > 60.0 (>49); GLUCOSE, FASTING 104 MG/DL (74-106); POTASSIUM SERUM 4.4 MMOL/L (3.5-5.1); SODIUM LEVEL 136 MMOL/L (136-145)
[2022-05-25 12:51] VITALS: BP 116/73
[2022-05-25 18:21] LABS: TOTAL PROTEIN 7.4 G/DL (5.7-8.2)
== END 2022-05-25 13:44 | disposition home or self-care (01) ==
LOC: M ED 08:50
DX: G89.29 Other chronic pain (principal); R10.9 Unspecified abdominal pain; E78.5 Hyperlipidemia, unspecified; R32 Unspecified urinary incontinence; R16.0 Hepatomegaly, not elsewhere classified; R16.2 Hepatomegaly with splenomegaly, not elsewhere classified; K76.0 Fatty (change of) liver, not elsewhere classified; Z87.891 Personal history of nicotine dependence; Z79.82 Long term (current) use of aspirin; Z79.84 Long term (current) use of oral hypoglycemic drugs; Z79.899 Other long term (current) drug therapy; Z88.8 Allergy status to other drugs, medicaments and biological substances
CPT/HCPCS: 80048; 80076; 83690; 85025; 85610; 86850; 86900; 86901; 93005; 96374; 99284; C9113

== ENCOUNTER 2022-05-31 10:33 | Emergency (ER) | payer OTHER ==
[~2022-05-31] VITALS: Ht 167.6 cm; Wt 86.4 kg
[2022-05-31 11:46] LABS: BASO % 0.3 % (0.0-1.0); EOS # 0.1 10^3/uL (0.0-0.5); EOS % 0.8 % (0.0-3.0); HEMATOCRIT 43.5 % (42.0-52.0); HEMOGLOBIN 14.6 g/dl (13.5-17.5); LYMPH # 0.7 10^3/uL (1.5-5.0); LYMPH % 4.8 % (24.0-44.0); MEAN CORPUSCULAR HEMOGLOBIN 30.1 pg (27.0-33.0); MEAN CORPUSCULAR HGB CONC 33.6 g/dl (32.0-36.5); MEAN CORPUSCULAR VOLUME 89.7 fl (80.0-96.0); MONO # 1.2 10^3/uL (0.0-0.8); MONO % 8.3 % (2.0-8.0); NEUTROPHILS # 12.1 10^3/uL (1.5-8.5); NEUTROPHILS % 85.3 % (36.0-66.0); PLATELET COUNT, AUTOMATED 153 10^3/uL (150-450); RED BLOOD COUNT 4.85 10^6/uL (4.30-6.10); WHITE BLOOD COUNT 14.2 10^3/uL (4.0-10.0)
[2022-05-31 12:33] LABS: ALBUMIN 4.4 G/DL (3.2-5.2); ALKALINE PHOSPHATASE 61 U/L (46-116); ALT/SGPT 58 U/L (7.0-40); AST/SGOT 32 U/L (<34); BILIRUBIN,DIRECT 0.3 MG/DL (<0.4); BILIRUBIN,TOTAL 1.2 MG/DL (0.3-1.2); BLOOD UREA NITROGEN 17 MG/DL (9-23); CALCIUM LEVEL 9.8 MG/DL (8.3-10.6); CARBON DIOXIDE LEVEL 23 MMOL/L (20-31); CHLORIDE LEVEL 103 MMOL/L (98-107); CREATININE FOR GFR 0.85 MG/DL (0.70-1.30); GLOMERULAR FILTRATION RATE > 60.0 (>49); GLUCOSE, FASTING 108 MG/DL (74-106); LIPASE 39 U/L (12-53); POTASSIUM SERUM 3.9 MMOL/L (3.5-5.1); SODIUM LEVEL 138 MMOL/L (136-145)
[2022-05-31] MEDS ORDERED: METOCLOPRAMIDE INJ 10MG/2ML VIAL IV ONE (12:40)
[2022-05-31] MEDS ORDERED: NS 500 ML IV ONE (12:40)
[2022-05-31] MEDS ORDERED: ISOVUE-370 76% 100ML VIAL As Ordered ONE (13:12)
[2022-05-31 15:26] LABS: TOTAL PROTEIN 7.5 G/DL (5.7-8.2)
[2022-05-31] MEDS ORDERED: METR-265 PO (17:54)
[2022-05-31] MEDS ORDERED: CIPR-249 PO (17:54)
[2022-05-31] MEDS ORDERED: CIPROFLOXACIN 500MG TABLET PO ONE (17:55)
[2022-05-31] MEDS ORDERED: metroNIDAZOLE (FLAGYL) 500MG TABLET PO ONE (17:55)
[2022-05-31 18:28] VITALS: BP 139/74
== END 2022-05-31 18:30 | disposition home or self-care (01) ==
LOC: EDBD 10:33 → M ED 10:33
DX: K52.9 Noninfective gastroenteritis and colitis, unspecified (principal); K21.9 Gastro-esophageal reflux disease without esophagitis; E78.5 Hyperlipidemia, unspecified; J44.9 Chronic obstructive pulmonary disease, unspecified; F43.10 Post-traumatic stress disorder, unspecified; M54.50 Low back pain, unspecified; K76.0 Fatty (change of) liver, not elsewhere classified; R16.1 Splenomegaly, not elsewhere classified; Z79.82 Long term (current) use of aspirin; Z79.84 Long term (current) use of oral hypoglycemic drugs; Z79.899 Other long term (current) drug therapy; Z88.8 Allergy status to other drugs, medicaments and biological substances
CPT/HCPCS: 74177; 80048; 80076; 83690; 85025; 87507; 96361; 96374; 99285; J2765; Q9967

== ENCOUNTER 2022-06-07 13:45 | Emergency (ER) | payer OTHER ==
[~2022-06-07] VITALS: Ht 162.6 cm; Wt 95.4 kg
[~2022-06-07 13:45] MED LIST changes: +CIPR-249 PO; +METR-265 PO
[2022-06-07 15:54] LABS: BASO % 0.6 % (0.0-1.0); EOS # 0.2 10^3/uL (0.0-0.5); EOS % 2.5 % (0.0-3.0); HEMATOCRIT 45.3 % (42.0-52.0); HEMOGLOBIN 14.6 g/dl (13.5-17.5); LYMPH # 1.8 10^3/uL (1.5-5.0); LYMPH % 25.7 % (24.0-44.0); MEAN CORPUSCULAR HEMOGLOBIN 29.4 pg (27.0-33.0); MEAN CORPUSCULAR HGB CONC 32.2 g/dl (32.0-36.5); MEAN CORPUSCULAR VOLUME 91.3 fl (80.0-96.0); MONO # 0.7 10^3/uL (0.0-0.8); MONO % 9.8 % (2.0-8.0); NEUTROPHILS # 4.3 10^3/uL (1.5-8.5); NEUTROPHILS % 60.6 % (36.0-66.0); PLATELET COUNT, AUTOMATED 166 10^3/uL (150-450); RED BLOOD COUNT 4.96 10^6/uL (4.30-6.10); WHITE BLOOD COUNT 7.1 10^3/uL (4.0-10.0)
[2022-06-07 16:04] LABS: INR 1.1; PROTHROMBIN TIME 14.4 SECONDS (12.5-14.5)
[2022-06-07 16:05] LABS: PARTIAL THROMBOPLASTIN TIME 28.5 SECONDS (24.8-34.2)
[2022-06-07 16:11] LABS: LIPASE 37 U/L (12-53)
[2022-06-07 16:16] LABS: ALBUMIN 4.4 G/DL (3.2-5.2); ALKALINE PHOSPHATASE 56 U/L (46-116); ALT/SGPT 53 U/L (7.0-40); AST/SGOT 37 U/L (<34); BILIRUBIN,DIRECT 0.2 MG/DL (<0.4); BILIRUBIN,TOTAL 0.8 MG/DL (0.3-1.2); BLOOD UREA NITROGEN 10 MG/DL (9-23); CALCIUM LEVEL 9.6 MG/DL (8.3-10.6); CARBON DIOXIDE LEVEL 29 MMOL/L (20-31); CHLORIDE LEVEL 100 MMOL/L (98-107); GLOMERULAR FILTRATION RATE > 60.0 (>49); GLUCOSE, FASTING 104 MG/DL (74-106); POTASSIUM SERUM 4.6 MMOL/L (3.5-5.1); SODIUM LEVEL 138 MMOL/L (136-145); TOTAL PROTEIN 7.4 G/DL (5.7-8.2)
[2022-06-07 17:50] VITALS: BP 117/81
== END 2022-06-07 17:51 | disposition home or self-care (01) ==
LOC: M ED 13:45
DX: K62.5 Hemorrhage of anus and rectum (principal); G47.33 Obstructive sleep apnea (adult) (pediatric); N40.0 Benign prostatic hyperplasia without lower urinary tract symptoms; F32.A Depression, unspecified; F31.9 Bipolar disorder, unspecified; Z85.038 Personal history of other malignant neoplasm of large intestine; Z88.8 Allergy status to other drugs, medicaments and biological substances; Z79.899 Other long term (current) drug therapy; Z79.82 Long term (current) use of aspirin; Z79.84 Long term (current) use of oral hypoglycemic drugs; Z79.51 Long term (current) use of inhaled steroids

== ENCOUNTER 2022-06-21 09:53 | Emergency (ER) | payer OTHER ==
[~2022-06-21] VITALS: Ht 162.6 cm; Wt 97.7 kg
[~2022-06-21 09:53] MED LIST changes: -CIPR500T39; -CREO3600; -MYRB50TA
[2022-06-21 11:43] LABS: BASO % 0.2 % (0.0-1.0); EOS # 0.1 10^3/uL (0.0-0.5); EOS % 0.8 % (0.0-3.0); HEMATOCRIT 47.8 % (42.0-52.0); LYMPH % 7.8 % (24.0-44.0); MEAN CORPUSCULAR HEMOGLOBIN 30.1 pg (27.0-33.0); MEAN CORPUSCULAR HGB CONC 33.5 g/dl (32.0-36.5); MEAN CORPUSCULAR VOLUME 89.8 fl (80.0-96.0); MONO # 0.8 10^3/uL (0.0-0.8); MONO % 6.5 % (2.0-8.0); NEUTROPHILS # 10.3 10^3/uL (1.5-8.5); NEUTROPHILS % 84.1 % (36.0-66.0); PLATELET COUNT, AUTOMATED 195 10^3/uL (150-450); RED BLOOD COUNT 5.32 10^6/uL (4.30-6.10); WHITE BLOOD COUNT 12.3 10^3/uL (4.0-10.0)
[2022-06-21] MEDS ORDERED: CREO3600 (11:49)
[2022-06-21] MEDS ORDERED: MYRB50TA (11:49)
[2022-06-21] MEDS ORDERED: CIPR500T39 (11:49)
[2022-06-21 12:13] LABS: LIPASE 35 U/L (12-53)
[2022-06-21 12:18] LABS: ALBUMIN 4.9 G/DL (3.2-5.2); ALKALINE PHOSPHATASE 66 U/L (46-116); ALT/SGPT 45 U/L (7.0-40); AST/SGOT 35 U/L (<34); BILIRUBIN,DIRECT 0.5 MG/DL (<0.4); BILIRUBIN,TOTAL 2.1 MG/DL (0.3-1.2); BLOOD UREA NITROGEN 18 MG/DL (9-23); CALCIUM LEVEL 9.7 MG/DL (8.3-10.6); CARBON DIOXIDE LEVEL 23 MMOL/L (20-31); CHLORIDE LEVEL 103 MMOL/L (98-107); CREATININE FOR GFR 0.77 MG/DL (0.70-1.30); GLOMERULAR FILTRATION RATE > 60.0 (>49); GLUCOSE, FASTING 115 MG/DL (74-106); POTASSIUM SERUM 4.4 MMOL/L (3.5-5.1); SODIUM LEVEL 136 MMOL/L (136-145); TOTAL PROTEIN 8.1 G/DL (5.7-8.2)
[2022-06-21 12:45] VITALS: BP 140/78
== END 2022-06-21 13:10 | disposition home or self-care (01) ==
LOC: M ED 09:53 → EDBD 09:53 → M ED 13:10
DX: R10.9 Unspecified abdominal pain (principal); I10 Essential (primary) hypertension; F32.A Depression, unspecified; K21.9 Gastro-esophageal reflux disease without esophagitis; G47.33 Obstructive sleep apnea (adult) (pediatric); N40.0 Benign prostatic hyperplasia without lower urinary tract symptoms; F43.10 Post-traumatic stress disorder, unspecified; K75.81 Nonalcoholic steatohepatitis (NASH); Z87.891 Personal history of nicotine dependence; Z88.8 Allergy status to other drugs, medicaments and biological substances; Z79.899 Other long term (current) drug therapy

== ENCOUNTER → 2022-06-21 | Outpatient (CLI) | payer OTHER ==
[~2022-06-21] MED LIST changes: +CIPR500T39; +CREO3600; +MYRB50TA
== END ==
LOC: M PLAIMG 15:10
PROVIDERS: ATTEND Student in an Organized Health Care Education/Training Program
DX: R19.7 Diarrhea, unspecified (principal)

== ENCOUNTER → 2022-07-06 | Outpatient (CLI) | payer OTHER ==
[~2022-07-06] MED LIST changes: +CIPR500T39; +CREO3600; +MYRB50TA
[2022-07-06 13:17] LABS: HEMATOCRIT 43.6 % (42.0-52.0); HEMOGLOBIN 14.1 g/dl (13.5-17.5); MEAN CORPUSCULAR HEMOGLOBIN 29.4 pg (27.0-33.0); MEAN CORPUSCULAR HGB CONC 32.3 g/dl (32.0-36.5); PLATELET COUNT, AUTOMATED 160 10^3/uL (150-450); RED BLOOD COUNT 4.79 10^6/uL (4.30-6.10); WHITE BLOOD COUNT 6.3 10^3/uL (4.0-10.0)
[2022-07-06 13:44] LABS: ALBUMIN 4.4 G/DL (3.2-5.2); ALKALINE PHOSPHATASE 61 U/L (46-116); ALT/SGPT 46 U/L (7.0-40); AST/SGOT 32 U/L (<34); BILIRUBIN,TOTAL 0.9 MG/DL (0.3-1.2); BLOOD UREA NITROGEN 14 MG/DL (9-23); CALCIUM LEVEL 9.3 MG/DL (8.3-10.6); CARBON DIOXIDE LEVEL 29 MMOL/L (20-31); CHLORIDE LEVEL 102 MMOL/L (98-107); CREATININE FOR GFR 0.97 MG/DL (0.70-1.30); GLOMERULAR FILTRATION RATE > 60.0 (>49); GLUCOSE, FASTING 112 MG/DL (74-106); POTASSIUM SERUM 4.4 MMOL/L (3.5-5.1); SODIUM LEVEL 138 MMOL/L (136-145); TOTAL PROTEIN 7.3 G/DL (5.7-8.2)
[2022-07-06 14:39] LABS: ERYTHROCYTE SEDIMENTATION RATE 10 mm/hr (0-20)
[2022-07-06 18:18] LABS: C REACTIVE PROTEIN QUANTITATIV < 0.40 MG/DL (<1.0)
== END ==
LOC: M PLALAB 11:25
PROVIDERS: ATTEND Student in an Organized Health Care Education/Training Program
DX: A04.72 Enterocolitis due to Clostridium difficile, not specified as recurrent (principal)

== ENCOUNTER 2022-07-13 10:07 | Inpatient (IN) | payer OTHER ==
[~2022-07-13] VITALS: Ht 162.6 cm; Wt 96.0 kg
[2022-07-13] MEDS: LACTOBACILLUS ACIDOPHILUS CAP (BACID) PO SCH ×3 (09:00→21:27)
[~2022-07-13 10:07] MED LIST changes: -CREO3600; +CREO3600 PO; -MYRB50TA; +MYRB50TA PO
[2022-07-13] MEDS ORDERED: NS 1,000 ML IV ONE (10:10)
[2022-07-13 10:30] VITALS: BP 149/82
[2022-07-13] MEDS: GASTROGRAFIN SOLUTION 30ML PO SCH ×3 (11:00→11:30)
[2022-07-13 11:01] LABS: BASO % 0.2 % (0.0-1.0); EOS # 0.2 10^3/uL (0.0-0.5); EOS % 1.5 % (0.0-3.0); HEMATOCRIT 43.4 % (42.0-52.0); HEMOGLOBIN 14.8 g/dl (13.5-17.5); LYMPH # 1.2 10^3/uL (1.5-5.0); LYMPH % 11.4 % (24.0-44.0); MEAN CORPUSCULAR HEMOGLOBIN 30.3 pg (27.0-33.0); MEAN CORPUSCULAR HGB CONC 34.1 g/dl (32.0-36.5); MEAN CORPUSCULAR VOLUME 88.9 fl (80.0-96.0); MONO # 0.9 10^3/uL (0.0-0.8); MONO % 8.5 % (2.0-8.0); NEUTROPHILS # 8.2 10^3/uL (1.5-8.5); NEUTROPHILS % 77.7 % (36.0-66.0); PLATELET COUNT, AUTOMATED 148 10^3/uL (150-450); RED BLOOD COUNT 4.88 10^6/uL (4.30-6.10); WHITE BLOOD COUNT 10.6 10^3/uL (4.0-10.0)
[2022-07-13 11:19] LABS: CK-MB VALUE MASS < 1.0 NG/ML (<3.6)
[2022-07-13 11:20] LABS: ALBUMIN 4.5 G/DL (3.2-5.2); ALKALINE PHOSPHATASE 61 U/L (46-116); ALT/SGPT 55 U/L (7.0-40); AST/SGOT 32 U/L (<34); BILIRUBIN,TOTAL 1.2 MG/DL (0.3-1.2); BLOOD UREA NITROGEN 13 MG/DL (9-23); C REACTIVE PROTEIN QUANTITATIV < 0.40 MG/DL (<1.0); CALCIUM LEVEL 9.4 MG/DL (8.3-10.6); CARBON DIOXIDE LEVEL 24 MMOL/L (20-31); CHLORIDE LEVEL 103 MMOL/L (98-107); CREATININE FOR GFR 0.75 MG/DL (0.70-1.30); GLOMERULAR FILTRATION RATE > 60.0 (>49); GLUCOSE, FASTING 104 MG/DL (74-106); MAGNESIUM LEVEL 1.8 MG/DL (1.8-2.4); POTASSIUM SERUM 4.2 MMOL/L (3.5-5.1); SODIUM LEVEL 135 MMOL/L (136-145); TOTAL PROTEIN 7.5 G/DL (5.7-8.2)
[2022-07-13 11:21] LABS: CPK CREATINE PHOSPHOKINASE 61 U/L (46-171); MB/CK RELATIVE INDEX 1.63 (< OR =4)
[2022-07-13] MEDS ORDERED: CREO3600 PO (11:24)
[2022-07-13] MEDS ORDERED: SUCR1TAB56 PO (11:24)
[2022-07-13] MEDS ORDERED: VITA400C83 PO (11:24)
[2022-07-13] MEDS ORDERED: GABA600T4 PO (11:24)
[2022-07-13] MEDS ORDERED: ONDA-83 PO (11:24)
[2022-07-13] MEDS ORDERED: ASPI81CH48 PO (11:24)
[2022-07-13] MEDS ORDERED: ACET-897 PO (11:24)
[2022-07-13] MEDS ORDERED: OMEP40CA5 PO (11:24)
[2022-07-13] MEDS ORDERED: DIFI200T PO (11:24)
[2022-07-13] MEDS ORDERED: ORPH100T48 PO (11:24)
[2022-07-13] MEDS ORDERED: REFR1GEL OU (11:24)
[2022-07-13] MEDS ORDERED: HOME MED LIST COMPLETE! XX SCH (11:25)
[2022-07-13 12:00] VITALS: BP 142/78
[2022-07-13 12:14] LABS: ERYTHROCYTE SEDIMENTATION RATE 13 mm/hr (0-20)
[2022-07-13] MEDS ORDERED: ISOVUE-370 76% 100ML VIAL As Ordered ONE (12:55)
[2022-07-13] MEDS: FIDAXOMICIN 200 MG TAB (DIFICID) PO SCH ×2 (15:06→21:26)
[2022-07-13] MEDS: NS 1,000 ML IV SCH ×2 (15:07→21:40)
[2022-07-13 15:12] LABS: HIV 1&2 SCREEN ATELLICA NEGATIVE (NEGATIVE)
[2022-07-13 15:41] VITALS: BP 119/61
[2022-07-13] MEDS: SUCRALFATE 1 GM TAB PO SCH (17:06)
[2022-07-13] MEDS: INSULIN LISPRO (NovoLOG) PER UNIT SC SCH ×2 (17:06→21:00)
[2022-07-13] MEDS: CREON-24 CAPSULE PO SCH (17:06)
[2022-07-13 19:48] VITALS: BP 135/77
[2022-07-13] MEDS: FAMOTIDINE 20 MG TAB PO SCH (21:26)
[2022-07-13] MEDS: ACETAMINOPHEN 500 MG TAB PO SCH (21:26)
[2022-07-13] MEDS: GABAPENTIN 300 MG CAP PO SCH (21:27)
[2022-07-13 23:29] VITALS: BP 126/73
[2022-07-14 03:30] VITALS: BP 136/78
[2022-07-14 05:28] LABS: HEMATOCRIT 39.5 % (42.0-52.0); HEMOGLOBIN 13.3 g/dl (13.5-17.5); MEAN CORPUSCULAR HGB CONC 33.7 g/dl (32.0-36.5); PLATELET COUNT, AUTOMATED 131 10^3/uL (150-450); RED BLOOD COUNT 4.44 10^6/uL (4.30-6.10); WHITE BLOOD COUNT 5.2 10^3/uL (4.0-10.0)
[2022-07-14 05:51] LABS: BLOOD UREA NITROGEN 11 MG/DL (9-23); CALCIUM LEVEL 8.1 MG/DL (8.3-10.6); CARBON DIOXIDE LEVEL 24 MMOL/L (20-31); CHLORIDE LEVEL 106 MMOL/L (98-107); CREATININE FOR GFR 0.75 MG/DL (0.70-1.30); GLOMERULAR FILTRATION RATE > 60.0 (>49); GLUCOSE, FASTING 98 MG/DL (74-106); POTASSIUM SERUM 3.9 MMOL/L (3.5-5.1); SODIUM LEVEL 138 MMOL/L (136-145)
[2022-07-14 06:57] LABS: MAGNESIUM LEVEL 1.8 MG/DL (1.8-2.4)
[2022-07-14] MEDS: SUCRALFATE 1 GM TAB PO SCH ×3 (07:40→17:50)
[2022-07-14] MEDS: CREON-24 CAPSULE PO SCH ×3 (07:40→17:49)
[2022-07-14] MEDS: INSULIN LISPRO (NovoLOG) PER UNIT SC SCH ×4 (07:41→20:45)
[2022-07-14 08:00] VITALS: BP 142/80
[2022-07-14] MEDS: FIDAXOMICIN 200 MG TAB (DIFICID) PO SCH ×2 (08:49→20:46)
[2022-07-14] MEDS: FAMOTIDINE 20 MG TAB PO SCH ×2 (08:50→20:46)
[2022-07-14] MEDS: ESCITALOPRAM OXALATE 10 MG TAB (LEXAPRO) PO SCH (08:50)
[2022-07-14] MEDS: LACTOBACILLUS ACIDOPHILUS CAP (BACID) PO SCH ×3 (08:50→20:46)
[2022-07-14] MEDS: GABAPENTIN 300 MG CAP PO SCH ×2 (08:50→20:46)
[2022-07-14] MEDS: EZETIMIBE 10MG TABLET (ZETIA) PO SCH (08:50)
[2022-07-14] MEDS: PRAVASTATIN 20 MG TAB PO SCH (08:50)
[2022-07-14] MEDS: ACETAMINOPHEN 500 MG TAB PO SCH ×2 (08:50→20:47)
[2022-07-14] MEDS: TAMSULOSIN 0.4 MG CAP PO SCH (08:50)
[2022-07-14] MEDS ORDERED: PANTOPRAZOLE 40MG TAB (PROTONIX) PO SCH (09:00)
[2022-07-14] MEDS ORDERED: ASPIRIN 81MG CHEW TABLET PO SCH (09:00)
[2022-07-14] MEDS: MAGNESIUM OXIDE 400MG TAB (MAG-OX) PO SCH ×2 (11:36→20:47)
[2022-07-14] MEDS: PREPARATION H SUPP (HEMORRHOID) PR SCH ×2 (15:30→20:46)
[2022-07-14] MEDS: lisinopriL 5 MG TAB PO SCH (15:30)
[2022-07-14 16:00] VITALS: BP 137/75
[2022-07-14 19:35] VITALS: BP 130/72
[2022-07-14] MEDS: MIRABEGRON 50 MG PO SCH (20:48)
[2022-07-14 23:24] VITALS: BP 116/68
[2022-07-15 03:38] VITALS: BP 119/67
[2022-07-15 05:26] LABS: HEMATOCRIT 38.9 % (42.0-52.0); HEMOGLOBIN 12.8 g/dl (13.5-17.5); MEAN CORPUSCULAR HEMOGLOBIN 29.4 pg (27.0-33.0); MEAN CORPUSCULAR HGB CONC 32.9 g/dl (32.0-36.5); MEAN CORPUSCULAR VOLUME 89.4 fl (80.0-96.0); PLATELET COUNT, AUTOMATED 127 10^3/uL (150-450); RED BLOOD COUNT 4.35 10^6/uL (4.30-6.10)
[2022-07-15 05:50] LABS: BLOOD UREA NITROGEN 14 MG/DL (9-23); CARBON DIOXIDE LEVEL 22 MMOL/L (20-31); CHLORIDE LEVEL 108 MMOL/L (98-107); CREATININE FOR GFR 0.71 MG/DL (0.70-1.30); GLOMERULAR FILTRATION RATE > 60.0 (>49); GLUCOSE, FASTING 111 MG/DL (74-106); MAGNESIUM LEVEL 2.1 MG/DL (1.8-2.4); POTASSIUM SERUM 4.1 MMOL/L (3.5-5.1); SODIUM LEVEL 139 MMOL/L (136-145)
[2022-07-15] MEDS: INSULIN LISPRO (NovoLOG) PER UNIT SC SCH ×4 (07:30→20:13)
[2022-07-15 07:52] VITALS: BP 133/76
[2022-07-15] MEDS: MAGNESIUM OXIDE 400MG TAB (MAG-OX) PO SCH ×2 (09:07→20:22)
[2022-07-15] MEDS: FIDAXOMICIN 200 MG TAB (DIFICID) PO SCH ×2 (09:08→20:21)
[2022-07-15] MEDS: TAMSULOSIN 0.4 MG CAP PO SCH (09:08)
[2022-07-15] MEDS: ACETAMINOPHEN 500 MG TAB PO SCH ×2 (09:08→20:22)
[2022-07-15] MEDS: CREON-24 CAPSULE PO SCH ×3 (09:08→17:03)
[2022-07-15] MEDS: FAMOTIDINE 20 MG TAB PO SCH ×2 (09:08→20:22)
[2022-07-15] MEDS: LACTOBACILLUS ACIDOPHILUS CAP (BACID) PO SCH ×3 (09:08→20:21)
[2022-07-15] MEDS: GABAPENTIN 300 MG CAP PO SCH ×3 (09:08→20:21)
[2022-07-15] MEDS: ESCITALOPRAM OXALATE 10 MG TAB (LEXAPRO) PO SCH (09:09)
[2022-07-15] MEDS: lisinopriL 5 MG TAB PO SCH (09:09)
[2022-07-15] MEDS: PREPARATION H SUPP (HEMORRHOID) PR SCH ×3 (09:09→20:21)
[2022-07-15] MEDS: PRAVASTATIN 20 MG TAB PO SCH (09:09)
[2022-07-15] MEDS: EZETIMIBE 10MG TABLET (ZETIA) PO SCH (09:09)
[2022-07-15] MEDS: SUCRALFATE 1 GM TAB PO SCH ×3 (09:09→17:02)
[2022-07-15 15:25] VITALS: BP 130/79
[2022-07-15 16:09] LABS: ANTINUCLEAR ANTIBODIES DIRECT Negative (Negative); Chitobioside Carbohydrat (ACCA 22 units (0-90); Laminaribioside Carbohyd (ALCA 11 units (0-60); Mannobioside Carbohydrat (AMCA 57 units (0-100); Saccharomyces cerevisiae IgG A 16 units (0-50)
[2022-07-15 19:56] VITALS: BP 129/84
[2022-07-15] MEDS: MIRABEGRON 50 MG PO SCH (20:22)
[2022-07-16 06:19] VITALS: BP 135/79
[2022-07-16] MEDS: INSULIN LISPRO (NovoLOG) PER UNIT SC SCH ×2 (07:30→11:21)
[2022-07-16 07:44] LABS: HEMATOCRIT 41.7 % (42.0-52.0); HEMOGLOBIN 13.5 g/dl (13.5-17.5); MEAN CORPUSCULAR HGB CONC 32.4 g/dl (32.0-36.5); MEAN CORPUSCULAR VOLUME 89.5 fl (80.0-96.0); PLATELET COUNT, AUTOMATED 146 10^3/uL (150-450); RED BLOOD COUNT 4.66 10^6/uL (4.30-6.10); WHITE BLOOD COUNT 5.4 10^3/uL (4.0-10.0)
[2022-07-16 08:09] LABS: BLOOD UREA NITROGEN 13 MG/DL (9-23); CALCIUM LEVEL 8.6 MG/DL (8.3-10.6); CARBON DIOXIDE LEVEL 25 MMOL/L (20-31); CHLORIDE LEVEL 107 MMOL/L (98-107); CREATININE FOR GFR 0.73 MG/DL (0.70-1.30); GLOMERULAR FILTRATION RATE > 60.0 (>49); GLUCOSE, FASTING 108 MG/DL (74-106); POTASSIUM SERUM 4.2 MMOL/L (3.5-5.1); SODIUM LEVEL 140 MMOL/L (136-145)
[2022-07-16] MEDS: EZETIMIBE 10MG TABLET (ZETIA) PO SCH (08:20)
[2022-07-16] MEDS: FIDAXOMICIN 200 MG TAB (DIFICID) PO SCH (08:20)
[2022-07-16] MEDS: SUCRALFATE 1 GM TAB PO SCH ×2 (08:20→11:29)
[2022-07-16] MEDS: LACTOBACILLUS ACIDOPHILUS CAP (BACID) PO SCH (08:20)
[2022-07-16] MEDS: CREON-24 CAPSULE PO SCH ×2 (08:20→11:31)
[2022-07-16] MEDS: ACETAMINOPHEN 500 MG TAB PO SCH (08:21)
[2022-07-16 08:22] VITALS: BP 135/79
[2022-07-16] MEDS: GABAPENTIN 300 MG CAP PO SCH (08:22)
[2022-07-16] MEDS: TAMSULOSIN 0.4 MG CAP PO SCH (08:22)
[2022-07-16] MEDS: FAMOTIDINE 20 MG TAB PO SCH (08:22)
[2022-07-16] MEDS: ESCITALOPRAM OXALATE 10 MG TAB (LEXAPRO) PO SCH (08:22)
[2022-07-16] MEDS: PRAVASTATIN 20 MG TAB PO SCH (08:22)
[2022-07-16] MEDS: PREPARATION H SUPP (HEMORRHOID) PR SCH (08:22)
[2022-07-16] MEDS: MAGNESIUM OXIDE 400MG TAB (MAG-OX) PO SCH (08:22)
[2022-07-16] MEDS: lisinopriL 5 MG TAB PO SCH (08:22)
[2022-07-16] MEDS ORDERED: RISATAB3 PO (11:30)
[2022-07-16] MEDS ORDERED: HEMO1SUP10 PR ×2 (11:30→11:31)
[2022-07-16] MEDS ORDERED: LISI5TAB11 PO (11:30)
== END 2022-07-16 12:29 | disposition home or self-care (01) | DRG 248 ==
LOC: M PCU 10:21 → M MS5PR 07-15 15:25
PROVIDERS: ADMIT General Practice; ATTEND Internal Medicine
DX: A04.71 Enterocolitis due to Clostridium difficile, recurrent (principal); E11.42 Type 2 diabetes mellitus with diabetic polyneuropathy; K76.0 Fatty (change of) liver, not elsewhere classified; K86.89 Other specified diseases of pancreas; F32.A Depression, unspecified; N40.1 Benign prostatic hyperplasia with lower urinary tract symptoms; N39.41 Urge incontinence; E78.5 Hyperlipidemia, unspecified; K64.8 Other hemorrhoids; K57.90 Diverticulosis of intestine, part unspecified, without perforation or abscess without bleeding; M19.90 Unspecified osteoarthritis, unspecified site; K44.9 Diaphragmatic hernia without obstruction or gangrene; Z79.84 Long term (current) use of oral hypoglycemic drugs; Z79.899 Other long term (current) drug therapy; Z88.8 Allergy status to other drugs, medicaments and biological substances; Z91.048 Other nonmedicinal substance allergy status; Z86.010 Personal history of colon polyps

== ENCOUNTER 2022-07-16 11:58 | Outpatient (CLI) | payer OTHER ==
[~2022-07-16] VITALS: Ht 162.6 cm; Wt 97.3 kg
[~2022-07-16 11:58] MED LIST changes: +ACET-897 PO; +ASPI81CH48 PO; +DIFI200T PO; +HEMO1SUP10 PR; +LISI5TAB11 PO; +OMEP40CA5 PO; +ONDA-83 PO; +ORPH100T48 PO; +REFR1GEL OU; +RISATAB3 PO; +SUCR1TAB56 PO; +VITA400C83 PO
[2022-07-16 13:07] VITALS: BP 102/65
[2022-07-16] MEDS ORDERED: BEZLOTOXUMAB 1,000 MG in NS 100 ML IV ONE (14:00)
== END 2022-07-16 14:37 | disposition home or self-care (01) ==
LOC: M OPCLI5PR 11:58 → M MS5PR 12:31 → M OPCLI5PR 14:37
PROVIDERS: ATTEND Internal Medicine
DX: A04.72 Enterocolitis due to Clostridium difficile, not specified as recurrent (principal); Z88.8 Allergy status to other drugs, medicaments and biological substances
CPT/HCPCS: 96365; J0565

== ENCOUNTER → 2022-07-27 | Outpatient (CLI) | payer OTHER ==
[~2022-07-27] MED LIST changes: +FIRV25SO PO; +MULT-40 PO; +OMEG1CAP85 PO; +PROP20TA72 PO
[2022-07-27 13:57] LABS: C REACTIVE PROTEIN QUANTITATIV < 0.40 MG/DL (<1.0)
[2022-07-27 13:59] LABS: ALBUMIN 4.4 G/DL (3.2-5.2); ALKALINE PHOSPHATASE 57 U/L (46-116); ALT/SGPT 45 U/L (7.0-40); AST/SGOT 29 U/L (<34); BILIRUBIN,TOTAL 1.1 MG/DL (0.3-1.2); BLOOD UREA NITROGEN 14 MG/DL (9-23); CARBON DIOXIDE LEVEL 29 MMOL/L (20-31); CHLORIDE LEVEL 102 MMOL/L (98-107); CREATININE FOR GFR 0.93 MG/DL (0.70-1.30); GLOMERULAR FILTRATION RATE > 60.0 (>49); GLUCOSE, FASTING 95 MG/DL (74-106); POTASSIUM SERUM 4.4 MMOL/L (3.5-5.1); SODIUM LEVEL 136 MMOL/L (136-145); TOTAL PROTEIN 7.6 G/DL (5.7-8.2)
[2022-07-27 14:02] LABS: BASO % 0.6 % (0.0-1.0); EOS # 0.1 10^3/uL (0.0-0.5); HEMOGLOBIN 14.4 g/dl (13.5-17.5); LYMPH # 1.7 10^3/uL (1.5-5.0); LYMPH % 26.6 % (24.0-44.0); MEAN CORPUSCULAR HEMOGLOBIN 29.3 pg (27.0-33.0); MEAN CORPUSCULAR VOLUME 91.6 fl (80.0-96.0); MONO # 0.7 10^3/uL (0.0-0.8); MONO % 10.5 % (2.0-8.0); NEUTROPHILS # 3.8 10^3/uL (1.5-8.5); NEUTROPHILS % 59.4 % (36.0-66.0); PLATELET COUNT, AUTOMATED 175 10^3/uL (150-450); RED BLOOD COUNT 4.91 10^6/uL (4.30-6.10); WHITE BLOOD COUNT 6.5 10^3/uL (4.0-10.0)
[2022-07-27 15:15] LABS: ERYTHROCYTE SEDIMENTATION RATE 8 mm/hr (0-20)
== END ==
LOC: M PLAIMG 09:44
PROVIDERS: ATTEND Student in an Organized Health Care Education/Training Program
DX: A04.72 Enterocolitis due to Clostridium difficile, not specified as recurrent (principal); M79.672 Pain in left foot

== ENCOUNTER → 2022-08-08 | Outpatient (CLI) | payer OTHER | LOC: M PLAIMG 10:07 | PROVIDERS: ATTEND Student in an Organized Health Care Education/Training Program | DX: R91.1 Solitary pulmonary nodule (principal) ==

== ENCOUNTER 2022-08-12 12:10 | Day surgery (SDC) | payer OTHER ==
[~2022-08-12] VITALS: Ht 162.6 cm; Wt 96.2 kg
[~2022-08-12 12:10] MED LIST changes: +NS 1,000 ML IV ONE
[2022-08-12] MEDS ORDERED: propofoL 200 MG/20 ML VIAL As Ordered ONE ×2 (16:09→16:30)
[2022-08-12] MEDS ORDERED: MIDAZOLAM INJ 2MG/2ML VIAL As Ordered ONE (16:09)
[2022-08-12 17:06] VITALS: BP 112/68
== END 2022-08-12 17:15 | disposition home or self-care (01) ==
LOC: M OPP 12:10
PROVIDERS: ATTEND Internal Medicine Gastroenterology
DX: K64.8 Other hemorrhoids (principal); K63.5 Polyp of colon; K44.9 Diaphragmatic hernia without obstruction or gangrene; K31.89 Other diseases of stomach and duodenum; K62.5 Hemorrhage of anus and rectum; Z79.899 Other long term (current) drug therapy; Z79.891 Long term (current) use of opiate analgesic; Z88.8 Allergy status to other drugs, medicaments and biological substances
CPT/HCPCS: 43239; 45380; 88305; J2250

== ENCOUNTER → 2022-09-06 | Outpatient (CLI) | payer OTHER ==
[~2022-09-06] MED LIST changes: -NS 1,000 ML IV ONE
[2022-09-06 07:58] LABS: HEMATOCRIT 41.2 % (42.0-52.0); HEMOGLOBIN 13.8 g/dl (13.5-17.5); MEAN CORPUSCULAR HEMOGLOBIN 29.4 pg (27.0-33.0); MEAN CORPUSCULAR HGB CONC 33.5 g/dl (32.0-36.5); MEAN CORPUSCULAR VOLUME 87.7 fl (80.0-96.0); PLATELET COUNT, AUTOMATED 142 10^3/uL (150-450); WHITE BLOOD COUNT 4.8 10^3/uL (4.0-10.0)
[2022-09-06 08:27] LABS: ALBUMIN 4.3 G/DL (3.2-5.2); ALKALINE PHOSPHATASE 55 U/L (46-116); ALT/SGPT 60 U/L (7.0-40); AST/SGOT 32 U/L (<34); BILIRUBIN,TOTAL 0.8 MG/DL (0.3-1.2); BLOOD UREA NITROGEN 14 MG/DL (9-23); CALCIUM LEVEL 9.1 MG/DL (8.3-10.6); CARBON DIOXIDE LEVEL 29 MMOL/L (20-31); CHLORIDE LEVEL 105 MMOL/L (98-107); CHOLESTEROL LEVEL 161 MG/DL (<200); CHOLESTEROL RISK RATIO 4.27 (<5); CREATININE FOR GFR 0.91 MG/DL (0.70-1.30); GLOMERULAR FILTRATION RATE > 60.0 (>49); GLUCOSE, FASTING 104 MG/DL (74-106); HDL CHOLESTEROL 37.7 MG/DL (>40); LDL CHOLESTEROL 86.3 MG/DL (<100); NON-HDL-C 123.3 MG/DL; POTASSIUM SERUM 4.1 MMOL/L (3.5-5.1); SODIUM LEVEL 139 MMOL/L (136-145); TOTAL PROTEIN 7.1 G/DL (5.7-8.2); TRIGLYCERIDES LEVEL 185 MG/DL (<150)
[2022-09-06 10:00] LABS: HEMOGLOBIN A1c 5.5 % (4.0-6.0)
== END ==
LOC: M LAB 07:24
PROVIDERS: ATTEND Student in an Organized Health Care Education/Training Program
DX: Z13.1 Encounter for screening for diabetes mellitus (principal)

== ENCOUNTER → 2022-09-26 | Outpatient (CLI) | payer OTHER | LOC: M LAB 14:29 | PROVIDERS: ATTEND Student in an Organized Health Care Education/Training Program | DX: A04.72 Enterocolitis due to Clostridium difficile, not specified as recurrent (principal) ==

== ENCOUNTER → 2022-10-12 | Outpatient (CLI) | payer OTHER | LOC: M SOG 07:50 | PROVIDERS: ATTEND Orthopaedic Surgery | DX: M54.50 Low back pain, unspecified (principal) ==

== ENCOUNTER → 2022-11-17 | Outpatient (CLI) | payer OTHER ==
[~2022-11-17] MED LIST changes: -GABA-283 PO; +GABA-284 PO
== END ==
LOC: M LAB 13:57
PROVIDERS: ATTEND Student in an Organized Health Care Education/Training Program
DX: R19.7 Diarrhea, unspecified (principal)

== ENCOUNTER → 2022-12-15 | Outpatient (CLI) | payer OTHER | LOC: M LAB 10:57 | PROVIDERS: ATTEND Physician Assistant | DX: R97.21 Rising PSA following treatment for malignant neoplasm of prostate (principal) ==

== ENCOUNTER → 2022-12-19 | Outpatient (CLI) | payer OTHER | LOC: M RAD 11:40 | PROVIDERS: ATTEND Student in an Organized Health Care Education/Training Program | DX: M79.661 Pain in right lower leg (principal) ==

== ENCOUNTER → 2023-02-10 | Outpatient (CLI) | payer OTHER ==
[~2023-02-10] MED LIST changes: -OXYB5TAB10 PO; +OXYB5TAB11 PO
[2023-02-10 15:59] LABS: HDL CHOLESTEROL 37.6 MG/DL (>40); NON-HDL-C 150.4 MG/DL
[2023-02-10 16:01] LABS: FREE T4 1.01 NG/DL (0.89-1.76); THYROID STIMULATING HORMONE 3.006 uIU/ML (0.55-4.78)
== END ==
LOC: M PLALAB 11:58
PROVIDERS: ATTEND Student in an Organized Health Care Education/Training Program
DX: L29.9 Pruritus, unspecified (principal)

== ENCOUNTER 2023-02-20 16:16 | Emergency (ER) | payer OTHER ==
[~2023-02-20] VITALS: Ht 162.6 cm; Wt 99.7 kg
[2023-02-20 17:11] LABS: BASO % 0.5 % (0.0-1.0); EOS # 0.2 10^3/uL (0.0-0.5); EOS % 2.4 % (0.0-3.0); HEMATOCRIT 39.8 % (42.0-52.0); HEMOGLOBIN 13.4 g/dl (13.5-17.5); LYMPH # 2.2 10^3/uL (1.5-5.0); LYMPH % 34.8 % (24.0-44.0); MEAN CORPUSCULAR HEMOGLOBIN 29.8 pg (27.0-33.0); MEAN CORPUSCULAR HGB CONC 33.7 g/dl (32.0-36.5); MEAN CORPUSCULAR VOLUME 88.4 fl (80.0-96.0); MONO # 0.6 10^3/uL (0.0-0.8); MONO % 9.9 % (2.0-8.0); NEUTROPHILS # 3.3 10^3/uL (1.5-8.5); NEUTROPHILS % 51.8 % (36.0-66.0); PLATELET COUNT, AUTOMATED 158 10^3/uL (150-450); WHITE BLOOD COUNT 6.3 10^3/uL (4.0-10.0)
[2023-02-20 17:39] LABS: ALBUMIN 4.1 G/DL (3.2-5.2); ALKALINE PHOSPHATASE 55 U/L (46-116); ALT/SGPT 35 U/L (7.0-40); AST/SGOT 25 U/L (<34); BILIRUBIN,TOTAL 0.7 MG/DL (0.3-1.2); BLOOD UREA NITROGEN 11 MG/DL (9-23); CALCIUM LEVEL 8.4 MG/DL (8.3-10.6); CARBON DIOXIDE LEVEL 22 MMOL/L (20-31); CHLORIDE LEVEL 105 MMOL/L (98-107); CREATININE FOR GFR 0.73 MG/DL (0.70-1.30); GLOMERULAR FILTRATION RATE > 60.0 (>49); GLUCOSE, FASTING 135 MG/DL (74-106); POTASSIUM SERUM 3.3 MMOL/L (3.5-5.1); SODIUM LEVEL 138 MMOL/L (136-145); TOTAL PROTEIN 6.7 G/DL (5.7-8.2)
[2023-02-20 18:01] LABS: INR 1.15; PARTIAL THROMBOPLASTIN TIME 30.2 SECONDS (24.8-34.2); PROTHROMBIN TIME 14.3 SECONDS (12.5-14.5)
[2023-02-20 18:16] LABS: RSV AMPLIFICATION NEGATIVE (NEGATIVE)
[2023-02-20 18:16] LABS: ETHYL ALCOHOL (ETHANOL) 0.003 % (0.000-0.010)
[2023-02-20 18:17] LABS: BLOOD UREA NITROGEN 12 MG/DL (9-23); CALCIUM LEVEL 8.6 MG/DL (8.3-10.6); CARBON DIOXIDE LEVEL 23 MMOL/L (20-31); CHLORIDE LEVEL 106 MMOL/L (98-107); CK-MB VALUE MASS < 1.0 NG/ML (<3.6); CREATININE FOR GFR 0.73 MG/DL (0.70-1.30); GLOMERULAR FILTRATION RATE > 60.0 (>49); GLUCOSE, FASTING 104 MG/DL (74-106); MAGNESIUM LEVEL 2.1 MG/DL (1.8-2.4); POTASSIUM SERUM 3.5 MMOL/L (3.5-5.1); SODIUM LEVEL 138 MMOL/L (136-145)
[2023-02-20 18:20] LABS: FREE T4 0.95 NG/DL (0.89-1.76); THYROID STIMULATING HORMONE 1.671 uIU/ML (0.55-4.78)
[2023-02-20 18:27] LABS: CPK CREATINE PHOSPHOKINASE 93 U/L (46-171); MB/CK RELATIVE INDEX 1.07 (< OR =4)
[2023-02-20 20:16] VITALS: BP 134/72; TEMP 97.8; O2SAT 97
== END 2023-02-20 20:27 | disposition home or self-care (01) ==
LOC: M ED 16:16
DX: F41.9 Anxiety disorder, unspecified (principal); I10 Essential (primary) hypertension; I95.9 Hypotension, unspecified; G89.29 Other chronic pain; Z79.899 Other long term (current) drug therapy; Z88.8 Allergy status to other drugs, medicaments and biological substances; Z91.89 Other specified personal risk factors, not elsewhere classified

== ENCOUNTER → 2023-02-22 | Outpatient (CLI) | payer OTHER | LOC: M WHC 06:41 | PROVIDERS: ATTEND Student in an Organized Health Care Education/Training Program | DX: L29.9 Pruritus, unspecified (principal); K76.0 Fatty (change of) liver, not elsewhere classified ==

== ENCOUNTER → 2023-05-01 | Outpatient (CLI) | payer OTHER ==
[2023-05-01 11:05] LABS: HEMATOCRIT 44.6 % (42.0-52.0); HEMOGLOBIN 15.1 g/dl (13.5-17.5); MEAN CORPUSCULAR HEMOGLOBIN 30.3 pg (27.0-33.0); MEAN CORPUSCULAR HGB CONC 33.9 g/dl (32.0-36.5); MEAN CORPUSCULAR VOLUME 89.6 fl (80.0-96.0); PLATELET COUNT, AUTOMATED 162 10^3/uL (150-450); RED BLOOD COUNT 4.98 10^6/uL (4.30-6.10); WHITE BLOOD COUNT 6.6 10^3/uL (4.0-10.0)
[2023-05-01 11:27] LABS: ALBUMIN 4.5 G/DL (3.2-5.2); BILIRUBIN,DIRECT 0.3 MG/DL (<0.4); BILIRUBIN,TOTAL 1.1 MG/DL (0.3-1.2); TOTAL PROTEIN 7.4 G/DL (5.7-8.2)
== END ==
LOC: M LAB 09:56
PROVIDERS: ATTEND Physician Assistant Medical
DX: K74.60 Unspecified cirrhosis of liver (principal)

== ENCOUNTER → 2023-06-23 | Outpatient (REF) | payer OTHER ==
[~2023-06-23] MED LIST changes: -OXYB5TAB11 PO; +OXYB5TAB14 PO
== END ==
LOC: M SFHCPLAZ 13:01
PROVIDERS: ATTEND Student in an Organized Health Care Education/Training Program
DX: R21 Rash and other nonspecific skin eruption (principal); L98.6 Other infiltrative disorders of the skin and subcutaneous tissue

== ENCOUNTER → 2023-06-24 | Outpatient (CLI) | payer OTHER ==
[2023-06-24 08:32] LABS: BASO # 0.1 10^3/uL (0.0-0.2); BASO % 0.7 % (0.0-1.0); EOS # 0.2 10^3/uL (0.0-0.5); EOS % 2.7 % (0.0-3.0); HEMATOCRIT 46.3 % (42.0-52.0); HEMOGLOBIN 15.2 g/dl (13.5-17.5); LYMPH # 2.1 10^3/uL (1.5-5.0); LYMPH % 31.3 % (24.0-44.0); MEAN CORPUSCULAR HEMOGLOBIN 30.6 pg (27.0-33.0); MEAN CORPUSCULAR HGB CONC 32.8 g/dl (32.0-36.5); MEAN CORPUSCULAR VOLUME 93.2 fl (80.0-96.0); MONO # 0.6 10^3/uL (0.0-0.8); MONO % 9.2 % (2.0-8.0); NEUTROPHILS # 3.8 10^3/uL (1.5-8.5); NEUTROPHILS % 55.5 % (36.0-66.0); PLATELET COUNT, AUTOMATED 144 10^3/uL (150-450); RED BLOOD COUNT 4.97 10^6/uL (4.30-6.10); WHITE BLOOD COUNT 6.8 10^3/uL (4.0-10.0)
[2023-06-24 08:45] LABS: INR 1.09; PARTIAL THROMBOPLASTIN TIME 28.9 SECONDS (24.8-34.2); PROTHROMBIN TIME 13.8 SECONDS (12.5-14.5)
[2023-06-24 09:00] LABS: ALBUMIN 4.5 G/DL (3.2-5.2); ALKALINE PHOSPHATASE 56 U/L (46-116); ALT/SGPT 49 U/L (7.0-40); AST/SGOT 31 U/L (<34); BILIRUBIN,TOTAL 1.1 MG/DL (0.3-1.2); BLOOD UREA NITROGEN 14 MG/DL (9-23); CALCIUM LEVEL 8.9 MG/DL (8.3-10.6); CARBON DIOXIDE LEVEL 28 MMOL/L (20-31); CHLORIDE LEVEL 103 MMOL/L (98-107); CHOLESTEROL LEVEL 170 MG/DL (<200); CHOLESTEROL RISK RATIO 4.59 (<5); CREATININE FOR GFR 0.94 MG/DL (0.70-1.30); GLOMERULAR FILTRATION RATE > 60.0 (>49); GLUCOSE, FASTING 99 MG/DL (74-106); LDL CHOLESTEROL 62.6 MG/DL (<100); SODIUM LEVEL 136 MMOL/L (136-145); TRIGLYCERIDES LEVEL 352 MG/DL (<150)
[2023-06-24 09:03] LABS: HEMOGLOBIN A1c 5.2 % (4.0-6.0)
== END ==
LOC: M LAB 08:10
PROVIDERS: ATTEND Student in an Organized Health Care Education/Training Program
DX: E78.5 Hyperlipidemia, unspecified (principal); K74.69 Other cirrhosis of liver; G47.33 Obstructive sleep apnea (adult) (pediatric); Z13.1 Encounter for screening for diabetes mellitus

== ENCOUNTER → 2023-07-06 | Outpatient (CLI) | payer OTHER ==
[~2023-07-06] MED LIST changes: +ISOVUE-370 76% 100ML VIAL ONE
== END ==
LOC: M PLAIMG 07:41
PROVIDERS: ATTEND Student in an Organized Health Care Education/Training Program
DX: R91.1 Solitary pulmonary nodule (principal)

== ENCOUNTER → 2023-07-11 | Outpatient (CLI) | payer OTHER ==
[~2023-07-11] MED LIST changes: -ISOVUE-370 76% 100ML VIAL ONE
== END ==
LOC: M LAB 14:33
PROVIDERS: ATTEND Student in an Organized Health Care Education/Training Program
DX: R19.7 Diarrhea, unspecified (principal)

== ENCOUNTER → 2023-07-12 | Outpatient (CLI) | payer OTHER ==
[~2023-07-12] MED LIST changes: +GASTROGRAFIN SOLUTION 30ML As Ordered ONE; +ISOVUE-370 76% 100ML VIAL As Ordered ONE
== END ==
LOC: M RAD 14:45
PROVIDERS: ATTEND Student in an Organized Health Care Education/Training Program
DX: R19.7 Diarrhea, unspecified (principal)
CPT/HCPCS: 74177; Q9963; Q9967

== ENCOUNTER → 2023-07-12 | Outpatient (CLI) | payer OTHER ==
[~2023-07-12] MED LIST changes: -GASTROGRAFIN SOLUTION 30ML As Ordered ONE; -ISOVUE-370 76% 100ML VIAL As Ordered ONE
== END ==
LOC: M RAD 12:23
PROVIDERS: ATTEND Student in an Organized Health Care Education/Training Program
DX: R19.7 Diarrhea, unspecified (principal)

== ENCOUNTER → 2023-07-26 | Outpatient (CLI) | payer OTHER ==
[2023-07-26 10:42] LABS: BASO # 0.1 10^3/uL (0.0-0.2); BASO % 0.7 % (0.0-1.0); EOS # 0.2 10^3/uL (0.0-0.5); EOS % 2.6 % (0.0-3.0); HEMATOCRIT 42.8 % (42.0-52.0); HEMOGLOBIN 14.4 g/dl (13.5-17.5); LYMPH # 2.2 10^3/uL (1.5-5.0); LYMPH % 31.4 % (24.0-44.0); MEAN CORPUSCULAR HEMOGLOBIN 30.2 pg (27.0-33.0); MEAN CORPUSCULAR HGB CONC 33.6 g/dl (32.0-36.5); MEAN CORPUSCULAR VOLUME 89.7 fl (80.0-96.0); MONO # 0.6 10^3/uL (0.0-0.8); MONO % 9.1 % (2.0-8.0); NEUTROPHILS # 3.8 10^3/uL (1.5-8.5); NEUTROPHILS % 55.3 % (36.0-66.0); PLATELET COUNT, AUTOMATED 160 10^3/uL (150-450); RED BLOOD COUNT 4.77 10^6/uL (4.30-6.10); WHITE BLOOD COUNT 6.9 10^3/uL (4.0-10.0)
[2023-07-26 10:51] LABS: ERYTHROCYTE SEDIMENTATION RATE 4 mm/hr (0-20)
[2023-07-26 11:08] LABS: ALBUMIN 4.3 G/DL (3.2-5.2); ALKALINE PHOSPHATASE 60 U/L (46-116); ALT/SGPT 46 U/L (7.0-40); AST/SGOT 27 U/L (<34); BILIRUBIN,TOTAL 0.7 MG/DL (0.3-1.2); BLOOD UREA NITROGEN 11 MG/DL (9-23); CALCIUM LEVEL 9.2 MG/DL (8.3-10.6); CARBON DIOXIDE LEVEL 27 MMOL/L (20-31); CHLORIDE LEVEL 104 MMOL/L (98-107); CREATININE FOR GFR 0.86 MG/DL (0.70-1.30); GLOMERULAR FILTRATION RATE > 60.0 (>49); GLUCOSE, FASTING 96 MG/DL (74-106); POTASSIUM SERUM 4.1 MMOL/L (3.5-5.1); SODIUM LEVEL 139 MMOL/L (136-145); TOTAL PROTEIN 6.9 G/DL (5.7-8.2)
== END ==
LOC: M LAB 08:31
PROVIDERS: ATTEND Student in an Organized Health Care Education/Training Program
DX: R19.7 Diarrhea, unspecified (principal)

== ENCOUNTER → 2023-08-18 | Outpatient (CLI) | payer OTHER ==
[~2023-08-18] MED LIST changes: +E-Z-GAS II EFFERVESCENT PACKET (SODIUM BICARB./CITRIC ACID/SIMETHICONE) As Ordered ONE; +E-Z-HD 98% w/w 340GM SUSP BTL As Ordered ONE; +E-Z-PAQUE 96% w/w SUSP 176GM BTL As Ordered ONE; +GABA800T4 PO; +TIZA1TAB12 PO; +VENTAER INH
== END ==
LOC: M RAD 08:42
PROVIDERS: ATTEND Physician Assistant Medical
DX: R10.9 Unspecified abdominal pain (principal)

== ENCOUNTER 2023-08-31 14:23 | Emergency (ER) | payer OTHER ==
[~2023-08-31 14:23] MED LIST changes: -E-Z-GAS II EFFERVESCENT PACKET (SODIUM BICARB./CITRIC ACID/SIMETHICONE) As Ordered ONE; -E-Z-HD 98% w/w 340GM SUSP BTL As Ordered ONE; -E-Z-PAQUE 96% w/w SUSP 176GM BTL As Ordered ONE
[2023-08-31 14:57] LABS: BASO % 0.6 % (0.0-1.0); EOS # 0.2 10^3/uL (0.0-0.5); HEMATOCRIT 39.2 % (42.0-52.0); HEMOGLOBIN 13.3 g/dl (13.5-17.5); LYMPH # 1.4 10^3/uL (1.5-5.0); LYMPH % 26.3 % (24.0-44.0); MEAN CORPUSCULAR HEMOGLOBIN 30.9 pg (27.0-33.0); MEAN CORPUSCULAR HGB CONC 33.9 g/dl (32.0-36.5); MONO # 0.5 10^3/uL (0.0-0.8); MONO % 9.1 % (2.0-8.0); NEUTROPHILS # 3.3 10^3/uL (1.5-8.5); NEUTROPHILS % 60.1 % (36.0-66.0); PLATELET COUNT, AUTOMATED 161 10^3/uL (150-450); RED BLOOD COUNT 4.31 10^6/uL (4.30-6.10); WHITE BLOOD COUNT 5.4 10^3/uL (4.0-10.0)
[2023-08-31 15:12] LABS: INR 1.11
[2023-08-31 15:25] LABS: BLOOD UREA NITROGEN 9 MG/DL (9-23); CALCIUM LEVEL 9.1 MG/DL (8.3-10.6); CARBON DIOXIDE LEVEL 25 MMOL/L (20-31); CHLORIDE LEVEL 105 MMOL/L (98-107); CK-MB VALUE MASS 1.2 NG/ML (<3.6); CPK CREATINE PHOSPHOKINASE 74 U/L (46-171); CREATININE FOR GFR 0.78 MG/DL (0.70-1.30); GLOMERULAR FILTRATION RATE > 60.0 (>49); GLUCOSE, FASTING 108 MG/DL (74-106); MB/CK RELATIVE INDEX 1.62 (< OR =4); POTASSIUM SERUM 3.4 MMOL/L (3.5-5.1); SODIUM LEVEL 138 MMOL/L (136-145)
[2023-08-31 15:45] VITALS: BP 115/70; O2SAT 95
[2023-08-31 17:03] LABS: AMPHETAMINES LEVEL URINE NEGATIVE (NEGATIVE); BARBITURATES URINE NEGATIVE (NEGATIVE); BENZODIAZEPINES URINE NEGATIVE (NEGATIVE); CANNABINOIDS URINE NEGATIVE (NEGATIVE); COCAINE METABOLITE URINE NEGATIVE (NEGATIVE); METHADONE URINE NEGATIVE (NEGATIVE); OPIATES URINE NEGATIVE (NEGATIVE); PHENCYCLIDINE URINE NEGATIVE (NEGATIVE)
== END 2023-08-31 16:19 | disposition left against medical advice (07) ==
LOC: M ED 14:23 → EDBD 14:23 → M ED 16:19
DX: R55 Syncope and collapse (principal); E78.00 Pure hypercholesterolemia, unspecified; J44.9 Chronic obstructive pulmonary disease, unspecified; Z88.8 Allergy status to other drugs, medicaments and biological substances; Z91.048 Other nonmedicinal substance allergy status; Z79.51 Long term (current) use of inhaled steroids; Z79.84 Long term (current) use of oral hypoglycemic drugs; Z79.899 Other long term (current) drug therapy; Z53.9 Procedure and treatment not carried out, unspecified reason

== ENCOUNTER 2023-09-01 23:24 | Emergency (ER) | payer OTHER ==
[~2023-09-01] VITALS: Ht 172.7 cm; Wt 102.3 kg
[2023-09-01] MEDS: NALOXONE INJ 0.4MG/1ML VIAL IV STA (23:25)
[2023-09-01] MEDS ORDERED: NALOXONE INJ 0.4MG/1ML VIAL As Ordered ONE (23:29)
[2023-09-01 23:37] VITALS: TEMP 96.6
[2023-09-01 23:56] LABS: VENOUS BASE EXCESS -2.6 (-2.0-2.0); VENOUS HCO3 23.5 MMOL/L (23.0-27.0); VENOUS O2 SATURATION 91.7 % (60.0-80.0); VENOUS PARTIAL PRESSURE CO2 45.6 mmHg (38.0-50.0); VENOUS STANDARD HCO3 22.2 MMOL/L; VENOUS TOTAL CO2 24.9 MMOL/L (24.0-28.0)
[2023-09-02 00:14] LABS: INR 1.08; PARTIAL THROMBOPLASTIN TIME 28.7 SECONDS (24.8-34.2); PROTHROMBIN TIME 13.7 SECONDS (12.5-14.5)
[2023-09-02 00:23] LABS: BASO % 0.6 % (0.0-1.0); EOS # 0.2 10^3/uL (0.0-0.5); EOS % 3.1 % (0.0-3.0); HEMATOCRIT 38.1 % (42.0-52.0); HEMOGLOBIN 12.6 g/dl (13.5-17.5); LYMPH # 1.5 10^3/uL (1.5-5.0); MEAN CORPUSCULAR HEMOGLOBIN 29.9 pg (27.0-33.0); MEAN CORPUSCULAR HGB CONC 33.1 g/dl (32.0-36.5); MEAN CORPUSCULAR VOLUME 90.3 fl (80.0-96.0); MONO # 0.6 10^3/uL (0.0-0.8); MONO % 10.7 % (2.0-8.0); NEUTROPHILS # 3.1 10^3/uL (1.5-8.5); PLATELET COUNT, AUTOMATED 159 10^3/uL (150-450); RED BLOOD COUNT 4.22 10^6/uL (4.30-6.10); WHITE BLOOD COUNT 5.4 10^3/uL (4.0-10.0)
[2023-09-02 00:24] LABS: CK-MB VALUE MASS < 1.0 NG/ML (<3.6); ETHYL ALCOHOL (ETHANOL) < 0.003 % (0.000-0.010)
[2023-09-02 00:26] LABS: ALBUMIN 3.9 G/DL (3.2-5.2); ALKALINE PHOSPHATASE 54 U/L (46-116); ALT/SGPT 36 U/L (7.0-40); AST/SGOT 20 U/L (<34); BILIRUBIN,DIRECT 0.3 MG/DL (<0.4); BILIRUBIN,TOTAL 0.9 MG/DL (0.3-1.2); BLOOD UREA NITROGEN 10 MG/DL (9-23); CALCIUM LEVEL 8.9 MG/DL (8.3-10.6); CARBON DIOXIDE LEVEL 24 MMOL/L (20-31); CHLORIDE LEVEL 108 MMOL/L (98-107); CREATININE FOR GFR 0.81 MG/DL (0.70-1.30); GLOMERULAR FILTRATION RATE > 60.0 (>49); GLUCOSE, FASTING 96 MG/DL (74-106); MAGNESIUM LEVEL 2.1 MG/DL (1.8-2.4); POTASSIUM SERUM 3.6 MMOL/L (3.5-5.1); SODIUM LEVEL 139 MMOL/L (136-145); TOTAL PROTEIN 6.6 G/DL (5.7-8.2)
[2023-09-02 00:28] LABS: THYROID STIMULATING HORMONE 3.382 uIU/ML (0.55-4.78)
[2023-09-02 00:29] LABS: FREE T4 1.04 NG/DL (0.89-1.76)
[2023-09-02 00:30] VITALS: BP 109/69; O2SAT 95
[2023-09-02 00:35] LABS: CPK CREATINE PHOSPHOKINASE 78 U/L (46-171); MB/CK RELATIVE INDEX 1.28 (< OR =4)
[2023-09-02] MEDS: NS 1,000 ML IV ONE (01:08)
== END 2023-09-02 01:11 | disposition home or self-care (01) ==
LOC: EDBD 23:24 → M ED 23:24
DX: E86.0 Dehydration (principal); E11.9 Type 2 diabetes mellitus without complications; I10 Essential (primary) hypertension; E78.5 Hyperlipidemia, unspecified; J44.9 Chronic obstructive pulmonary disease, unspecified; F32.A Depression, unspecified; F43.10 Post-traumatic stress disorder, unspecified; Z88.8 Allergy status to other drugs, medicaments and biological substances; Z91.048 Other nonmedicinal substance allergy status; Z79.52 Long term (current) use of systemic steroids; Z79.811 Long term (current) use of aromatase inhibitors; Z79.4 Long term (current) use of insulin; Z79.899 Other long term (current) drug therapy
CPT/HCPCS: 70450; 80048; 80076; 82077; 82140; 82550; 82553; 82803; 83605; 83735; 84439; 84443; 84484; 85025; 85610; 85730; 93005; 93041; 94760; 96374; 99285; J2310

== ENCOUNTER → 2023-09-04 | Outpatient (CLI) | payer OTHER | LOC: M RAD 09:07 | PROVIDERS: ATTEND Physician Assistant Medical | DX: K74.60 Unspecified cirrhosis of liver (principal) ==

== ENCOUNTER → 2023-09-28 | Outpatient (CLI) | payer OTHER ==
[2023-09-28 17:29] LABS: ALBUMIN 4.3 G/DL (3.2-5.2); ALKALINE PHOSPHATASE 63 U/L (46-116); ALT/SGPT 32 U/L (7.0-40); AST/SGOT 30 U/L (<34); BILIRUBIN,DIRECT 0.4 MG/DL (<0.4); BILIRUBIN,TOTAL 1.5 MG/DL (0.3-1.2); TOTAL PROTEIN 7.1 G/DL (5.7-8.2)
== END ==
LOC: M LRY 14:46
PROVIDERS: ATTEND Physician Assistant Medical
DX: K74.60 Unspecified cirrhosis of liver (principal)

== ENCOUNTER → 2023-11-16 | Outpatient (CLI) | payer OTHER ==
[~2023-11-16] MED LIST changes: -ARIP1TAB43 PO; +ARIP20TA51 PO; +OMEG-28 PO; -OMEG1CAP85 PO; +PROHANCE 279.3MG/ML 15ML VIAL As Ordered ONE; +PROHANCE 279.3MG/ML 5ML VIAL As Ordered ONE
== END ==
LOC: M RAD 15:14
PROVIDERS: ATTEND Student in an Organized Health Care Education/Training Program
DX: H54.7 Unspecified visual loss (principal)
CPT/HCPCS: 70543; A9576

== ENCOUNTER → 2023-12-18 | Outpatient (CLI) | payer OTHER ==
[~2023-12-18] MED LIST changes: +GABA-1490 PO; +GABA-1635 PO; -GABA600T4 PO; -GABA800T4 PO; -PROHANCE 279.3MG/ML 15ML VIAL As Ordered ONE; -PROHANCE 279.3MG/ML 5ML VIAL As Ordered ONE
== END ==
LOC: M LAB 11:52
PROVIDERS: ATTEND Physician Assistant
DX: Z12.5 Encounter for screening for malignant neoplasm of prostate (principal)

== ENCOUNTER → 2024-02-19 | Outpatient (REF) | payer OTHER ==
[~2024-02-19] MED LIST changes: -ARIP1TAB44 PO; +ARIP30TA38 PO; +E-401CAP2 PO; -VITA400C83 PO
== END ==
LOC: M SFHCPLAZ 10:48
PROVIDERS: ATTEND Student in an Organized Health Care Education/Training Program
DX: R19.7 Diarrhea, unspecified (principal)

== ENCOUNTER → 2024-02-28 | Outpatient (REF) | payer OTHER ==
[~2024-02-28] MED LIST changes: +ACE65ERTAB PO; +ADVI200T17 PO; +CHOL4PW PO; +EPINEPHrine 1MG/10ML SYRINGE 1.5IN As Ordered ONE; +FINA5TAB2 PO; +FLUT15.820 NARES; +HYDR1OIN12 TOP; +LEXA1TAB2 PO; +MULT25CA2 PO; +PRAV80TA2 PO; +PROA1AER2 INH; +PROP10TA56 PO; +PROT1TAB2 PO; +SYST1SOL OU; +TAMS1CAP17 PO; +TIZA6CAP PO
== END ==
LOC: M SFHCPLAZ 12:46
PROVIDERS: ATTEND Student in an Organized Health Care Education/Training Program
DX: R05.1 Acute cough (principal)

== ENCOUNTER 2024-03-02 05:55 | Inpatient (IN) | payer OTHER ==
[~2024-03-02] VITALS: Ht 162.6 cm; Wt 93.0 kg
[~2024-03-02 05:55] MED LIST changes: -ACE65ERTAB PO; -ADVI200T17 PO; -CHOL4PW PO; -EPINEPHrine 1MG/10ML SYRINGE 1.5IN As Ordered ONE; -FINA5TAB2 PO; -FLUT15.820 NARES; -HYDR1OIN12 TOP; -LEXA1TAB2 PO; -MULT25CA2 PO; -PRAV80TA2 PO; -PROA1AER2 INH; -PROP10TA56 PO; -PROT1TAB2 PO; -SYST1SOL OU; -TAMS1CAP17 PO; -TIZA6CAP PO
[2024-03-02] MEDS: NS (Normal Saline) 0.9% 1,000 ML IV ONE ×2 (07:12→13:02)
[2024-03-02 07:30] LABS: BASO % 0.3 % (0.0-1.0); EOS # 0.1 10^3/uL (0.0-0.5); HEMATOCRIT 30.8 % (42.0-52.0); HEMOGLOBIN 10.2 g/dl (13.5-17.5); LYMPH # 1.5 10^3/uL (1.5-5.0); LYMPH % 19.4 % (24.0-44.0); MEAN CORPUSCULAR HEMOGLOBIN 31.5 pg (27.0-33.0); MEAN CORPUSCULAR HGB CONC 33.1 g/dl (32.0-36.5); MEAN CORPUSCULAR VOLUME 95.1 fl (80.0-96.0); MONO # 0.5 10^3/uL (0.0-0.8); MONO % 6.7 % (2.0-8.0); NEUTROPHILS # 5.6 10^3/uL (1.5-8.5); NEUTROPHILS % 71.7 % (36.0-66.0); PLATELET COUNT, AUTOMATED 189 10^3/uL (150-450); RED BLOOD COUNT 3.24 10^6/uL (4.30-6.10); WHITE BLOOD COUNT 7.9 10^3/uL (4.0-10.0)
[2024-03-02 07:44] LABS: LIPASE 38 U/L (12-53)
[2024-03-02 07:46] LABS: ALBUMIN 3.1 G/DL (3.2-5.2); ALKALINE PHOSPHATASE 47 U/L (40-129); ALT/SGPT 32 U/L (7.0-40); AST/SGOT 20 U/L (<34); BILIRUBIN,DIRECT 0.6 MG/DL (<0.4); BILIRUBIN,TOTAL 1.8 MG/DL (0.3-1.2); BLOOD UREA NITROGEN 44 MG/DL (9-23); CALCIUM LEVEL 9.7 MG/DL (8.3-10.6); CARBON DIOXIDE LEVEL 27 MMOL/L (20-31); CHLORIDE LEVEL 112 MMOL/L (98-107); CREATININE FOR GFR 0.88 MG/DL (0.70-1.30); GLOMERULAR FILTRATION RATE > 60.0 (>49); GLUCOSE, FASTING 119 MG/DL (74-106); INR 1.23; PARTIAL THROMBOPLASTIN TIME 26.4 SECONDS (24.8-34.2); POTASSIUM SERUM 5.7 MMOL/L (3.5-5.1); PROTHROMBIN TIME 15.8 SECONDS (12.5-14.5); SODIUM LEVEL 141 MMOL/L (136-145); TOTAL PROTEIN 5.4 G/DL (5.7-8.2)
[2024-03-02] MEDS: HumuLIN R (REGULAR) INSULIN (NovoLIN R) **100U/ML** PER UNIT IV ONE (08:30)
[2024-03-02] MEDS: DEXTROSE 50% 50ML SYRINGE IV ONE (08:30)
[2024-03-02] MEDS ORDERED: ISOVUE-370 76% 100ML VIAL As Ordered ONE (08:47)
[2024-03-02 10:49] LABS: HEMATOCRIT 29.4 % (42.0-52.0); HEMOGLOBIN 9.8 g/dl (13.5-17.5)
[2024-03-02] MEDS: MORPHINE 4 MG/ML 1ML VIAL IV ONE (10:58)
[2024-03-02 11:08] LABS: POTASSIUM SERUM 4.7 MMOL/L (3.5-5.1)
[2024-03-02 11:15] LABS: CK-MB VALUE MASS < 1.0 NG/ML (<3.6)
[2024-03-02 11:27] LABS: CPK CREATINE PHOSPHOKINASE 41 U/L (46-171); MB/CK RELATIVE INDEX 2.43 (< OR =4)
[2024-03-02] MEDS ORDERED: TAMS1CAP17 PO (11:32)
[2024-03-02] MEDS ORDERED: PROA1AER2 INH (11:32)
[2024-03-02] MEDS ORDERED: ACE65ERTAB PO (11:32)
[2024-03-02] MEDS ORDERED: HYDR1OIN12 TOP (11:32)
[2024-03-02] MEDS ORDERED: PRAV80TA2 PO (11:32)
[2024-03-02] MEDS ORDERED: NAPR-885 PO (11:32)
[2024-03-02] MEDS ORDERED: CHOL4PW PO (11:32)
[2024-03-02] MEDS ORDERED: MULT25CA2 PO (11:32)
[2024-03-02] MEDS ORDERED: FINA5TAB2 PO (11:32)
[2024-03-02] MEDS ORDERED: PROP10TA56 PO (11:32)
[2024-03-02] MEDS ORDERED: PANT40TA29 PO (11:37)
[2024-03-02] MEDS ORDERED: SYST1SOL OU (11:37)
[2024-03-02] MEDS ORDERED: TIZA6CAP PO (11:37)
[2024-03-02] MEDS ORDERED: FLUT15.820 NARES (11:40)
[2024-03-02] MEDS ORDERED: ADVI200T17 PO (11:40)
[2024-03-02] MEDS ORDERED: LEXA1TAB2 PO (11:40)
[2024-03-02] MEDS ORDERED: HOME MED LIST COMPLETE! XX SCH (11:45)
[2024-03-02 12:32] LABS: CK-MB VALUE MASS < 1.0 NG/ML (<3.6)
[2024-03-02 12:34] LABS: CPK CREATINE PHOSPHOKINASE 40 U/L (46-171)
[2024-03-02] MEDS ORDERED: MOM 30ML SUSPENSION UDC PO PRN (13:40)
[2024-03-02] MEDS: CALCIUM CARBONATE 500 MG CHEW U/D PO ONE (14:16)
[2024-03-02] MEDS: LR 1,000 ML IV SCH ×2 (14:16→20:08)
[2024-03-02] MEDS: FAMOTIDINE 20MG/2ML VIAL IVP ONE (14:16)
[2024-03-02] MEDS ORDERED: GLUCOSE 4 GM CHEW PO PRN (14:25)
[2024-03-02] MEDS ORDERED: GLUCAGON INJ 1MG VIAL SC PRN (14:25)
[2024-03-02] MEDS ORDERED: DEXTROSE 50% 50ML SYRINGE IV PRN (14:25)
[2024-03-02 14:30] LABS: INR 1.14; PARTIAL THROMBOPLASTIN TIME 26.8 SECONDS (24.8-34.2); PROTHROMBIN TIME 14.9 SECONDS (12.5-14.5)
[2024-03-02] MEDS ORDERED: CREON-24 CAPSULE (PANCRELIPASE) PO SCH (18:00)
[2024-03-02] MEDS: CREON-24 CAPSULE (PANCRELIPASE) PO SCH (18:00)
[2024-03-02] MEDS: CREON-12 CAPSULE (PANCRELIPASE) PO SCH (18:00)
[2024-03-02] MEDS: GOLYTELY SOLN 4000 ML BTL PO ONE (18:01)
[2024-03-02] MEDS: DOCUSATE SODIUM 100MG CAPSULE PO SCH (20:08)
[2024-03-02 20:11] VITALS: BP 148/83; TEMP 97.4; O2SAT 94
[2024-03-02 20:15] LABS: HEMATOCRIT 29.7 % (42.0-52.0); HEMOGLOBIN 9.8 g/dl (13.5-17.5); MEAN CORPUSCULAR HEMOGLOBIN 30.5 pg (27.0-33.0); MEAN CORPUSCULAR VOLUME 92.5 fl (80.0-96.0); PLATELET COUNT, AUTOMATED 173 10^3/uL (150-450); RED BLOOD COUNT 3.21 10^6/uL (4.30-6.10); WHITE BLOOD COUNT 8.9 10^3/uL (4.0-10.0)
[2024-03-02] MEDS ORDERED: CREON-12 CAPSULE (PANCRELIPASE) PO PRN (21:00)
[2024-03-02] MEDS: PRAVASTATIN 20 MG TAB PO SCH (21:27)
[2024-03-02 23:20] VITALS: BP_SYST 112; BP_SYST 118; BP_SYST 124; BP_DIAS 63; BP_DIAS 64; BP_DIAS 68
[2024-03-02 23:24] VITALS: TEMP 97.7; O2SAT 95
[2024-03-03] VITALS (11 sets, daily range): BP systolic 93–193; BP diastolic 50–83; TEMP 96.9–100.7; O2SAT 92–100
[2024-03-03 04:32] LABS: HEMATOCRIT 25.2 % (42.0-52.0); HEMOGLOBIN 8.5 g/dl (13.5-17.5); MEAN CORPUSCULAR HEMOGLOBIN 31.1 pg (27.0-33.0); MEAN CORPUSCULAR HGB CONC 33.7 g/dl (32.0-36.5); MEAN CORPUSCULAR VOLUME 92.3 fl (80.0-96.0); PLATELET COUNT, AUTOMATED 145 10^3/uL (150-450); RED BLOOD COUNT 2.73 10^6/uL (4.30-6.10); WHITE BLOOD COUNT 5.7 10^3/uL (4.0-10.0)
[2024-03-03 04:57] LABS: BLOOD UREA NITROGEN 20 MG/DL (9-23); CALCIUM LEVEL 9.2 MG/DL (8.3-10.6); CARBON DIOXIDE LEVEL 25 MMOL/L (20-31); CHLORIDE LEVEL 109 MMOL/L (98-107); CREATININE FOR GFR 0.81 MG/DL (0.70-1.30); GLOMERULAR FILTRATION RATE > 60.0 (>49); GLUCOSE, FASTING 104 MG/DL (74-106); POTASSIUM SERUM 3.9 MMOL/L (3.5-5.1); SODIUM LEVEL 142 MMOL/L (136-145)
[2024-03-03] MEDS: CREON-24 CAPSULE (PANCRELIPASE) PO SCH (07:46)
[2024-03-03] MEDS: EZETIMIBE 10MG TABLET (ZETIA) PO SCH (09:31)
[2024-03-03] MEDS: FINASTERIDE 5MG TAB PO SCH (09:31)
[2024-03-03] MEDS: PANTOPRAZOLE 40MG TAB (PROTONIX) PO SCH (09:32)
[2024-03-03] MEDS ORDERED: LIDOCAINE 2% 100MG/5ML SDV (FOR ANES.) As Ordered ONE (10:41)
[2024-03-03] MEDS ORDERED: propofoL 200 MG/20 ML VIAL As Ordered ONE (10:41)
[2024-03-03] MEDS ORDERED: fentaNYL 100 MCG/2 ML INJECTION As Ordered ONE (10:42)
[2024-03-03] MEDS ORDERED: EPINEPHrine 1MG/10ML SYRINGE 1.5IN ONE (11:34)
[2024-03-03 12:46] LABS: HEMATOCRIT 25.6 % (42.0-52.0); HEMOGLOBIN 8.7 g/dl (13.5-17.5); MEAN CORPUSCULAR HEMOGLOBIN 31.8 pg (27.0-33.0); MEAN CORPUSCULAR VOLUME 93.4 fl (80.0-96.0); PLATELET COUNT, AUTOMATED 149 10^3/uL (150-450); RED BLOOD COUNT 2.74 10^6/uL (4.30-6.10); WHITE BLOOD COUNT 5.4 10^3/uL (4.0-10.0)
[2024-03-03] MEDS ORDERED: PANTOPRAZOLE 40MG TAB (PROTONIX) PO ONE (14:15)
[2024-03-03] MEDS: ANUSOL HC 25MG SUPP PR SCH (14:39)
[2024-03-03] MEDS: PANTOPRAZOLE 40MG VIAL IV SCH (14:40)
[2024-03-03] MEDS: CALCIUM CARBONATE 500 MG CHEW U/D PO PRN (15:54)
[2024-03-03] MEDS: ACETAMINOPHEN 325 MG TAB PO PRN (18:15)
[2024-03-03 20:01] LABS: HEMATOCRIT 24.8 % (42.0-52.0); HEMOGLOBIN 8.3 g/dl (13.5-17.5); MEAN CORPUSCULAR HEMOGLOBIN 30.5 pg (27.0-33.0); MEAN CORPUSCULAR HGB CONC 33.5 g/dl (32.0-36.5); MEAN CORPUSCULAR VOLUME 91.2 fl (80.0-96.0); PLATELET COUNT, AUTOMATED 136 10^3/uL (150-450); RED BLOOD COUNT 2.72 10^6/uL (4.30-6.10); WHITE BLOOD COUNT 7.2 10^3/uL (4.0-10.0)
[2024-03-03] MEDS ORDERED: PANTOPRAZOLE 40MG VIAL IV SCH (21:00)
[2024-03-03] MEDS: diphenhydrAMINE 50MG/ML VIAL IV ONE (22:09)
[2024-03-04] MEDS ORDERED: KETOROLAC 30 MG/ML 1ML VIAL IV ONE (01:00)
[2024-03-04] MEDS: LIDOCAINE 5% (LIDODERM) PATCH TD ONE (01:30)
[2024-03-04 04:17] LABS: HEMATOCRIT 24.3 % (42.0-52.0); HEMOGLOBIN 8.1 g/dl (13.5-17.5); MEAN CORPUSCULAR HEMOGLOBIN 30.8 pg (27.0-33.0); MEAN CORPUSCULAR HGB CONC 33.3 g/dl (32.0-36.5); MEAN CORPUSCULAR VOLUME 92.4 fl (80.0-96.0); PLATELET COUNT, AUTOMATED 143 10^3/uL (150-450); RED BLOOD COUNT 2.63 10^6/uL (4.30-6.10)
[2024-03-04 04:19] VITALS: BP 106/52; TEMP 97.3; O2SAT 94
[2024-03-04 07:45] VITALS: BP 111/56; TEMP 98.6; O2SAT 97
[2024-03-04] MEDS ORDERED: PROT1TAB2 PO (10:12)
== END 2024-03-04 10:02 | disposition left against medical advice (07) | DRG 241 ==
LOC: M ED 05:55 → EDBD 05:55 → M ED INP 13:40 → M PCU 20:00
PROVIDERS: ADMIT Student in an Organized Health Care Education/Training Program; ATTEND Student in an Organized Health Care Education/Training Program
PROC: 0DJD8ZZ Inspection of Lower Intestinal Tract, Via Natural or Artificial Opening Endoscopic (ICD-10-PCS; 2024-03-03)
PROC: 0W3P8ZZ Control Bleeding in Gastrointestinal Tract, Via Natural or Artificial Opening Endoscopic (ICD-10-PCS; principal; 2024-03-03 09:00)
DX: K26.4 Chronic or unspecified duodenal ulcer with hemorrhage (principal); F32.A Depression, unspecified; N40.0 Benign prostatic hyperplasia without lower urinary tract symptoms; F41.9 Anxiety disorder, unspecified; K21.9 Gastro-esophageal reflux disease without esophagitis; E78.5 Hyperlipidemia, unspecified; F43.10 Post-traumatic stress disorder, unspecified; G47.33 Obstructive sleep apnea (adult) (pediatric); G47.00 Insomnia, unspecified; K76.0 Fatty (change of) liver, not elsewhere classified; R15.9 Full incontinence of feces; R32 Unspecified urinary incontinence; K86.89 Other specified diseases of pancreas; M19.90 Unspecified osteoarthritis, unspecified site; I95.89 Other hypotension; K64.4 Residual hemorrhoidal skin tags; E87.5 Hyperkalemia; K64.8 Other hemorrhoids; K62.5 Hemorrhage of anus and rectum; E80.6 Other disorders of bilirubin metabolism; E87.20 Acidosis, unspecified; D62 Acute posthemorrhagic anemia; G89.29 Other chronic pain; M48.00 Spinal stenosis, site unspecified; Z74.09 Other reduced mobility; Z79.84 Long term (current) use of oral hypoglycemic drugs; Z99.3 Dependence on wheelchair; Z79.1 Long term (current) use of non-steroidal anti-inflammatories (NSAID); Z79.899 Other long term (current) drug therapy; Z91.048 Other nonmedicinal substance allergy status

== ENCOUNTER → 2024-03-18 | Outpatient (CLI) | payer OTHER ==
[~2024-03-18] MED LIST changes: +ACE65ERTAB PO; +ADVI200T17 PO; +CHOL4PW PO; +FINA5TAB2 PO; +FLUT15.820 NARES; +HYDR1OIN12 TOP; +LEXA1TAB2 PO; +MULT25CA2 PO; +PRAV80TA2 PO; +PROA1AER2 INH; +PROP10TA56 PO; +PROT1TAB2 PO; +SYST1SOL OU; +TAMS1CAP17 PO; +TIZA6CAP PO
[2024-03-18 19:16] LABS: HEMATOCRIT 27.6 % (42.0-52.0); HEMOGLOBIN 8.7 g/dl (13.5-17.5); MEAN CORPUSCULAR HEMOGLOBIN 28.9 pg (27.0-33.0); MEAN CORPUSCULAR HGB CONC 31.5 g/dl (32.0-36.5); MEAN CORPUSCULAR VOLUME 91.7 fl (80.0-96.0); PLATELET COUNT, AUTOMATED 190 10^3/uL (150-450); RED BLOOD COUNT 3.01 10^6/uL (4.30-6.10); WHITE BLOOD COUNT 3.8 10^3/uL (4.0-10.0)
[2024-03-18 19:23] LABS: ALBUMIN 4.1 G/DL (3.2-5.2); BILIRUBIN,DIRECT 0.4 MG/DL (<0.4); BILIRUBIN,TOTAL 1.3 MG/DL (0.3-1.2); PERCENT SATURATION 5.1 % (19.7-50.0); TOTAL PROTEIN 7.2 G/DL (5.7-8.2)
== END ==
LOC: M LRY 10:12
PROVIDERS: ATTEND Physician Assistant Medical
DX: K74.60 Unspecified cirrhosis of liver (principal); D64.9 Anemia, unspecified

== ENCOUNTER 2024-03-19 23:36 | Emergency (ER) | payer OTHER ==
[~2024-03-19] VITALS: Ht 101.6 cm; Wt 96.9 kg
[2024-03-19 23:46] VITALS: TEMP 97.6
[2024-03-20 00:40] LABS: HEMATOCRIT 25.1 % (42.0-52.0); HEMOGLOBIN 8.1 g/dl (13.5-17.5); LYMPH # 0.6 10^3/uL (1.5-5.0); MEAN CORPUSCULAR HEMOGLOBIN 28.7 pg (27.0-33.0); MEAN CORPUSCULAR HGB CONC 32.3 g/dl (32.0-36.5); MONO # 0.3 10^3/uL (0.0-0.8); MONO % 6.3 % (2.0-8.0); NEUTROPHILS % 81.5 % (36.0-66.0); PLATELET COUNT, AUTOMATED 175 10^3/uL (150-450); RED BLOOD COUNT 2.82 10^6/uL (4.30-6.10); WHITE BLOOD COUNT 4.9 10^3/uL (4.0-10.0)
[2024-03-20 00:44] LABS: LIPASE 39 U/L (12-53)
[2024-03-20 00:48] LABS: ALBUMIN 3.7 G/DL (3.2-5.2); ALKALINE PHOSPHATASE 55 U/L (40-129); ALT/SGPT 42 U/L (7.0-40); AST/SGOT 28 U/L (<34); BILIRUBIN,TOTAL 1.2 MG/DL (0.3-1.2); BLOOD UREA NITROGEN 13 MG/DL (9-23); CALCIUM LEVEL 9.2 MG/DL (8.3-10.6); CARBON DIOXIDE LEVEL 25 MMOL/L (20-31); CHLORIDE LEVEL 103 MMOL/L (98-107); CREATININE FOR GFR 0.81 MG/DL (0.70-1.30); GLOMERULAR FILTRATION RATE > 60.0 (>49); GLUCOSE, FASTING 221 MG/DL (74-106); POTASSIUM SERUM 4.1 MMOL/L (3.5-5.1); SODIUM LEVEL 137 MMOL/L (136-145); TOTAL PROTEIN 6.8 G/DL (5.7-8.2)
[2024-03-20 01:00] VITALS: BP 104/54
[2024-03-20 01:02] LABS: INR 1.1; PARTIAL THROMBOPLASTIN TIME 27.6 SECONDS (24.8-34.2); PROTHROMBIN TIME 14.5 SECONDS (12.5-14.5)
[2024-03-20 01:15] VITALS: O2SAT 98
== END 2024-03-20 01:30 | disposition left against medical advice (07) ==
LOC: M ED 23:36 → EDBD 23:36 → M ED 03-20 01:30
DX: I95.9 Hypotension, unspecified (principal); E11.9 Type 2 diabetes mellitus without complications; I10 Essential (primary) hypertension; N40.0 Benign prostatic hyperplasia without lower urinary tract symptoms; E78.5 Hyperlipidemia, unspecified; Z88.8 Allergy status to other drugs, medicaments and biological substances; Z91.09 Other allergy status, other than to drugs and biological substances; Z79.1 Long term (current) use of non-steroidal anti-inflammatories (NSAID); Z79.51 Long term (current) use of inhaled steroids; Z79.84 Long term (current) use of oral hypoglycemic drugs; Z79.899 Other long term (current) drug therapy; Z53.9 Procedure and treatment not carried out, unspecified reason

== ENCOUNTER 2024-03-20 21:43 | Emergency (ER) | payer OTHER ==
[~2024-03-20] VITALS: Ht 162.6 cm; Wt 95.5 kg
[2024-03-20 21:52] VITALS: BP 131/66; TEMP 97.6; O2SAT 97
[2024-03-20 22:50] LABS: INR 1.07; PROTHROMBIN TIME 14.2 SECONDS (12.5-14.5)
[2024-03-20 23:02] LABS: BLOOD UREA NITROGEN 13 MG/DL (9-23); CALCIUM LEVEL 9.2 MG/DL (8.3-10.6); CARBON DIOXIDE LEVEL 28 MMOL/L (20-31); CHLORIDE LEVEL 107 MMOL/L (98-107); CREATININE FOR GFR 0.75 MG/DL (0.70-1.30); GLOMERULAR FILTRATION RATE > 60.0 (>49); GLUCOSE, FASTING 102 MG/DL (74-106); POTASSIUM SERUM 3.8 MMOL/L (3.5-5.1); SODIUM LEVEL 140 MMOL/L (136-145)
[2024-03-20 23:10] LABS: HEMATOCRIT 28.6 % (42.0-52.0); HEMOGLOBIN 9.1 g/dl (13.5-17.5); MEAN CORPUSCULAR HEMOGLOBIN 28.5 pg (27.0-33.0); MEAN CORPUSCULAR HGB CONC 31.8 g/dl (32.0-36.5); MEAN CORPUSCULAR VOLUME 89.7 fl (80.0-96.0); PLATELET COUNT, AUTOMATED 194 10^3/uL (150-450); RED BLOOD COUNT 3.19 10^6/uL (4.30-6.10); WHITE BLOOD COUNT 7.3 10^3/uL (4.0-10.0)
== END 2024-03-20 23:41 | disposition left against medical advice (07) ==
LOC: M ED 21:43 → EDBD 21:43 → M ED 23:41
DX: Z53.21 Procedure and treatment not carried out due to patient leaving prior to being seen by health care provider (principal)

== ENCOUNTER → 2024-03-20 | Outpatient (CLI) | payer OTHER ==
[2024-03-20 09:39] LABS: HEMATOCRIT 26.7 % (42.0-52.0); HEMOGLOBIN 8.7 g/dl (13.5-17.5); LYMPH % 14.6 % (24.0-44.0); MEAN CORPUSCULAR HEMOGLOBIN 28.9 pg (27.0-33.0); MEAN CORPUSCULAR HGB CONC 32.6 g/dl (32.0-36.5); MEAN CORPUSCULAR VOLUME 88.7 fl (80.0-96.0); MONO # 0.5 10^3/uL (0.0-0.8); MONO % 7.9 % (2.0-8.0); NEUTROPHILS # 5.3 10^3/uL (1.5-8.5); NEUTROPHILS % 77.2 % (36.0-66.0); PLATELET COUNT, AUTOMATED 191 10^3/uL (150-450); RED BLOOD COUNT 3.01 10^6/uL (4.30-6.10); WHITE BLOOD COUNT 6.8 10^3/uL (4.0-10.0)
[2024-03-20 10:13] LABS: C REACTIVE PROTEIN QUANTITATIV < 0.50 MG/DL (<1.0); FERRITIN 9.8 NG/ML (10.5-307.3)
[2024-03-20 10:14] LABS: FOLATE 9.2 NG/ML (>5.4)
[2024-03-20 10:15] LABS: VITAMIN B12 LEVEL 293 PG/ML (211-911)
== END ==
LOC: M LAB 07:40
PROVIDERS: ATTEND Student in an Organized Health Care Education/Training Program
DX: D64.9 Anemia, unspecified (principal)

== ENCOUNTER 2024-04-22 15:03 | Outpatient (CLI) | payer OTHER ==
[~2024-04-22] VITALS: Ht 162.6 cm; Wt 93.0 kg
[~2024-04-22 15:03] MED LIST changes: +ALBUTEROL SULFATE 2.5MG/0.5ML INH NEB SOLN INH PRN; +EPINEPHrine INJ 1 MG/ML 1ML AMP IM PRN; +IRON SUCROSE 200 MG IVP IV ONE; +diphenhydrAMINE 50MG/ML VIAL IV PRN; +methylPREDNISolone 125MG 2ML VIAL IV PRN
[2024-04-22 15:10] VITALS: BP 125/73; O2SAT 96
[2024-04-22] MEDS: IRON SUCROSE 200MG IVP IV ONE (15:16)
[2024-04-22] MEDS ORDERED: diphenhydrAMINE 25MG CAP PO ONE (15:30)
[2024-04-22] MEDS ORDERED: ACETAMINOPHEN 650 MG PO ONE (15:30)
[2024-04-22] MEDS ORDERED: IRON SUCROSE 25 MG in NS 23.75 ML IV ONE (15:30)
[2024-04-22 16:00] VITALS: BP 158/88; O2SAT 97
== END 2024-04-22 16:00 ==
LOC: M INFU 15:03
PROVIDERS: ATTEND Student in an Organized Health Care Education/Training Program
DX: D50.9 Iron deficiency anemia, unspecified (principal); Z88.8 Allergy status to other drugs, medicaments and biological substances; Z91.048 Other nonmedicinal substance allergy status
CPT/HCPCS: 96374; J1756

== ENCOUNTER 2024-04-24 15:35 | Outpatient (CLI) | payer OTHER ==
[~2024-04-24] VITALS: Ht 162.6 cm; Wt 92.7 kg
[~2024-04-24 15:35] MED LIST changes: -IRON SUCROSE 200 MG IVP IV ONE
[2024-04-24 15:43] VITALS: BP 121/68; O2SAT 96
[2024-04-24] MEDS: diphenhydrAMINE 25MG CAP PO ONE (15:46)
[2024-04-24] MEDS: ACETAMINOPHEN 650 MG PO ONE (15:46)
[2024-04-24] MEDS: IRON SUCROSE 200 MG IVP IV ONE (15:57)
== END 2024-04-24 16:40 | disposition home or self-care (01) ==
LOC: M INFU 15:35
PROVIDERS: ATTEND Student in an Organized Health Care Education/Training Program
DX: D50.9 Iron deficiency anemia, unspecified (principal); Z88.8 Allergy status to other drugs, medicaments and biological substances; Z91.09 Other allergy status, other than to drugs and biological substances
CPT/HCPCS: 96374; J1756

== ENCOUNTER 2024-04-26 15:25 | Outpatient (CLI) | payer OTHER ==
[~2024-04-26] VITALS: Ht 162.6 cm; Wt 92.5 kg
[2024-04-26] MEDS: diphenhydrAMINE 25MG CAP PO ONE (15:29)
[2024-04-26 15:30] VITALS: BP 135/77; O2SAT 97
[2024-04-26] MEDS: ACETAMINOPHEN 650 MG PO ONE (15:30)
[2024-04-26] MEDS: IRON SUCROSE 200 MG IVP IV ONE (15:48)
[2024-04-26 16:21] VITALS: BP 164/83; O2SAT 97
== END 2024-04-26 16:25 ==
LOC: M INFU 15:25
PROVIDERS: ATTEND Student in an Organized Health Care Education/Training Program
DX: D50.9 Iron deficiency anemia, unspecified (principal); Z88.8 Allergy status to other drugs, medicaments and biological substances; Z91.09 Other allergy status, other than to drugs and biological substances
CPT/HCPCS: 96374; J1756

== ENCOUNTER 2024-04-30 15:35 | Outpatient (CLI) | payer OTHER ==
[~2024-04-30] VITALS: Ht 162.6 cm; Wt 92.7 kg
[2024-04-30 15:35] VITALS: BP 138/76; O2SAT 96
[2024-04-30] MEDS: ACETAMINOPHEN 650MG PO PRIOR TO INFUSION PO ONE (15:44)
[2024-04-30] MEDS: IRON SUCROSE 200MG IVP IV ONE (15:44)
[2024-04-30] MEDS: diphenhydrAMINE 25MG PO PRIOR TO INFUSION PO ONE (15:44)
[2024-04-30 16:20] VITALS: BP 157/81; O2SAT 95
== END 2024-04-30 16:25 | disposition home or self-care (01) ==
LOC: M INFU 15:35
PROVIDERS: ATTEND Student in an Organized Health Care Education/Training Program
DX: D50.9 Iron deficiency anemia, unspecified (principal); Z88.8 Allergy status to other drugs, medicaments and biological substances; Z91.09 Other allergy status, other than to drugs and biological substances
CPT/HCPCS: 96374; J1756

== ENCOUNTER 2024-05-02 15:00 | Outpatient (CLI) | payer OTHER ==
[~2024-05-02] VITALS: Ht 162.6 cm; Wt 92.7 kg
[~2024-05-02 15:00] MED LIST changes: +ALBUTEROL SULFATE 2.5MG/0.5ML INH NEB SOLN INH PRN; +EPINEPHrine INJ 1 MG/ML 1ML AMP IM PRN; +diphenhydrAMINE 50MG/ML VIAL IV PRN; +methylPREDNISolone 125MG 2ML VIAL IV PRN
[2024-05-02 15:10] VITALS: BP 138/73; O2SAT 97
[2024-05-02] MEDS: diphenhydrAMINE 25MG CAP PO ONE (15:11)
[2024-05-02] MEDS: ACETAMINOPHEN 325 MG TAB PO ONE (15:11)
[2024-05-02] MEDS: IRON SUCROSE 200MG IVP IV ONE (15:12)
[2024-05-02 16:00] VITALS: BP 144/85; O2SAT 92
== END 2024-05-02 16:00 ==
LOC: M INFU 15:00
PROVIDERS: ATTEND Student in an Organized Health Care Education/Training Program
DX: D50.9 Iron deficiency anemia, unspecified (principal); Z88.8 Allergy status to other drugs, medicaments and biological substances; Z91.09 Other allergy status, other than to drugs and biological substances
CPT/HCPCS: 96374; J1756

== ENCOUNTER → 2024-05-02 | Outpatient (CLI) | payer OTHER ==
[~2024-05-02] MED LIST changes: -ALBUTEROL SULFATE 2.5MG/0.5ML INH NEB SOLN INH PRN; -EPINEPHrine INJ 1 MG/ML 1ML AMP IM PRN; -diphenhydrAMINE 50MG/ML VIAL IV PRN; -methylPREDNISolone 125MG 2ML VIAL IV PRN
== END ==
LOC: M RAD 09:02
PROVIDERS: ATTEND Physician Assistant Medical
DX: K74.60 Unspecified cirrhosis of liver (principal)

== ENCOUNTER → 2024-07-10 | Outpatient (CLI) | payer OTHER ==
[~2024-07-10] MED LIST changes: -ALBUTEROL SULFATE 2.5MG/0.5ML INH NEB SOLN INH PRN; -EPINEPHrine INJ 1 MG/ML 1ML AMP IM PRN; -diphenhydrAMINE 50MG/ML VIAL IV PRN; -methylPREDNISolone 125MG 2ML VIAL IV PRN
[2024-07-10 14:48] LABS: BASO % 0.4 % (0.0-1.0); EOS # 0.1 10^3/uL (0.0-0.5); EOS % 1.8 % (0.0-3.0); HEMATOCRIT 40.5 % (42.0-52.0); HEMOGLOBIN 13.3 g/dl (13.5-17.5); LYMPH # 1.7 10^3/uL (1.5-5.0); LYMPH % 30.1 % (24.0-44.0); MEAN CORPUSCULAR HEMOGLOBIN 28.2 pg (27.0-33.0); MEAN CORPUSCULAR HGB CONC 32.8 g/dl (32.0-36.5); MEAN CORPUSCULAR VOLUME 85.8 fl (80.0-96.0); MONO # 0.5 10^3/uL (0.0-0.8); MONO % 9.2 % (2.0-8.0); NEUTROPHILS # 3.3 10^3/uL (1.5-8.5); PLATELET COUNT, AUTOMATED 152 10^3/uL (150-450); RED BLOOD COUNT 4.72 10^6/uL (4.30-6.10); WHITE BLOOD COUNT 5.7 10^3/uL (4.0-10.0)
[2024-07-10 15:16] LABS: ALKALINE PHOSPHATASE 75 U/L (40-129); ALT/SGPT 37 U/L (7.0-40); AST/SGOT 19 U/L (<34); BILIRUBIN,DIRECT 0.4 MG/DL (<0.4); BILIRUBIN,TOTAL 1.3 MG/DL (0.3-1.2); IRON (FE) 66 UG/DL (65-175); PERCENT SATURATION 17.9 % (19.7-50.0); TOTAL IRON BINDING CAPACITY 368 UG/DL (250-425); TOTAL PROTEIN 7.1 G/DL (5.7-8.2)
== END ==
LOC: M LAB 14:10
PROVIDERS: ATTEND Physician Assistant Medical
DX: D50.9 Iron deficiency anemia, unspecified (principal); K74.60 Unspecified cirrhosis of liver

== ENCOUNTER → 2024-07-31 | Outpatient (CLI) | payer OTHER ==
[~2024-07-31] MED LIST changes: -FLOM0.4C39 PO; +TAMS-18 PO
[2024-07-31 08:32] LABS: HEMATOCRIT 42.7 % (42.0-52.0); HEMOGLOBIN 13.8 g/dl (13.5-17.5); MEAN CORPUSCULAR HEMOGLOBIN 28.6 pg (27.0-33.0); MEAN CORPUSCULAR HGB CONC 32.3 g/dl (32.0-36.5); MEAN CORPUSCULAR VOLUME 88.4 fl (80.0-96.0); PLATELET COUNT, AUTOMATED 168 10^3/uL (150-450); RED BLOOD COUNT 4.83 10^6/uL (4.30-6.10); WHITE BLOOD COUNT 4.9 10^3/uL (4.0-10.0)
[2024-07-31 08:47] LABS: HEMOGLOBIN A1c 5.4 % (4.0-6.0)
[2024-07-31 09:00] LABS: ALBUMIN 4.2 G/DL (3.2-5.2); ALKALINE PHOSPHATASE 69 U/L (40-129); ALT/SGPT 41 U/L (7.0-40); AST/SGOT 28 U/L (<34); BILIRUBIN,TOTAL 1.6 MG/DL (0.3-1.2); BLOOD UREA NITROGEN 18 MG/DL (9-23); CALCIUM LEVEL 9.5 MG/DL (8.3-10.6); CARBON DIOXIDE LEVEL 26 MMOL/L (20-31); CHLORIDE LEVEL 103 MMOL/L (98-107); CHOLESTEROL LEVEL 136 MG/DL (<200); CREATININE FOR GFR 0.83 MG/DL (0.70-1.30); GLOMERULAR FILTRATION RATE > 90.0 (>49); GLUCOSE, FASTING 96 MG/DL (74-106); HDL CHOLESTEROL 31.6 MG/DL (>40); LDL CHOLESTEROL 62.8 MG/DL (<100); NON-HDL-C 104.4 MG/DL; POTASSIUM SERUM 3.9 MMOL/L (3.5-5.1); SODIUM LEVEL 140 MMOL/L (136-145); TOTAL PROTEIN 7.4 G/DL (5.7-8.2); TRIGLYCERIDES LEVEL 208 MG/DL (<150)
== END ==
LOC: M LAB 07:20
PROVIDERS: ATTEND Student in an Organized Health Care Education/Training Program
DX: D50.0 Iron deficiency anemia secondary to blood loss (chronic) (principal)

== ENCOUNTER → 2024-10-26 | Outpatient (CLI) | payer OTHER ==
[~2024-10-26] MED LIST changes: -ACE65ERTAB PO; +ACET-1593 PO; +LIDO1ADH93 TD; -LIDO5DIS41 TD; -PRAV40TA2 PO; +PRAV40TA85 PO; -PRAV80TA2 PO; +PRAV80TA75 PO
[2024-10-26 11:03] LABS: BASO # 0.0 10^3/uL (0.0-0.2); BASO % 0.4 % (0.0-1.0); EOS # 0.1 10^3/uL (0.0-0.5); EOS % 2.0 % (0.0-3.0); LYMPH # 1.5 10^3/uL (1.5-5.0); LYMPH % 27.5 % (24.0-44.0); MONO # 0.5 10^3/uL (0.0-0.8); MONO % 8.8 % (2.0-8.0); NEUTROPHILS # 3.3 10^3/uL (1.5-8.5); NEUTROPHILS % 60.8 % (36.0-66.0); PLATELET COUNT, AUTOMATED 160 10^3/uL (150-450)
[2024-10-26 11:31] LABS: ALT/SGPT 34 U/L (7.0-40); AST/SGOT 29 U/L (<34); CALCIUM LEVEL 8.8 MG/DL (8.3-10.6); CARBON DIOXIDE LEVEL 28 MMOL/L (20-31); CHLORIDE LEVEL 101 MMOL/L (98-107); CREATININE FOR GFR 0.89 MG/DL (0.70-1.30); GLOMERULAR FILTRATION RATE > 90.0 (>49); IRON (FE) 88 UG/DL (65-175); POTASSIUM SERUM 3.8 MMOL/L (3.5-5.1); SODIUM LEVEL 141 MMOL/L (136-145)
== END ==
LOC: M LAB 08:08
PROVIDERS: ATTEND Family Medicine
DX: D50.0 Iron deficiency anemia secondary to blood loss (chronic) (principal); R19.7 Diarrhea, unspecified

== ENCOUNTER → 2024-10-31 | Outpatient (REF) | payer OTHER | LOC: M SFHCPLAZ 15:18 | PROVIDERS: ATTEND Family Medicine | DX: L72.11 Pilar cyst (principal) ==

== ENCOUNTER 2024-12-11 12:53 | Outpatient (CLI) | payer OTHER ==
[~2024-12-11] VITALS: Ht 162.6 cm; Wt 89.8 kg
[~2024-12-11 12:53] MED LIST changes: +ALBUTEROL SULFATE 2.5 MG/0.5 ML INH CONCENTRATE NEB SOLN INH PRN; +EPINEPHrine INJ 1 MG/ML 1ML AMP IM PRN; +diphenhydrAMINE 50 MG/ML VIAL IV PRN
[2024-12-11 13:20] VITALS: BP 151/88; O2SAT 96
[2024-12-11] MEDS: ACETAMINOPHEN 325 MG TAB PO ONE (13:27)
[2024-12-11] MEDS: IRON SUCROSE 200MG IVP IV ONE (13:42)
[2024-12-11 14:15] VITALS: BP 139/77; O2SAT 96
== END 2024-12-11 14:15 | disposition home or self-care (01) ==
LOC: M INFU 12:53
PROVIDERS: ATTEND Student in an Organized Health Care Education/Training Program
DX: D50.0 Iron deficiency anemia secondary to blood loss (chronic) (principal); Z88.8 Allergy status to other drugs, medicaments and biological substances; Z91.048 Other nonmedicinal substance allergy status
CPT/HCPCS: 96374; J1756

== ENCOUNTER → 2024-12-11 | Outpatient (CLI) | payer OTHER ==
[~2024-12-11] MED LIST changes: -EZET10TA21 PO; +EZET10TA57 PO
== END ==
LOC: M EKG 15:02
PROVIDERS: ATTEND Anesthesiology
DX: Z01.818 Encounter for other preprocedural examination (principal)

== ENCOUNTER 2024-12-13 12:47 | Outpatient (CLI) | payer OTHER ==
[~2024-12-13 12:47] MED LIST changes: -ACETAMINOPHEN 650 MG PO ONE; -ALBUTEROL SULFATE 2.5 MG/0.5 ML INH CONCENTRATE NEB SOLN INH PRN; -EPINEPHrine INJ 1 MG/ML 1ML AMP IM PRN; -diphenhydrAMINE 50 MG/ML VIAL IV PRN
== END 2024-12-13 14:40 | disposition home or self-care (01) ==
LOC: M LAB 12:47
PROVIDERS: ATTEND Physician Assistant
DX: Z12.5 Encounter for screening for malignant neoplasm of prostate (principal)

== ENCOUNTER → 2024-12-13 | Outpatient (CLI) | payer OTHER ==
[~2024-12-13] VITALS: Ht 162.6 cm; Wt 90.6 kg
[~2024-12-13] MED LIST changes: +ACETAMINOPHEN 650 MG PO ONE
[2024-12-13 13:05] VITALS: BP 122/74; O2SAT 95
[2024-12-13] MEDS: IRON SUCROSE 200 MG IVP IV ONE (13:44)
[2024-12-13 14:40] VITALS: BP 116/68; O2SAT 97
== END ==
LOC: M INFU 12:43
PROVIDERS: ATTEND Student in an Organized Health Care Education/Training Program
DX: D50.0 Iron deficiency anemia secondary to blood loss (chronic) (principal); Z88.8 Allergy status to other drugs, medicaments and biological substances; Z12.5 Encounter for screening for malignant neoplasm of prostate
CPT/HCPCS: 96374; J1756

== ENCOUNTER 2024-12-16 12:43 | Outpatient (CLI) | payer OTHER ==
[~2024-12-16] VITALS: Ht 162.6 cm; Wt 90.6 kg
[~2024-12-16 12:43] MED LIST changes: +ALBUTEROL SULFATE 2.5 MG/0.5 ML INH CONCENTRATE NEB SOLN INH PRN; +EPINEPHrine INJ 1 MG/ML 1ML AMP IM PRN; +diphenhydrAMINE 50 MG/ML VIAL IV PRN
[2024-12-16] MEDS: IRON SUCROSE 200MG IVP IV ONE (13:13)
[2024-12-16 13:15] VITALS: BP 130/67; O2SAT 96
[2024-12-16] MEDS: ACETAMINOPHEN 650MG PO PRIOR TO INFUSION PO ONE (13:15)
[2024-12-16] MEDS: diphenhydrAMINE 25MG PO PRIOR TO INFUSION PO ONE (13:15)
[2024-12-16 14:08] VITALS: BP 131/72; O2SAT 96
== END 2024-12-16 14:10 ==
LOC: M INFU 12:43
PROVIDERS: ATTEND Student in an Organized Health Care Education/Training Program
DX: D50.0 Iron deficiency anemia secondary to blood loss (chronic) (principal); Z88.8 Allergy status to other drugs, medicaments and biological substances; Z91.09 Other allergy status, other than to drugs and biological substances
CPT/HCPCS: 96374; J1756

== ENCOUNTER → 2024-12-17 | Outpatient (CLI) | payer OTHER ==
[~2024-12-17] MED LIST changes: -ALBUTEROL SULFATE 2.5 MG/0.5 ML INH CONCENTRATE NEB SOLN INH PRN; -EPINEPHrine INJ 1 MG/ML 1ML AMP IM PRN; -diphenhydrAMINE 50 MG/ML VIAL IV PRN
== END ==
LOC: M RAD 15:29
PROVIDERS: ATTEND Family Medicine
DX: M54.2 Cervicalgia (principal); M47.812 Spondylosis without myelopathy or radiculopathy, cervical region; M25.78 Osteophyte, vertebrae

== ENCOUNTER 2024-12-18 13:02 | Outpatient (CLI) | payer OTHER ==
[~2024-12-18] VITALS: Ht 162.6 cm; Wt 90.6 kg
[~2024-12-18 13:02] MED LIST changes: +ALBUTEROL SULFATE 2.5 MG/0.5 ML INH CONCENTRATE NEB SOLN INH PRN; +EPINEPHrine INJ 1 MG/ML 1ML AMP IM PRN; +diphenhydrAMINE 50 MG/ML VIAL IV PRN
[2024-12-18 13:10] VITALS: BP 139/74; O2SAT 99
[2024-12-18] MEDS: diphenhydrAMINE 25MG PO PRIOR TO INFUSION PO ONE (13:21)
[2024-12-18] MEDS: ACETAMINOPHEN 650MG PO PRIOR TO INFUSION PO ONE (13:21)
[2024-12-18] MEDS: IRON SUCROSE 200MG IVP IV ONE (13:28)
[2024-12-18 14:55] VITALS: BP 142/82; O2SAT 97
== END 2024-12-18 14:55 ==
LOC: M INFU 13:02
PROVIDERS: ATTEND Student in an Organized Health Care Education/Training Program
DX: D50.0 Iron deficiency anemia secondary to blood loss (chronic) (principal); Z88.8 Allergy status to other drugs, medicaments and biological substances; Z91.09 Other allergy status, other than to drugs and biological substances
CPT/HCPCS: 96374; 96375; J1756; J2919

== ENCOUNTER 2024-12-20 12:48 | Outpatient (CLI) | payer OTHER ==
[~2024-12-20] VITALS: Ht 162.6 cm; Wt 89.8 kg
[2024-12-20] MEDS: diphenhydrAMINE 25MG PO PRIOR TO INFUSION PO ONE (12:56)
[2024-12-20] MEDS: ACETAMINOPHEN 650MG PO PRIOR TO INFUSION PO ONE (12:56)
[2024-12-20 13:08] VITALS: BP 136/68; O2SAT 96
[2024-12-20] MEDS: IRON SUCROSE 200 MG IVP IV ONE (13:15)
[2024-12-20 13:51] VITALS: BP 130/78; O2SAT 96
== END 2024-12-20 13:55 | disposition home or self-care (01) ==
LOC: M INFU 12:48
PROVIDERS: ATTEND Student in an Organized Health Care Education/Training Program
DX: D50.0 Iron deficiency anemia secondary to blood loss (chronic) (principal); Z88.8 Allergy status to other drugs, medicaments and biological substances; Z91.09 Other allergy status, other than to drugs and biological substances
CPT/HCPCS: 96374; J1756

== ENCOUNTER 2024-12-25 06:50 | Day surgery (SDC) | payer OTHER ==
[~2024-12-25] VITALS: Ht 162.6 cm; Wt 89.6 kg
[~2024-12-25 06:50] MED LIST changes: -ALBUTEROL SULFATE 2.5 MG/0.5 ML INH CONCENTRATE NEB SOLN INH PRN; -EPINEPHrine INJ 1 MG/ML 1ML AMP IM PRN; -diphenhydrAMINE 50 MG/ML VIAL IV PRN
[2024-12-25] MEDS ORDERED: LR 1,000 ML IV SCH (07:50)
[2024-12-25] MEDS ORDERED: LIDOCAINE 1% SDV 5 ML VIAL SC PRN (07:50)
[2024-12-25] MEDS ORDERED: MIDAZOLAM INJ 2 MG/2 ML VIAL As Ordered ONE (08:08)
[2024-12-25] MEDS ORDERED: LIDOCAINE 2% 100 MG/5 ML SDV (FOR ANES.) As Ordered ONE (08:08)
[2024-12-25] MEDS ORDERED: PROPOFOL 1,000 MG/100 ML VIAL As Ordered ONE (08:08)
[2024-12-25] MEDS: ceFAZolin SOD 2 GM IV ONCE IV ONE (09:15)
[2024-12-25] MEDS: LIDOCAINE 1% MDV 20 ML VIAL As Ordered ONE (09:22)
[2024-12-25] MEDS ORDERED: ACETAMINOPHEN 1000MG/100ML IV BAG As Ordered ONE (09:28)
[2024-12-25 10:30] VITALS: BP 112/69; TEMP 97; O2SAT 95
== END 2024-12-25 10:50 | disposition home or self-care (01) ==
LOC: M SDC 06:50
PROVIDERS: ATTEND Podiatrist Foot & Ankle Surgery
DX: M96.0 Pseudarthrosis after fusion or arthrodesis (principal); T84.84XA Pain due to internal orthopedic prosthetic devices, implants and grafts, initial encounter; Y79.2 Prosthetic and other implants, materials and accessory orthopedic devices associated with adverse incidents; G62.9 Polyneuropathy, unspecified; K74.60 Unspecified cirrhosis of liver; K76.0 Fatty (change of) liver, not elsewhere classified; E78.00 Pure hypercholesterolemia, unspecified; Z79.899 Other long term (current) drug therapy; Z85.46 Personal history of malignant neoplasm of prostate; F41.9 Anxiety disorder, unspecified; F32.A Depression, unspecified; K21.9 Gastro-esophageal reflux disease without esophagitis; Z88.8 Allergy status to other drugs, medicaments and biological substances; Z87.891 Personal history of nicotine dependence
CPT/HCPCS: 20680; 28740; 76000; C1713; J0131; J0665; J0688; J2250; J3010

== ENCOUNTER → 2025-01-24 | Outpatient (CLI) | payer OTHER | LOC: M SOG 07:36 | PROVIDERS: ATTEND Orthopaedic Surgery Hand Surgery | DX: M79.642 Pain in left hand (principal) ==

== ENCOUNTER → 2025-03-13 | Outpatient (CLI) | payer OTHER ==
[~2025-03-13] MED LIST changes: +ACET-1387 PO; -ACET-1593 PO
[2025-03-13 16:32] LABS: PLATELET COUNT, AUTOMATED 163 10^3/uL (150-450)
[2025-03-13 17:13] LABS: INR 1.12
[2025-03-13 18:01] LABS: COLLAGEN EPINEPHRINE 137 SECONDS (74-162)
== END ==
LOC: M LAB 15:45
PROVIDERS: ATTEND Physical Medicine & Rehabilitation
DX: Z01.818 Encounter for other preprocedural examination (principal)